=== PATIENT | female | born 1985 ===

== ENCOUNTER → 2020-10-15 13:10 | Outpatient (BNVA) | payer MEDICAID, SELFPAY | PROVIDERS: PCP Internal Medicine; Visit Provider Obstetrics & Gynecology | DX: Z30.09 Encounter for other general counseling and advice on contraception (principal) | CPT/HCPCS: 99212 ==

== ENCOUNTER 2022-06-02 10:39 | Emergency (ER) | payer MEDICAID, SELFPAY ==
--- NOTE | 2022-06-02 | ECG_ITS ---
Test Reason : CHEST PAIN Blood Pressure : / mmHG Vent. Rate : 084 BPM Atrial Rate : 084 BPM P-R Int : 134 ms QRS Dur : 076 ms QT Int : 366 ms P-R-T Axes : 048 028 025 degrees QTc Int : 432 ms Normal sinus rhythm Normal ECG When compared with ECG of 19-FEB-2015 18:25, No significant change was found Referred By: Generic ED Physician Electronically Signed By:GABY VILLAFANA MD
--- NOTE | ~2022-06-02 | XR_ITS ---
EXAMINATION: XR CHEST CLINICAL INFORMATION: Chest pain. COMPARISON: 05/23/2016 chest radiographs. TECHNIQUE: 2 views of the chest were obtained. FINDINGS: No significant abnormality is noted involving the heart, lungs, mediastinum, bony thorax or soft tissues. XR/XR chest 2V IMPRESSION: No acute cardiopulmonary process.
[2022-06-02 10:42] VITALS: BP 133/74; PULSE 83; O2SAT 99
[2022-06-02 11:20] VITALS: BP 149/89; PULSE 82; RESP 20; TEMP 36.3; O2SAT 99; BMI 38.0
[2022-06-02] MEDS: Ondansetron ODT 4 MG TAB.RAPDIS TRANSLINGU (11:26)
[2022-06-02 17:35] LABS: MANUAL DIFF FLAG NO
[2022-06-02 17:37] LABS: Basophils Percent Auto 0.5 % (0-2); Eosinophils Percent Auto 0.2 % (0-4); Hematocrit 37.2 % (37.0-47.0); Hemoglobin 12.4 g/dl (12.0-16.0); Imm Gran Abs Auto 0.01 X10*3/uL (0.00-0.03); Imm Gran Pct Auto 0.2 % (0.0-0.4); Lymphocytes Absolute Auto 1.5 X10*3/uL (1.2-4.9); Lymphocytes Percent Auto 35.6 % (20-40); Mean Corpuscular HGB Conc 33.3 g/dl (31.0-35.0); Mean Corpuscular Hemoglobin 29.2 pg (27.0-33.0); Mean Corpuscular Volume 87.5 fL (80.0-98.0); Mean Platelet Volume 9.9 fL (9.4-12.3); Monocytes Absolute Auto 0.4 X10*3/uL (0.1-1.2); Neutrophils Absolute Auto 2.4 x10*3/uL (2.0-8.3); Neutrophils Percent Auto 54.5 % (45-73); Platelet Count 303 X10*3/uL (160-400); Red Blood Count 4.25 X10*6/uL (4.20-5.50); Red Cell Distribution Width 14.2 % (11.0-16.0); White Blood Count 4.3 X10*3/uL (4.8-10.8)
[2022-06-02 17:55] LABS: Anion Gap 16 (12-20); Blood Urea Nitrogen 7 mg/dL (9-16); Calcium 9.3 mg/dL (8.4-10.2); Carbon Dioxide 22 mmol/L (22-29); Chloride 107 mmol/L (96-108); Creatinine Clr Calc Pharmacy 104.8; Estimated Glomerular Filt Rate > 60; Glucose Random 83 mg/dL (60-115); Sodium 141 mmol/L (135-145)
[2022-06-02 18:02] LABS: Troponin-I High Sensitivity < 3.5 ng/L (<3.5-17.0)
== END 2022-06-02 22:45 | disposition left against medical advice (07) ==
PROVIDERS: Emergency Provider Emergency Medicine; PCP Internal Medicine
DX: R07.9 Chest pain, unspecified (principal); R11.10 Vomiting, unspecified; H53.8 Other visual disturbances; I10 Essential (primary) hypertension
CPT/HCPCS: 36415; 71046; 80048; 84484; 85025; 93005; 99281; 99283

== ENCOUNTER → 2022-07-08 09:39 | Outpatient (BNVA) | payer MEDICAID, SELFPAY | PROVIDERS: PCP Internal Medicine; Visit Provider Internal Medicine Cardiovascular Disease | DX: R07.9 Chest pain, unspecified (principal) | CPT/HCPCS: 99202 ==

== ENCOUNTER 2022-07-15 09:10 | Outpatient (REF) | payer MEDICAID, SELFPAY ==
[2022-07-15 09:59] LABS: Estimated Average Glucose 97 mg/dL; Hemoglobin A1C 112.8314 umol/L
[2022-07-15 10:25] LABS: Cholesterol 200 mg/dL; Glucose Fasting 121 mg/dL (60-99); HDL Cholesterol 62 mg/dL; LDL Cholesterol Calculated 114 mg/dl; Triglycerides 123 mg/dL
[2022-07-17 13:02] LABS: CRP High Sensitivity 4.7 mg/L
== END 2022-07-15 09:11 | disposition home or self-care (01) ==
LOC: HO.LAB 09:10
PROVIDERS: PCP Internal Medicine; Visit Provider Internal Medicine Cardiovascular Disease
DX: E78.5 Hyperlipidemia, unspecified (principal); I25.10 Atherosclerotic heart disease of native coronary artery without angina pectoris; I10 Essential (primary) hypertension
CPT/HCPCS: 36415; 80061; 82947; 83036; 86141

== ENCOUNTER → 2022-07-31 09:25 | Outpatient (REF) | payer MEDICAID, SELFPAY ==
--- NOTE | 2022-07-31 09:28 | CA_ITS ---
Acquisition Time: 2022-07-31 10:51:48 Total Exercise Time: 00:07:32 Test Indications: CP Medications: LISINOPRIL Protocol: MARQUISE Max HR: 160 BPM 86% of Pred: 185 BPM Max BP: 144/084 mmHG Max Work Load: 9.3 METS Exercise stress test with exrercise 7 min 32 sec of Marquise protocol, achieving 86% MPHR, 9.3 METS, with fatigue and request to stop, without anginal symptoms, without arrythmia, with normotensive response to exercise, without EKG changes meeting criteria for ischemia. Test reviewed with Dr Ruiz Referred By: Cain Bundy Overread By: GRACE MCLAIN
--- NOTE | 2022-07-31 09:28 | CA_ITS ---
Transthoracic Echocardiogram Patient (Last, First, Middle): Rena Marsh, Gender: Female Date of : 1985 Age: 36 Procedure Date: 07/31/2022 Procedure Type: Transthoracic Echocardiogram Location: OP Height: 149.86 cm Weight: 86.18 kg BSA: 1.80 m2 Heart Rate: bpm BP: 130 / 70 mmHg Reed Worker: TO Referring MD: Cain Bundy MD Symptoms: R07.9 - Chest pain, unspecified Study Quality: Fair/Contrast ECG Rhythm: Sinus Conclusions: - The left ventricular systolic function is normal. The calculated ejection fraction is 61% by biplane method. - No obvious valvular pathology seen on this study. Findings Procedure Information Contrast agent, definity, is being given per protocol without apparent complications. Left Ventricle Normal left ventricular cavity size. There is normal left ventricular wall thickness. The left ventricular systolic function is normal. The calculated ejection fraction is 61% by biplane method. There is no evidence of regional wall motion abnormalities. Diastolic function is normal for age. Right Ventricle Normal right ventricular cavity size and systolic function. Atria Both atria are normal in size. Aortic Valve There is a normal trileaflet aortic valve. There is no aortic valve stenosis. There is no aortic valve regurgitation. Mitral Valve The mitral valve appears normal. There is trace mitral valve regurgitation. There is no mitral valve stenosis. Pulmonic Valve The pulmonic valve is likely normal. Tricuspid Valve Normal tricuspid valve structure. There is trace tricuspid valve regurgitation. There is no evidence of pulmonary hypertension. Great Vessels The asc aorta is normal in size. Venous The inferior vena cava is normal in size and collapses greater than 50% with inspiration. Pericardium/Pleural There is a trivial pericardial effusion. Prior Study Comparison No prior study available for comparison. Recommendations, Care & Conclusions No obvious valvular pathology seen on this study. Measurements 2D Linear Measurements IVSd: 0.98 0.6-0.9/0.6-1.0 cm LVIDd: 4.42 3.9-5.3/4.2-5.9 cm LVIDd Index: 2.46 2.4-3.2/2.2-3.1 cm/m2 LVIDs: 2.89 2.0-3.6 cm LVPWd: 0.83 0.7-1.1 cm LA Diam: 3.40 2.7-3.8/3.0-4.0 cm LAIDs Index: 1.89 1.5-2.3 cm/m2 LV Mass: 160.95 67-162/88-224 g LV Mass Index: 89.41 43-95/49-115 g/m2 LVOT Diam: 2.00 3.0+(-)1.3 cm 2D Systolic Function EF 4C: 62.80 >55% EF 2C: 59.70 >55% EF BiP: 60.70 >55% Mitral Valve MV Pk E: 0.76 MV PK A: 0.52 MV Decel Time: 201.00 E/A: 1.50 E'Lateral: 11.40 E'Medial: 7.62 E/E' Med: 10.00 E/E' Lat: 6.70 PHT: 59.00 MVA PHT: 3.73 Decel Tarrant: 3.79 Aortic Valve AoV Pk Zack: 1.21 AoV Mn Zack: 0.86 AoV VTI: 0.27 AoV Pk Grad: 6.00 Aov Mn Grad: 3.00 LUIGI Cont.VTI: 2.43 LVOT LVOT Pk Zack: 1.06 LVOT Mn Zack: 0.69 LVOT VTI: 0.21 LVOT Pk Grad: 4.00 LVOT Mn Grad: 2.00 LVOT Diam: 2.00 LVOT Area: 3.14 Diastolic Function MV Pk E: 0.76 MV Pk A: 0.52 E/A: 1.50 E'Medial: 7.62 E/E' Med: 10.00 E' Laterial: 11.40 E/E' Lat: 6.70 Right Ventricle TAPSE (mm): 19.20 TVS' Zack: 11.70 Tricuspid Valve TR Pk Zack: 1.79 TR Pk Grad: 13.00 RA Press: 3.00 RVSP: 16.00 Great Vessels Aorta Sinus of Valsalva: 2.70 2.0-3.5 cm Ao Asc: 2.40 2.1-3.4 cm Updated in Other Vendor System with Status of Final Sharad Ruiz MD electronically signed on 08/01/2022 3:27:04 PM with status of Final
== END ==
LOC: HO.CARD 09:25
PROVIDERS: PCP Internal Medicine; Visit Provider Internal Medicine Cardiovascular Disease
DX: R07.9 Chest pain, unspecified (principal)
CPT/HCPCS: 93017; 93306; Q9957

== ENCOUNTER → 2022-08-19 10:11 | Outpatient (BNVA) | payer MEDICAID, SELFPAY | PROVIDERS: PCP Internal Medicine; Referring Provider Internal Medicine; Visit Provider Internal Medicine Cardiovascular Disease | DX: I10 Essential (primary) hypertension (principal) | CPT/HCPCS: 99212 ==

== ENCOUNTER → 2023-02-22 11:27 | Outpatient (BNVA) | payer MEDICAID, SELFPAY | PROVIDERS: PCP Internal Medicine; Visit Provider Physician Assistant ==

== ENCOUNTER 2023-03-19 08:02 | Outpatient (AMB) | payer MEDICAID, SELFPAY ==
--- NOTE | 2023-03-19 10:08 | MHC.OFFVISWM ---
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 Allergies amoxicillin [AMOXICILLIN] Allergy (Unknown, Verified 03/19/23 10:09) UNKNOWN, hives aspirin [ASPIRIN] Allergy (Unknown, Verified 03/19/23 10:09) HIVES, rash ibuprofen [Motrin] Allergy (Unknown, Verified 03/19/23 10:09) unk lisinopril Adverse Reaction (Mild, Verified 03/19/23 10:09) Cough Medication List - Last Reconciled 03/19/23 by Barney Campbell MD [id number] 50-325-40 mg 1 - 2 tabs PO Q4H PRN ergocalciferol (vitamin D2) 1,250 mcg PO QWEEK valsartan 320 mg PO DAILY 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 HPI Details Start time: 10.00am, End time: 10.38am ?I spent 33 minutes speaking with the patient on the phone plus an additional 5 minutes reviewing and updating records for a total of 38 minutes HPI Comments History of Present Illness Details Previous weight loss efforts: self diet and exercise Wakes up: 7am, sleeps: 9pm Breakfast: skips Lunch: 12-1pm (rice, beans, chicken) Dinner: sometimes skips 7.30pm (same as lunch) Snacks: 4pm (brownie), or a protein bar Exercise: walking, has a home treadmill Fluids: coffee: 1 cup/day (creamer), tea: none, soda: none, juice: cranberry/apple juice, ETOH: none PFSH Medical History (Updated 03/19/23 @ 10:12 by Barney Campbell MD) Back pain Hx LEEP (loop electrosurgical excision procedure), cervix, Hypertension Migraines Morbid obesity Surgical History H/O abdominoplasty Hx of breast reduction, elective Family History Mother Hypertension Diabetes Maternal Grandmother No problems noted. Social History Alcohol intake: current Alcohol intake frequency: a few times a week Alcohol type: beer Female Reproductive History Menstrual Age of Menarche: 10 Assessment & Plan Assessment & Plan (1) Morbid obesity: Code(s): E66.01 - Morbid (severe) obesity due to excess calories Plan: 1.? Plan for lap sleeve gastrectomy. If diaphragmatic or ventral hernias are present at time of surgery, these will be repaired laparoscopically as well. Risks and complications were discussed in detail including possible conversion to an open procedure, anastomotic leak, bleeding requiring transfusion, small bowel obstruction, , DVT and pulmonary embolism, cardiac, or pulmonary complications, as senior care complications such as anastomotic ulcer, insufficient weight loss and vitamin deficiencies. I emphasized the importance of close follow-up, adherence to instructions and good communication. 2. Nutritional counseling. Start with ONE plant-based organic Orgain protein (buy at [employer], [employer], [employer], [employer]) shakes (HALF scoop in 8oz low fat unsweetened almond milk each) at 8am-10am, another Orgain protein shake (ONE scoop in 8oz almond milk) at 11am-1pm, 1 protein bar (Zone Perfect protein bars, buy at [employer], ?[employer], [employer], or [employer]) at 2pm-4pm, dinner at 5pm (8 forks of protein and 8 forks of salad/vegetables) and one more protein bar after dinner at 7pm-9pm. Meal to include lean meat (beef, fish, pork, turkey, chicken), or polish yogurt, or egg whites, or beans with a salad with olive oil and fruits (berries, pears, apples, kiwi). Avoid salt, breads, potatoes, rice, pasta, desserts. 3. Each shake would be drunk slowly, like coffee in a period of 2 hours. May add your coffee into the shakes if flavors match. 4. Cut each bar in 4 pieces and eat each piece in 30min ?to make each bar last 2 hours. 5. I emphasized the importance of measuring accurately the food portion and measure it when serving the food in plate 6. The meal portions include 8 full-size forks of meat and 8 full-size forks of salad. You always eat the meat portion but you can replace up to 4 forks for salad/vegetables with rice, potatoes or pasta, or a fruit ?if you like. The less you do it the better weight loss will be. 7. One full-size fork is what it can be scooped on the fork without falling aside and not what can be bit with the fork. Use regular forks like those you find in a typical restaurant. 8.? Please send me weight measurements as soon as possible and then once a week. Always include your diet and exercise plan. 9. Start treadmill with an incline of 2.0 and speed of 3.0. Increase incline by 1 every 3 min to a max incline of 8.0, stay 3min at 8.0 and then return to 2.0 and repeat same steps until calorie goal is met. Goal is to burn 2000 calories per week on exercise, which means either 300 calories daily, or 400 calories 5 days per week, or 500 calories 4 days per week, or 650 calories 3 days per week. 10.?It is important of avoiding and for at least 18 months postoperatively and has been discussed at the infosession. 11. Goal is to lose at least 1.5-2lbs per week 12. Goal to lose 10% of your weight before surgery, which is about 20lbs. Ultimate weight goal: 186lbs before surgery 13. Please follow the diet plan exactly without any change. If you don't like something about the plan or you feel hungry you need to communicate with me so I can help you revise the plan. You should not change the plan yourself. (2) Hypertension: Code(s): I10 - Essential (primary) hypertension Orders: Orders Vitamin B12 and Folate Today E66.01 - Morbid (severe) obesity due to excess calories, I10 - Essential (primary) hypertension Comprehensive Met. Panel Today E66.01 - Morbid (severe) obesity due to excess calories, I10 - Essential (primary) hypertension C Reactive Protein Today E66.01 - Morbid (severe) obesity due to excess calories, I10 - Essential (primary) hypertension Ferritin Today E66.01 - Morbid (severe) obesity due to excess calories, I10 - Essential (primary) hypertension Hemoglobin A1c Today E66.01 - Morbid (severe) obesity due to excess calories, I10 - Essential (primary) hypertension Insulin Today E66.01 - Morbid (severe) obesity due to excess calories, I10 - Essential (primary) hypertension IRON PROFILE Today E66.01 - Morbid (severe) obesity due to excess calories, I10 - Essential (primary) hypertension Lipid Panel Today E66.01 - Morbid (severe) obesity due to excess calories, I10 - Essential (primary) hypertension PTHI Today E66.01 - Morbid (severe) obesity due to excess calories, I10 - Essential (primary) hypertension TSH reflex Free T4 Today E66.01 - Morbid (severe) obesity due to excess calories, I10 - Essential (primary) hypertension Vitamin A Today E66.01 - Morbid (severe) obesity due to excess calories, I10 - Essential (primary) hypertension Vitamin B1 Today E66.01 - Morbid (severe) obesity due to excess calories, I10 - Essential (primary) hypertension Vitamin D 25-OH Total Today E66.01 - Morbid (severe) obesity due to excess calories, I10 - Essential (primary) hypertension Zinc Today E66.01 - Morbid (severe) obesity due to excess calories, I10 - Essential (primary) hypertension ECG 12 lead EKG Today E66.01 - Morbid (severe) obesity due to excess calories, I10 - Essential (primary) hypertension FL upper GI w air Today E66.01 - Morbid (severe) obesity due to excess calories, I10 - Essential (primary) hypertension Complete Blood Count Auto Diff Today E66.01 - Morbid (severe) obesity due to excess calories, I10 - Essential (primary) hypertension H Pylori Breath Test Today E66.01 - Morbid (severe) obesity due to excess calories, I10 - Essential (primary) hypertension US abdomen comp w elastography Today E66.01 - Morbid (severe) obesity due to excess calories, I10 - Essential (primary) hypertension XR chest 2V Today E66.01 - Morbid (severe) obesity due to excess calories, I10 - Essential (primary) hypertension Referrals Behavioral Health Referral E66.01 - Morbid (severe) obesity due to excess calories, I10 - Essential (primary) hypertension Nutrition/Dietitian Referral E66.01 - Morbid (severe) obesity due to excess calories, I10 - Essential (primary) hypertension Telehealth Telehealth Location of provider rendering services: practice address Location of patient: address on file Patient Identification confirmed using: Name, : Yes Telehealth method: voice only Patient verbally consented to treatment: Yes Patient verbally consented to billing insurance company: Yes Patient informed of any privacy concerns related to visit: Yes Minutes spent on Phone/Video with Pt.: 38 Coding Level of Care Code Tele New Pt Level 3 (22997) Diagnoses Morbid obesity E66.01 Hypertension I10 Time Spent (min) 38
[2023-03-19 10:16] VITALS: BMI 41.6
== END 2023-03-19 10:39 | disposition home or self-care (01) ==
PROVIDERS: PCP Internal Medicine; Visit Provider Surgery
DX: E66.01 Morbid (severe) obesity due to excess calories (principal); Z68.41 Body mass index [BMI] 40.0-44.9, adult
CPT/HCPCS: 99204

== ENCOUNTER → 2023-03-19 08:02 | Outpatient (BNVA) | payer MEDICAID, SELFPAY | PROVIDERS: PCP Internal Medicine; Visit Provider Surgery ==

== ENCOUNTER 2023-06-14 18:34 | Emergency (ER) | payer MEDICAID, SELFPAY ==
--- NOTE | ~2023-06-14 | XR_ITS ---
EXAMINATION: XR CHEST 2 VIEW CLINICAL INFORMATION: Cough COMPARISON: 06/02/2022 TECHNIQUE: PA and lateral views of the chest obtained. FINDINGS: The lungs are clear. There are no pleural effusions. The cardiomediastinal silhouette is normal. XR/XR chest 2V IMPRESSION: No acute cardiopulmonary disease.
--- NOTE | 2023-06-14 18:36 | ECG_ITS ---
Test Reason : CHEST PAIN Blood Pressure : / mmHG Vent. Rate : 084 BPM Atrial Rate : 084 BPM P-R Int : 146 ms QRS Dur : 076 ms QT Int : 356 ms P-R-T Axes : 037 012 009 degrees QTc Int : 420 ms Normal sinus rhythm Normal ECG When compared with ECG of 02-JUN-2022 11:23, No significant change was found Referred By: Generic ED Physician Electronically Signed By:GABY VILLAFANA MD
[2023-06-14 18:37] VITALS: BP 144/82; PULSE 95; RESP 16; TEMP 36; O2SAT 98; BMI 41.8
--- NOTE | 2023-06-14 18:37 | ED_ITS ---
HPI - General Adult General Chief complaint: Chest Pain Stated complaint: chest pain Time Seen by Provider: 06/14/23 19:55 Source: patient Mode of arrival: ambulatory Limitations: no limitations History of Present Illness HPI narrative: Patient is a 37 year old assigned female at with a history of HTN presenting to the emergency department today with persistent cough. Patient states that over the last 2 weeks she has had a persistent cough and pain in her chest after coughing. Patient denies any dizziness, lightheadedness, abdominal pain, nausea, vomiting, fever, chills, blurry vision, double vision, loss of vision, difficulty breathing, shortness of breath, back pain, night sweats, pain with urination, increased urinary frequency, increased urinary urgency, blood in her urine or stool, syncope or a near syncopal episode, recent trauma or falls, bowel incontinence, bladder incontinence, bowel retention, bladder retention, or any other complaints at this time. Onset (ago): week(s) (2) Severity: mild Severity scale (1-10): 3 Relieving factors: none Exacerbating factors: none Associated symptoms: cough Treatments prior to arrival: none Related Data Home Medications Medication Instructions Recorded Confirmed ergocalciferol (vitamin D2) 1,250 1,250 mcg PO QWEEK 10/15/20 03/19/23 mcg (50,000 unit) capsule sozdlcmyqi-dfrojrmaffbby-cbxhqjgj 1 - 2 tab PO Q4H PRN 08/19/22 03/19/23 50 mg-325 mg-40 mg tablet Previous Rx's Medication Instructions Recorded valsartan 320 mg tablet 320 mg PO DAILY #30 tabs 08/19/22 albuterol sulfate 90 mcg/actuation 1 inh inhalation QID PRN 06/14/23 aerosol inhaler bronchospasm #8.5 grams benzonatate 100 mg capsule 100 mg PO BID PRN cough 7 days #14 06/14/23 caps doxycycline hyclate 100 mg tablet 100 mg PO BID 7 days #14 tabs 06/14/23 prednisone 20 mg tablet 20 mg PO DAILY 7 days #7 tabs 06/14/23 Allergies Allergy/AdvReac Type Severity Reaction Status Date / Time amoxicillin [AMOXICILLIN] Allergy Unknown UNKNOWN, Verified 03/19/23 10:09 hives aspirin [ASPIRIN] Allergy Unknown HIVES, rash Verified 03/19/23 10:09 ibuprofen [Motrin] Allergy Unknown unk Verified 03/19/23 10:09 lisinopril AdvReac Mild Cough Verified 03/19/23 10:09 Review of Systems Constitutional: Constitutional: Reports no additional constitutional complaints, Denies chills, Denies fever(s) and Denies night sweats Eyes: Eyes: Reports no additional eye complaints, Denies blurry vision, Denies change in vision, Denies diplopia, Denies eye discharge, Denies loss of vision and Denies eye pain ENT: Denies dizziness Cardiovascular: Cardiovascular: Reports no additional cardiovascular complaints, Reports chest pain (after coughing), Denies lightheadedness, Denies Loss of Consciousness and Denies dyspnea Respiratory: Respiratory: Reports no additional respiratory complaints, Reports cough and Denies dyspnea Gastrointestinal: Gastrointestinal: Reports no additional gastrointestinal complaints, Denies abdominal pain, Denies melena, Denies hematochezia, Denies change in bowel habits and Denies change in stool character Genitourinary: Genitourinary: Denies hematuria, Denies urinary frequency, Denies dysuria, Denies urinary incontinence, Denies urinary hesitancy and Denies urinary urgency Musculoskeletal: Musculoskeletal: Reports no additional musculoskeletal complaints, Denies numbness and Denies tingling Neurologic: Denies dizziness, Denies loss of vision, Denies numbness and Denies tingling Psychiatric: Psychiatric: Reports no additional psychiatric complaints Endocrine: Endocrine: Reports no additional endocrine complaints Hematologic/Lymphatic: Hematologic/Lymphatic: Reports no additional hematologic/lymphatic complaints Allergic/Immunologic: Allergic/Immunologic: Reports no additional allergic/immunologic complaints [facility] Past Medical History Attestation statement: The following information was validated with the patient. Source: old records reviewed and nursing notes reviewed Medical History Chest pain Family planning Back pain Migraines Morbid obesity Hx LEEP (loop electrosurgical excision procedure), cervix, Hypertension Surgical History Hx of breast reduction, elective H/O abdominoplasty Family History Family History Mother Hypertension Diabetes Maternal Grandmother No problems noted. Social History Social History Alcohol intake: current Alcohol intake frequency: a few times a week Alcohol type: beer Advance Directives: No Advance Directives Information Provided: No Physical Exam ED Vital Signs: Vital Signs - 24 hr 06/14/23 18:37 06/14/23 19:56 Temperature 96.8 F 97.6 F Pulse Rate 95 74 Respiratory Rate 16 14 Blood Pressure 144/82 H 146/84 H Pulse Oximetry 98 100 Oxygen Delivery Method Room Air Room Air BMI result Body Mass Index 41.8 Const General: cooperative, no acute distress, alert and awake Nutritional Appearance: well nourished Orientation/consciousness: patient oriented x3 Limitations: no limitations HENMT Head: Yes normal to inspection and Yes atraumatic Ears: hearing grossly normal bilaterally and external ears normal General nose exam: Normal external nose present, no nasal discharge noted and no epistaxis Face and sinus: Yes normal facial exam, No abrasion and No laceration Mouth: Normal oral and palatal mucosa present, no drooling and no muffled voice Eyes General: appearance normal, both eyes and all related structures Periorbital: periorbital findings normal Eyelids: Yes eyelids normal Conjunctivae: conjunctivae normal Pupils: Equal, round and reactive pupils present EOM: EOMs intact bilaterally Neck Neck: Yes normal visual inspection, Yes full ROM and Yes no lymphadenopathy Chest Chest palpation & inspection: normal inspection of the chest Resp Effort & Inspection: normal respiratory effort and able to speak in complete sentences Auscultation: clear to auscultation bilaterally Cardio Rate: regular rate Rhythm: regular rhythm GI Inspection: Yes normal to inspection Neuro General: patient oriented x3 and moves all extremities Cranial nerves: Yes Equal, round and reactive pupils present Cognition (Neuro): normal cognition Motor exam (neuro): 5/5 motor strength present throughout Sensory Exam: Normal double simultaneous stimulation for sensation Coordination: zipihr-pe-kvrp test normal Extrem General: Yes normal to inspection, Yes full ROM and Yes capillary refill normal Psych Appearance: grossly normal Mental Status: mental status grossly normal Affect: normal affect Attitude: cooperative Thought process: Normal thought process present Thought content: Normal thought content present Insight: Good insight present (Psych) Course Course Course Narrative: RME performed by Keeley Torres PA-C. Patient is a 37 year old assigned female at presenting to the emergency department with a cough and chest pain after coughing. Imaging and swabs ordered. Patient placed back in the waiting room pending room availability and results. Medical Decision Making Medical Decision Making [facility] Narrative: Patient is a 37 year old assigned female at with a history of HTN presenting to the emergency department today with a cough and chest pain after coughing. Patient's physical exam was unremarkable. Patient's chest x-ray showed no acute process. Patient's EKG was unremarkable. Patient's COVID/RSV/Influenza swabs were negative. I explained my physical exam findings as well as all test results to the patient. I answered all questions asked by the patient. I stressed the importance of the patient taking her medication as prescribed. I stressed the importance of the patient following up with her primary care provider. I stressed the importance of the patient returning to the emergency department immediately if her symptoms were to worsen or if she were to develop any dizziness, shortness of breath, difficulty breathing, chest pain, blurry vision, loss of vision, nausea, vomiting, abdominal pain, fever, chills, back pain, or any other complaints. Patient verbalized agreement and understanding with this treatment plan and discharge. Differential Diagnosis Differential Diagnoses: The differential diagnosis associated with the presentation includes COVID-19 Influenza Bronchitis PNA Lab Data [facility] Lab Attestation statement: I reviewed the patient's lab results. My interpretation of these studies and their corresponding values is that they are grossly normal. Labs: Lab Results 06/14/23 Range/Units 18:59 Influenza Type A (PCR) NEGATIVE (Negative) Influenza Type B (PCR) NEGATIVE (Negative) RSV RNA Qual (PCR) NEGATIVE (Negative) SARS-CoV-2 RNA (RT-PCR) NEGATIVE (Negative) Independent Interpretation I performed an independent interpretation of an: EKG and Plain X-Ray Interpretation: My interpretation is in agreement with the radiologist's impression of this imaging study. --------- EXAMINATION: XR CHEST 2 VIEW CLINICAL INFORMATION: Cough COMPARISON: 06/02/2022 TECHNIQUE: PA and lateral views of the chest obtained. FINDINGS: The lungs are clear. There are no pleural effusions. The cardiomediastinal silhouette is normal. XR/XR chest 2V IMPRESSION: No acute cardiopulmonary disease. Dictated By: Juan Diego Grier MD Signed By: Electronically signed by Juan Diego Grier MD 06/14/23 193 --- Vent. Rate: 084 BPM Atrial Rate: 084 BPM P-R Int: 146 ms QRS Dur: 076 ms QT Int: 356 ms P-R-T Axes: 037 012 009 degrees QTc Int: 420 ms Normal sinus rhythm Normal ECG When compared with ECG of 02-JUN-2022 11:23, No significant change was found DD/ [id number] Radiology Impression Discussion of test interpretation with radiology: I have reviewed the radio logist's reading. Radiologist Impression: My interpretation is in agreement with the radiologist's impression of this imaging study. EXAMINATION: XR CHEST 2 VIEW CLINICAL INFORMATION: Cough COMPARISON: 06/02/2022 TECHNIQUE: PA and lateral views of the chest obtained. FINDINGS: The lungs are clear. There are no pleural effusions. The cardiomediastinal silhouette is normal. XR/XR chest 2V IMPRESSION: No acute cardiopulmonary disease. Dictated By: Juan Diego Grier MD Signed By: Electronically signed by Juan Diego Grier MD 06/14/23 193 Prescription Management I considered prescription management with: Antibiotic (patient prescribed an antibiotic for bronchitis) Chronic Conditions Patient?s care impacted by: Hypertension Discharge Plan Discharge Clinical Impression: Bronchitis Patient Disposition: Home, Self-Care Instructions: Acute Bronchitis (ED) Additional Instructions: Follow up with your primary care provider. Return to the emergency department immediately if your symptoms worsen or if you develop any dizziness, shortness of breath, difficulty breathing, chest pain, blurry vision, loss of vision, nausea, vomiting, abdominal pain, fever, chills, back pain, or any other complaints. Prescriptions: New doxycycline hyclate 100 mg tablet 100 mg PO BID 7 Days Qty: 14 0RF prednisone 20 mg tablet 20 mg PO DAILY 7 Days Qty: 7 0RF benzonatate 100 mg capsule 100 mg PO BID PRN (Reason: cough) 7 Days Qty: 14 0RF albuterol sulfate 90 mcg/actuation HFA aerosol inhaler 1 inh inhalation QID PRN (Reason: bronchospasm) Qty: 8.5 0RF No Action ergocalciferol (vitamin D2) 1,250 mcg (50,000 unit) capsule 1,250 mcg PO QWEEK ucpmmioovu-aweedodswgqow-atxz 50-325-40 mg tablet 1 - 2 tab PO Q4H PRN valsartan 320 mg tablet 320 mg PO DAILY Qty: 30 2RF Referrals: Maryan Abernathy MD [Primary Care Provider] - Discharge Date/Time: 06/14/23 20:03 Print Language: Swazi
[2023-06-14 19:42] LABS: Influenza A PCR NEGATIVE (Negative); Influenza B PCR NEGATIVE (Negative); Resp Syncy Virus RNA Qual PCR NEGATIVE (Negative); SARS COV2 PCR INHOUSE NEGATIVE (Negative)
[2023-06-14 19:56] VITALS: BP 146/84; PULSE 74; RESP 14; TEMP 36.4; O2SAT 100
== END 2023-06-14 20:03 | disposition home or self-care (01) ==
LOC: HO.ED 20:02
PROVIDERS: Physician Assistant Medical; Emergency Provider Student in an Organized Health Care Education/Training Program; PCP Internal Medicine
DX: J40 Bronchitis, not specified as acute or chronic (principal); R05.3 Chronic cough; R07.9 Chest pain, unspecified; I10 Essential (primary) hypertension; Z79.899 Other long term (current) drug therapy; Z20.822 Contact with and (suspected) exposure to COVID-19; Z20.828 Contact with and (suspected) exposure to other viral communicable diseases
CPT/HCPCS: 0241U; 71046; 93005; 99283

== ENCOUNTER 2024-02-29 09:59 | Outpatient (AMB) | payer MEDICAID, SELFPAY ==
[2024-02-29 10:06] VITALS: BP 120/82; BMI 37.4
--- NOTE | 2024-02-29 10:06 | MHC.OFFVIS ---
Vital Signs 02/29/24 10:06 Height 4 ft 11 in Weight 185 lb BMI 37.4 BP 120/82 Intake Visit Reasons: 3 month/EMB/blood pressure check Single Corner Cutter Required: No Information Interpreted: non-clinical & clinical Civil Litigation Attorney: Civil Litigation Attorney Present (Denisse LEBLANC) Accompanied by: Self / Same As Patient Allergies amoxicillin [AMOXICILLIN] Allergy (Unknown, Verified 02/29/24 10:21) UNKNOWN, hives aspirin [ASPIRIN] Allergy (Unknown, Verified 02/29/24 10:21) HIVES, rash ibuprofen [Motrin] Allergy (Unknown, Verified 02/29/24 10:21) unk lisinopril Adverse Reaction (Mild, Verified 02/29/24 10:21) Cough HPI Comments Details: Presenting complaining of irregular heavy menstrual cycles associated with the passage of blood clots and pelvic cramping. Last co testing was many years ago [facility] Medical History Chest pain Family planning Back pain Migraines Morbid obesity Hx LEEP (loop electrosurgical excision procedure), cervix, Hypertension Surgical History Hx of breast reduction, elective H/O abdominoplasty Family History Mother Hypertension Diabetes Maternal Grandmother No problems noted. Social History Alcohol intake: current Alcohol intake frequency: a few times a week Alcohol type: beer Female Reproductive History Menstrual Age of Menarche: 10 Review of Systems Const All systems reviewed & are unremarkable except as noted in HPI and below Card Reports as per HPI Resp Reports as per HPI GI Reports as per HPI and Reports no additional complaints Reports as per HPI Physical Exam Vital Signs: Last Vital Signs BP 120/82 02/29/24 10:06 BMI result Body Mass Index 37.4 Const General: cooperative, healthy appearing and comfortable Chest Chest palpation & inspection: normal inspection of the chest and normal palpation of entire chest wall Breast/axilla inspection: normal inspection of the breasts and normal inspection of the axillae Breast/axilla palpation: normal palpation of the breasts, normal palpation of the axillae and no axillary lymphadenopathy Resp Effort & Inspection: normal respiratory effort Auscultation: clear to auscultation bilaterally Percussion: percussion normal Cardio Palpation: normal PMI Rate: regular rate Rhythm: regular rhythm Heart sounds: no murmurs and no rubs Peripheral pulses: Peripheral pulses 2+ throughout GI Inspection: Yes normal to inspection Palpation (GI): Soft to palpation, nontender, no guarding, not rigid and No hepatosplenomegaly present Percussion: Yes normal to percussion Auscultation: normal bowel sounds Rectal Exam - Female: deferred General: Yes bladder normal to palpation External Female Exam: No lesion Speculum Exam - Vagina: normal appearance of the vagina, normal palpation, normal vaginal discharge and not erythematous Speculum Exam - Cervix: normal appearance of the cervix and normal palpation Bimanual exam- vagina & uterus: normal bimanual exam, normal palpation, uterine size normal, bladder normal to palpation, consistency normal and normal palpation Bimanual Exam- Adnexa, other: normal adnexae, no masses and no tenderness Results AMB Test Urine AMB Test Urine Negative Last Edit by Denisse Booker CMA on 02/29/24 10:21 Assessment & Plan Assessment & Plan (1) Abnormal uterine bleeding (AUB): Code(s): N93.9 - Abnormal uterine and vaginal bleeding, unspecified Category: Medical Plan: Co testing done, GC and chlamydia taken CBC, TSH, prolactin, HCG, and pelvic ultrasound ordered. Discussed with the patient the different causes of abnormal bleeding including thyroid disorders, uterine and ovarian pathology, endometrial hyperplasia, carcinoma and other potential causes. Discussed with the patient the work up including CBC (to r/o anemia), TSH, prolactin, pelvic Ultrasound, endometrial biopsy to r/o endometrial pathology. All questions answered and the patient verbalized understanding. Instructed the patient to schedule an appointment for an endometrial biopsy in 2 weeks. Orders: Orders US pelvic and transvaginal Today N93.9 - Abnormal uterine and vaginal bleeding, unspecified AMB HCG Urine Test Today Z32.02 - Encounter for test, result negative TSH reflex Free T4 Today N93.9 - Abnormal uterine and vaginal bleeding, unspecified Prolactin Today N93.9 - Abnormal uterine and vaginal bleeding, unspecified HCG Quantitative Today N93.9 - Abnormal uterine and vaginal bleeding, unspecified Complete Blood Count no Diff Today N93.9 - Abnormal uterine and vaginal bleeding, unspecified Coding Level of Care Code Est Pt Level 3 (01311) Diagnoses Abnormal uterine bleeding (AUB) N93.9
== END 2024-02-29 10:45 | disposition home or self-care (01) ==
PROVIDERS: PCP Internal Medicine; Visit Provider Obstetrics & Gynecology
DX: Z32.02 Encounter for pregnancy test, result negative (principal); N93.9 Abnormal uterine and vaginal bleeding, unspecified
CPT/HCPCS: 99213

== ENCOUNTER 2024-02-29 09:59 | Outpatient (REF) | payer MEDICAID, SELFPAY ==
[2024-02-29 10:55] LABS: Hematocrit 36.6 % (37.0-47.0); Hemoglobin 12.8 g/dl (12.0-16.0); Mean Corpuscular Hemoglobin 30.8 pg (27.0-33.0); Mean Corpuscular Volume 88.2 fL (80.0-98.0); Mean Platelet Volume 9.9 fL (9.4-12.3); Platelet Count 252 X10*3/uL (160-400); Red Blood Count 4.15 X10*6/uL (4.20-5.50); Red Cell Distribution Width 13.3 % (11.0-16.0); White Blood Count 3.9 X10*3/uL (4.8-10.8)
[2024-02-29 12:02] LABS: HCG Quantitative < 2 mIU/mL; TSH reflex Free T4 1.15 uIU/mL (0.32-4.0)
[2024-03-01 08:14] LABS: Prolactin 9.3 ng/mL
== END 2024-02-29 10:00 | disposition home or self-care (01) ==
LOC: HO.LAB 09:59
PROVIDERS: Absent Provider Internal Medicine; PCP Internal Medicine; Visit Provider Obstetrics & Gynecology
DX: N93.9 Abnormal uterine and vaginal bleeding, unspecified (principal)
CPT/HCPCS: 36415; 81025; 84146; 84443; 84702; 85027; 99212

== ENCOUNTER 2024-02-29 10:55 | Outpatient (REF) | payer MEDICAID, SELFPAY ==
[2024-02-29 18:02] LABS: CT PCR NOT DETECTED (Not Detect.); NG PCR NOT DETECTED (Not Detect.)
[2024-03-02 14:53] LABS: HPV mRNA E6/E7 Not Detected (Not Detected)
== END 2024-02-29 10:56 | disposition home or self-care (01) ==
LOC: HO.LNP 10:55
PROVIDERS: Visit Provider Obstetrics & Gynecology
DX: N93.9 Abnormal uterine and vaginal bleeding, unspecified (principal)
CPT/HCPCS: 36415; 81025; 84146; 84443; 84702; 85027; 87491; 87591; 87624; 88175; 99212

== ENCOUNTER 2024-03-03 13:19 | Outpatient (REF) | payer MEDICAID, SELFPAY ==
--- NOTE | ~2024-03-03 | US_ITS ---
EXAM: Pelvic Ultrasound CLINICAL INDICATION: Abnormal bleeding COMPARISON: Pelvic ultrasound November 29, 2018 TECHNIQUE: The pelvis was evaluated using transabdominal and transvaginal imaging. FINDINGS: The uterus measures 9.5 x 5.1 x 5.8 cm in longitudinal by AP by transverse dimension. The endometrial stripe is not thickened and measures 0.6 cm. 2 small fibroids are noted, largest measuring approximately 1.4 cm. Nabothian cysts are noted within the cervix. The left ovary measures approximately 2.7 x 2.0 x 1.9 cm and is normal. The right ovary measures approximately 3.3 x 1.7 x 2.1 cm and is also normal. Spectral analysis reveals normal arterial and venous waveforms in the bilateral ovaries. There is a small amount of free fluid in the pelvis. US/US pelvic and transvaginal IMPRESSION: 1. Normal thickness endometrial stripe. 2. Two small uterine fibroids are noted. 3. Nabothian cysts of the cervix. 4. Small amount of free pelvic fluid, nonspecific but often physiologic in a patient of this age. Electronically signed by: Eren Jennings MD 03/23/2024 07:21 AM EDT
== END 2024-03-03 13:20 | disposition home or self-care (01) ==
LOC: HO.US 13:19
PROVIDERS: PCP Internal Medicine; Visit Provider Obstetrics & Gynecology
DX: N93.9 Abnormal uterine and vaginal bleeding, unspecified (principal)
CPT/HCPCS: 76830; 76856

== ENCOUNTER 2024-03-23 12:26 | Outpatient (AMB) | payer MEDICAID, SELFPAY ==
--- NOTE | 2024-03-23 12:41 | A.OFFVIS_ITS ---
Intake Visit Reasons: EMB Allergies amoxicillin [AMOXICILLIN] Allergy (Unknown, Verified 02/29/24 10:21) UNKNOWN, hives aspirin [ASPIRIN] Allergy (Unknown, Verified 02/29/24 10:21) HIVES, rash ibuprofen [Motrin] Allergy (Unknown, Verified 02/29/24 10:21) unk lisinopril Adverse Reaction (Mild, Verified 02/29/24 10:21) Cough HPI Comments Details: Presenting for EMB [facility] Medical History Chest pain Family planning Back pain Migraines Morbid obesity Hx LEEP (loop electrosurgical excision procedure), cervix, Hypertension Surgical History Hx of breast reduction, elective H/O abdominoplasty Family History Mother Hypertension Diabetes Maternal Grandmother No problems noted. Social History Alcohol intake: current Alcohol intake frequency: a few times a week Alcohol type: beer Female Reproductive History Menstrual Age of Menarche: 10 Office Procedures Endometrial Biopsy Details: The patient was counseled regarding the indication and benefits of endometrial sampling to rule out endometrial pathology including not limited to endometrial hyperplasia or endometrial cancer and others; The alternatives (Either do nothing vs. hysteroscopy D&C) & the risks were discussed with the patient including but not limited: pain, uterine perforation, bleeding, infection, possible injury to bladder, bowel, ureter, possible need for blood transfusion with all its possible risks. The patient verbalized understanding all questions answered and signed consent. Urine test done in the office was negative The patient was placed into the dorsal lithotomy position; a speculum was inserted in the vagina. Using aseptic technique for the procedure, the cervix was cleansed with Betadine. The anterior lip of the cervix was grasped with a single tooth tenaculum. The uterus was sounded to 7 cm with a 4 mm Pipelle was used. Tissues samples were obtained and placed in formalin, in a patient labeled container and sent to the pathology department. At the end of the procedure, there was minimal bleeding noted The patient tolerated the procedure well and was discharged in good condition with the following instructions: Nothing in the vagina until the bleeding stops. No sex until the bleeding stops, to call if any of the following occurs: fever (>100.4), flu-like symptoms, abdominal pain, heavy bleeding, four smelling vaginal discharge. The patient was instructed to schedule a Follow up appointment in 2 weeks to discuss pathology results of the biopsy and treatment options. This note was generated with a voice recognition program. Some errors may have been overlooked during the review of this note. Sometimes these errors may affect the content or meaning of a given sentence. [id number] Biopsy Assessment & Plan Assessment & Plan (1) Abnormal uterine bleeding (AUB): Code(s): N93.9 - Abnormal uterine and vaginal bleeding, unspecified Category: Medical Plan: EMB done, see procedure note Orders: Orders AMB Endometrial Biopsy Today N93.9 - Abnormal uterine and vaginal bleeding, unspecified Coding Level of Care Code Procedure Only Diagnoses Abnormal uterine bleeding (AUB) N93.9 CPT Codes Endometrial Biopsy - CPT: 80074-[id number] Biopsy ([id number])
== END 2024-03-23 12:52 | disposition home or self-care (01) ==
LOC: HO.HWS 12:26
PROVIDERS: PCP Internal Medicine; Visit Provider Obstetrics & Gynecology
DX: N93.9 Abnormal uterine and vaginal bleeding, unspecified (principal); Z32.02 Encounter for pregnancy test, result negative
CPT/HCPCS: 58100

== ENCOUNTER 2024-03-23 12:26 | Outpatient (REF) | payer MEDICAID, SELFPAY | END 2024-03-23 12:27 | disposition home or self-care (01) | LOC: HO.LAB 12:26 | PROVIDERS: PCP Internal Medicine; Visit Provider Obstetrics & Gynecology | DX: N93.9 Abnormal uterine and vaginal bleeding, unspecified (principal) | CPT/HCPCS: 58100; 81025; 88305 ==

== ENCOUNTER 2024-06-06 11:06 | Outpatient (AMB) | payer MEDICAID, SELFPAY ==
--- NOTE | 2024-06-06 11:06 | A.OFFVIS_ITS ---
Intake Visit Reasons: EMB results /u/s follow up Allergies amoxicillin [AMOXICILLIN] Allergy (Unknown, Verified 02/29/24 10:21) UNKNOWN, hives aspirin [ASPIRIN] Allergy (Unknown, Verified 02/29/24 10:21) HIVES, rash ibuprofen [Motrin] Allergy (Unknown, Verified 02/29/24 10:21) unk lisinopril Adverse Reaction (Mild, Verified 02/29/24 10:21) Cough HPI Comments Details: The patient scheduled a telehealth visit for follow-up to discuss the results of her abnormal uterine bleeding workup and options of treatment. The following workup was done.: H&H= 12.8/36.6 TSH, prolactin, hCG, GC and chlamydia were negative. Endometrial biopsy pathology showed the following: Secretory endometrium; no atypia or hyperplasia identified Co testing was done was negative. Pelvic ultrasound showed the following: The uterus measures 9.5 x 5.1 x 5.8 cm in longitudinal by AP by transverse dimension. The endometrial stripe is not thickened and measures 0.6 cm. 2 small fibroids are noted, largest measuring approximately 1.4 cm. Nabothian cysts are noted within the cervix. The left ovary measures approximately 2.7 x 2.0 x 1.9 cm and is normal. The right ovary measures approximately 3.3 x 1.7 x 2.1 cm and is also normal. Spectral analysis reveals normal arterial and venous waveforms in the bilateral ovaries. There is a small amount of free fluid in the pelvis. [facility] Medical History Chest pain Family planning Back pain Migraines Morbid obesity Hx LEEP (loop electrosurgical excision procedure), cervix, Hypertension Surgical History Hx of breast reduction, elective H/O abdominoplasty Family History Mother Hypertension Diabetes Maternal Grandmother No problems noted. Social History Alcohol intake: current Alcohol intake frequency: a few times a week Alcohol type: beer Female Reproductive History Menstrual Age of Menarche: 10 Review of Systems Const All systems reviewed & are unremarkable except as noted in HPI and below Reports as per HPI and Reports no additional complaints GI Reports no additional complaints Reports no additional complaints Telehealth Telehealth Telehealth Platform: Telephone Location of provider rendering services: practice address Location of patient: address on file Patient Identification confirmed using: Name, : Yes Telehealth method: video Patient verbally consented to treatment: Yes Patient verbally consented to billing insurance company: Yes Patient informed of any privacy concerns related to visit: Yes Assessment & Plan Assessment & Plan (1) Abnormal uterine bleeding (AUB): Code(s): N93.9 - Abnormal uterine and vaginal bleeding, unspecified Category: Medical Plan: Discussed with the patient the results of the work up done and options of t reatment including Lysteda, control pills, Mirena IUD, endometrial ablation and hysterectomy. All pros, cons, risks and benefits if each option was discussed with the patient and the patient decided to go ahead with Mirena IUD so a more detailed discussion about it was conducted including mechanism of action, risks (uterine perforation, infection, injury to bladder, bowel, displacement, and others) benefits (hypo menorrhea, amenorrhea, ...). GC/CT were taken and the patient was instructed to schedule Mirena IUD insertion on day 1- 5 of next cycle . All questions answered, the patient verbalized understanding I spent a total of 20 minutes reviewing the chart, talking to the patient via video and documenting in the medical record. Coding Level of Care Code Tele Est Pt Level 3 (92189) Diagnoses Abnormal uterine bleeding (AUB) N93.9
== END 2024-06-06 11:52 | disposition home or self-care (01) ==
LOC: HO.HWS 11:06
PROVIDERS: PCP Internal Medicine; Visit Provider Obstetrics & Gynecology
DX: N93.9 Abnormal uterine and vaginal bleeding, unspecified (principal)
CPT/HCPCS: 99213

== ENCOUNTER 2024-06-20 09:08 | Outpatient (REF) | payer MEDICAID, SELFPAY ==
--- NOTE | ~2024-06-20 | XR_ITS ---
EXAMINATION: XR CERVICAL SPINE XR THORACIC SPINE CLINICAL INDICATION: Chronic cervical and thoracic pain, no trauma. TECHNIQUE: 3 views of the cervical spine, 2 views of the thoracic spine. COMPARISON: None available. FINDINGS: CERVICAL SPINE: Cervical alignment and disc space heights are preserved. Mild spondylosis lower cervical spine and small calcification anterior to the C5-C6 disc space. THORACIC SPINE: Partially imaged cardiac silhouette difficult to evaluate but appears enlarged, but this may be due to extremely low lung volumes. Dedicated views of the chest recommended for further evaluation. Mild loss of height of adjacent mid to lower thoracic vertebral bodies with associated moderate degenerative changes. XR/XR thoracic spine 2V IMPRESSION: 1. Mild spondylosis lower cervical spine. 2. Mild loss of height of adjacent mid to lower thoracic vertebral bodies with associated moderate degenerative changes. 3. Partially imaged cardiac silhouette difficult to evaluate but appears enlarged, but this may be due to extremely low lung volumes. Dedicated views of the chest recommended for further evaluation. This study was presented today June 20, 2024 for interpretation. Stat results provided at this time as requested by referring provider. Electronically signed by: Radha Paulson MD 06/20/2024 01:30 PM [facility] [place]
--- NOTE | ~2024-06-20 | XR_ITS ---
EXAMINATION: XR CERVICAL SPINE XR THORACIC SPINE CLINICAL INDICATION: Chronic cervical and thoracic pain, no trauma. TECHNIQUE: 3 views of the cervical spine, 2 views of the thoracic spine. COMPARISON: None available. FINDINGS: CERVICAL SPINE: Cervical alignment and disc space heights are preserved. Mild spondylosis lower cervical spine and small calcification anterior to the C5-C6 disc space. THORACIC SPINE: Partially imaged cardiac silhouette difficult to evaluate but appears enlarged, but this may be due to extremely low lung volumes. Dedicated views of the chest recommended for further evaluation. Mild loss of height of adjacent mid to lower thoracic vertebral bodies with associated moderate degenerative changes. XR/XR cervical spine 3V IMPRESSION: 1. Mild spondylosis lower cervical spine. 2. Mild loss of height of adjacent mid to lower thoracic vertebral bodies with associated moderate degenerative changes. 3. Partially imaged cardiac silhouette difficult to evaluate but appears enlarged, but this may be due to extremely low lung volumes. Dedicated views of the chest recommended for further evaluation. This study was presented today June 20, 2024 for interpretation. Stat results provided at this time as requested by referring provider. Electronically signed by: Radha Paulson MD 06/20/2024 01:30 PM [facility] [place]
[2024-06-20 11:56] LABS: MANUAL DIFF FLAG NO
[2024-06-20 12:05] LABS: Basophils Percent Auto 0.6 % (0-2); Eosinophils Percent Auto 0.6 % (0-4); Hemoglobin 11.3 g/dl (12.0-16.0); Imm Gran Abs Auto 0.01 X10*3/uL (0.00-0.03); Imm Gran Pct Auto 0.3 % (0.0-0.4); Lymphocytes Absolute Auto 1.5 X10*3/uL (1.2-4.9); Lymphocytes Percent Auto 43.8 % (20-40); Mean Corpuscular HGB Conc 33.2 g/dl (31.0-35.0); Mean Corpuscular Hemoglobin 29.2 pg (27.0-33.0); Mean Corpuscular Volume 87.9 fL (80.0-98.0); Mean Platelet Volume 10.3 fL (9.4-12.3); Monocytes Absolute Auto 0.4 X10*3/uL (0.1-1.2); Monocytes Percent Auto 10.2 % (2-11); Neutrophils Absolute Auto 1.6 x10*3/uL (2.0-8.3); Neutrophils Percent Auto 44.5 % (45-73); Platelet Count 264 X10*3/uL (160-400); Red Blood Count 3.87 X10*6/uL (4.20-5.50); White Blood Count 3.5 X10*3/uL (4.8-10.8)
[2024-06-20 12:24] LABS: Alanine Aminotransferase 16 U/L (0-31); Alkaline Phosphatase 78 U/L (39-117); Anion Gap 11 (12-20); Aspartate Amino Transferase 21 U/L (5-31); Bilirubin Direct 0.1 mg/dL (0.0-0.5); Bilirubin Total 0.3 mg/dL (0.0-1.0); Blood Urea Nitrogen 8 mg/dL (9-16); Calcium 8.8 mg/dL (8.4-10.2); Carbon Dioxide 24 mmol/L (22-29); Chloride 107 mmol/L (96-108); Cholesterol 175 mg/dL (<200); Estimated Glomerular Filt Rate > 60; Glucose Random 91 mg/dL (60-115); HDL Cholesterol 55 mg/dL (>40); LDL Cholesterol Calculated 94 mg/dL (<100); Sodium 138 mmol/L (135-145); Total Protein 7.4 g/dL (6.5-8.0); Triglycerides 133 mg/dL (<150)
[2024-06-20 12:33] LABS: Estimated Average Glucose 108 mg/dL; Hemoglobin A1C 100.8394 umol/L; Hemoglobin A1c % 5.4 % (<6.0); Total Hemoglobin (HGBA1C) 2864.5827 umol/L
[2024-06-20 12:37] LABS: HIV AB/AG Nonreactive (Nonreactive); HIV Num 1 0.05 S/CO (0.00-0.99); ~HepC Num1 0.32 S/CO (0.00-0.79); ~Hepatitis C Antibody Nonreactive (Nonreactive)
[2024-06-20 12:41] LABS: TSH reflex Free T4 1.94 uIU/mL (0.32-4.0); Vitamin D 25-OH Total 16.7 ng/mL (>30)
== END 2024-06-20 09:09 | disposition home or self-care (01) ==
LOC: HO.HHCX 09:08
PROVIDERS: Internal Medicine; Visit Provider Nurse Practitioner Family
DX: R10.12 Left upper quadrant pain (principal); M54.2 Cervicalgia; M54.6 Pain in thoracic spine; Z00.00 Encounter for general adult medical examination without abnormal findings; Z11.4 Encounter for screening for human immunodeficiency virus [HIV]
CPT/HCPCS: 36415; 72040; 72070; 80053; 80061; 80076; 82248; 82306; 83036; 84443; 85025; 86803; 87389

== ENCOUNTER 2024-06-20 09:39 | Outpatient (REF) | payer MEDICAID, SELFPAY | END 2024-06-20 09:40 | disposition home or self-care (01) | LOC: HO.HHCL 09:39 | PROVIDERS: Visit Provider Nurse Practitioner Family | DX: Z13.89 Encounter for screening for other disorder (principal) ==

== ENCOUNTER 2024-07-09 21:10 | Emergency (ER) | payer MEDICAID, SELFPAY ==
--- NOTE | 2024-07-09 | ECG_ITS ---
Test Reason : CHEST PAIN Blood Pressure : / mmHG Vent. Rate : 084 BPM Atrial Rate : 084 BPM P-R Int : 152 ms QRS Dur : 076 ms QT Int : 356 ms P-R-T Axes : 037 017 019 degrees QTc Int : 420 ms Normal sinus rhythm Normal ECG No significant changes when compared with the previous EKG of 14 jun 2023 Referred By: Generic ED Physician Electronically Signed By:PRINCESS GOLD
--- NOTE | ~2024-07-09 | XR_ITS ---
EXAMINATION: XR CHEST CLINICAL INFORMATION: Chest pain. COMPARISON: Chest radiograph dated 06/14/2023. TECHNIQUE: Frontal view of the chest was obtained. FINDINGS: The lungs are clear. The cardiomediastinal silhouette is normal in size. There is no pleural effusion or pneumothorax. No acute osseous abnormality. XR/XR chest 1V IMPRESSION: No acute cardiopulmonary findings. Electronically signed by: Jesus Kay MD 07/09/2024 10:13 PM [facility]
[2024-07-09 21:24] VITALS: BP 108/50; PULSE 88; RESP 16; TEMP 37.1; O2SAT 98; BMI 38.4
[2024-07-09 21:24] LABS: MANUAL DIFF FLAG NO
[2024-07-09 21:25] LABS: Basophils Percent Auto 0.5 % (0-2); Eosinophils Absolute Auto 0.1 X10*3/uL (0.0-0.4); Eosinophils Percent Auto 0.9 % (0-4); Hematocrit 32.3 % (37.0-47.0); Hemoglobin 10.7 g/dl (12.0-16.0); Imm Gran Abs Auto 0.01 X10*3/uL (0.00-0.03); Imm Gran Pct Auto 0.2 % (0.0-0.4); Lymphocytes Absolute Auto 2.2 X10*3/uL (1.2-4.9); Lymphocytes Percent Auto 39.9 % (20-40); Mean Corpuscular HGB Conc 33.1 g/dl (31.0-35.0); Mean Corpuscular Hemoglobin 28.9 pg (27.0-33.0); Mean Corpuscular Volume 87.3 fL (80.0-98.0); Monocytes Absolute Auto 0.5 X10*3/uL (0.1-1.2); Monocytes Percent Auto 9.2 % (2-11); Neutrophils Absolute Auto 2.7 x10*3/uL (2.0-8.3); Neutrophils Percent Auto 49.3 % (45-73); Platelet Count 259 X10*3/uL (160-400); Red Cell Distribution Width 13.9 % (11.0-16.0); White Blood Count 5.5 X10*3/uL (4.8-10.8)
[2024-07-09 21:46] LABS: Alanine Aminotransferase 16 U/L (0-31); Alkaline Phosphatase 79 U/L (39-117); Anion Gap 11 (12-20); Aspartate Amino Transferase 20 U/L (5-31); Bilirubin Total 0.2 mg/dL (0.0-1.0); Blood Urea Nitrogen 13 mg/dL (9-16); Calcium 8.6 mg/dL (8.4-10.2); Carbon Dioxide 26 mmol/L (22-29); Chloride 106 mmol/L (96-108); Creatinine Clr Calc Pharmacy 94.1; Estimated Glomerular Filt Rate > 60; Glucose Random 89 mg/dL (60-115); HCG Quantitative < 2 mIU/mL; Sodium 139 mmol/L (135-145); Total Protein 7.6 g/dL (6.5-8.0); Troponin-I High Sensitivity < 2.7 ng/L (<3.5-17.0)
--- NOTE | 2024-07-09 22:30 | ED_ITS ---
HPI - Chest Pain General Chief Complaint: Chest Pain Stated Complaint: chest pain Time Seen by Provider: 07/09/24 22:29 Source: patient Mode of arrival: ambulatory Limitations: no limitations History of Present Illness ED Provider: HPI narrative: Patient no significant past medical history does have acid reflux for several months noticed pain in the mid sternum especially when she lays down which is going on for several months comes here as tonight while she lying down she has a pain again took Tylenol without much relief no nausea no vomiting no shortness a breath no diaphoresis no left-sided chest pain Related Data Home Medications ?Medication ?Instructions ?Recorded ?Confirmed ergocalciferol (vitamin D2) 1,250 1,250 mcg PO QWEEK 10/15/20 03/19/23 mcg (50,000 unit) capsule jhqufuawue-xbvgbfkjxrjys-sjdjboam 1 - 2 tab PO Q4H PRN 08/19/22 03/19/23 50 mg-325 mg-40 mg tablet Previous Rx's ?Medication ?Instructions ?Recorded valsartan 320 mg tablet 320 mg PO DAILY #30 tabs 08/19/22 albuterol sulfate 90 mcg/actuation 1 inh inhalation QID PRN 06/14/23 aerosol inhaler bronchospasm #8.5 grams benzonatate 100 mg capsule 100 mg PO BID PRN cough 7 days #14 06/14/23 caps doxycycline hyclate 100 mg tablet 100 mg PO BID 7 days #14 tabs 06/14/23 prednisone 20 mg tablet 20 mg PO DAILY 7 days #7 tabs 06/14/23 omeprazole 40 mg capsule,delayed 40 mg PO DAILY #30 caps 07/09/24 release sucralfate 1 gram tablet 1 g PO TID #90 tabs 07/09/24 Allergies Allergy/AdvReac Type Severity Reaction Status Date / Time amoxicillin [AMOXICILLIN] Allergy Unknown UNKNOWN, Verified 07/09/24 21:26 hives aspirin [ASPIRIN] Allergy Unknown HIVES, rash Verified 07/09/24 21:26 ibuprofen [Motrin] Allergy Unknown Hives Verified 07/09/24 21:26 lisinopril AdvReac Mild Cough Verified 07/09/24 21:26 Review of Systems 2 Review of Systems: Yes all other systems are reviewed and are negative PMFSH Past Medical History Medical History Chest pain Family planning Back pain Migraines Morbid obesity Hx LEEP (loop electrosurgical excision procedure), cervix, Hypertension Surgical History Hx of breast reduction, elective H/O abdominoplasty Family History Family History Mother Hypertension Diabetes Maternal Grandmother No problems noted. Social History Social History Alcohol intake: current Alcohol intake frequency: a few times a week Alcohol type: beer Advance Directives: No Advance Directives Information Provided: No Physical Exam 2 Vital Signs: Vital Signs: Last Vital Signs Temp 98.6 F 07/09/24 22:50 Pulse 81 07/09/24 22:50 Resp 16 07/09/24 22:50 BP 138/88 07/09/24 22:50 Pulse Ox 98 07/09/24 22:50 O2 Del Method Room Air 07/09/24 22:50 BMI result Body Mass Index 38.4 Appearance: Alert. Oriented X3. No acute distress. Eyes: No pallor or icterus ENT: Pharynx normal. Oral Mucosa moist Neck: Normal inspection. Neck supple. CVS: Normal heart rate and rhythm. Pulses normal. Respiratory: No respiratory distress. Equal air entry bilateral, no wheezing/rales/rhonchi Abdomen: Soft and mild epigastric tenderness Bowel sounds are present, no mass palpable, no CVA tenderness Skin: Skin warm and dry. Normal skin color. Normal skin turgor. Extremities: No lower extremity edema. No calf tenderness Neuro: Oriented X 3. No motor deficit. Medications Administered Discontinued Medications Generic Name Dose Route Start Last Admin Trade Name Freq PRN Reason Stop Dose Admin Omeprazole 40 mg 07/09/24 22:35 07/09/24 22:43 Omeprazole 40 Mg Capsule. PO 07/09/24 22:36 40 mg ONCE ONE Administration Medical Decision Making Medical Decision Making MDM Narrative: Patient with heart score of 0 with gastritis with pain in the epigastric area and mid sternum cardiac enzymes negative EKG without ischemic changes will discharge patient home advised to take Prilosec and sucralfate Differential Diagnosis Differential Diagnoses: The differential diagnosis associated with the presentation includes Lab Data MDM Lab Attestation statement: I reviewed the patient's lab results. 07/09/24 21:21 07/09/24 21:21 Labs: Lab Results 07/09/24 Range/Units 21:21 WBC 5.5 (4.8-10.8) X10*3/uL RBC 3.70 L (4.20-5.50) X10*6/uL Hgb 10.7 L (12.0-16.0) g/dl Hct 32.3 L (37.0-47.0) % MCV 87.3 (80.0-98.0) fL MCH 28.9 (27.0-33.0) pg MCHC 33.1 (31.0-35.0) g/dl RDW 13.9 (11.0-16.0) % Plt Count 259 (160-400) X10*3/uL MPV 9.0 L (9.4-12.3) fL Immature Gran % (Auto) 0.2 (0.0-0.4) % Neut % (Auto) 49.3 (45-73) % Lymph % (Auto) 39.9 (20-40) % [place] % (Auto) 9.2 (2-11) % Eos % (Auto) 0.9 (0-4) % Baso % (Auto) 0.5 (0-2) % Lymph # (Auto) 2.2 (1.2-4.9) X10*3/uL [place] # (Auto) 0.5 (0.1-1.2) X10*3/uL Eos # (Auto) 0.1 (0.0-0.4) X10*3/uL Baso # (Auto) 0.0 (0.0-0.2) X10*3/uL Abs Immat Gran (auto) 0.01 (0.00-0.03) X10*3/uL Absolute Neuts (auto) 2.7 (2.0-8.3) x10*3/uL Absolute Nucleated RBC 0.000 (0.0-0.012) X10*3/uL Nucleated RBC % (auto) 0.0 (0.0-0.2) /100WBC Sodium 139 (135-145) mmol/L Potassium 4.0 (3.3-5.1) mmol/L Chloride 106 (96-108) mmol/L Carbon Dioxide 26 (22-29) mmol/L Anion Gap 11 L (12-20) BUN 13 (9-16) mg/dL Creatinine 0.78 (0.5-1.4) mg/dL Estim Creat Clear Calc 94.1 Estimated GFR > 60 Random Glucose 89 (60-115) mg/dL Calcium 8.6 (8.4-10.2) mg/dL Total Bilirubin 0.2 (0.0-1.0) mg/dL AST 20 (5-31) U/L ALT 16 (0-31) U/L Alkaline Phosphatase 79 (39-117) U/L Troponin I High Sens < 2.7 (<3.5-17.0) ng/L Total Protein 7.6 (6.5-8.0) g/dL Albumin 4.0 (3.5-5.0) g/dL Beta HCG, Quant < 2 mIU/mL Independent Interpretation I performed an independent interpretation of an: EKG Interpretation: Normal sinus rhythm heart rate 84 beats per minute normal intervals normal axis no acute STT wave changes no acute ischemia Discharge Plan Discharge Clinical Impression: Chest pain due to gastrointestinal reflux disease Patient Disposition: Home, Self-Care Instructions: Gastroesophageal Reflux Disease (ED) Additional Instructions: Avoid fried and spicy food Take medication as prescribed Follow with your PCP Prescriptions: New sucralfate 1 gram tablet 1 g PO TID Qty: 90 0RF omeprazole 40 mg capsule,delayed release(DR/EC) 40 mg PO DAILY Qty: 30 0RF No Action doxycycline hyclate 100 mg tablet 100 mg PO BID 7 Days Qty: 14 0RF prednisone 20 mg tablet 20 mg PO DAILY 7 Days Qty: 7 0RF benzonatate 100 mg capsule 100 mg PO BID PRN (Reason: cough) 7 Days Qty: 14 0RF albuterol sulfate 90 mcg/actuation HFA aerosol inhaler 1 inh inhalation QID PRN (Reason: bronchospasm) Qty: 8.5 0RF ergocalciferol (vitamin D2) 1,250 mcg (50,000 unit) capsule 1,250 mcg PO QWEEK hqeocjplek-grgovmtacmbeg-rszl 50-325-40 mg tablet 1 - 2 tab PO Q4H PRN valsartan 320 mg tablet 320 mg PO DAILY Qty: 30 2RF Interventions: ED Discharge Assessment Last Done: 07/09/24 22:50 Discharge Date/Time: 07/09/24 22:51 Print Language: [place]
[2024-07-09] MEDS: Omeprazole 40 MG CAPSULE.DR PO (22:43)
[2024-07-09 22:50] VITALS: BP 138/88; PULSE 81; RESP 16; TEMP 37; O2SAT 98
== END 2024-07-09 22:51 | disposition home or self-care (01) ==
PROVIDERS: Emergency Provider Internal Medicine; PCP Internal Medicine
DX: R07.89 Other chest pain (principal); K21.9 Gastro-esophageal reflux disease without esophagitis; Z79.899 Other long term (current) drug therapy
CPT/HCPCS: 36415; 71045; 80053; 84484; 84702; 85025; 93005; 99283

== ENCOUNTER → 2024-07-09 21:17 | Outpatient (BNV) | payer MEDICAID, SELFPAY | PROVIDERS: Emergency Provider Internal Medicine; PCP Internal Medicine; Visit Provider Internal Medicine | DX: R07.9 Chest pain, unspecified (principal) | CPT/HCPCS: 93010 ==

== ENCOUNTER 2024-08-02 14:00 | Outpatient (REF) | payer MEDICAID, SELFPAY ==
--- NOTE | ~2024-08-02 | US_ITS ---
EXAMINATION: US THYROID CLINICAL INFORMATION: 5.5 cm firm mass, left occipital region.. COMPARISON: None available. TECHNIQUE: Linear transducer munguia-scale and color Doppler examination with attention to the occipital region. FINDINGS: Submitted for interpretation on August 07, 2024. No gross solid or cystic lesion. Small less than 6 mm lymph nodes in the left suboccipital region. US/US soft tiss head and/or neck IMPRESSION: No gross masses. Negative exam.. Electronically signed by: Jose Alfredo Khan MD 08/07/2024 10:04 AM [facility]
== END 2024-08-02 14:01 | disposition home or self-care (01) ==
LOC: HO.US 14:00
PROVIDERS: PCP Internal Medicine; Visit Provider Nurse Practitioner
DX: R22.0 Localized swelling, mass and lump, head (principal)
CPT/HCPCS: 76536

== ENCOUNTER → 2024-08-02 14:04 | Outpatient (BNV) | payer MEDICAID, SELFPAY | PROVIDERS: PCP Internal Medicine; Visit Provider Radiology Diagnostic Radiology | DX: R22.0 Localized swelling, mass and lump, head (principal) | CPT/HCPCS: 76536 ==

== ENCOUNTER → 2024-08-08 18:45 | Outpatient (BNV) | payer MEDICAID, SELFPAY | PROVIDERS: PCP Internal Medicine; Visit Provider Radiology Diagnostic Radiology | DX: M54.2 Cervicalgia (principal) | CPT/HCPCS: 72141 ==

== ENCOUNTER 2024-08-08 18:47 | Outpatient (REF) | payer MEDICAID, SELFPAY ==
--- NOTE | ~2024-08-08 | MR_ITS ---
CLINICAL HISTORY: persistent shooting pain MR cervical spine without intravenous contrast Comparison: CR/SR - XR CERVICAL SPINE 3V - 06/20/24 09:39 EST Bony alignment of the cervical vertebral bodies is anatomic. Bone marrow signal intensity is within normal limits. No fracture or bony contusion. Craniocervical junction is within normal limits. No cord signal abnormality. Area of fluid signal intensity seen in the expected location of the sella turcica. Disc height and hydration status is appropriate all levels. Central canal and neural foramina are widely patent throughout. Fluid arising from the left C5-6 facet joints posteriorly measuring 4 x 2 mm in size. There is a perineural cyst within the left C5-6 neural foramen. IMPRESSION: No acute findings. 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 Area of fluid signal intensity in the expected location of the pituitary gland. This is not adequately evaluated on this study. Dedicated MRI of the brain is suggested for further evaluation. This document has been electronically signed by: Davon Farmer MD on 08/09/2024 20:16:06
== END 2024-08-08 18:48 | disposition home or self-care (01) ==
LOC: HO.MRI 18:47
PROVIDERS: PCP Internal Medicine; Visit Provider Internal Medicine
DX: M54.2 Cervicalgia (principal)
CPT/HCPCS: 72141

== ENCOUNTER 2024-08-10 14:02 | Outpatient (AMB) | payer MEDICAID, SELFPAY ==
--- NOTE | 2024-08-10 14:31 | A.OFFVIS_ITS ---
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 Denies inciting injury, fall, trauma. 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 Reports the pain is never in the same place sometimes it will be in her neck sometimes in her shoulder sometimes in her mid to lower back Consistently she has had pain across her lower back near her ?waist ? Recent CT scan of her neck was reviewed, results as per below. Denies recent imaging of her lower back Denies radiation of the pain down either upper or lower extremity. She does endorse some fatigue for upper extremities with extensive use such as folding sheets or blankets. Her primary care ordered physical therapy should this has yet to be initiated. She has tried nonsteroidal anti-inflammatory medications, nkfn-dyh-apdkdmx medications, muscle relaxers, gabapentin all without improvement of her symptoms Denies red flag symptoms including new loss of bowel, bladder or saddle anesthesia Pain today is rated as an 8/10, varying at which time a day the pain is the most or least severe In terms of muscle damage condition is described as burning, aching, throbbing, sharp, tiring, exhausting Pain is negatively impacting patient's enjoyed life, general activity, sleep, ability to care for self, ability to function normally, recreational activities Denies current use of anticoagulants Denies implantable devices, pacemaker or defibrillator Denies current use of nicotine, tobacco, alcohol or illicit substances [facility] Medical History Chest pain Family planning Back pain Migraines Morbid obesity Hx LEEP (loop electrosurgical excision procedure), cervix, Hypertension Surgical History Hx of breast reduction, elective H/O abdominoplasty Family History Mother Hypertension Diabetes Maternal Grandmother No problems noted. Social History Alcohol intake: current Alcohol intake frequency: a few times a week Alcohol type: beer Female Reproductive History Menstrual Age of Menarche: 10 Review of Systems Const All systems reviewed & are unremarkable except as noted in HPI and below Physical Exam Vital Signs: Last Vital Signs Pulse 85 08/10/24 14:41 BP 133/68 08/10/24 14:41 Pulse Ox 97 08/10/24 14:41 Oxygen Delivery Method Room Air 08/10/24 14:41 BMI result Body Mass Index 40.2 General: awake, alert, oriented. Answers questions appropriately. Fully engaged in examination. Skin: warm, dry, intact HEENT: Normocephalic. Hearing intact. Cardiac: External chest normal in appearance. Respiratory: No cough, audible wheezing or stridor. Abdomen: without gross distension. MS: No obvious swelling or deformities. Able to stand on bilateral tiptoes and bilateral heels.? Able to transition from sit to stand unassisted. Ambulates with bilaterally normal heel strike and toe off Tender to palpation upper middle trapezius, left greater than right Tender to palpation midline lumbar vertebrae and lumbar paraspinal muscles Tender to palpation across the lumbar musculature Decreased lumbar range of motion SLR negative bilaterally Nontender over bilateral PSIS Neurological: Oriented to person, place, time and situation. Thought process intact. No gait abnormalities appreciated. Psychiatric: Appropriate mood and affect. Good judgment and insight. Results Reviewed Results Reviewed: XR CERVICAL SPINE 3V - 06/20/24 Bony alignment of the cervical vertebral bodies is anatomic. Bone marrow signal intensity is within normal limits. No fracture or bony contusion. Craniocervical junction is within normal limits. No cord signal abnormality. Area of fluid signal intensity seen in the expected location of the sella turcica. Disc height and hydration status is appropriate all levels. Central canal and neural foramina are widely patent throughout. Fluid arising from the left C5-6 facet joints posteriorly measuring 4 x 2 mm in size. There is a perineural cyst within the left C5-6 neural foramen. IMPRESSION: No acute findings. 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 Area of fluid signal intensity in the expected location of the pituitary gland. This is not adequately evaluated on this study. Dedicated MRI of the brain is suggested for further evaluation. Assessment & Plan Assessment & Plan (1) Myofascial muscle pain: Code(s): M79.18 - Myalgia, other site Category: Medical (2) Chronic back pain: Code(s): M54.9 - Dorsalgia, unspecified; G89.29 - Other chronic pain Category: Medical (3) Cervical spondylosis: Code(s): M47.812 - Spondylosis without myelopathy or radiculopathy, cervical region Category: Medical (4) Lumbar spondylosis: Code(s): M47.816 - Spondylosis without myelopathy or radiculopathy, lumbar region Category: Medical Plan X-ray lumbar spine cervical spine ordered for evaluation TENS unit ordered for home use. Given pamphlet and contact info for [facility] New prescription for tizanidine 2 mg p.o. 3 times daily as needed. Patient advised on cautions for use. May cause drowsiness. Discontinue methocarbamol prior to starting this medication. Continue with plan for physical therapy as ordered by primary care doctor. All questions and concerns were answered, patient agrees with the plan. Follow up after PT, sooner if needed Orders: Orders XR lumbar spine 4V min Today M54.9 - Dorsalgia, unspecified XR cervical spine w flex/ext Today M54.2 - Cervicalgia Medications: New tizanidine May cause drowsiness. Discontinue methocarbamol prior to starting this medication. 2 mg PO TID PRN 90 tabs 3RF muscle spasticity Coding Level of Care Code New Pt Level 4 (79314) Complex EM visit Add On G2211 Diagnoses Myofascial muscle pain M79.18 Chronic back pain M54.9; G89.29 Cervical spondylosis M47.812 Lumbar spondylosis M47.816
[2024-08-10 14:41] VITALS: BP 133/68; PULSE 85; O2SAT 97; BMI 40.2
== END 2024-08-10 15:09 | disposition home or self-care (01) ==
PROVIDERS: PCP Internal Medicine; Referring Provider Internal Medicine; Visit Provider Registered Nurse Emergency
DX: M79.18 Myalgia, other site (principal); M54.9 Dorsalgia, unspecified; G89.29 Other chronic pain; M47.812 Spondylosis without myelopathy or radiculopathy, cervical region; M47.816 Spondylosis without myelopathy or radiculopathy, lumbar region
CPT/HCPCS: 99204

== ENCOUNTER → 2024-08-10 14:02 | Outpatient (BNVA) | payer MEDICAID, SELFPAY | PROVIDERS: PCP Internal Medicine; Referring Provider Internal Medicine; Visit Provider Registered Nurse Emergency | DX: M79.18 Myalgia, other site (principal); G89.29 Other chronic pain; M47.812 Spondylosis without myelopathy or radiculopathy, cervical region; M47.816 Spondylosis without myelopathy or radiculopathy, lumbar region | CPT/HCPCS: 99212 ==

== ENCOUNTER 2024-08-15 14:08 | Outpatient (REF) | payer MEDICAID, SELFPAY ==
--- NOTE | ~2024-08-15 | XR_ITS ---
CLINICAL HISTORY: M54.2 - Cervicalgia 7 views cervical spine Comparison: CR/SR - XR CERVICAL SPINE 3V - 06/20/24 09:39 EST Findings: Mild marginal osteophyte formation is seen at C5 and C6. There is mild loss of anterior vertebral body height at C5, similar to prior exam. Alignment is within normal limits with no evidence of listhesis on flexion and extension. Prevertebral soft tissues within normal limits. IMPRESSION: Mild degenerative changes at C5 and C6. This document has been electronically signed by: Denise Esquivel on 08/16/2024 09:50:42
--- NOTE | ~2024-08-15 | XR_ITS ---
CLINICAL HISTORY: M54.9 - Dorsalgia, unspecified Exam: AP, lateral, spot lateral, and bilateral oblique views of the lumbar spine. Comparison: None. Findings: Minimal convex right mid lumbar curvature. Alignment is anatomic on the lateral view. No fracture. Disc space heights are well preserved. Facet joints are unremarkable. Incidental note is made of a presumed umbilical piercing. Impression: Minimal convex right mid lumbar curvature. Otherwise, negative lumbar spine radiographs. This document has been electronically signed by: Davon Farmer MD on 08/16/2024 05:21:34
== END 2024-08-15 14:09 | disposition home or self-care (01) ==
LOC: HO.XRAY 14:08
PROVIDERS: PCP Internal Medicine; Visit Provider Registered Nurse Emergency
DX: M54.9 Dorsalgia, unspecified (principal); M54.2 Cervicalgia
CPT/HCPCS: 72052; 72110

== ENCOUNTER → 2024-08-15 14:14 | Outpatient (BNV) | payer MEDICAID, SELFPAY | PROVIDERS: PCP Internal Medicine; Visit Provider Radiology Diagnostic Radiology | DX: M50.322 Other cervical disc degeneration at C5-C6 level (principal); M54.9 Dorsalgia, unspecified | CPT/HCPCS: 72052; 72110 ==

== ENCOUNTER 2024-08-24 09:53 | Outpatient (AMB) | payer MEDICAID, SELFPAY ==
--- NOTE | 2024-08-24 09:56 | A.OFFVIS_ITS ---
Vital Signs 08/24/24 09:56 Weight 200 lb Intake Visit Reasons: Xray results Allergies amoxicillin [AMOXICILLIN] Allergy (Unknown, Verified 08/24/24 09:57) UNKNOWN, hives aspirin [ASPIRIN] Allergy (Unknown, Verified 08/24/24 09:57) HIVES, rash ibuprofen [Motrin] Allergy (Unknown, Verified 08/24/24 09:57) Hives lisinopril Adverse Reaction (Mild, Verified 08/24/24 09:57) Cough Medication List - Last Reconciled 08/24/24 by Rebecca Reina LPN acetaminophen ER 650 mg PO Q8H PRN gabapentin 100 mg PO TID naproxen 500 mg PO BID omeprazole 40 mg PO DAILY semaglutide (weight loss) (Wegovy) mg subcut QWEEK sucralfate 1 g PO TID tizanidine 2 mg PO TID PRN valsartan 320 mg PO DAILY HPI Comments Details: Patient presents back to the office today for follow-up, review of recent x-rays X-rays reviewed, results as per below No improvement with tizanidine, reports it makes her feel like her joints are stiff Short-term relief with the TENS unit Still awaiting physical therapy, states they have not called to schedule Prior: Rena is a very pleasant 38-year-old female who presents to the office today for evaluation management of her chronic upper and lower back pain She has been suffering with this pain for many years. Denies inciting injury, fall, trauma. 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 Reports the pain is never in the same place sometimes it will be in her neck sometimes in her shoulder sometimes in her mid to lower back Consistently she has had pain across her lower back near her ?waist ? Recent CT scan of her neck was reviewed, results as per below. Denies recent imaging of her lower back Denies radiation of the pain down either upper or lower extremity. She does endorse some fatigue for upper extremities with extensive use such as folding sheets or blankets. Her primary care ordered physical therapy should this has yet to be initiated. She has tried nonsteroidal anti-inflammatory medications, larx-jyo-muebxlp medications, muscle relaxers, gabapentin all without improvement of her symptoms Denies red flag symptoms including new loss of bowel, bladder or saddle anesthesia Pain today is rated as an 8/10, varying at which time a day the pain is the most or least severe In terms of muscle damage condition is described as burning, aching, throbbing, sharp, tiring, exhausting Pain is negatively impacting patient's enjoyed life, general activity, sleep, ability to care for self, ability to function normally, recreational activities Denies current use of anticoagulants Denies implantable devices, pacemaker or defibrillator Denies current use of nicotine, tobacco, alcohol or illicit substances PFSH Medical History Chest pain Family planning Back pain Migraines Morbid obesity Hx LEEP (loop electrosurgical excision procedure), cervix, Hypertension Surgical History Hx of breast reduction, elective H/O abdominoplasty Family History Mother Hypertension Diabetes Maternal Grandmother No problems noted. Social History Alcohol intake: current Alcohol intake frequency: a few times a week Alcohol type: beer Female Reproductive History Menstrual Age of Menarche: 10 Review of Systems Const All systems reviewed & are unremarkable except as noted in HPI and below Physical Exam General: awake, alert, oriented. Answers questions appropriately. Fully engaged in examination. Skin: warm, dry, intact HEENT: Normocephalic. Hearing intact. Cardiac: External chest normal in appearance. Respiratory: No cough, audible wheezing or stridor. Abdomen: without gross distension. MS: No obvious swelling or deformities. Neurological: Oriented to person, place, time and situation. Thought process intact. No gait abnormalities appreciated. Psychiatric: Appropriate mood and affect. Good judgment and insight. Results Reviewed Results Reviewed: 08/16/24 XR Lumbar Spine Minimal convex right mid lumbar curvature. Alignment is anatomic on the lateral view. No fracture. Disc space heights are well preserved. Facet joints are unremarkable. Incidental note is made of a presumed umbilical piercing. Impression: Minimal convex right mid lumbar curvature. Otherwise, negative lumbar spine radiographs. 08/16/24 XR CERVICAL SPINE Findings: Mild marginal osteophyte formation is seen at C5 and C6. There is mild loss of anterior vertebral body height at C5, similar to prior exam. Alignment is within normal limits with no evidence of listhesis on flexion and extension. Prevertebral soft tissues within normal limits. IMPRESSION: Mild degenerative changes at C5 and C6. XR CERVICAL SPINE 3V - 06/20/24 Bony alignment of the cervical vertebral bodies is anatomic. Bone marrow signal intensity is within normal limits. No fracture or bony contusion. Craniocervical junction is within normal limits. No cord signal abnormality. Area of fluid signal intensity seen in the expected location of the sella turcica. Disc height and hydration status is appropriate all levels. Central canal and neural foramina are widely patent throughout. Fluid arising from the left C5-6 facet joints posteriorly measuring 4 x 2 mm in size. There is a perineural cyst within the left C5-6 neural foramen. IMPRESSION: No acute findings. 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 Area of fluid signal intensity in the expected location of the pituitary gland. This is not adequately evaluated on this study. Dedicated MRI of the brain is suggested for further evaluation. Assessment & Plan Assessment & Plan (1) Myofascial neck pain: Code(s): M54.2 - Cervicalgia Category: Medical (2) Myofascial muscle pain: Code(s): M79.18 - Myalgia, other site Category: Medical (3) Chronic back pain: Code(s): M54.9 - Dorsalgia, unspecified; G89.29 - Other chronic pain Category: Medical (4) Cervical spondylosis: Code(s): M47.812 - Spondylosis without myelopathy or radiculopathy, cervical region Category: Medical (5) Lumbar spondylosis: Code(s): M47.816 - Spondylosis without myelopathy or radiculopathy, lumbar region Category: Medical Plan X-rays reviewed, results as per above Order placed for PT eval and treat D/C tizanidine, new prescription for Baclofen 5mg po TID PRN C/W TENS unit as needed All questions and concerns were answered, patient agrees with the plan. Follow up after PT, sooner if needed Orders: Orders PT Evaluation and Treatment Today G89.29 - Other chronic pain, M47.812 - Spondylosis without myelopathy or radiculopathy, cervical region, M47.816 - Spondylosis without myelopathy or radiculopathy, lumbar region, M54.2 - Cervicalgia, M54.9 - Dorsalgia, unspecified, M79.18 - Myalgia, other site Medications: New baclofen Discontinue Tizanidine prior to starting this medication. My cause drowsiness. 5 mg PO TID 90 tabs 3RF Discontinued tizanidine May cause drowsiness. Discontinue methocarbamol prior to starting this medication. Discontinued Reason: Patient no longer taking 2 mg PO TID PRN 90 tabs 3RF muscle spasticity Coding Level of Care Code Est Pt Level 3 (07407) Complex EM visit Add On G2211 Diagnoses Myofascial neck pain M54.2 Myofascial muscle pain M79.18 Chronic back pain M54.9; G89.29 Cervical spondylosis M47.812 Lumbar spondylosis M47.816
--- OUTSIDE RECORDS SUMMARY | 2024-08-24 12:57 | XMS_ITS | Encounter Summary ---
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 Lily Chauhan MD [address] [place] [phone] Phone: tel: fax: Ignacio Noguera [address] [place] [address] [address] [place] [phone] Phone: tel: fax: Referral ID Status Reason Start Date Expiration Date Visits Requested Visits Authorized [id number] Authorized Specialty Services Required 08/21/2024 08/21/2025 1 1 Encounter Details Date Type Department Care Team (Late st Contact Info) Description 08/18/2024 Orders Only [facility] [address] [place] [phone] Lily Chauhan MD [address] [place] [address] [phone] Pituitary abnormality (CMS/HCC) (Primary Dx); Cyst of cervical facet joint Social History Tobacco Use Types Packs/Day Years Used Date Smoking Tobacco: Never Passive Smoke Exposure: Never Smokeless Tobacco: Never Alcohol Use Standard Drinks/Week Comments Never 0 (1 standard drink = 0.6 oz pur e alcohol) Depression Answer Date Recorded Patient Health Questionnaire-9 Score 3 05/22/2024 Patient Health Questionnaire-9 Score 3 05/22/2024 Last PHQ-9: Questionnaire Data Not on file 1 Housing Stability Answer Date Recorded What is your housing situation today? I have wilton schneider 11/03/[address] you li ve. Do you have problems with any of the following? None of the above 11/03/2023 Food Insecurity Answer Date Recorded Within the past 12 months, y ou worried that your food would run out before you got money to buy more: Never True 11/03/2023 Within the past 12 months,th e food you bought just didn't last and you didn't have enough money to get more: Never True 04/2024 Transportation Answer Date Recorded In the past 12 months, has l ack of transportation kept you from medical appts, meetings, work or from getting things needed for daily living? No 11/03/2023 Utilities Answer Date Recorded In the past 12 months, has t he electric, gas, oil or water company threatened to shut off services in your home? No 11/03/2023 Depression Answer Date Recorded Patient Health Questionnaire-2 Score 1 05/22/2024 Comments Unknown Sex and Gender Information Value Date Recorded Sex Assigned at Female 05/25/2022 10:17 AM EDT Legal Sex Female 10:17 AM EDT Gender Identity Female 05/25/2022 10:17 AM EDT Sexual Orientation Choose not to disclose 2021 10:17 AM EDT documented as of this encounter Plan of Treatment Upcoming Encounters Date Type Department Care Team (Late st Contact Info) Description 09/26/2024 11:30 AM EST Telemedicine [facility] [address] [place] [address] Lily Chauhan MD [address] [place] [address] Scheduled Referrals Name Type Priority Associated Diagnoses Orde r Schedule Referral to Neurosurgery Outpatient Referral Routine Pituitary abnormality (CMS/HCC) Cyst of cervical facet joint Expected: 08/18/2024 (Approximate), Expires: 08/18/2025 documented as of this encounter Visit Diagnoses Diagnosis Pituitary abnormality (CMS/HCC)- Primary Cyst of cervical facet joint documented in this encounter Additional Health Concerns Assessment Noted Time PHQ-9 Depression Total Score: 3 05/22/20 24 1:05 PM EDT documented as of this encounter Care Teams Marketing Analytics Manager Relationship Specialty Start Date End Date Lily Chauhan MD [address] [place] [id number] PCP - General Family Medicine 04/06/18 Neida Riojas Farm RancherDirector Content Marketing 12/21/23 documented as of this encounter
--- OUTSIDE RECORDS SUMMARY | 2024-08-24 12:57 | XMS_ITS | Encounter Summary ---
Author Organization [employer] Address [address] [place] [address] 7 [place] [address] Care Team Providers Care Cloud Operations Engineer Name Role Phone Lily Chauhan MD Primary Care Provide r Reason for Visit * Reason Onset Date Comments Prior Authorization 08/22/2024 Encounter Details Date Type Department Care Team ([facility] Contact Info) Description 08/22/2024 Telephone [facility] [address] [place] [address] Lily Chauhan MD [address] [place] [address] Prior Authorization Social History Tobacco Use Types Packs/Day Years [...] AM EDT documented as of this encounter Miscellaneous Notes * Telephone Encounter - Erica Vernon - 08/22/2024 9:11 AM EST Tc from pt stating script for Tirzepatide-Weight Management (Zepbound) 2.5 MG/0.5ML solution auto-injector requires a prior authorization documented in this encounter Plan of Treatment Upcoming Encounters Date Type Department Care Team (Late st Contact Info) Description 09/26/2024 11:30 AM EST Telemedicine [facility] [address] [place] [phone] Lily Chauhan MD [address] [place] [address] documented as of this encounter Visit Diagnoses Not on filedocumented in this encounter Additional Health Concerns Assessment Noted Time PHQ-9 Depression Total Score: 3 05/22/20 24 1:05 PM EDT documented as of this encounter Care Teams Cloud Operations Engineer Relationship Specialty Start Date End Date Lily Chauhan MD [address] [place] [address] [phone] PCP - General Family Medicine 04/06/18 Neida Riojas Flaking Roll OperatorLacer And Tier 12/21/23 documented as of this encounter
--- OUTSIDE RECORDS SUMMARY | 2024-08-24 12:57 | XMS_ITS | Encounter Summary ---
Author Organization [employer] Address [address] [place] [address] [address] [place] [address] Care Team Providers Care Back Strip Machine Operator Name Role Phone Lily Chauhan MD Primary Care Provide r Reason for Visit * Reason Comments Med Refill Encounter Details Date Type Department Care Team ([facility] st Contact Info) Description 05/15/2024 Refill [facility] [address] [place] [address] Lily Chauhan MD [address] [place] [address] Essential hypertension Social History Tobacco Use Types Packs/Day Years Used Date Smoking Tobacco: Never Passive Smoke Exposure: Never Smokeless Tobacco: Never Alcohol Use Standard Drinks/Week Comments Never 0 (1 standard drink = 0.6 oz pur e alcohol) Depression Answer Date Recorded Patient Health Questionnaire-9 Score 0 11/15/2023 Patient Health Questionnaire-9 Score 0 11/15/2023 Last PHQ-9: Questionnaire Data Not on file 0 11/15/2023 Housing Stability Answer Date Recorded What is your housing situation today? I have wiltonjessica schneider 11/03/[address] you [...] Answer Date Recorded Patient Health Questionnaire-2 Score 0 11/15/2023 Comments Unknown Sex and Gender Information Value [...] Info) Description 09/26/2024 11:30 AM EST Telemedicine [facility] [address] [place] [address] Lily Chauhan MD [address] [place] [address] documented as of this encounter Visit Diagnoses Diagnosis Essential hypertension Unspecified essential hypertension documented in this encounter Additional Health Concerns Assessment Noted Time PHQ-9 Depression Total Score: 0 11/15/19 24 10:46 AM EDT documented as of this encounter Care Teams Back Strip Machine Operator Relationship Specialty Start Date End Date Lily Chauhan MD [address] [place] [address] PCP - General Family Medicine 04/06/18 Neida Riojas Scientific WriterLip Cutter And Scorer 12/21/23 documented as of this encounter
--- OUTSIDE RECORDS SUMMARY | 2024-08-24 12:57 | XMS_ITS | Encounter Summary ---
Author Organization [employer] Address [address] [place] [address] [address] [place] [address] Care Team Providers Care Belt Back Operator Name Role Phone Lily Chuahan MD Primary Care Provide r Reason for Visit * Reason Onset Date Comments Results 08/18/2024 Encounter Details Date Type Department Care Team ([facility] st Contact Info) Description 08/18/2024 Telephone [facility] [address] [place] [address] Cee Oakes RN [address] [place] [address] Results Social History Tobacco Use Types Packs/Day Years [...] encounter Miscellaneous Notes * Telephone Encounter - Cee Oakes RN - 08/18/2024 3:44 PM EST Incoming call from patient. Patient informed of below results. Patient did not have any further questions/concerns. Patient is aware she will receive a letter in the mail regarding the referral or a call from the office. Patient to f/u PRN. ----- Message from Lily Burnette MD sent at 08/18/2024 2:41 PM EST ----- Please let patient know I reviewed her MR of her neck she has a cyst outside her cervical spine also turns some abnormality in the pituitary area possibly fluid I decided to refer her to neurosurgerylet patient know I am not concerned of any life-threatening condition thank you * Telephone Encounter - Cee Oakes RN - 08/18/2024 2:59 PM EST TC placed to patient [phone] in regards to below message. Patient did not answer, RN left requesting CB to red team nurses. RN will re-attempt Wednesday AM. ----- Message from Lily Burnette MD sent at 08/18/2024 2:41 PM EST ----- Please let patient know I reviewed her MR of her neck she has a cyst outside her cervical spine also turns some abnormality in the pituitary area possibly fluid I decided to refer her to neurosurgerylet patient know I am not concerned of any life-threatening condition thank you documented in this encounter Plan of Treatment Upcoming Encounters Date Type Department Care Team (Late st Contact Info) Description 09/26/2024 11:30 AM EST Telemedicine [facility] [address] [place] [address] Lily Chauhan MD [address] [place] [address] documented as of this encounter Visit Diagnoses Not on filedocumented in this encounter Additional Health Concerns Assessment Noted Time PHQ-9 Depression Total Score: 3 05/22/20 24 1:05 PM EDT documented as of this encounter Care Teams Belt Back Operator Relationship Specialty Start Date End Date Lily Chauhan MD [address] [place] [address] PCP - General Family Medicine 04/06/18 Neida Riojas Secondary TeacherPeoplesoft Crm Developer 12/21/23 documented as of this encounter
--- OUTSIDE RECORDS SUMMARY | 2024-08-24 12:57 | XMS_ITS | Encounter Summary ---
Author Organization [employer] Address [address] [place] [address] 7 [place] [address] Care Team Providers Care Lpn Rn Name Role Phone Lily Chauhan MD Primary Care Provide r Reason for Referral * Consultation (Routine) - Authorized Specialty Diagnoses / Procedures Referred By Contac t Referred To Contact Pain Medicine Diagnoses Neck pain Chronic midline low back pain without sciatica Lily Chauhan MD [address] [place] [address] Phone: tel: fax: [facility], [address] [place], [place] Phone: tel: fax: Referral ID Status Reason Start Date Expiration Date Visits Requested Visits Authorized [id number] Authorized Specialty Services Required 08/09/2024 08/09/2025 6 6 * Neurology (Routine) - Authorized Specialty Diagnoses / Procedures Referred By Contac t Referred To Contact Diagnoses Neck pain Bilateral arm pain Procedures Nerve conduction test Lily Chauhan MD [address] [place] [address] Phone: tel: fax: [facility] [address] [place] [address] Phone: tel: fax: Referral ID Status Reason Start Date Expiration Date V isits Requested Visits Authorized [id number] Authorized 08/07/2024 08/07/2025 1 1 * Imaging (Routine) - Closed Specialty Diagnoses / Procedures Referred By Contac t Referred To Contact Radiology Diagnoses Neck pain Procedures MR Cervical Spine w/o Contrast Lily Chauhan MD [address] [place] [address] Phone: tel: fax: [address] Phone: tel: fax: Referral ID Status Reason Start Date Expiration Date Visits Re quested Visits Authorized [id number] Closed 08/07/2024 08/07/2025 1 1 Reason for Visit * Reason Comments Neck Pain Encounter Details Date Type Department Care Team (Late st Contact Info) Description 08/07/2024 11:00 AM EST Office Visit [facility] [address] [place] [address] Lily Chauhan MD [address] [place] [address] Essential hypertension (Primary Dx); Neck pain; Bilateral arm pain; Chronic midline low back pain without sciatica; Neck pain Social History Tobacco Use Types Packs/Day Years [...] is your housing situation today? I have wilotn schneider 11/03/[address] you [...] AM EDT documented as of this encounter Last Filed Vital Signs Vital Sign Reading Time Taken Comments Blood Pressure 104/70 08/07/2024 11:15 AM EST Pulse 88 08/07/2024 11:15 AM EST Temperature 36.4 ??C (97.5 ??F) 08/07/2024 11:[address] Respiratory Rate 16 08/07/2024 11:15 AM EST Oxygen Saturation - - Inhaled Oxygen Concentration - - Weight 91.6 kg (202 lb) 08/07/2024 11:15 AM EST Height 149.9 cm (4' 11 ) 08/07/2024 11:15 AM EST Body Mass Index 40.8 08/07/2024 11:15 AM EST documented in this encounter Progress Notes * Lily Burnette MD - 08/07/2024 11:00 AM EST SUBJECTIVE: Rena aMrsh is a 38 y.o. year old female who presents for Follow up . Acute Concerns: Patient reports persistent neck pain that radiates sometimes to one of her arms or sometimes both of her arms, also reports can travel down her spine to her lower back, describes pain as burning and shooting sometimes and states it interferes with her regular activities, patient tearful today because she feels frustrated about this, US of neck reviewed, XRAYs reviewed Social History Social History Narrative Not on file Patient Active Problem List Diagnosis Blood in urine Chronic midline low back pain without sciatica Chronic thoracic back pain Essential hypertension Migraine with aura BMI 38.0-38.9,adult Exercise counseling Dietary counseling Sleep disturbance Neck pain Tubal ligation evaluation Blurry vision, bilateral Encounter for preventative adult health care examination Anxiety Seasonal allergies Abdominal pain, LUQ Atypical chest pain Bilateral arm pain Family History Problem Relation Name Age of Onset Diabetes Mother Asthma Mother Mental illness Father Hypertension Father Review of Systems Constitutional: Negative. HENT: Negative. Respiratory: Negative. Cardiovascular: Negative. Musculoskeletal: Positive for arthralgias, myalgias and neck pain. OBJECTIVE: Vitals: 08/07/24 1115 BP: 104/70 BP Location: Left arm Patient Position: Sitting BP Cuff Size: Large adult Pulse: 88 Resp: 16 Temp: 97.5 ??F (36.4 ??C) TempSrc: Oral Weight: 202 lb (91.6 kg) Height: 4' 11 (1.499 m) Physical Exam Constitutional: Appearance: Normal appearance. Cardiovascular: Rate and Rhythm: Normal rate and regular rhythm. Pulmonary: Effort: Pulmonary effort is normal. Breath sounds: Normal breath sounds. Abdominal: General: Abdomen is flat. Palpations: Abdomen is soft. Musculoskeletal: Cervical back: Spasms and tenderness present. Thoracic back: Spasms and tenderness present. Lumbar back: Spasms and tenderness present. Right lower leg: No edema. Left lower leg: No edema. Neurological: Mental Status: She is alert. Follow Up: Follow up for 4-6 weeks televisit neck piain (started gabapentin) . Current Outpatient Medications on File Prior to Visit Medication Sig Dispense Refill Blood Pressure kit Take blood pressure daily methocarbamol (Robaxin) 500 MG tablet Take 1.5 tablets (750 mg) by mouth 3 times daily for 14 days.63 tablet 0 Semaglutide-Weight Management (Wegovy) 0.25 MG/0.5ML solution auto-injector Inject 0.25 mg under the skin 1 (one) time per week. 2 mL 3 valsartan (Diovan) 160 MG tablet Take 2 tablets (320 mg) by mouth Once per day. 180 tablet 3 Ventolin HFA 108 (90 Base) MCG/ACT inhaler INHALE 1 PUFF 4 TIMES A DAY NEEDED FOR BRONCHOSPASM [DISCONTINUED] Acetaminophen Extra Strength 500 MG tablet TAKE 1 TABLET BY MOUTH EVERY 4 TO 6 HOURSAS NEEDED. DO NOT EXCEED 8 TABLETS / 24 HOURS 120 tablet 3 [DISCONTINUED] diclofenac (Voltaren) 50 MG EC tablet Take 1 tablet (50 mg) by mouth 2 times daily. Do not crush, chew, or split. 60 tablet 0 No current facility-administered medications on file prior to visit. Problem List Items Addressed This Visit Essential hypertension - Primary I advised: - Aerobic exercise to reduce BP. Initial goal of 30 min walk 3-5x/week. Increase as tolerated. - low-sodium diet (goal: <2g/day) and heart healthy diet such as DASH to reduce BP and prevent ASCVD. - Home BP monitoring 1-2 x day with goal of <140/90. - Seek immediate medical attention for chest pain, palpitations, SOB, syncope, or sudden changes inmental status. - Do not change or discontinue current prescriptions without first consulting health care provider Neck pain Patient will be contacted with results I will start patient on gabapentin 100mg Q 8hrs C/w acetaminophen and diclofenac PRN Relevant Medications gabapentin (Neurontin) 100 MG capsule diclofenac (Voltaren) 50 MG EC tablet Acetaminophen Extra Strength 500 MG tablet Other Relevant Orders MR Cervical Spine w/o Contrast Nerve conduction test Referral to Pain Medicine Bilateral arm pain Relevant Orders Nerve conduction test Chronic midline low back pain without sciatica Relevant Orders Referral to Pain Medicine documented in this encounter Miscellaneous Notes * Assessment & Plan Note - Lily Burnette MD - 08/07/2024 2:39 PM EST Associated Problem(s): Essential hypertension I advised: - Aerobic exercise to reduce BP. Initial goal of 30 min walk 3-5x/week. Increase as tolerated. - low-sodium diet (goal: <2g/day) and heart healthy diet such as DASH to reduce BP and prevent ASCVD. - Home BP monitoring 1-2 x day with goal of <140/90. - Seek immediate medical attention for chest pain, palpitations, SOB, syncope, or sudden changes inmental status. - Do not change or discontinue current prescriptions without first consulting health care provider * Assessment & Plan Note - Lily Burnette MD - 08/07/2024 2:39 PM EST Associated Problem(s): Neck pain Patient will be contacted with results I will start patient on gabapentin 100mg Q 8hrs C/w acetaminophen and diclofenac PRN documented in this encounter Plan of Treatment Upcoming Encounters Date Type Department Care Team (Late st Contact Info) Description 09/26/2024 11:30 AM EST Telemedicine [facility] [address] [place], [place] [phone] Lily Chauhan MD [address] [place] [address] Scheduled Orders Name Type Priority Associated Diagnoses Orde r Schedule Nerve conduction test Neurology Routine Neck pain Bilateral arm pain Expected: 08/07/2024 (Approximate), Expires: 08/07/2025 Scheduled Referrals Name Type Priority Associated Diagnoses Orde r Schedule Referral to Pain Medicine Outpatient Referral Routine Neck pain Chronic midline low back pain without sciatica Expected: 08/07/2024 (Approximate), Expires: 08/07/2025 documented as of this encounter Procedures Procedure Name Priority Date/Time Associated Diagnosis Comments MR CERVICAL SPINE WO CONTRAST Routine 08/09/2024 8:16 PM EST Neck pain documented in this encounter Results * MR Cervical Spine w/o Contrast (08/09/2024 8:16 PM EST) Anatomical Region Laterality Modality Spine, C-spine Magnetic Resonan ce 08/09/2024 8:16 PM EST Narrative 08/09/2024 8:18 PM EST ? [facility] ?[address] ?[place] [address] ? Magnetic Resonance Report ? Signed with Addenda ? Patient: Marsh,Rena ?MR#: [id number] ? : 1985 ?Acct:[id number] ? Age/Sex: 38 / F ?ADM Date: 08/08/24 ? Loc: HO.MRI ? Attending Dr: Lily Burnette MD ? Ordering Physician: Lily Chauhan MD ?? Date of Service: 08/08/24 ?? Procedure(s): MR cervical spine wo con ?? Accession Number(s): [id number] ? cc: Lily Chauhan MD ?ADDENDUM ?? This document has been electronically signed by: Davon Farmer MD on ?? 08/09/2024 20:16:06 ? ADDENDUM: ?? Receipt of this report by the clinical staff was confirmed with Samantha ?? PARISA Yousif Tech on Aug 09, 2024 21:31:00 EST. ? This document has been electronically signed by: Nancy Castano on ?? 08/09/2024 21:31:52 ? Addendum Dictated By: ?Davon Farmer MD ? Addendum Signed By: ? <Electronically signed by Davon Farmer MD in OV> ? 08/09/242132 ?? Addendum Cosigned By: ? DD/ ? TD/TT: 08/09/24 ? CLINICAL HISTORY: persistent shooting pain ? MR cervical spine without intravenous contrast ? Comparison: CR/SR - XR CERVICAL SPINE 3 - 06/20/24 09:39 EST ? Bony alignment of the cervical vertebral bodies is anatomic. ?? Bone marrow signal intensity is within normal limits. ?? No fracture or bony contusion. ?? Craniocervical junction is within normal limits. ?? No cord signal abnormality. ?? Area of fluid signal intensity seen in the expected location of the sella ?? turcica. ?? Disc height and hydration status is appropriate all levels. ?? Central canal and neural foramina are widely patent throughout. ?? Fluid arising from the left C5-6 facet joints posteriorly measuring 4 x 2 ?? mm in size. ?? There is a perineural cyst within the left C5-6 neural foramen. ? IMPRESSION: ?? No acute findings. ? 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 joint. ?? Area of fluid signal intensity in the expected location of the pituitary ?? gland. This is not adequately evaluated on this study. Dedicated MRI of ?? the brain is suggested for further evaluation. ? This document has been electronically signed by: Davon Farmer MD on ?? 08/09/2024 20:16:06 ? Dictated By: ?Davon Farmer MD ? Signed By: ?<Electronically signed by Davon Farmer MD in OV> ? 08/09/24 2017 ? DD/ 15 ? TD/TT: 01/15/25 2016 ? It Desktop Support Technician: ? Procedure Note Donotmaoter, Image - 08/09/2024 [place] [address] Magnetic Resonance Report Signed with Addenda Patient: Carola Marsh#: [id number] : 1985Acct:[id number] Age/Sex: 38 / FADM Date: 08/08/24 Loc: HO.MRI Attending Dr: Lily Burnette MD Ordering Physician: Lily Chauhan MD Date of Service: 08/08/24 Procedure(s): MR cervical spine wo con Accession Number(s): [id number] cc: Lily Chauhan MD ADDENDUM This document has been electronically signed by: Davon Farmer MD on 08/09/2024 20:16:06 ADDENDUM: Receipt of this report by the clinical staff was confirmed with Samantha Yousif screwhead stoner and polisher on Aug 09, 2024 21:31:00 EST. This document has been electronically signed by: Nancy Castano on 08/09/2024 21:31:52 Addendum Dictated By: Davon Farmer MD Addendum Signed By: <Electronically signed by MD Kandi in OV> 08/09/242132 Addendum Cosigned By: DD/ TD/TT: 08/09/24 CLINICAL HISTORY: persistent shooting pain MR cervical spine without intravenous contrast Comparison: CR/SR - XR CERVICAL SPINE 3V - 06/20/24 09:39 EST Bony alignment of the cervical vertebral bodies is anatomic. Bone marrow signal intensity is within normal limits. No fracture or bony contusion. Craniocervical junction is within normal limits. No cord signal abnormality. Area of fluid signal intensity seen in the expected location of the sella turcica. Disc height and hydration status is appropriate all levels. Central canal and neural foramina are widely patent throughout. Fluid arising from the left C5-6 facet joints posteriorly measuring 4 x 2 mm in size. There is a perineural cyst within the left C5-6 neural foramen. IMPRESSION: No acute findings. 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 Area of fluid signal intensity in the expected location of the pituitary gland. This is not adequately evaluated on this study. Dedicated MRI of the brain is suggested for further evaluation. This document has been electronically signed by: Davon Farmer MD on 08/09/2024 20:16:06 Dictated By: Davon Farmer MD Signed By: <Electronically signed by Davon Farmer MD in OV> 08/09/242016 DD/ 15 TD/TT: 08/09/242015 It Desktop Support Technician: Lily Burnette MD IMG MRI PROCEDURES Ed ited Result - Final documented in this encounter Visit Diagnoses Diagnosis Essential hypertension- Primary Unspecified essential hypertension Neck pain Cervicalgia Bilateral arm pain Chronic midline low back pain without sciatica documented in this encounter Additional Health Concerns Assessment Noted Time PHQ-9 Depression Total Score: 3 05/22/20 24 1:05 PM EDT documented as of this encounter Care Teams Lpn Rn Relationship Specialty Start Date End Date Lily Chauhan MD [address] [place] [phone] PCP - General Family Medicine 04/06/18 Neida Riojas Assistant Food Service ManagerRelations Director 12/21/23 documented as of this encounter
--- OUTSIDE RECORDS SUMMARY | 2024-08-24 12:57 | XMS_ITS | Encounter Summary ---
Author Organization [employer] Address [address] [facility] 7t [place] [address] Care Team Providers Care Dope Mixer Name Role Phone Lily Chauhan MD Primary Care Provide r Encounter Details Date Type Department Care Team ([facility] st Contact Info) Description 04/28/2024 Telephone [facility] [address] [place], [place] [phone] Julianne Soto RN [address] [place] [address] Social History Tobacco Use Types Packs/Day Years [...] Info) Description 09/26/2024 11:30 AM EST Telemedicine [facility] [address] [place] [address] Lily Chauhan MD [address] [place] [address] documented as of this encounter Visit Diagnoses Not on filedocumented in this encounter Additional Health Concerns Assessment Noted Time PHQ-9 Depression Total Score: 0 11/15/19 24 10:46 AM EDT documented as of this encounter Care Teams Dope Mixer Relationship Specialty Start Date End Date Lily Chauhan MD [address] [place] [phone] PCP - General Family Medicine 04/06/18 Neida Riojas Political Science Research AssistantCardroom Manager 12/21/23 documented as of this encounter
--- OUTSIDE RECORDS SUMMARY | 2024-08-24 12:57 | XMS_ITS | Encounter Summary ---
Author Organization [employer] Address [address] [facility] [address] 7[address] [place] [address] Care Team Providers Care Rag Boiler Name Role Phone Lily Chauhan MD Primary Care Provide r Encounter Details Date Type Department Care Team ([facility] st Contact Info) Description 05/11/2024 Orders Only [facility] [address] [place], [place] [phone] Provider, MD Gloria Social History Tobacco Use Types Packs/Day Years [...] Info) Description 09/26/2024 11:30 AM EST Telemedicine [facility] [address] [place] [address] [phone] Lily Chauhan MD [address] [place] [phone] documented as of this encounter Procedures Procedure Name Priority Date/Time Associated Diagnosis Comments HM PAP/HPV Routine 06/02/2019 2:16 PM EST documented in this encounter Results * HM PAP/HPV (06/02/2019 2:16 PM EST) us Historical Provider HEALTH MAINTENANCE Final Result documented in this encounter Visit Diagnoses Not on filedocumented in this encounter Additional Health Concerns Assessment Noted Time PHQ-9 Depression Total Score: 0 11/15/19 24 10:46 AM EDT documented as of this encounter Care Teams Rag Boiler Relationship Specialty Start Date End Date Lily Chauhan MD [address] [place] [phone] PCP - General Family Medicine 04/06/18 Neida Riojas Medical Physics TeacherPromotions Assistant Sales Marketing 12/21/23 documented as of this encounter
--- OUTSIDE RECORDS SUMMARY | 2024-08-24 12:57 | XMS_ITS | Encounter Summary ---
Author Organization [employer] Address [address] [facility] [address] [place] [address] Care Team Providers Care Oncology Coordinator Name Role Phone Lily Chauhan MD Primary Care Provide r Encounter Details Date Type Department Care Team (Latest Contact Info) Description 08/07/2024 Travel Social History Tobacco Use Types Packs/Day Years [...] Info) Description 09/26/2024 11:30 AM EST Telemedicine [facility] [address] [place] [address] Lily Chauhan MD [address] [place] [address] documented as of this encounter Visit Diagnoses Not on filedocumented in this encounter Additional Health Concerns Assessment Noted Time PHQ-9 Depression Total Score: 3 05/22/20 24 1:05 PM EDT documented as of this encounter Care Teams Oncology Coordinator Relationship Specialty Start Date End Date Lily Chauhan MD [address] [place] [address] [phone] PCP - General Family Medicine 04/06/18 Neida Riojas Shell Maker LockstitchFilter Press Operator 12/21/23 documented as of this encounter
--- OUTSIDE RECORDS SUMMARY | 2024-08-24 12:57 | XMS_ITS | Encounter Summary ---
Author Organization [employer] Address [address] [facility] 7t [place] [address] Care Team Providers Care Utilities Manager Name Role Phone Lily Chauhan MD Primary Care Provide r Reason for Visit * Reason Comments Med Refill Encounter Details Date Type Department Care Team ([facility] st Contact Info) Description 02/25/2024 Refill [facility] [address] [place] [phone] Dayday Pearce MD [address] [place] [address] Social History Tobacco Use Types Packs/Day Years [...] 11:30 AM EST Telemedicine [facility] [address] [place] [phone] Lily Chauhan MD [address] [place] [address] documented as of this encounter Visit Diagnoses Not on filedocumented in this encounter Additional Health Concerns Assessment Noted Time PHQ-9 Depression Total Score: 0 11/15/19 24 10:46 AM EDT documented as of this encounter Care Teams Utilities Manager Relationship Specialty Start Date End Date Lily Chauhan MD [address] [place] [address] PCP - General Family Medicine 04/06/18 Neida Riojas Inspector Paper ProductsTeam Assembly Line Machine Operator 12/21/23 documented as of this encounter
--- OUTSIDE RECORDS SUMMARY | 2024-08-24 12:58 | XMS_ITS | Clinical Summary ---
Author Organization [email or web address] Address [address] [facility] [address] [place] [address] Care Team Providers Care Blood Bank Technologist Name Role Phone Lily Chauhan MD Primary Care Provide r Allergies Active Allergy Reactions Criticality Noted Date Comments Ovidio Inhibitors Cough 09/16/2022 Amoxicillin High 12/09/2018 Other reaction(s): Hives / Skin Rash Aspirin 03/18/2015 Other reaction(s): stomach upset Medications * This document contains information received from the source organization and may not represent a complete record from that organization. Blood Pressure kit Take blood pressure daily Active Ventolin HFA 108 (90 Base) MCG/ACT inhaler INHALE 1 PUFF 4 TIMES A DAY NEEDED FOR BRONCHOSPASM 06/14/20 23 Active valsartan (Diovan) 160 MG tablet Take 2 tablets (320 mg) by mouth Once per day. 180 tablet 3 03/20/20 24 2024 Active methocarbamol (Robaxin) 500 MG tabletIndicati ons:Neck pain Take 1.5 tablets (750 mg) by mouth 3 times daily for 14 days. 63 tablet 07/21/20 24 Active gabapentin (Neurontin) 100 MG capsuleIndicat ions:Neck pain Take 3 capsules (300 mg) by mouth every 8 (eight) hours. 90 capsule 1 08/07/19 25 2025 Active diclofenac (Voltaren) 50 MG EC tabletIndicati ons:Neck pain Take 1 tablet (50 mg) by mouth 2 times daily. Do not crush, chew, or split. 60 tablet 08/07/19 25 2024 Active Acetaminophen Extra Strength 500 MG tabletIndicati ons:Neck pain Take 2 tablets (1,000 mg) by mouth every 8 (eight) hours if needed (for severe pain). TAKE 1 TABLET BY MOUTH EVERY 4 TO 6 HOURS NEEDED. DO NOT EXCEED 8 TABLETS / 24 HOURS 40 tablet 1 08/07/19 25 Active Tirzepatide-We ight Management (Zepbound) 2.5 MG/0.5ML solution auto-injectorI ndications:BMI 38.0-38.9,adul t Inject 0.5 mL (2.5 mg) under the skin 1 (one) time per week. 2 mL 08/11/19 25 Active Semaglutide-We ight Management (Wegovy) 0.25 MG/0.5ML solution auto-injector Inject 0.25 mg under the skin 1 (one) time per week. 2 mL 3 03/20/20 24 2024 Discontinued diclofenac (Voltaren) 50 MG EC tabletIndicati ons:Neck pain Take 1 tablet (50 mg) by mouth 2 times daily. Do not crush, chew, or split. 60 tablet 07/21/20 24 2024 Discontinued(R eorder (will not trigger notification to Pharmacy)) Acetaminophen Extra Strength 500 MG tabletIndicati ons:Migraine with aura and without status migrainosus, not intractable TAKE 1 TABLET BY MOUTH EVERY 4 TO 6 HOURS NEEDED. 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 Patient advised to take naproxen and Tylenol together to have a better effect at pain relief. Abdominal pain, LUQ 06/19/2024 Assessment & Plan (07/02/2024 3:42 PM EST): Educate patient on strengthening core and working on posture. Patient advised to take naproxen and Tylenol together to have a better effect at pain relief. Anxiety 11/15/2023 Assessment & Plan (11/16/2023 3:55 PM EDT): Take one tablet 1-2 hours before dental appointment Seasonal allergies 11/15/2023 Neck pain 11/06/2022 Assessment & Plan (08/07/2024 2:41 PM EST): Patient will be contacted with results I will start patient on gabapentin 100mg Q 8hrs C/w acetaminophen and diclofenac PRN Assessment & Plan (11/06/2022 11:00 AM EDT): Possible muscle spasm I will order XRAY tfor further investigation Cyclobenzaprine 5mg at bed time Alternate acetaminophen and ibuprofen PRN Apply heat on affected area Tubal ligation evaluation 11/06/2022 Blurry vision, bilateral 11/06/2022 Encounter for preventative adult health care exa mination 11/06/2022 Assessment & Plan (11/16/2023 3:55 PM EDT): See HPI Assessment & Plan (11/06/2022 11:03 AM EDT): Please refer to HPI next appointment will be for PAP smear Exercise counseling 09/16/2022 Dietary counseling 09/16/2022 Sleep disturbance 09/16/2022 Assessment & Plan (09/16/2022 12:46 PM EST): Sleep study pending. FU after sleep study. Chronic thoracic back pain 07/06/2022 Essential hypertension 07/06/2022 Assessment & Plan (08/07/2024 2:39 PM EST): I advised: - Aerobic exercise to reduce BP. Initial goal of 30 min walk 3-5x/week. Increase as tolerated. - low-sodium diet (goal: <2g/day) and heart healthy diet such as DASH to reduce BP and prevent ASCVD. - Home BP monitoring 1-2 x day with goal of <140/90. - Seek immediate medical attention for chest pain, palpitations, SOB, syncope, or sudden changes in mental status. - Do not change or discontinue current prescriptions without first consulting health care provider Assessment & Plan (11/16/2023 3:53 PM EDT): -I advise to take her blood pressure medication every day ill see her again on next upcoming appointment - Aerobic exercise to reduce BP. Initial goal of 30 min walk 3-5x/week. Increase as tolerated. - low-sodium diet (goal: <2g/day) and heart healthy diet such as DASH to reduce BP and prevent ASCVD. - Home BP monitoring 1-2 x day with goal of <140/90. - Seek immediate medical attention for chest pain, palpitations, SOB, syncope, or sudden changes in mental status. - Do not change or discontinue current prescriptions without first consulting health care provider Assessment & Plan (11/06/2022 11:00 AM EDT): - Aerobic exercise to reduce BP. Initial goal of 30 min walk 3-5x/week. Increase as tolerated. - low-sodium diet (goal: <2g/day) and heart healthy diet such as DASH to reduce BP and prevent ASCVD. - Home BP monitoring 1-2 x day with goal of <140/90. - Seek immediate medical attention for chest pain, palpitations, SOB, syncope, or sudden changes in mental status. - Do not change or discontinue current prescriptions without first consulting health care provider Assessment & Plan (09/16/2022 12:44 PM EST): BP is at goal. Pt did not tolerate ovidio-inhibitor due to cough. Continue valsartan 120mg Counseled re low salt diet/increase moderate physical activity. Check home BP BIW and prn CP/PENG/LICEA Non smoking patient. Assessment & Plan (08/05/2022 9:18 PM EST): Controlled, No change in meds Order sleep study to ro secondary HTN/sxs Of tiredness Migraine with aura 07/06/2022 Assessment & Plan (09/16/2022 12:44 PM EST): Uncontrolled. Increase amitriptylene to 25mg qhs. Counseled to take Tylenol early during aura symptoms and take Imitrex only for more severe pain. BMI 38.0-38.9,adult 07/06/2022 Assessment & Plan (09/16/2022 12:45 PM EST): I gave her information for weight reduction program at [facility]. Discussed re weight reduction options including exercise, life style modifications, diet, referral to clinical specialist. Discussed re lower calorie intake, increase dietary fiber Assessment & Plan (08/05/2022 9:19 PM EST): Counseled re Weight reduction, increase exercise to 20min/d Lower calorie intake Order labs Blood in urine 05/03/2018 Chronic midline low back pain without sciatica 1 Assessment & Plan (11/06/2022 11:01 AM EDT): XRAY ordered Medications as above Resolved Problems Problem Noted Date Diagnosed Date Resolved Date Class 3 severe obesity due t o excess calories with body mass index (BMI) of 40.0 to 44.9 in adult 11/15/2023 03/20/2024 Assessment & Plan (11/16/2023 3:54 PM EDT): I explained to patient ozempic will not be cover by insurance for weight loss, patient insisted and wants to try to pay out of pocket Today extensive discussion was done about life style modifications I advise healthy diet (low calorie) and cardiovascular exercise Body mass index (BMI) 40.0-44.9, adult 07/06/2022 03/20/2024 Encounters * This document contains information received from the source organization and may not represent a complete record from that organization. Date Type Department Care Team Description 08/22/2024 Telephone [facility] [address] [place] [id number] Lily hCauhan MD Prior Authorization 08/18/2024 Telephone [facility] [address] [place] [address] Cee Oakes RN Results 08/18/2024 Orders Only [facility] [address] [place] [phone] Lily Chauhan MD Pituitary abnormality (CMS/HCC) (Primary Dx); Cyst of cervical facet joint 08/11/2024 Orders Only [facility] [address] [place] [address] Lily Chauhan MD BMI 38.0-38.9,adult (Primary Dx) 08/11/2024 Refill [facility] [address] [place] [address] Samantha Mason, 08/07/2024 11:00 AM EST Office Visit [address] [address] Lily Chauhan MD Essential hypertension (Primary Dx); Neck pain; Bilateral arm pain; Chronic midline low back pain without sciatica; Neck pain 08/07/2024 Travel 07/23/2024 Refill [facility] [address] [place] [phone] Lily Chauhan MD Migraine with aura and without status migrainosus, not intractable 07/21/2024 9:00 AM EST Office Visit [address] [address] Maryellen Chin NP Neck pain (Primary Dx); Elevated blood pressure reading in office with diagnosis of hypertension; Mass of occipital region 07/21/2024 Travel 07/20/[address] [address] Lily Chauhan MD Appointment Request 07/18/[address] [phone] Diamond Mustafa ANP No Show 07/18/[address] [address] Lily Chauhan MD Nurse Triage 07/17/[address] [phone] Verito Carlson MA Provider Out 07/09/2024 Orders Only GENERIC EXTERNAL DATA DEPARTMENT Provider, Generic External Data 07/06/2024 Patient Outreach [address] [address] Lily Chauhan MD Pre-visit Planning ([facility] screening completed on 11/03/2023) 06/26/[address] [address] Lily Chauhan MD Nurse Triage 06/20/[address] [address] Lily Chauhan MD Results 06/19/2024 1:15 PM EST Office Visit [address] [address] Juanita Carl NP Abdominal pain, LUQ (Primary Dx); Atypical chest pain 06/19/[address] [address] Lily Chauhan MD Nurse Triage from Last 3 Months Immunizations Name Administration Dates Next Due HPV, Quadrivalent 07/07/2007 Hep A, Adult 11/16/2017,07/07/2007 Hep B, adult 11/16/2017,07/07/2007 MMR 11/16/2017,03/29/2008 Moderna Covid-19 Vaccine 12+ 10/04/2020,09/04/19 21 Pfizer Covid-19 Vaccine 12+ mayela-sucrose (Mejía Cap) 10/21/2021 TD (adult), 2 Lf tetanus tox oid, preservative free, adsorbed 07/01/2007 Tdap 12/20/2019,01/17/2014,10/29/2010 Family History Medical History Relation Name Comments Hypertension Father Mental illness Father Asthma Mother Diabetes Mother Relation Name Status Comments Father Mother Social History Tobacco Use Types Packs/Day Years Used Date Smoking Tobacco: Never Passive Smoke Exposure: Never Smokeless Tobacco: Never Tobacco Cessation:Counseling Given: Not Answered Alcohol Use Standard Drinks/Week Comments Never 0 [...] not to disclose 2021 10:17 AM EDT Last Filed Vital Signs Vital Sign Reading Time Taken Comments Blood Pressure 104/70 08/07/2024 11:15 AM EST Pulse 88 08/07/2024 11:15 AM EST Temperature 36.4 ??C (97.5 ??F) 08/07/2024 11:[address] Respiratory Rate 16 08/07/2024 11:15 AM EST Oxygen Saturation 98% 07/21/2024 9:15 AM EST Inhaled Oxygen Concentration - - Weight 91.6 kg (202 lb) 08/07/2024 11:15 AM EST Height 149.9 cm (4' 11 ) 08/07/2024 11:15 AM EST Body Mass Index 40.8 08/07/2024 11:15 AM EST Plan of Treatment Upcoming Encounters Date Type Department Care Team (Late st Contact Info) Description 09/26/2024 11:30 AM EST Telemedicine [facility] [address], [place] [phone] Lily Chauhan MD [address] [place] [address] Health Maintenance Due Date Last Done Comments Family Planning (PISQ) 2001 HPV Vaccines (2 - 3-dose series) 08/04/2007 07/07/2007 HPV/Cotest 2016 Hepatitis B Vaccines (3 of 3 - 19+ 3-dose series) 01/11/2018 11/16/2017, 07/07/2007 Cervical Cancer Screening 06/02/2022 Pap Smear 06/02/2022 06/02/2019 COVID-19 Vaccine ( season) 2024 10/21/2021, 10/04/2020, 09/04/2020 Influenza Vaccine (#1) 2024 SDOH Screening 11/02/2024 11/03/2023 Depression Screening 05/22/2025 05/22/2024, 05/22/20 24 Alcohol/Substance Use Screening 06/19/2025 06/19/2024 Tobacco Screening 06/19/2025 06/19/2024 Lipid Panel 06/20/2029 06/20/2024, 06/26, 09/24/2020 DTaP/Tdap/Td Vaccines (4 - Td or Tdap) 12/19/2029 12/20/2019, 01/17/2014, 10/29/2010, Additional history exists Zoster Vaccines (1 of 2) 2036 RSV Patients and Patients Aged 60 years or older (1 - 1-dose 75+ series) 2061 Hepatitis A Vaccines Aged Out 11/16/2017, 07/07/20 07 No longer eligible based on patient's age to complete this topic HIV Screening Completed 06/20/2024, 07/06/2019 Hepatitis C Screening Completed 06/20/2024, 023 HIB Vaccines Aged Out No longer eligi ble based on patient's age to complete this topic IPV Vaccines Aged Out No longer eligi ble based on patient's age to complete this topic Meningococcal Vaccine Aged Out No adele arina eligible based on patient's age to complete this topic Pneumococcal Vaccine: Pediatrics (0 to 5 Years) and At-Risk Patients (6 to 49) Years) Aged Out No longer eligible based on patient's age to complete this topic RSV under 20 months Aged Out No longe r eligible based on patient's age to complete this topic Rotavirus Vaccines Aged Out No longer eligible based on patient's age to complete this topic Procedures Procedure Name Priority Date/Time Associated Diagnosis Comments XR SPINE CERVICAL W/FLEXT AND/OR EXT Routine 08/16/2024 9:50 AM EST XR LUMBAR SPINE COMPLETE 4+ VIEWS Routine 08/16/2024 5:21 AM EST MR CERVICAL SPINE WO CONTRAST Routine 08/09/2024 8:16 PM EST Neck pain US HEAD NECK SOFT TISSUE Routine 08/02/2024 2:16 PM EST Mass of occipital region XR CHEST 1 VIEW Routine 07/09/2024 9:30 PM EST HIGH SENSITIVITY TROPONIN I Routine 07/09/2024 9:21 PM EST HCG, TOTAL, QN Routine 07/09/2024 9:21 PM EST COMPREHENSIVE METABOLIC PANEL Routine 07/09/2024 9:21 PM EST CBC WITH AUTO DIFFERENTIAL Routine 07/09/2024 9:21 PM EST COMPREHENSIVE METABOLIC PANEL Routine 06/20/2024 9:49 AM EST Abdominal pain, LUQ VITAMIN D,25-OH,TOTAL,IA Routine 06/20/2024 9:49 AM EST Encounter for preventative adult health care examination TSH W/REFLEX TO FT4 Routine 06/20/2024 9 :49 AM EST Encounter for preventative adult health care examination HEPATIC FUNCTION PANEL Routine 06/20/2024 9:49 AM EST Encounter for preventative adult health care examination LIPID PANEL, STANDARD Routine 06/20/2024 9:49 AM EST Encounter for preventative adult health care examination HEPATITIS C AB W/REFL TO HCV RNA, QN, PCR Routine 06/20/2024 9:49 AM EST Encounter for preventative adult health care examination HIV 1/2 ANTIGEN/ANTIBODY, FOURTH GENERATION W/RFL Routine 06/20/2024 9:49 AM EST Encounter for preventative adult health care examination HEMOGLOBIN A1C Routine 06/20/2024 9:49 AM EST Encounter for preventative adult health care examination CBC WITH AUTO DIFFERENTIAL Routine 06/20/2024 9:49 AM EST Encounter for preventative adult health care examination XR CERVICAL SPINE 3V Routine 06/20/2024 9:10 AM EST Abdominal pain, LUQ XR THORACIC SPINE 2 VIEWS Routine 06/20/2024 9:10 AM EST Abdominal pain, LUQ HM PAP/HPV Routine 06/02/2019 2:16 PM EST from Last 3 Months or Most Recently Relevant to Health Maintenance Results * XR Spine Cervical w/ Flext and/ Or Ext (08/16/2024 9:50 AM EST) Anatomical Region Laterality Modality Radiographic Amee ging 08/16/2024 9:50 AM EST Narrative 08/16/2024 9:51 AM EST ? [facility] ?[address] ?[place] [address] ?XRay Report ? Signed ? Patient: Marsh,Rena ?MR#: [id number] ?? [id number] ? : 1985 ?Acct:[id number] ? Age/Sex: 38 / F ?ADM Date: 01/21/25 ? Loc: HO.XRAY ? Attending Dr: Eden Andrade APRN, CNP ? Ordering Physician: Eden Andrade APRN, CNP ?? Date of Service: 08/15/24 ?? Procedure(s): XR cervical spine w flex/ext ?? Accession Number(s): [id number] ? cc: Lily Chauhan MD; Eden Andrade APRN, CNP ? CLINICAL HISTORY: M54.2 - Cervicalgia ? 7 views cervical spine ? Comparison: CR/SR - XR CERVICAL SPINE 3V - 06/20/24 09:39 EST ? Findings: ?? Mild marginal osteophyte formation is seen at C5 and C6. There is mild ?? loss of anterior vertebral body height at C5, similar to prior exam. ?? Alignment is within normal limits with no evidence of listhesis on flexion ?? and extension. ?? Prevertebral soft tissues within normal limits. ? IMPRESSION: ?? Mild degenerative changes at C5 and C6. ? This document has been electronically signed by: Denise Esquivel on ?? 08/16/2024 09:50:42 ? Dictated By: ?Denise Esquivel MD ? Signed By: ?<Electronically signed by Denise Esquivel MD in OV> ? 08/16/24 0951 ? DD/ 0950 ? TD/TT: 08/16/24 0950 ? Crop Nutrition Scientist: ? Procedure Note Dustin, Image - 08/16/[address] [address] XRay Report Signed Patient: Rena MarshMR#: [id number] : 1985Acct:[id number] Age/Sex: 38 / FADM Date: 08/15/24 Loc: [facility] Attending Dr: Eden Andrade APRN, CNP Ordering Physician: Eden Andrade APRN, CNP Date of Service: 08/15/24 Procedure(s): XR cervical spine w flex/ext Accession Number(s): [id number] cc: Lily Chauhan MD; Eden Andrade APRN, FACILITIES LOCATOR CLINICAL HISTORY: M54.2 - Cervicalgia 7 views cervical spine Comparison: CR/SR - XR CERVICAL SPINE 3V - 06/20/24 09:39 EST Findings: Mild marginal osteophyte formation is seen at C5 and C6. There is mild loss of anterior vertebral body height at C5, similar to prior exam. Alignment is within normal limits with no evidence of listhesis on flexion and extension. Prevertebral soft tissues within normal limits. IMPRESSION: Mild degenerative changes at C5 and C6. This document has been electronically signed by: Denise Esquivel on 08/16/2024 09:50:42 Dictated By: Denise Esquivel MD Signed By: <Electronically signed by Denise Esquivel MD in OV> 08/16/24 0951 DD/ TD/TT: 08/16/2450 Crop Nutrition Scientist: [facility] External Provider IMG XR PROCEDURES Final Result * XR Lumbar Spine Complete 4+ Views (08/16/2024 5:21 AM EST) Anatomical Region Laterality Modality Spine, L-spine Radiographic Amee ging 08/16/2024 5:21 AM EST Narrative 08/16/2024 5:23 AM EST ? [facility] ?[address] ?[place] [address] ?XRay Report ? Signed ? Patient: Marsh,Rena ?MR#: [id number] ?? [id number] ? : 1985 ?Acct:[id number] ? Age/Sex: 38 / F ?ADM Date: 08/15/24 ? Loc: HO.XRAY ? Attending Dr: Eden Andrade APRN, CNP ? Ordering Physician: Eden Andrade APRN, CNP ?? Date of Service: 08/15/24 ?? Procedure(s): XR lumbar spine 4V min ?? Accession Number(s): [id number] ? cc: Lily Chauhan MD; Eden Andrade APRN, CNP ? CLINICAL HISTORY: M54.9 - Dorsalgia, unspecified ? Exam: AP, lateral, spot lateral, and bilateral oblique views of the lumbar ?? spine. ? Comparison: None. ? Findings: ? Minimal convex right mid lumbar curvature. ?? Alignment is anatomic on the lateral view. ?? No fracture. ?? Disc space heights are well preserved. ?? Facet joints are unremarkable. ?? Incidental note is made of a presumed umbilical piercing. ? Impression: ? Minimal convex right mid lumbar curvature. Otherwise, negative lumbar ?? spine radiographs. ? This document has been electronically signed by: Davon Farmer MD on ?? 08/16/2024 05:21:34 ? Dictated By: ?Davon Farmer MD ? Signed By: ?<Electronically signed by Davon Farmer MD in OV> ? 08/16/24 05 ? DD/ 05 ? TD/TT: 08/16/24520 ? Crop Nutrition Scientist: ? Procedure Note Donotuseinterpreter, Image - 08/16/2024 [place] [address] XRay Report Signed Patient: Rena MarshMR#: [id number] : 1985Acct:[id number] Age/Sex: 38 / FADM Date: 08/15/24 Loc: HO.XRAY Attending Dr: Eden Andrade APRN, CNP Ordering Physician: Eden Andrade APRN, CNP Date of Service: 08/15/24 Procedure(s): XR lumbar spine 4V min Accession Number(s): [id number] cc: Lily Chauhan MD; Eden Andrade APRN, CNP CLINICAL HISTORY: M54.9 - Dorsalgia, unspecified Exam: AP, lateral, spot lateral, and bilateral oblique views of the lumbar spine. Comparison: None. Findings: Minimal convex right mid lumbar curvature. Alignment is anatomic on the lateral view. No fracture. Disc space heights are well preserved. Facet joints are unremarkable. Incidental note is made of a presumed umbilical piercing. Impression: Minimal convex right mid lumbar curvature. Otherwise, negative lumbar spine radiographs. This document has been electronically signed by: Davon Farmer MD on 08/16/2024 05:21:34 Dictated By: Davon Farmer MD Signed By: <Electronically signed by Davon Farmer MD in OV> 08/16/24521 DD/ 0 TD/TT: 08/16/24520 Crop Nutrition Scientist: [facility] External Provider IMG XR PROCEDURES Final Result * MR Cervical Spine w/o Contrast (08/09/2024 8:16 PM EST) Anatomical Region Laterality Modality Spine, C-spine Magnetic Resonan ce 08/09/2024 8:16 PM EST Narrative 08/09/2024 8:18 PM EST ? [facility] ?[address] ?[place] [address] ? Magnetic Resonance Report ? Signed with Addenda ? Patient: Marsh,Rena ?MR#: [id number] ?? [id number] ? : 1985 ?Acct:[id number] ? Age/Sex: 38 / F ?ADM Date: 08/08/24 ? Loc: HO.MRI ? Attending Dr: Lily Burnette MD ? Ordering Physician: Lily Chauhan MD ?? Date of Service: 08/08/24 ?? Procedure(s): MR cervical spine wo con ?? Accession Number(s): [id number] ? cc: Lily Chauhan MD ?ADDENDUM ?? This document has been electronically signed by: Davon Farmer MD on ?? 08/09/2024 20:16:06 ? ADDENDUM: ?? Receipt of this report by the clinical staff was confirmed with Samantha ?? [employer] service employee on Aug 09, 2024 21:31:00 EST. ? [...] ? Comparison: CR/SR - XR CERVICAL SPINE 3V - 06/20/24 09:39 EST ? Bony alignment [...] by Davon Farmer MD in OV> ? 08/09/242016 ? DD/ 15 ? TD/TT: 08/09/242015 ? Crop Nutrition Scientist: ? Procedure Note Donotjose einterpreter, Image - 08/09/[address] [address] Magnetic Resonance Report Signed with Addenda Patient: Carola Marsh#: [id number] : 1985Acct:[id number] Age/Sex: 38 / FADM Date: 08/08/24 Loc: HO.MRI Attending Dr: Lily Burnette MD Ordering Physician: Lily Chauhan MD Date of Service: 08/08/24 Procedure(s): MR cervical spine wo con Accession Number(s): [id number] cc: Lily Chauhan MD ADDENDUM This document has been electronically signed by: Davon Farmer MD on 08/09/2024 20:16:06 ADDENDUM: Receipt of this report by the clinical staff was confirmed with Samantha Yousif service employee on Aug 09, 2024 21:31:00 EST. This [...] in OV> 08/09/242016 DD/ 15 TD/TT: 08/09/242015 Crop Nutrition Scientist: us Lily Burnette MD IMG MRI PROCEDURES Ed ited Result - Final * US Head Neck Soft Tissue (08/02/2024 2:16 PM EST) Anatomical Region Laterality Modality Head, Neck Ultrasound 08/02/2024 2:16 PM EST Narrative 08/07/2024 10:07 AM EST ? [facility] ?[address] ?[place] [address] ? Ultrasound Report ? Signed ? Patient: Marsh,Rena ?MR#: [id number] ?? [id number] ? : 1985 ?Acct:[id number] ? Age/Sex: 38 / F ?ADM Date: 08/02/24 ? Loc: HO.US ? Attending Dr: Maryellen Chin ? Ordering Physician: Maryellen Chin ?? Date of Service: 08/02/24 ?? Procedure(s): US soft tiss head and/or neck ?? Accession Number(s): [id number] ? cc: Maryellen Chin; Lily Chauhan MD ? EXAMINATION: ?? US THYROID ? CLINICAL INFORMATION: ?? 5.5 cm firm mass, left occipital region.. ? COMPARISON: ?? None available. ? TECHNIQUE: ?? Linear transducer mejía-scale and color Doppler examination with ?? attention to the occipital region. ? FINDINGS: ? Submitted for interpretation on August 07, 2024. ? No gross solid or cystic lesion. ?? Small less than 6 mm lymph nodes in the left suboccipital region. ? US/US soft tiss head and/or neck ?? IMPRESSION: ?? No gross masses. Negative exam.. ? Electronically signed by: ??Jose Alfredo Khan MD ??08/07/2024 10:04 AM ?? EST RP ? Dictated By: ?Jose Alfredo Haddad MD ? Signed By: ?<Electronically signed by Jose Alfredo George MD in OV> ? 08/07/24 1004 ? DD/ 1416 ? TD/TT: 08/02/24 1418 ? Crop Nutrition Scientist: ? Procedure Note Dustin, Image - 08/07/2024 [place] [address] Ultrasound Report Signed Patient: Rena MarhsMR#: [id number] 7527 : 1985Acct:[id number] Age/Sex: 38 / FADM Date: 08/02/24 Loc: HO.US Attending Dr: Maryellen Chin Ordering Physician: Maryellen Chin Date of Service: 08/02/24 Procedure(s): US soft tiss head and/or neck Accession Number(s): [id number] cc: Maryellen Chin; Lily Chauhan MD EXAMINATION: US THYROID CLINICAL INFORMATION: 5.5 cm firm mass, left occipital region.. COMPARISON: None available. TECHNIQUE: Linear transducer mejía-scale and color Doppler examination with attention to the occipital region. FINDINGS: Submitted for interpretation on August 07, 2024. No gross solid or cystic lesion. Small less than 6 mm lymph nodes in the left suboccipital region. US/US soft tiss head and/or neck IMPRESSION: No gross masses. Negative exam.. Electronically signed by: Jose Alfredo Khan MD 08/07/2024 10:04 AM EST Dictated By: Jose Alfredo Haddad MD Signed By: <Electronically signed by Fariha Pinto OV> 08/07/24 1004 DD/ 1416 TD/TT: 08/02/24 1418 Crop Nutrition Scientist: us Maryellen Epsteinkael PERSONAL LINES AGENT IMG US PROCEDURES Edited Result - Final * XR Chest 1 View (07/09/2024 9:30 PM EST) Anatomical Region Laterality Modality Chest Radiographic Amee ging 07/09/2024 9:30 PM EST Narrative 07/09/2024 10:15 PM EST ? [facility] ?[address] ?[place] [address] ?XRay Report ? Signed ? Patient: Marsh,Rena ?MR#: [id number] ?? 7527 ? : 1985 ?Acct:[id number] ? Age/Sex: 38 / F ?ADM Date: 07/09/24 ? Loc: HO.ED ? Attending Dr: ? Ordering Physician: Generic ED Physician ?? Date of Service: 07/09/24 ?? Procedure(s): XR chest 1V ?? Accession Number(s): [id number] ? cc: Lily Chauhan MD; Generic ED Physician ? EXAMINATION: ?? XR CHEST ? CLINICAL INFORMATION: ?? Chest pain. ? COMPARISON: ?? Chest radiograph dated 06/14/2023. ? TECHNIQUE: ?? Frontal view of the chest was obtained. ? FINDINGS: ?? The lungs are clear. The cardiomediastinal silhouette is normal in ?? size. There is no pleural effusion or pneumothorax. No acute osseous ?? abnormality. ? XR/XR chest 1V ?? IMPRESSION: ?? No acute cardiopulmonary findings. ? Electronically signed by: ??Jesus Kay MD ??07/09/2024 10:13 PM EST ?? RP ? Dictated By: ?Jesus Kay MD ? Signed By: ?<Electronically signed by Jesus Kay MD in OV> ?07/09/243 ? DD/ 29 ? TD/TT: 07/09/242134 ? Crop Nutrition Scientist: SR ? Procedure Note Dustin, Image - 07/09/[address] [address] XRay Report Signed Patient: Rena MarshMR#: [id number] : 1985Acct:[id number] Age/Sex: 38 / FADM Date: 07/09/24 Loc: .ED Attending Dr: Ordering Physician: Generic ED Physician Date of Service: 07/09/24 Procedure(s): XR chest 1V Accession Number(s): [id number] cc: Lily Chauhan MD; Generic ED Physician EXAMINATION: XR CHEST CLINICAL INFORMATION: Chest pain. COMPARISON: Chest radiograph dated 06/14/2023. TECHNIQUE: Frontal view of the chest was obtained. FINDINGS: The lungs are clear. The cardiomediastinal silhouette is normal in size. There is no pleural effusion or pneumothorax. No acute osseous abnormality. XR/XR chest 1V IMPRESSION: No acute cardiopulmonary findings. Electronically signed by: Jesus Kay MD 07/09/2024 10:13 PM EST Dictated By: Jesus Kay MD Signed By: <Electronically signed by Jesus Kay MD in OV> 07/09/242212 DD/ 29 TD/TT: 07/09/242134 Crop Nutrition Scientist: [facility] External Provider IMG XR PROCEDURES Edited Result - Final * High Sensitivity Troponin I (07/09/2024 9:21 PM EST) TROPONIN I HIGH SENSITIVITY <2.7 <3.5 - 17.0 ng/L [facility] Comment:The Masterson high sens itivity Troponin-I results should beused in conjunction with other diagnostic information suchas ECG, clinical observations and information, and patientsymptoms to aid in the diagnosis of [place]. 07/09/2024 9:21 PM EST 07/09/2024 9:23 PM EST Generic External Data Provider LAB BLOOD ORDERAB LES Final Result [facility] [address] [place] [phone] [phone] * (ABNORMAL) CBC auto differential (07/09/2024 9:21 PM EST) Only the most recent of2 resultswithin the time period is included. White Blood Count 5.5 4.8 - 10.8 X10*3/uL [facility] Red Blood Count 3.70(L) 4.20 - 5.50 X10*6/uL [facility] Hemoglobin 10.7(L) 12.0 - 16.0 g/dl [facility] Hematocrit 32.3(L) 37.0 - 47.0 % [facility] Mean Corpuscular Volume 87.3 80.0 - 98.0 fL [facility] Mean Corpuscular Hemoglobin 28.9 27.0 - 33.0 pg [facility] Mean Corpuscular HGB Conc 33.1 31.0 - 35.0 g/dl [facility] Red Cell Distribution Width 13.9 11.0 - 16.0 % [facility] Platelet Count 259 160 - 400 X10*3/uL [facility] Mean Platelet Volume 9.0(L) 9.4 - 12.3 fL [facility] Neutrophils Percent Auto 49.3 45 - 73 % [facility] Imm Gran Pct Auto 0.2 0.0 - 0.4 % [facility] Lymphocytes Percent Auto 39.9 20 - 40 % [facility] Monocytes Percent Auto 9.2 2 - 11 % [facility] Eosinophils Percent Auto 0.9 0 - 4 % [facility] Basophils Percent Auto 0.5 0 - 2 % [facility] NRBC Pct Auto 0.0 0.0 - 0.2 /100WBC [facility] Neutrophils Absolute Auto 2.7 2.0 - 8.3 x10*3/uL [facility] Imm Gran Abs Auto 0.01 0.00 - 0.03 X10*3/uL [facility] Lymphocytes Absolute Auto 2.2 1.2 - 4.9 X10*3/uL [facility] Monocytes Absolute Auto 0.5 0.1 - 1.2 X10*3/uL [facility] Eosinophils Absolute Auto 0.1 0.0 - 0.4 X10*3/uL [facility] Basophils Absolute Auto 0.0 0.0 - 0.2 X10*3/uL [facility] NRBC Abs Auto 0.000 0.0 - 0.012 X10*3/uL [facility] 07/09/2024 9:21 PM EST 07/09/2024 9:23 PM EST us Generic External Data Provider LAB BLOOD ORDERAB LES Final Result Performing Organization Address [facility] Co de Phone Number [facility] [address] [place] [phone] * hCG, Total, Quantitative (07/09/2024 9:21 PM EST) HCG Quantitative <2 mIU/mL [facility] Comment:Weeks post LMP Appro ximate hCG(Last Menstrual Period) Range (mIU/ml)3 - 4 weeks 9 - 1304 - 5 weeks 75 - 2,6005 - 6 weeks 850 - 20,8006 - 7 weeks 4000 - 100,2007 - 12 weeks 11,500 - 289,88571 - 16 weeks 18,300 - 137,12882 - 29 weeks (2nd trimester) 1,400 - 53,24511 - 41 weeks (3rd trimester) 940 - 60,000The Masterson B- hCG assay is used for the early detection ofpregnancy; it cannot be used to diagnose any conditionunrelated to . If a B-hCG level is not supportedby the clinical evidence, results should be confirmed by analternative method (qualitative urine hCG, for example). 07/09/2024 9:21 PM EST 07/09/2024 9:23 PM EST us Generic External Data Provider LAB BLOOD ORDERAB LES Final Result Performing Organization Address [facility] Co de Phone Number [facility] [address] [place] [phone] * (ABNORMAL) Comprehensive Metabolic Panel (07/09/2024 9:21 PM EST) Only the most recent of2 resultswithin the time period is included. Sodium 139 135 - 145 mmol/L [facility] Potassium 4.0 3.3 - 5.1 mmol/L [facility] Chloride 106 96 - 108 mmol/L [facility] Carbon Dioxide 26 22 - 29 mmol/L [facility] Anion Gap 11(L) 12 - 20 [facility] Urea Nitrogen (BUN) 13 9 - 16 mg/dL [facility] Creatinine, Serum 0.78 0.5 - 1.4 mg/dL [facility] Creatinine Clr Calc Pharmacy 94.1 [facility] Comment:Provided height and weight: 149.86 cm,86.183 kg.eGFR (calculated from the MDRD study equation) and eCrCl(calculated from the Cockcroft-Gault equation) are based ondifferent parameters and may not yield comparable results.If eCrCl result is absurd, please check patient'sheight/weight. Estimated Glomerular Filt Rate >60 [facility] Comment:Chronic Kidney Disea se: Estimated GFR < 60 mL/min/1.61k9Wlmeyd Kidney Disease: Estimated GFR < 15 mL/min/1.73m2 Glucose 89 60 - 115 mg/dL [facility] Calcium 8.6 8.4 - 10.2 mg/dL [facility] Bilirubin, Total 0.2 0.0 - 1.0 mg/dL [facility] Aspartate Amino Transferase 20 5 - 31 U/L [facility] Alanine Aminotransferase 16 0 - 31 U/L [facility] Total Protein 7.6 6.5 - 8.0 g/dL [facility] Albumin Level 4.0 3.5 - 5.0 g/dL [facility] Alkaline Phosphatase 79 39 - 117 U/L [facility] 07/09/2024 9:21 PM EST 07/09/2024 9:23 PM EST us Generic External Data Provider LAB BLOOD ORDERAB LES Final Result Performing Organization Address [facility]/ZIP Co de Phone Number [facility] [address] [place] [phone] * (ABNORMAL) Vitamin D, 25-Hydroxy, Total, Immunoassay (06/20/2024 9:49 AM EST) Vitamin D 25-OH Total 16.7(L) >30 ng/mL [facility] Comment:Health Based Referen ce Values*< 20 ng/mL Ixvlzxbwz86-34 ng/mL Insufficient> 30 ng/mL Sufficient*Manolo HERRON. N Engl J Med. 2007;357:266-280Care must be taken in interpreting Vitamin D results fromdifferent laboratories and methodologies. Published datademonstrated that results from patients undergoinghemodialysis may show a negative bias when tested withvarious automated 25-OH vitamin D assays when compared toLC-MS/MS.When testing samples from patients whose predominant form ofVitamin D is Vitamin D2, such as patients receiving VitaminD2 supplementation, results that are subtherapeutic shouldbe confirmed with another method such as LC-MS/MS. Blood 06/20/2024 9:49 AM EST 06/20/2024 11:47 AM EST us Lily Burnette MD LAB BLOOD ORDERABLES Final Result Performing Organization Address [facility]/ZIP Co de Phone Number [facility] [address] [place] [phone] * TSH with Reflex to Free T4 (06/20/2024 9:49 AM EST) TSH reflex Free T4 1.94 0.32 - 4.0 uIU/mL [facility] Blood 06/20/2024 9:49 AM EST 06/20/2024 11:47 AM EST us Lily Burnette MD LAB BLOOD ORDERABLES Final Result [facility] [address] [place] [phone] * Hepatitis C Antibody with Reflex to HCV, RNA, Quantitative, Real-Time PCR (06/20/2024 9:49 AM EST) Hepatitis C Antibody Nonreactive Nonreactive [facility] Comment:Antibodies to HCV no t detected; does not exclude early acuteHCV infection. Blood Venous blood specimen / Unknown 06/20/2024 9:49 AM EST 06/20/2024 11:47 AM EST us Lily Burnette MD LAB BLOOD ORDERABLES Final Result Performing Organization Address [facility] Co de Phone Number [facility] [address] [place] [phone] * HIV-1/2 Antigen and Antibodies, Fourth Generation, with Reflexes (06/20/2024 9:49 AM EST) Pathologist [facility] HIV AB/AG Nonreactive Nonreactive [facility] Comment:HIV-1 p24 Ag and/or HIV-1/HIV-2 Ab not detected.A test result that is nonreactive does not exclude thepossibility of exposure to or infection with HIV-1 and/orHIV-2. Nonreactive results in this assay for individualswith prior exposure to HIV-1 and/or HIV-2 may be due toantigen and antibody levels that are below the limit ofdetection of this assay.The Karma Snapnity HIV Ag/Ab Combo assay result andsupplemental assay results should be interpreted inconjunction with the patient's clinical presentation,history and other laboratory results. If the results areinconsistent with clinical evidence, additional testing issuggested to confirm the result. Blood Venous blood specimen / Unknown 06/20/2024 9:49 AM EST 06/20/2024 11:47 AM EST us Lily Burnette MD LAB BLOOD ORDERABLES Final Result Performing Organization Address [facility]/ZIP Co de Phone Number [facility] [address] [place] [phone] * Hemoglobin A1c (06/20/2024 9:49 AM EST) Hemoglobin A1c 5.4 <6.0 % [facility] Comment:Hemoglobin A1C Refer ence Range Adults: 4.8 - 6.0 % Non diabetic: < 6.0 % Goal: < 7.0 %Additional Action Suggested: > 8.0 %Note: Hemoglobin A1c results are invalid for patients with abnormal amounts of HbF. Blood transfusions may impact the HbA1c concentration in the patient sample. Estimated Average Glucose 108 mg/dL [facility] Comment:eAG = Estimated ave rage glucose which is %A1C expressed asaverage glucose, using the formula of the F1A-BfrzfdvGgvrnij Glucose study (ADAG), Diabetes Care, Vol.31,#8,2007 Blood Venous blood specimen / Unknown 06/20/2024 9:49 AM EST 06/20/2024 11:47 AM EST us Lily Burnette MD LAB BLOOD ORDERABLES Final Result Performing Organization Address [facility] Co de Phone Number [facility] [address] [place] [phone] * Hepatic Function Panel (06/20/2024 9:49 AM EST) Bilirubin, Direct 0.1 0.0 - 0.5 mg/dL [facility] Blood Venous blood specimen / Unknown 06/20/2024 9:49 AM EST 06/20/2024 11:47 AM EST us Lily Burnette MD LAB BLOOD ORDERABLES Final Result Performing Organization Address [facility] Co de Phone Number [facility] [address] [place] [phone] * Lipid Panel, Standard (06/20/2024 9:49 AM EST) Triglycerides 133 <150 mg/dL [facility] Comment:Desirable Triglyceri de: less than 150 mg/dLBorderline High Triglyceride 150-199 mg/dLHigh Triglyceride: 200-499 mg/dLVery High Triglyceride: greater than or equal to 5OO mg/dL Cholesterol 175 <200 mg/dL [facility] Comment:Desirable Cholestero l: less than 200 mg/dLBorderline High Cholesterol: 200-239 mg/dLHigh Cholesterol: greater than 239 mg/dL LDL Cholesterol Calculated 94 <100 mg/dL [facility] Comment:Desirable LDL: less than 100 mg/dLNear Optimal/Above Optimal LDL: 110- 129 mg/dLBorderline High LDL: 130-159 mg/dLHigh LDL: 160-189 mg/dLVery High LDL: greater than or equal to 190 mg/dL HDL Cholesterol 55 >40 mg/dL [facility] Comment:Desirable HDL: great er than 40 mg/dL Note: This HDL assay may give artificially low results in patients with liver disease. Blood Venous blood specimen / Unknown 06/20/2024 9:49 AM EST 06/20/2024 11:47 AM EST us Lily Burnette MD LAB BLOOD ORDERABLES Final Result [facility] [address] [place] [phone] * XR CERVICAL SPINE 3V (06/20/2024 9:10 AM EST) Anatomical Region Laterality Modality Abdomen Radiographic Amee ging 06/20/2024 9:10 AM EST Narrative 06/20/2024 1:33 PM EST ?[facility] ?[address] ?[place] [address] ?XRay Report ? Signed ? Patient: Marsh,Rena ?MR#: [id number] ?? [id number] ? : 1985 ?Acct:[id number] ? Age/Sex: 38 / F ?ADM Date: 11/26/24 ? Loc: HO.HHCX ? Attending Dr: Juanita Carl PERSONAL LINES AGENT ? Ordering Physician: Juanita Carl NP ?? Date of Service: 06/20/24 ?? Procedure(s): XR cervical spine 3V ?? Accession Number(s): [id number] ? cc: Juanita Carl PERSONAL LINES AGENT ? EXAMINATION: ?? XR CERVICAL SPINE ?? XR THORACIC SPINE ? CLINICAL INDICATION: ?? Chronic cervical and thoracic pain, no trauma. ? TECHNIQUE: ?? 3 views of the cervical spine, 2 views of the thoracic spine. ? COMPARISON: ?? None available. ? FINDINGS: ? CERVICAL SPINE: Cervical alignment and disc space heights are ?? preserved. Mild spondylosis lower cervical spine and small ?? calcification anterior to the C5-C6 disc space. ? THORACIC SPINE: Partially imaged cardiac silhouette difficult to ?? evaluate but appears enlarged, but this may be due to extremely low ?? lung volumes. Dedicated views of the chest recommended for further ?? evaluation. ? Mild loss of height of adjacent mid to lower thoracic vertebral bodies ?? with associated moderate degenerative changes. ? XR/XR cervical spine 3V ?? IMPRESSION: ?? 1. Mild spondylosis lower cervical spine. ? 2. Mild loss of height of adjacent mid to lower thoracic vertebral ?? bodies with associated moderate degenerative changes. ? 3. Partially imaged cardiac silhouette difficult to evaluate but ?? appears enlarged, but this may be due to extremely low lung volumes. ?? Dedicated views of the chest recommended for further evaluation. ? This study was presented today June 20, 2024 for interpretation. ?? Stat results provided at this time as requested by referring provider. ? Electronically signed by: ??Radha Paulson MD ??06/20/2024 01:30 PM EST ? Dictated By: ?Radha Paulson MD ? Signed By: ?<Electronically signed by Radha Paulson MD in OV> ? 06/20/24 1330 ? DD/ 0910 ? TD/TT: 06/20/24 0920 ? Crop Nutrition Scientist: ? Procedure Note Ni Chan - 06/20/2024 [facility] [address] [place] [address] XRay Report Signed Patient: Leonor Marshrukhsana#: [id number] : 1985Acct:[id number] Age/Sex: 38 / FADM Date: 06/20/24 Loc: HO.HHCX Attending Dr: Juanita Carl PERSONAL LINES AGENT Ordering Physician: Juanita Carl NP Date of Service: 06/20/24 Procedure(s): XR cervical spine 3V Accession Number(s): [id number] cc: Juanita Carl PERSONAL LINES AGENT EXAMINATION: XR CERVICAL SPINE XR THORACIC SPINE CLINICAL INDICATION: Chronic cervical and thoracic pain, no trauma. TECHNIQUE: 3 views of the cervical spine, 2 views of the thoracic spine. COMPARISON: None available. FINDINGS: CERVICAL SPINE: Cervical alignment and disc space heights are preserved. Mild spondylosis lower cervical spine and small calcification anterior to the C5-C6 disc space. THORACIC SPINE: Partially imaged cardiac silhouette difficult to evaluate but appears enlarged, but this may be due to extremely low lung volumes. Dedicated views of the chest recommended for further evaluation. Mild loss of height of adjacent mid to lower thoracic vertebral bodies with associated moderate degenerative changes. XR/XR cervical spine 3V IMPRESSION: 1. Mild spondylosis lower cervical spine. 2. Mild loss of height of adjacent mid to lower thoracic vertebral bodies with associated moderate degenerative changes. 3. Partially imaged cardiac silhouette difficult to evaluate but appears enlarged, but this may be due to extremely low lung volumes. Dedicated views of the chest recommended for further evaluation. This study was presented today June 20, 2024 for interpretation. Stat results provided at this time as requested by referring provider. Electronically signed by: Radha Paulson MD 06/20/2024 01:30 PM EST Dictated By: Radha Paulson MD Signed By: <Electronically signed by Radha Paulson MD in OV> 06/20/24 1330 DD/ 0910 TD/TT: 06/20/24 0920 Crop Nutrition Scientist: us Juanita Carl PERSONAL LINES AGENT IMG XR PROCEDURES Final Result * XR Thoracic Spine 2 Views (06/20/2024 9:10 AM EST) Anatomical Region Laterality Modality Spine, T-spine Radiographic Amee ging 06/20/2024 9:10 AM EST Narrative 06/20/2024 1:33 PM EST ?[facility] ?[address] ?[place] [address] ?XRay Report ? Signed ? Patient: Marsh,Rena ?MR#: [id number] ?? [id number] ? : 1985 ?Acct:[id number] ? Age/Sex: 38 / F ?ADM Date: 06/20/24 ? Loc: HO.HHCX ? Attending Dr: Juanita Carl PERSONAL LINES AGENT ? Ordering Physician: Juanita Carl NP ?? Date of Service: 06/20/24 ?? Procedure(s): XR thoracic spine 2V ?? Accession Number(s): [id number] ? cc: Juanita Carl PERSONAL LINES AGENT ? EXAMINATION: ?? XR CERVICAL SPINE ?? XR THORACIC SPINE ? CLINICAL INDICATION: ?? Chronic cervical and thoracic pain, no trauma. ? TECHNIQUE: ?? 3 views of the cervical spine, 2 views of the thoracic spine. ? COMPARISON: ?? None available. ? FINDINGS: ? CERVICAL SPINE: Cervical alignment and disc space heights are ?? preserved. Mild spondylosis lower cervical spine and small ?? calcification anterior to the C5-C6 disc space. ? THORACIC SPINE: Partially imaged cardiac silhouette difficult to ?? evaluate but appears enlarged, but this may be due to extremely low ?? lung volumes. Dedicated views of the chest recommended for further ?? evaluation. ? Mild loss of height of adjacent mid to lower thoracic vertebral bodies ?? with associated moderate degenerative changes. ? XR/XR thoracic spine 2V ?? IMPRESSION: ?? 1. Mild spondylosis lower cervical spine. ? 2. Mild loss of height of adjacent mid to lower thoracic vertebral ?? bodies with associated moderate degenerative changes. ? 3. Partially imaged cardiac silhouette difficult to evaluate but ?? appears enlarged, but this may be due to extremely low lung volumes. ?? Dedicated views of the chest recommended for further evaluation. ? This study was presented today June 20, 2024 for interpretation. ?? Stat results provided at this time as requested by referring provider. ? Electronically signed by: ??Radha Paulson MD ??06/20/2024 01:30 PM EST ? Dictated By: ?Radha Paulson MD ? Signed By: ?<Electronically signed by Radha Paulson MD in OV> ? 06/20/24 1330 ? DD/ 0910 ? TD/TT: 06/20/24 0920 ? Crop Nutrition Scientist: ? Procedure Note Donfreddieter, Image - 06/20/[address] [address] XRay Report Signed Patient: Rena MarshMR#: [id number] : 1985Acct:[id number] Age/Sex: 38 / FADM Date: 06/20/24 Loc: HO.HHCX Attending Dr: Juanita Carl PERSONAL LINES AGENT Ordering Physician: Juanita Carl NP Date of Service: 06/20/24 Procedure(s): XR thoracic spine 2V Accession Number(s): [id number] cc: Juanita Carl PERSONAL LINES AGENT EXAMINATION: XR CERVICAL SPINE XR THORACIC SPINE CLINICAL INDICATION: Chronic cervical and thoracic pain, no trauma. TECHNIQUE: 3 views of the cervical spine, 2 views of the thoracic spine. COMPARISON: None available. FINDINGS: CERVICAL SPINE: Cervical alignment and disc space heights are preserved. Mild spondylosis lower cervical spine and small calcification anterior to the C5-C6 disc space. THORACIC SPINE: Partially imaged cardiac silhouette difficult to evaluate but appears enlarged, but this may be due to extremely low lung volumes. Dedicated views of the chest recommended for further evaluation. Mild loss of height of adjacent mid to lower thoracic vertebral bodies with associated moderate degenerative changes. XR/XR thoracic spine 2V IMPRESSION: 1. Mild spondylosis lower cervical spine. 2. Mild loss of height of adjacent mid to lower thoracic vertebral bodies with associated moderate degenerative changes. 3. Partially imaged cardiac silhouette difficult to evaluate but appears enlarged, but this may be due to extremely low lung volumes. Dedicated views of the chest recommended for further evaluation. This study was presented today June 20, 2024 for interpretation. Stat results provided at this time as requested by referring provider. Electronically signed by: Radha Paulson MD 06/20/2024 01:30 PM [facility] Dictated By: Radha Paulson MD Signed By: <Electronically signed by Radha Paulson MD in OV> 06/20/24 1330 DD/ 0910 TD/TT: 06/20/24 0920 Crop Nutrition Scientist: us Juanita Carl PERSONAL LINES AGENT IMG XR PROCEDURES Final Result * HM PAP/HPV (06/02/2019 2:16 PM EST) us Historical Provider HEALTH MAINTENANCE Final Result from Last 3 Months or Most Recently Relevant to Health Maintenance Insurance [employer] Care Teams Blood Bank Technologist Relationship Specialty Start Date End Date Lily Chauhan MD [address] [place] [phone] PCP - General Family Medicine 04/06/18 Neida Riojas [employer] 12/21/23
--- OUTSIDE RECORDS SUMMARY | 2024-08-24 12:58 | XMS_ITS | Encounter Summary ---
Author Organization [employer] Address [address] [place] [address] 7 [place] [address] Care Team Providers Care Graduate Nurse Name Role Phone Lily Chauhan MD Primary Care Provide r Reason for Visit * Reason Onset Date Comments Nurse Triage 06/26/2024 Encounter Details Date Type Department Care Team ([facility] st Contact Info) Description 06/26/2024 Telephone [facility] [address] [place] [address] Lily Chauhan MD [address] [place] [address] Nurse Triage Social History Tobacco Use Types Packs/Day Years [...] encounter Miscellaneous Notes * Telephone Encounter - Cadence Nelson RN - 06/26/2024 11:04 AM EST Triage call Pt reports left sided, under breast, pain which comes and goes and has been happening for quite some time. Pt has been seen in OV 06/19/24 with neg cardiac work up. Pt reports increased pressure in chest and when pain occurs Pt becomes, sweaty and dizzy . Pt denies pain to left arm/jaw. Neg for difficulty breathing, though when pain comes Pt holds breath because of fear. No hx of bloo d clots or cocaine use. Pt is requesting to see PCP. ASK apt with PCP 06/30/24 @ 1045am Pt is aware of tele visit scheduled for 10am. Pt agrees with this disposition . Insurance is verified as active prior to booking. Protocol Used: Chest Pain (Adult) Protocol-Based Disposition: See in Office or Video Visit Today Override (Final) Disposition: See in Office or Video Visit within 3 Days Override Reason: Other Video visit not offered Positive Triage Question: * All other patients with chest pain (Exception: Fleeting chest pain lasting a few seconds.) * All higher-acuity triage questions were negative Care Advice Discussed: * Reassurance and Education - Fleeting Chest Pains * Humidifier * Reasons To Call Back - Chest pain increases in frequency, duration or severity - Chest pain lasts over 5 minutes - Chest pains persist over 3 days - Difficulty breathing or unusual sweating occurs - Fever over 100.4 F (38.0 C) - You become worse * Telephone Encounter - Gudelia Walters - 06/26/2024 10:44 AM EST Symptom: Chest Pain - Adult Outcome: Talk to a nurse or provider within 15 minutes Reason: Getting worse The caller accepted this outcome. documented in this encounter Plan of Treatment Upcoming Encounters Date Type Department Care Team (Late st Contact Info) Description 09/26/2024 11:30 AM EST Telemedicine [facility] [address] [place] [address] Lily Chauhan MD [address] [place] [address] documented as of this encounter Visit Diagnoses Not on filedocumented in this encounter Additional Health Concerns Assessment Noted Time PHQ-9 Depression Total Score: 3 05/22/20 24 1:05 PM EDT documented as of this encounter Care Teams Graduate Nurse Relationship Specialty Start Date End Date Lily Chauhan MD [address] [place] [address] PCP - General Family Medicine 04/06/18 Neida Riojas Medical Device Sales ConsultantCylinder Die Machine Helper 12/21/23 documented as of this encounter
--- OUTSIDE RECORDS SUMMARY | 2024-08-24 12:58 | XMS_ITS | Encounter Summary ---
Author Organization [employer] Address [address] [facility] 7t [place] [address] Care Team Providers Care Linen Folder Name Role Phone Lily Chauhan MD Primary Care Provide r Encounter Details Date Type Department Care Team ([facility] st Contact Info) Description 08/11/2024 Orders Only [facility] [address] [place] [address] Lily Chauhan MD [address] [place] [address] BMI 38.0-38.9,adult (Primary Dx) Social History Tobacco Use Types Packs/Day Years [...] Info) Description 09/26/2024 11:30 AM EST Telemedicine [facility] [address] [place] [address] Lily Chauhan MD [address] [place] [address] documented as of this encounter Procedures Procedure Name Priority Date/Time Associated Diagnosis Comments XR SPINE CERVICAL W/FLEXT AND/OR EXT Routine 08/16/2024 9:50 AM EST XR LUMBAR SPINE COMPLETE 4+ VIEWS Routine 08/16/2024 5:21 AM EST documented in this encounter Results * XR Spine Cervical w/ Flext and/ Or Ext (08/16/2024 9:50 AM EST) Anatomical Region Laterality Modality Radiographic Amee ging 08/16/2024 9:50 AM EST Narrative 08/16/2024 9:51 AM EST ? [facility] ?[address] ?[place] [address] ?XRay Report ? Signed ? Patient: Marsh,Rena ?MR#: [id number] ?? [id number] ? : 1985 ?Acct:[id number] ? Age/Sex: 38 / F ?ADM Date: 01/21/25 ? Loc: HO.XRAY ? Attending Dr: Eden Andrade APRN, CNP ? Ordering Physician: Eden Andrade APRN, CNP ?? Date of Service: 08/15/24 ?? Procedure(s): XR cervical spine w flex/ext ?? Accession Number(s): [id number] ? cc: Lily Chauhan MD; Eden Andrade [...] 08/16/24 0951 ? DD/ 0950 ? TD/TT: 08/16/2450 ? Manager Interventional: ? Procedure Note Dustin, Ni - 08/16/2024 [place] [id number] XRay Report Signed Patient: Rena Marsh#: [id number] : 1985Acct:[id number] Age/Sex: 38 / FADM Date: 08/15/24 Loc: HO.JYOTIAY Attending Dr: Eden Andrade APRN, CNP Ordering Physician: Eden Andrade APRN, CNP Date of Service: 08/15/24 Procedure(s): XR cervical spine w flex/ext Accession Number(s): [id number] cc: Lily Chauhan MD; Eden Andrade APRN, MARSHALL CLINICAL HISTORY: M54.2 - Cervicalgia 7 views cervical spine Comparison: CR/SR - XR CERVICAL SPINE 3V - 11/26/24 09:39 EST Findings: Mild marginal osteophyte formation [...] in OV> 08/16/24 0951 DD/ TD/TT: 08/16/2450 Manager Interventional: [facility] External Provider IMG XR PROCEDURES Final Result * XR Lumbar Spine Complete 4+ Views (08/16/2024 5:21 AM EST) Anatomical Region Laterality Modality Spine, L-spine Radiographic Amee ging 08/16/2024 5:21 AM EST Narrative 08/16/2024 5:23 AM EST ? [facility] ?[address] ?[place] [address] ?XRay Report ? Signed ? Patient: Rena Marsh ?MR#: [id number] ?? [id number] ? : 1985 ?Acct:[id number] ? Age/Sex: 38 / F ?ADM Date: 08/15/24 ? Loc: HO.XRAY ? Attending Dr: Eden Andrade APRN MICA PATCHER ? Ordering Physician: Eden Andrade APRN MICA PATCHER ?? Date of Service: 08/15/24 ?? Procedure(s): XR lumbar spine 4V min ?? Accession Number(s): [id number] ? cc: Lily Chauhan MD; Eden Andrade AUTO BODY CUSTOMIZER, MICA PATCHER ? CLINICAL HISTORY: M54.9 - Dorsalgia, unspecified [...] Davon Farmer MD in OV> ? 08/16/24 0522 ? DD/ 0 ? TD/TT: 08/16/24520 ? Manager Interventional: ? Procedure Note Donotuseinterpreter, Image - 08/16/2024 [place] [id number] XRay Report Signed Patient: Carola Marsh#: [id number] : 1985Acct:[id number] Age/Sex: 38 / FADM Date: 08/15/24 Loc: [facility] Attending Dr: Eden Andrade APRN, CNP Ordering Physician: Eden Andrade APRN, CNP Date of Service: 08/15/24 Procedure(s): XR lumbar spine 4V min Accession Number(s): [id number] cc: Lily Chauhan MD; Eden Andrade APRN, MARSHALL CLINICAL HISTORY: M54.9 - Dorsalgia, unspecified Exam: [...] in OV> 08/16/24521 DD/ 0 TD/TT: 08/16/24520 Manager Interventional: [facility] External Provider IMG XR PROCEDURES Final Result documented in this encounter Visit Diagnoses Diagnosis BMI 38.0-38.9,adult- Primary documented in this encounter Additional Health Concerns Assessment Noted Time PHQ-9 Depression Total Score: 3 05/22/20 24 1:05 PM EDT documented as of this encounter Care Teams Linen Folder Relationship Specialty Start Date End Date Lily Chauhan MD [address] [place] [address] PCP - General Family Medicine 04/06/18 Neida Riojas Typewriter AssemblerRip Machine Operator 12/21/23 documented as of this encounter
--- OUTSIDE RECORDS SUMMARY | 2024-08-24 12:58 | XMS_ITS | Encounter Summary ---
Author Organization [employer] Address [address] [place] [address] 7t [place] [address] Care Team Providers Care Sys Dir Name Role Phone Lily Chauhan MD Primary Care Provide r Encounter Details Date Type Department Care Team ([facility] Contact Info) Description 08/17/2022 Orders Only [facility] [address] [place] [address] Maryan Abernathy MD [address] [place] [address] Vitamin D deficiency (Primary Dx) Social History Tobacco Use Types Packs/Day Years Used Date Smoking Tobacco: Never Smokeless Tobacco: Never Alcohol Use Standard Drinks/Week Comments Never 0 (1 standard drink = 0.6 oz pur e alcohol) Comments Unknown Sex and Gender Information Value Date Recorded Sex Assigned at Female 05/25/2022 10:17 AM EDT Legal Sex Female 10:17 AM EDT Gender Identity Female 05/25/2022 10:17 AM EDT Sexual Orientation Choose not to disclose 2021 10:17 AM EDT COVID-19 Exposure Response Date Recorded In the last 10 days, have yo u been in contact with someone who was confirmed or suspected to have Coronavirus/COVID-19? No / Unsure 08/05/2022 10:57 AM EST documented as of this encounter Plan of Treatment Upcoming Encounters Date Type Department Care Team ([facility] Contact Info) Description 09/26/2024 11:30 AM EST Telemedicine [facility] [address] [place] [address] Lily Chauhan MD [address] [place] [address] documented as of this encounter Visit Diagnoses Diagnosis Vitamin D deficiency- Primary documented in this encounter Care Teams Sys Dir Relationship Specialty Start Date End Date Lily Chauhan MD [address] [place], [place] [phone] PCP - General Family Medicine 04/06/18 Neida Riojas Meat SpecialistStock Preparation Supervisor 12/21/23 documented as of this encounter
--- OUTSIDE RECORDS SUMMARY | 2024-08-24 12:58 | XMS_ITS | Encounter Summary ---
Author Organization [employer] Address [address] [facility] 7t [place] [address] Care Team Providers Care Brake Operator Sheet Metal Name Role Phone Lily Chauhan MD Primary Care Provide r Reason for Visit * Reason Comments Med Refill Encounter Details Date Type Department Care Team ([facility] st Contact Info) Description 08/11/2024 Refill [facility] [address] [place] [address] Samantha Mason, DO [address] [place] [address] Social History Tobacco Use Types Packs/Day Years [...] Info) Description 09/26/2024 11:30 AM EST Telemedicine [facility] [address] [place] [address] Lily Chauhan MD [address] [place] [address] documented as of this encounter Visit Diagnoses Not on filedocumented in this encounter Additional Health Concerns Assessment Noted Time PHQ-9 Depression Total Score: 3 05/22/20 24 1:05 PM EDT documented as of this encounter Care Teams Brake Operator Sheet Metal Relationship Specialty Start Date End Date Lily Chauhan MD [address] [place] [address] PCP - General Family Medicine 04/06/18 Neida Riojas Lay Out And Detail DrafterGallery Manager 12/21/23 documented as of this encounter
== END 2024-08-24 10:07 | disposition home or self-care (01) ==
PROVIDERS: PCP Internal Medicine; Visit Provider Registered Nurse Emergency
DX: M54.2 Cervicalgia (principal); M79.18 Myalgia, other site; M54.9 Dorsalgia, unspecified; G89.29 Other chronic pain; M47.812 Spondylosis without myelopathy or radiculopathy, cervical region; M47.816 Spondylosis without myelopathy or radiculopathy, lumbar region
CPT/HCPCS: 99213

== ENCOUNTER → 2024-08-24 09:53 | Outpatient (BNVA) | payer MEDICAID, SELFPAY | PROVIDERS: PCP Internal Medicine; Visit Provider Registered Nurse Emergency | DX: M47.812 Spondylosis without myelopathy or radiculopathy, cervical region (principal); M47.816 Spondylosis without myelopathy or radiculopathy, lumbar region; M79.18 Myalgia, other site; G89.29 Other chronic pain | CPT/HCPCS: 99212 ==

== ENCOUNTER 2024-08-31 11:13 | Outpatient (REF) | payer MEDICAID, SELFPAY ==
--- NOTE | ~2024-08-31 | XR_ITS ---
EXAMINATION: XR CERVICAL SPINE CLINICAL INFORMATION: M54.2 - Cervicalgia COMPARISON: None available. TECHNIQUE: 4 views of the cervical spine, inclusive of flexion and extension views, were obtained. FINDINGS: There is maintained cervical lordosis. The vertebral heights, alignment and disc heights are normal. No acute fracture or dislocation seen. On flexion-extension views there is no subluxation seen at any of the disc levels. The C1-C2 alignment and craniovertebral junction appears normal. The prevertebral and paravertebral soft tissues are normal. XR/XR cervical spine 4V IMPRESSION: Unremarkable cervical spine examination.. Electronically signed by: Joseluis Plascencia MD 08/31/2024 12:05 PM STEFAN
--- OUTSIDE RECORDS SUMMARY | 2024-08-31 11:17 | XMS_ITS | Encounter Summary ---
Author Organization [employer] Address [address] [facility] [address] 7t [place] [address] Care Team Providers Care Curator Medical Museum Name Role Phone Lily Chauhan MD Primary [...] Description 09/26/2024 11:30 AM EST Telemedicine [facility] [address] [place] [address] Lily Chauhan MD [address] [place] [address] documented as of this encounter Visit Diagnoses Not on filedocumented in this encounter Additional Health Concerns Assessment Noted Time PHQ-9 Depression Total Score: 3 05/22/20 24 1:05 PM EDT documented as of this encounter Care Teams Curator Medical Museum Relationship Specialty Start Date End Date Lily Chauhan MD [address] [place] [phone] PCP - General Family Medicine 04/06/18 Neida Riojas Welfare Service AideVendor Analyst 12/21/23 documented as of this encounter
--- OUTSIDE RECORDS SUMMARY | 2024-08-31 11:17 | XMS_ITS | Encounter Summary ---
Author Organization [facility] [employer] Address [address] [place] [address] 7 [place] [address] Care Team Providers Care Vice President Of Software Development Name Role Phone Lily Chauhan MD Primary Care Provide r Reason for Referral * Consultation (Routine) - Authorized Specialty Diagnoses / Procedures Referred By Contac t Referred To Contact Pain Medicine Diagnoses Neck pain Chronic midline low back pain without sciatica Lily Chauhan MD [address] [place] [address] Phone: tel: fax: [facility], [address] [place], [place] Phone: tel: fax: Referral ID Status Reason Start Date Expiration Date Visits Requested Visits Authorized [id number] Authorized Specialty Services Required 08/09/2024 08/09/2025 6 6 * Neurology (Routine) - Authorized Specialty Diagnoses / Procedures Referred By Contac t Referred To Contact Diagnoses Neck pain Bilateral arm pain Procedures Nerve conduction test Lily Chauhan MD [address] [place] [address] Phone: tel: fax: [facility] [address] [place] [address] Phone: tel: fax: Referral ID Status Reason Start Date Expiration Date V isits Requested Visits Authorized [id number] Authorized 08/07/2024 08/07/2025 1 1 * Imaging (Routine) - Closed Specialty Diagnoses / Procedures Referred By Contac t Referred To Contact Radiology Diagnoses Neck pain Procedures MR Cervical Spine w/o Contrast Lily Chauhan MD [address] [place] [address] Phone: tel: fax: [address] Phone: tel: fax: Referral ID Status Reason Start Date Expiration Date Visits Re quested Visits Authorized [id number] Closed 08/07/2024 08/07/2025 1 1 Reason for Visit * Reason Comments Neck Pain Encounter Details Date Type Department Care Team (Late st Contact Info) Description 08/07/2024 11:00 AM EST Office Visit [facility] [address] [place] [address] iLly Chauhan MD [address] [place] [address] Essential hypertension (Primary Dx); Neck pain; Bilateral [...] - 08/07/2024 11:00 AM EST SUBJECTIVE: Rena Marsh is a 38 y.o. year old female [...] Info) Description 09/26/2024 11:30 AM EST Telemedicine [facility] [address] [place], [place] [phone] Lily Chauhan MD [address] [place] [address] Scheduled Orders Name Type Priority Associated Diagnoses Orde r Schedule Nerve conduction test Neurology Routine Neck pain Bilateral arm pain Expected: 08/07/2024 (Approximate), Expires: 08/07/2025 documented as of this encounter Procedures Procedure Name Priority Date/Time Associated Diagnosis Comments AMB REFERRAL TO PAIN MEDICINE Routine 08/28/2024 Neck pain Chronic midline low back pain without sciatica MR CERVICAL SPINE WO CONTRAST Routine 08/09/2024 8:16 PM EST Neck pain documented in this encounter Results * Referral to Pain Medicine (08/28/2024) us Lily Burnette MD OUTPATIENT REFERRAL O RDERABLES Final Result * MR Cervical Spine w/o Contrast (08/09/2024 8:16 PM EST) Anatomical Region Laterality Modality Spine, C-spine Magnetic Resonan ce 08/09/2024 8:16 PM EST Narrative 08/09/2024 8:18 PM EST ? [facility] ?[address] ?[place] [address] ? Magnetic Resonance Report ? Signed with Addenda ? Patient: Marsh,Rena ?MR#: [id number] ?? [id number] ? : 1985 ?Acct:[id number] ? Age/Sex: 38 / F ?ADM Date: 08/08/24 ? Loc: HO.MRI ? Attending Dr: Lily Burnette MD ? Ordering Physician: Lily Chauhan MD ?? Date of Service: 08/08/24 ?? Procedure(s): MR cervical spine wo con ?? Accession Number(s): [id number] ? cc: Lily Chauhan MD ?ADDENDUM ?? This document has been electronically signed by: Davon Farmer MD on ?? 08/09/2024 20:16:06 ? ADDENDUM: ?? Receipt of this report by the clinical staff was confirmed with Samantha ?? Benja career services coordinator on Aug 09, 2024 21:31:00 EST. ? [...] ? DD/ 15 ? TD/TT: 08/09/242015 ? Cuffer: ? Procedure Note Donotuseinterpreter, Image - 08/09/[address] [address] Magnetic Resonance Report Signed with Addenda Patient: Rena Marsh#: [id number] : 1985Acct:[id number] Age/Sex: 38 / FADM Date: 08/08/24 Loc: HO.MRI Attending Dr: Lily Burnette MD Ordering Physician: Lily Chauhan MD Date of Service: 08/08/24 Procedure(s): MR cervical spine wo con Accession Number(s): [id number] cc: Lily Chauhan MD ADDENDUM This document has been electronically signed by: Davon Farmer MD on 08/09/2024 20:16:06 ADDENDUM: Receipt of this report by the clinical staff was confirmed with Samantha Yousif career services coordinator on Aug 09, 2024 21:31:00 EST. This [...] in OV> 08/09/242016 DD/ 15 TD/TT: 08/09/242015 Cuffer: Lily Burnette MD IMG MRI PROCEDURES Ed [...] documented as of this encounter Care Teams Vice President Of Software Development Relationship Specialty Start Date End Date Lily Chauhan MD [address] [place] [address] PCP - General Family Medicine 04/06/18 Neida Riojas Service ClerkCargo Operations Agent 12/21/23 documented as of this encounter
--- OUTSIDE RECORDS SUMMARY | 2024-08-31 11:17 | XMS_ITS | Encounter Summary ---
Author Organization [employer] Address [address] [place] [address] 7t [place] [address] Care Team Providers Care Technical Service Rep Name Role Phone Lily Chauhan MD Primary Care Provide r Reason for Visit * Reason Comments Med Refill Encounter Details Date Type Department Care Team ([facility] st Contact Info) Description 05/15/2024 Refill [facility] [address] [place] [address] Lily Chauhan MD [address] [place] [address] Essential hypertension Social History Tobacco Use Types [...] AM EST Telemedicine [facility] [address] [place] [address] Lily Chauhan MD [address] [place] [address] documented as of this encounter Visit Diagnoses Diagnosis Essential hypertension Unspecified essential hypertension documented in this encounter Additional Health Concerns Assessment Noted Time PHQ-9 Depression Total Score: 0 11/15/19 24 10:46 AM EDT documented as of this encounter Care Teams Technical Service Rep Relationship Specialty Start Date End Date Lily Chauhan MD [address] [place] [address] PCP - General Family Medicine 04/06/18 Neida Riojas Paint Striping Machine OperatorAerial Crop Duster 12/21/23 documented as of this encounter
--- OUTSIDE RECORDS SUMMARY | 2024-08-31 11:17 | XMS_ITS | Encounter Summary ---
Author Organization [employer] Address [address] [facility] 7t [place] [address] Care Team Providers Care Char Filter Operator Helper Name Role Phone Lily Chauhan MD Primary Care Provide r Encounter Details Date Type Department Care Team ([facility] st Contact Info) Description 04/28/[address] [facility] MED[facility]INE [address] [place], [place] [phone] Julianne Soto RN [address] [place] [address] Social History Tobacco Use Types Packs/Day Years [...] Info) Description 09/26/2024 11:30 AM EST Telemedicine [facility] [address] [place] [address] Lily Chauhan MD [address] [place] [address] documented as of this encounter Visit Diagnoses Not on filedocumented in this encounter Additional Health Concerns Assessment Noted Time PHQ-9 Depression Total Score: 0 11/15/19 24 10:46 AM EDT documented as of this encounter Care Teams Char Filter Operator Helper Relationship Specialty Start Date End Date Lily Chauhan MD [address] [place] [address] PCP - General Family Medicine 04/06/18 Neida Riojas Energy AuditorDowel Pin Worker 12/21/23 documented as of this encounter
--- OUTSIDE RECORDS SUMMARY | 2024-08-31 11:17 | XMS_ITS | Encounter Summary ---
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 Lily Chauhan MD [address] [place] [address] Phone: tel: fax: Ignacio Noguera [address] [place] [address] [address] [place] [address] Phone: tel: fax: Referral ID Status Reason Start Date Expiration Date Visits Requested Visits Authorized [id number] Authorized Specialty Services Required 08/21/2024 08/21/2025 1 1 Encounter Details Date Type Department Care Team (Late st Contact Info) Description 08/18/2024 Orders Only [facility] [address] [place] [address] Lily Chauhan MD [address] [place] [phone] Pituitary abnormality (CMS/HCC) (Primary Dx); Cyst of [...] Info) Description 09/26/2024 11:30 AM EST Telemedicine [facility] [address] [place] [address] Lily Chauhan MD [address] [place] [address] Scheduled Referrals Name Type Priority Associated Diagnoses [...] documented as of this encounter Care Teams Beer Merchant Relationship Specialty Start Date End Date Lily Chauhan MD [address] [place] [address] PCP - General Family Medicine 04/06/18 Neida Riojas TranscripterApplication Analyst 12/21/23 documented as of this encounter
--- OUTSIDE RECORDS SUMMARY | 2024-08-31 11:17 | XMS_ITS | Encounter Summary ---
Author Organization [employer] Address [address] [facility] 7t [place] [address] Care Team Providers Care Parts Delivery Driver Name Role Phone Lily Chauhan MD Primary Care Provide r Reason for Visit * Reason Comments Med Refill Encounter Details Date Type Department Care Team ([facility] st Contact Info) Description 02/25/2024 Refill [facility] [address] [place] [address] Dayday Pearce MD [address] [place] [address] Social History Tobacco Use Types Packs/Day Years [...] 09/26/2024 11:30 AM EST Telemedicine [facility] [address] [place] [address] Lily Chauhan MD [address] [place] [address] documented as of this encounter Visit Diagnoses Not on filedocumented in this encounter Additional Health Concerns Assessment Noted Time PHQ-9 Depression Total Score: 0 11/15/19 24 10:46 AM EDT documented as of this encounter Care Teams Parts Delivery Driver Relationship Specialty Start Date End Date Lily Chauhan MD [address] [place] [address] PCP - General Family Medicine 04/06/18 Neida Riojas Patient Case CoordinatorUnderground Repairer 12/21/23 documented as of this encounter
--- OUTSIDE RECORDS SUMMARY | 2024-08-31 11:17 | XMS_ITS | Encounter Summary ---
Author Organization [employer] Address [address] [place] [address] 7 [place] [address] Care Team Providers Care Aerodynamics Engineer Name Role Phone Lily Chauhan MD Primary Care Provide r Reason for Visit * Reason Onset Date Comments Prior Authorization 08/22/2024 Encounter Details Date Type Department Care Team ([facility] Contact Info) Description 08/22/2024 Telephone [facility] 230 [place] [address] Lily Chauhan MD [address] [place] [address] Prior Authorization Social History Tobacco Use Types [...] Info) Description 09/26/2024 11:30 AM EST Telemedicine [facility] [address] [place] [address] Lily Chauhan MD [address] [place] [address] documented as of this encounter Visit Diagnoses Not on filedocumented in this encounter Additional Health Concerns Assessment Noted Time PHQ-9 Depression Total Score: 3 05/22/20 24 1:05 PM EDT documented as of this encounter Care Teams Aerodynamics Engineer Relationship Specialty Start Date End Date Lily Chauhan MD [address] [place] [phone] PCP - General Family Medicine 04/06/18 Neida Riojas Plug MakerHead Sampler 12/21/23 documented as of this encounter
--- OUTSIDE RECORDS SUMMARY | 2024-08-31 11:17 | XMS_ITS | Encounter Summary ---
Author Organization [employer] Address [address] [place] [address] [address] [place] [address] Care Team Providers Care Business Resiliency Manager Name Role Phone Lily Chauhan MD Primary Care Provide r Reason for Visit * Reason Onset Date Comments Results 08/18/2024 Encounter Details Date Type Department Care Team ([facility] st Contact Info) Description 08/18/2024 Telephone [facility] [address] [place] [address] Cee Oakes RN [address] [place] [address] Results Social History Tobacco Use Types Packs/Day [...] 2:59 PM EST TC placed to patient [phone] in regards to below message. Patient did [...] Info) Description 09/26/2024 11:30 AM EST Telemedicine [facility] [address] [place] [address] Lily Chauhan MD [address] [place] [address] documented as of this encounter Visit Diagnoses Not on filedocumented in this encounter Additional Health Concerns Assessment Noted Time PHQ-9 Depression Total Score: 3 05/22/20 24 1:05 PM EDT documented as of this encounter Care Teams Business Resiliency Manager Relationship Specialty Start Date End Date Lily Chauhan MD [address] [place] [address] PCP - General Family Medicine 04/06/18 Neida Riojas Welder Fitter GasConsumer Loan Specialist 12/21/23 documented as of this encounter
--- OUTSIDE RECORDS SUMMARY | 2024-08-31 11:18 | XMS_ITS | Encounter Summary ---
Author Organization [employer] Address [address] [facility] [address] [place] [address] Care Team Providers Care Production Estimator Name Role Phone Lily Chauhan MD Primary Care Provide r Reason for Visit * Reason Comments Med Refill Encounter Details Date Type Department Care Team ([facility] st Contact Info) Description 08/11/2024 Refill [facility] [address] [place] [address] Samantha Mason, DO [address] [place] [address] Social History Tobacco Use Types Packs/Day Years [...] Info) Description 09/26/2024 11:30 AM EST Telemedicine [facility] [address] [place] [id number] Lily Chauhan MD [address] [place] [address] documented as of this encounter Visit Diagnoses Not on filedocumented in this encounter Additional Health Concerns Assessment Noted Time PHQ-9 Depression Total Score: 3 05/22/20 24 1:05 PM EDT documented as of this encounter Care Teams Production Estimator Relationship Specialty Start Date End Date Lily Chauhan MD [address] [place] [address] PCP - General Family Medicine 04/06/18 Neida Riojas Vocational TeacherCook [employer] 12/21/23 documented as of this encounter
--- OUTSIDE RECORDS SUMMARY | 2024-08-31 11:18 | XMS_ITS | Clinical Summary ---
Author Organization [employer] Address [address] [facility] [address] [place] [address] Care Team Providers Care Vice President Research Name Role Phone Lily Chauhan MD Primary [...] 14 days. 63 tablet 07/21/20 24 Active diclofenac (Voltaren) 50 MG EC tabletIndicati [...] per week. 2 mL 08/11/19 25 Active gabapentin (Neurontin) 100 MG capsuleIndicat ions:Neck pain TAKE 3 CAPSULES BY MOUTH EVERY 8 HOURS 270 capsule 08/25/19 25 Active Semaglutide-We ight Management (Wegovy) 0.25 [...] 120 tablet 3 07/24/20 24 2024 Discontinued gabapentin (Neurontin) 100 MG capsuleIndicat ions:Neck pain Take 3 capsules (300 mg) by mouth every 8 (eight) hours. 90 capsule 1 08/07/19 25 2024 Discontinued Active Problems Problem Noted Date [...] her [place] [facility] [place] Discussed re weight reduction options including exercise, life style modifications, diet, referral to commercial collections specialist. Discussed re lower calorie intake, increase [...] organization. Date Type Department Care Team Description 08/25/2024 Refill [facility] [address] [place] [address] Lily Chauhan MD Neck pain 08/22/2024 Telephone [facility] [address] [place] [address] Lily Chauhan MD Prior Authorization 08/18/[address] [address] Cee Oakes, RN Results 08/18/2024 Orders Only [facility] [address] [place] [phone] Lily Chauhan MD Pituitary abnormality (CMS/HCC) (Primary Dx); Cyst of cervical facet joint 08/11/2024 Orders Only [facility] [address] [place] [phone] Lily Chauhan MD BMI 38.0-38.9,adult (Primary Dx) 08/11/[address] [address] Samantha Mason DO 08/07/2024 11:00 AM EST Office Visit [address] [address] Lily Chauhan MD Essential hypertension (Primary Dx); Neck pain; Bilateral arm pain; Chronic midline low back pain without sciatica; Neck pain 08/07/2024 Travel 07/23/2024 Refill [facility] [address] [place] [phone] Lily Chauhan MD Migraine with aura and without status migrainosus, not intractable 07/21/2024 9:00 AM EST Office Visit [address] [address] Maryellen Chin NP Neck pain (Primary Dx); Elevated blood pressure reading in office with diagnosis of hypertension; Mass of occipital region 07/21/2024 Travel 07/20/[address] [phone] Lily Chauhan MD Appointment Request 07/18/[address] [phone] Diamond Mustafa, ANP No Show 07/18/[address] [phone] Lily Chauhan MD Nurse Triage 07/17/[address] [address] Verito Carlson MA Provider Out 07/09/2024 Orders Only GENERIC EXTERNAL DATA DEPARTMENT Provider, Generic External Data 07/06/2024 Patient Outreach [address] [address] Lily Chauhan MD Pre-visit Planning (SDOH screening completed on 11/03/2023) 06/26/[address] [address] Lily Chauhan MD Nurse Triage 06/20/[address] [address] Lily Chauhan MD Results 06/19/2024 1:15 PM EST Office Visit [address] [address] Juanita Carl NP Abdominal pain, LUQ (Primary Dx); Atypical chest pain 06/19/[address] [address] Lily Chauhan MD Nurse Triage from Last [...] 09/26/2024 11:30 AM EST Telemedicine [facility] [address] [place] [address] Lily Chauhan MD [address] [place] [address] Health Maintenance Due Date Last Done Comments [...] Chronic midline low back pain without sciatica XR SPINE CERVICAL W/FLEXT AND/OR EXT Routine [...] Recently Relevant to Health Maintenance Results * Referral to Pain Medicine (08/28/2024) us Lily Burnette MD OUTPATIENT REFERRAL O AKANKSHA Final Result * XR Spine Cervical w/ Flext and/ Or Ext (08/16/2024 9:50 AM EST) Anatomical Region Laterality Modality Radiographic Amee ging 08/16/2024 9:50 AM EST Narrative 08/16/2024 9:51 AM EST ? [facility] ?[address] ?[place] [address] ?XRay Report ? Signed ? Patient: Marsh,Rena ?MR#: [id number] ?? 7527 ? : 1985 ?Acct:[id number] ? Age/Sex: 38 / F ?ADM Date: 08/15/24 ? Loc: HO.XRAY ? Attending Dr: Eden Andrade APRN, CNP ? Ordering Physician: Eden Andrade APRN, CNP ?? Date of Service: 08/15/24 ?? Procedure(s): XR cervical spine w flex/ext ?? Accession Number(s): [id number] ? cc: Lily Chauhan MD; Eden Andrade [...] DD/ 0950 ? TD/TT: 08/16/24 0950 ? Cloth Hauler: ? Procedure Note Dustin, Image - 08/16/[address] [address] XRay Report Signed Patient: Carola Marsh#: [id number] : 1985Acct:[id number] Age/Sex: 38 / FADM Date: 08/15/24 Loc: DU[facility] Attending Dr: Eden Andrade APRN, CORNER CUTTER Ordering Physician: Eden Andrade APRN, MARSHALL Date of Service: 08/15/24 Procedure(s): XR cervical spine w flex/ext Accession Number(s): [id number] cc: Lily Chauhan MD; Eden Andrade APRN, CORNER CUTTER CLINICAL HISTORY: M54.2 - Cervicalgia 7 views [...] in OV> 08/16/24 0951 DD/ TD/TT: 08/16/2450 Cloth Hauler: [facility] External Provider IMG XR PROCEDURES Final Result * XR Lumbar Spine Complete 4+ Views (08/16/2024 5:21 AM EST) Anatomical Region Laterality Modality Spine, L-spine Radiographic Amee ging 08/16/2024 5:21 AM EST Narrative 08/16/2024 5:23 AM EST ? [facility] ?[address] ?[place] [address] ?XRay Report ? Signed ? Patient: Marsh,Rena ?MR#: [id number] ?? 7527 ? : 1985 ?Acct:[id number] ? Age/Sex: 38 / F ?ADM Date: 01/21/25 ? Loc: HO.XRAY ? Attending Dr: Eden Andrade APRN, CORNER CUTTER ? Ordering Physician: Eden Andrade APRN, CORNER CUTTER ?? Date of Service: 08/15/24 ?? Procedure(s): XR lumbar spine 4V min ?? Accession Number(s): [id number] ? cc: Lily Chauhan MD; Eden Andrade APRN, CORNER CUTTER ? CLINICAL HISTORY: M54.9 - Dorsalgia, unspecified [...] ? DD/ 0 ? TD/TT: 08/16/24520 ? Cloth Hauler: ? Procedure Note Donaudrajose ejoselo, Image - 08/16/2024 [place] [address] XRay Report Signed Patient: Carola Marsh#: [id number] : 1985Acct:[id number] Age/Sex: 38 / FADM Date: 08/15/24 Loc: [facility] Attending Dr: Eden Andrade APRN, CNP Ordering Physician: Eden Andrade APRN, CNP Date of Service: 08/15/24 Procedure(s): XR lumbar spine 4V min Accession Number(s): [id number] cc: Lily Chauhan MD; Eden Andrade APRN, [...] in OV> 08/16/24521 DD/ 0 TD/TT: 08/16/24520 Cloth Hauler: [facility] External Provider IMG XR PROCEDURES Final Result * MR Cervical Spine w/o Contrast (08/09/2024 8:16 PM EST) Anatomical Region Laterality Modality Spine, C-spine Magnetic Resonan ce 08/09/2024 8:16 PM EST Narrative 08/09/2024 8:18 PM EST ? [facility] ?[address] ?[place] [address] ? Magnetic Resonance Report ? Signed with Addenda ? Patient: Marsh,Rena ?MR#: [id number] ?? 7527 ? : 1985 ?Acct:[id number] ? Age/Sex: 38 / F ?ADM Date: 08/08/24 ? Loc: HO.MRI ? Attending Dr: Lily Burnette MD ? Ordering Physician: Lily Chauhan MD ?? Date of Service: 08/08/24 ?? Procedure(s): MR cervical spine wo con ?? Accession Number(s): [id number] ? cc: Lily Chauhan MD ?ADDENDUM ?? This document has been electronically signed by: Davon Farmer MD on ?? 08/09/2024 20:16:06 ? ADDENDUM: ?? Receipt of this report by the clinical staff was confirmed with Samantha ?? [place], pneumatic riveter on Aug 09, 2024 21:31:00 EST. ? [...] MD in OV> ? 08/09/242016 ? DD/ 2016 ? TD/TT: 08/09/24 2016 ? Cloth Hauler: ? Procedure Note Donthalia, Image - 08/09/2024 [place] [address] Magnetic Resonance Report Signed with Ivanna Patient: Rena MarshMR#: [id number] : 1985Acct:[id number] Age/Sex: 38 / FADM Date: 08/08/24 Loc: HO.MRI Attending Dr: Lily Burnette MD Ordering Physician: Lily Chauhan MD Date of Service: 08/08/24 Procedure(s): MR cervical spine wo con Accession Number(s): [id number] cc: Lily Chauhan MD ADDENDUM This document has been electronically signed by: Davon Farmer MD on 08/09/2024 20:16:06 ADDENDUM: Receipt of this report by the clinical staff was confirmed with PARISA Gutierrez Tech on Aug 09, 2024 21:31:00 EST. This [...] in OV> 08/09/242016 DD/ 15 TD/TT: 08/09/242015 Cloth Hauler: us Lily Burnette MD IMG MRI PROCEDURES Ed ited Result - Final * US Head Neck Soft Tissue (08/02/2024 2:16 PM EST) Anatomical Region Laterality Modality Head, Neck Ultrasound 08/02/2024 2:16 PM EST Narrative 08/07/2024 10:07 AM EST ? [facility] ?[address] ?[place] [address] ? Ultrasound Report ? Signed ? Patient: Marsh,Rena ?MR#: [id number] ?? 7527 ? : 1985 ?Acct:[id number] ? Age/Sex: 38 / F ?ADM Date: 01/08/25 ? Loc: HO.US ? Attending Dr: Maryellen Chin ? Ordering Physician: Maryellen Chin ?? Date of Service: 08/02/24 ?? Procedure(s): US soft tiss head and/or neck ?? Accession Number(s): [id number] ? cc: Maryellen Chin; Lily Chauhan MD [...] DD/ 1416 ? TD/TT: 08/02/24 1418 ? Cloth Hauler: ? Procedure Note Dustin, Image - 08/07/2024 [place] [address] Ultrasound Report Signed Patient: Carola Marsh#: [id number] : 1985Acct:[id number] Age/Sex: 38 / FADM Date: 08/02/24 Loc: HO.US Attending Dr: Maryellen Chin Ordering Physician: Maryellen Chin Date of Service: 08/02/24 Procedure(s): US soft tiss head and/or neck Accession Number(s): [id number] cc: Maryellen Chin; Lily Chauhan MD EXAMINATION: [...] Alfredo Khan MD 08/07/2024 10:04 AM EST RP Dictated By: Jose Alfredo Haddad MD Signed By: <Electronically signed by Jose Alfredo George MDin OV> 08/07/24 1004 DD/ 1416 TD/TT: 08/02/24 1418 Cloth Hauler: us Maryellen Appram STAFFING ACCOUNT MANAGER IMG US PROCEDURES Edited Result - Final * XR Chest 1 View (07/09/2024 9:30 PM EST) Anatomical Region Laterality Modality Chest Radiographic Amee ging 07/09/2024 9:30 PM EST Narrative 07/09/2024 10:15 PM EST ? [facility] ?[address] ?[place] [address] ?XRay Report ? Signed ? Patient: Marsh,Rena ?MR#: [id number] ?? 7527 ? : 1985 ?Acct:[id number] ? Age/Sex: 38 / F ?ADM Date: 07/09/24 ? Loc: HO.ED ? Attending Dr: ? Ordering Physician: Generic ED Physician ?? Date of Service: 07/09/24 ?? Procedure(s): XR chest 1V ?? Accession Number(s): [id number] ? cc: Lily Chauhan MD; Generic ED [...] ??Jesus Kay MD ??07/09/2024 10:13 PM EST ? Dictated By: ?Jesus Kay MD ? Signed By: ?<Electronically signed by Jesus Kay MD in OV> ?07/09/24 2213 ? DD/ 2130 ? TD/TT: 07/09/242134 ? Cloth Hauler: ? Procedure Note Donotjose einterpreter, Image - 07/09/[address] [address] XRay Report Signed Patient: Carola Marsh#: [id number] : 1985Acct:[id number] Age/Sex: 38 / FADM Date: 07/09/24 Loc: .ED Attending Dr: Ordering Physician: Generic ED Physician Date of Service: 07/09/24 Procedure(s): XR chest 1V Accession Number(s): [id number] cc: Lily Chauhan MD; Generic ED Physician [...] in OV> 07/09/242212 DD/ 29 TD/TT: 07/09/242134 Cloth Hauler: [facility] External Provider IMG XR PROCEDURES Edited Result - Final * High Sensitivity Troponin I (07/09/2024 9:21 PM EST) [facility] TROPONIN I HIGH SENSITIVITY <2.7 <3.5 - 17.0 ng/L [facility] Comment:The [place] high sens itivity Troponin-I results should beused in conjunction with other diagnostic information suchas ECG, clinical observations and information, and patientsymptoms to aid in the diagnosis of NV. 07/09/2024 9:21 PM EST 07/09/2024 9:23 PM EST us Generic External Data Provider LAB BLOOD ORDERAB LES Final Result [facility] [address] [place] [phone] * (ABNORMAL) CBC auto differential (07/09/2024 9:21 PM EST) Only the most recent of2 resultswithin the time period is included. [facility] White Blood Count 5.5 4.8 - 10.8 X10*3/uL [facility] Red Blood Count 3.70(L) 4.20 - 5.50 X10*6/uL [facility] Hemoglobin 10.7(L) 12.0 - 16.0 g/dl [facility] Hematocrit 32.3(L) 37.0 - 47.0 % [facility] Mean Corpuscular Volume 87.3 80.0 - 98.0 fL [facility] Mean Corpuscular Hemoglobin 28.9 27.0 - 33.0 pg [facility] Mean Corpuscular HGB Conc 33.1 31.0 - 35.0 g/dl [facility] Red Cell Distribution Width 13.9 11.0 - 16.0 % [facility] Platelet Count 259 160 - 400 X10*3/uL [facility] Mean Platelet Volume 9.0(L) 9.4 - 12.3 fL [facility] Neutrophils Percent Auto 49.3 45 - 73 % [facility] Imm Gran Pct Auto 0.2 0.0 - 0.4 % [facility] Lymphocytes Percent Auto 39.9 20 - 40 % [facility] Monocytes Percent Auto 9.2 2 - 11 % [facility] Eosinophils Percent Auto 0.9 0 - 4 % [facility] Basophils Percent Auto 0.5 0 - 2 % [facility] NRBC Pct Auto 0.0 0.0 - 0.2 /100WBC [facility] Neutrophils Absolute Auto 2.7 2.0 - 8.3 x10*3/uL [facility] Imm Gran Abs Auto 0.01 0.00 - 0.03 X10*3/uL [facility] Lymphocytes Absolute Auto 2.2 1.2 - 4.9 X10*3/uL [facility] Monocytes Absolute Auto 0.5 0.1 - 1.2 X10*3/uL [facility] Eosinophils Absolute Auto 0.1 0.0 - 0.4 X10*3/uL [facility] Basophils Absolute Auto 0.0 0.0 - 0.2 X10*3/uL [facility] NRBC Abs Auto 0.000 0.0 - 0.012 X10*3/uL [facility] 07/09/2024 9:21 PM EST 07/09/2024 9:23 PM EST us Generic External Data Provider LAB BLOOD ORDERAB LES Final Result [facility] [address] [place] [phone] * hCG, Total, Quantitative (07/09/2024 9:21 PM EST) HCG Quantitative <2 mIU/mL [facility] Comment:Weeks post LMP Appro ximate hCG(Last Menstrual Period) Range (mIU/ml)3 - 4 weeks 9 - 1304 - 5 weeks 75 - 2,6005 - 6 weeks 850 - 20,8006 - 7 weeks 4000 - 100,2007 - 12 weeks 11,500 - 289,63446 - 16 weeks 18,300 - 137,47776 - 29 weeks (2nd trimester) 1,400 - 53,20414 - 41 weeks (3rd trimester) 940 - [...] Provider LAB BLOOD ORDERAB LES Final Result [facility] [address] [place] [address] [phone] * (ABNORMAL) Comprehensive Metabolic Panel (07/09/2024 9:21 PM EST) Only the most recent of2 resultswithin the time period is included. Sodium 139 135 - 145 mmol/L [facility] Potassium 4.0 3.3 - 5.1 mmol/L [facility] Chloride 106 96 - 108 mmol/L [facility] Carbon Dioxide 26 22 - 29 mmol/L [facility] Anion Gap 11(L) 12 - 20 [facility] Urea Nitrogen (BUN) 13 9 - 16 mg/dL [facility] Creatinine, Serum 0.78 0.5 - 1.4 mg/dL [facility] Creatinine Clr Calc Pharmacy 94.1 [facility] Comment:Provided height and weight: 149.86 cm,86.183 kg.eGFR (calculated from the MDRD study equation) and eCrCl(calculated from the Cockcroft-Gault equation) are based ondifferent parameters and may not yield comparable results.If eCrCl result is absurd, please check patient'sheight/weight. Estimated Glomerular Filt Rate >60 [facility] Comment:Chronic Kidney Disea se: Estimated GFR < 60 mL/min/1.31u1Umcxhs Kidney Disease: Estimated GFR < 15 mL/min/1.73m2 Glucose 89 60 - 115 mg/dL [facility] Calcium 8.6 8.4 - 10.2 mg/dL [facility] Bilirubin, Total 0.2 0.0 - 1.0 mg/dL [facility] Aspartate Amino Transferase 20 5 - 31 U/L [facility] Alanine Aminotransferase 16 0 - 31 U/L [facility] Total Protein 7.6 6.5 - 8.0 g/dL [facility] Albumin Level 4.0 3.5 - 5.0 g/dL [facility] Alkaline Phosphatase 79 39 - 117 U/L [facility] 07/09/2024 9:21 PM EST 07/09/2024 9:23 PM EST us Generic External Data Provider LAB BLOOD ORDERAB LES Final Result Performing Organization Address [facility] Co de Phone Number [facility] [address] [place] [phone] * (ABNORMAL) Vitamin D, 25-Hydroxy, Total, Immunoassay (06/20/2024 9:49 AM EST) Vitamin D 25-OH Total 16.7(L) >30 ng/mL [facility] Comment:Health Based Referen ce Values*< 20 ng/mL Xvrdddujb37-55 ng/mL Insufficient> 30 ng/mL Sufficient*Manolo HERRON. N [...] BLOOD ORDERABLES Final Result Performing Organization Address [facility]/ZIP Co de Phone Number [facility] [address] [place] [phone] * TSH with Reflex to Free T4 (06/20/2024 9:49 AM EST) Pathologist [facility] TSH reflex Free T4 1.94 0.32 - 4.0 uIU/mL [facility] Blood 06/20/2024 9:49 AM EST 06/20/2024 11:47 AM EST Lily Burnette MD LAB BLOOD ORDERABLES Final Result Performing Organization Address [facility]/ZIP Co de Phone Number [facility] [address] [place] [phone] * Hepatitis C Antibody with Reflex to HCV, RNA, Quantitative, Real-Time PCR (06/20/2024 9:49 AM EST) Pathologist [facility] Hepatitis C Antibody Nonreactive Nonreactive [facility] Comment:Antibodies to HCV no t detected; does not exclude early acuteHCV infection. Blood Venous blood specimen / Unknown 06/20/2024 9:49 AM EST 06/20/2024 11:47 AM EST us Lily Burnette MD LAB BLOOD ORDERABLES Final Result Performing Organization Address City/[facility] Co de Phone Number [facility] [address] [place] [phone] * HIV-1/2 Antigen and Antibodies, Fourth Generation, with Reflexes (06/20/2024 9:49 AM EST) Pathologist [facility] HIV AB/AG Nonreactive Nonreactive [facility] Comment:HIV-1 p24 Ag and/or HIV-1/HIV-2 Ab not detected.A test result that is nonreactive does not exclude thepossibility of exposure to or infection with HIV-1 and/orHIV-2. Nonreactive results in this assay for individualswith prior exposure to HIV-1 and/or HIV-2 may be due toantigen and antibody levels that are below the limit ofdetection of this assay.The Digerati HIV Ag/Ab Combo assay result andsupplemental assay results should be interpreted inconjunction with the patient's clinical presentation,history and other laboratory results. If the results areinconsistent with clinical evidence, additional testing issuggested to confirm the result. Blood Venous blood specimen / Unknown 06/20/2024 9:49 AM EST 06/20/2024 11:47 AM EST Lily Burnette MD LAB BLOOD ORDERABLES Final Result Performing Organization Address [facility] Co de Phone Number [facility] [address] [place] [phone] * Hemoglobin A1c (06/20/2024 9:49 AM EST) Hemoglobin A1c 5.4 <6.0 % [facility] Comment:Hemoglobin A1C Refer ence Range Adults: 4.8 - 6.0 % Non diabetic: < 6.0 % Goal: < 7.0 %Additional Action Suggested: > 8.0 %Note: Hemoglobin A1c results are invalid for patients with abnormal amounts of HbF. Blood transfusions may impact the HbA1c concentration in the patient sample. Estimated Average Glucose 108 mg/dL [facility] Comment:eAG = Estimated ave rage glucose which is %A1C expressed asaverage glucose, using the formula of the Y9W-TrbuzkcIeoobpa Glucose study (ADAG), Diabetes Care, Vol.31,#8,Feb. 2007 Blood Venous blood specimen / Unknown 06/20/2024 9:49 AM EST 06/20/2024 11:47 AM EST us Lily Burnette MD LAB BLOOD ORDERABLES Final Result Performing Organization Address [facility] Co de Phone Number [facility] [address] [place] [address] [phone] * Hepatic Function Panel (06/20/2024 9:49 AM EST) Bilirubin, Direct 0.1 0.0 - 0.5 mg/dL [facility] Blood Venous blood specimen / Unknown 06/20/2024 9:49 AM EST 06/20/2024 11:47 AM EST us Lily Burnette MD LAB BLOOD ORDERABLES Final Result Performing Organization Address City/[facility]/ZIP Co de Phone Number [facility] [address] [place] [phone] * Lipid Panel, Standard (06/20/2024 9:49 AM EST) Triglycerides 133 <150 mg/dL [facility] Comment:Desirable Triglyceri de: less than 150 mg/dLBorderline High Triglyceride 150-199 mg/dLHigh Triglyceride: 200-499 mg/dLVery High Triglyceride: greater than or equal to 5OO mg/dL Cholesterol 175 <200 mg/dL [facility] Comment:Desirable Cholestero l: less than 200 mg/dLBorderline High Cholesterol: 200-239 mg/dLHigh Cholesterol: greater than 239 mg/dL LDL Cholesterol Calculated 94 <100 mg/dL [facility] Comment:Desirable LDL: less than 100 mg/dLNear Optimal/Above Optimal LDL: 110- 129 mg/dLBorderline High LDL: 130-159 mg/dLHigh LDL: 160-189 mg/dLVery High LDL: greater than or equal to 190 mg/dL HDL Cholesterol 55 >40 mg/dL [facility] Comment:Desirable HDL: great er than 40 mg/dL Note: This HDL assay may give artificially low results in patients with liver disease. Blood Venous blood specimen / Unknown 06/20/2024 9:49 AM EST 06/20/2024 11:47 AM EST us Lily Burnette MD LAB BLOOD ORDERABLES Final Result Performing Organization Address City/[facility]/ZIP Co de Phone Number [facility] [address] [place] [phone] * XR CERVICAL SPINE 3V (06/20/2024 9:10 AM EST) Anatomical Region Laterality Modality Abdomen Radiographic Amee ging 06/20/2024 9:10 AM EST Narrative 06/20/2024 1:33 PM EST ?[facility] ?[address] ?[place] [address] ?XRay Report ? Signed ? Patient: Marsh,Rena ?MR#: [id number] ?? [id number] ? : 1985 ?Acct:[id number] ? Age/Sex: 38 / F ?ADM Date: 06/20/24 ? Loc: HO.HHCX ? Attending Dr: Juanita Carl STAFFING ACCOUNT MANAGER ? Ordering Physician: Juanita Carl STAFFING ACCOUNT MANAGER ?? Date of Service: 06/20/24 ?? Procedure(s): XR cervical spine 3V ?? Accession Number(s): [id number] ? cc: Juanita Carl STAFFING ACCOUNT MANAGER ? EXAMINATION: ?? XR CERVICAL SPINE ?? [...] ??Radha Paulson MD ??06/20/2024 01:30 PM EST ?? RP ? Dictated By: ?Radha Paulson MD ? Signed By: ?<Electronically signed by Radha Paulson MD in OV> ? 06/20/24 1330 ? DD/ 0910 ? TD/TT: 06/20/24 0920 ? Cloth Hauler: ? Procedure Note Donotuseinterpreter, Image - 06/20/[address] [address] XRay Report Signed Patient: Rena MarshMR#: [id number] : 1985Acct:[id number] Age/Sex: 38 / FADM Date: 06/20/24 Loc: HO.HHCX Attending Dr: Juanita Carl STAFFING ACCOUNT MANAGER Ordering Physician: Juanita Carl NP Date of Service: 06/20/24 Procedure(s): XR cervical spine 3V Accession Number(s): [id number] cc: Juanita Carl STAFFING ACCOUNT MANAGER EXAMINATION: XR CERVICAL SPINE XR THORACIC SPINE [...] Radha Paulson MD 06/20/2024 01:30 PM EST RP Dictated By: Radha Paulson MD Signed By: <Electronically signed by Radha Paulson MD in OV> 06/20/24 1330 DD/ 9 TD/TT: 06/20/24919 Cloth Hauler: us Juanita Carl STAFFING ACCOUNT MANAGER IMG XR PROCEDURES Final Result * XR Thoracic Spine 2 Views (06/20/2024 9:10 AM EST) Anatomical Region Laterality Modality Spine, T-spine Radiographic Amee ging 06/20/2024 9:10 AM EST Narrative 06/20/2024 1:33 PM EST ?[facility] ?[address] ?[place] [address] ?XRay Report ? Signed ? Patient: Marsh,Rena ?MR#: [id number] ?? 7527 ? : 1985 ?Acct:[id number] ? Age/Sex: 38 / F ?ADM Date: 06/20/24 ? Loc: HO.HHCX ? Attending Dr: Juanita Carl STAFFING ACCOUNT MANAGER ? Ordering Physician: Juanita Carl NP ?? Date of Service: 06/20/24 ?? Procedure(s): XR thoracic spine 2V ?? Accession Number(s): [id number] ? cc: Juanita Carl STAFFING ACCOUNT MANAGER ? EXAMINATION: ?? XR CERVICAL SPINE ?? [...] DD/ 0910 ? TD/TT: 06/20/24 0920 ? Cloth Hauler: ? Procedure Note Donotjose einterpreter, Image - 06/20/2024 [place] [address] XRay Report Signed Patient: Rena MarshMR#: [id number] : 1985Acct:[id number] Age/Sex: 38 / FADM Date: 06/20/24 Loc: .HHCX Attending Dr: Juanita Carl STAFFING ACCOUNT MANAGER Ordering Physician: Juanita Carl NP Date of Service: 06/20/24 Procedure(s): XR thoracic spine 2V Accession Number(s): [id number] cc: Juanita Carl STAFFING ACCOUNT MANAGER EXAMINATION: XR CERVICAL SPINE XR THORACIC SPINE [...] Radha Paulson MD 06/20/2024 01:30 PM EST RP Dictated By: Radha Paulson MD Signed By: <Electronically signed by Radha Paulson MD in OV> 06/20/24 1330 DD/ 0910 TD/TT: 06/20/24 09 Cloth Hauler: Juanita Carl NP IMG XR PROCEDURES Final Result * HM PAP/HPV (06/02/2019 2:16 PM EST) us Historical Provider HEALTH MAINTENANCE Final Result from Last 3 Months or Most Recently Relevant to Health Maintenance Insurance [facility] C3 Care Teams Vice President Research Relationship Specialty Start Date End Date Lily Chauhan MD [address] [place] [address] PCP - General Family Medicine 04/06/18 Neida Riojas Anesthesiology TechCvicu Nurse 12/21/23
--- OUTSIDE RECORDS SUMMARY | 2024-08-31 11:18 | XMS_ITS | Encounter Summary ---
Author Organization [employer] Address [address] [place] [address] 7 [place] [address] Care Team Providers Care Android Architect Name Role Phone Lily Chauhan MD Primary Care Provide r Reason for Visit * Reason Onset Date Comments Nurse Triage 06/26/2024 Encounter Details Date Type Department Care Team ([facility] st Contact Info) Description 06/26/2024 Telephone [facility] MEDICINE [address] [place] [address] Lily Chauhan MD [address] [place] [address] Nurse Triage Social History Tobacco Use Types [...] your housing situation today? I have wilton schnieder 11/03/[address] you li [...] EST Telemedicine [facility] MEDICINE [address] [place] [address] Lily Chauhan MD [address] [place] [address] documented as of this encounter Visit Diagnoses Not on filedocumented in this encounter Additional Health Concerns Assessment Noted Time PHQ-9 Depression Total Score: 3 05/22/20 24 1:05 PM EDT documented as of this encounter Care Teams Android Architect Relationship Specialty Start Date End Date Lily Chauhan MD [address] [place] [address] PCP - General Family Medicine 04/06/18 Neida Riojas Chain HookerMotor Adjuster 12/21/23 documented as of this encounter
--- OUTSIDE RECORDS SUMMARY | 2024-08-31 11:18 | XMS_ITS | Encounter Summary ---
Author Organization [employer] Address [address] [place] [address] 7t [place] [address] Care Team Providers Care Deportation Officer Name Role Phone Lily Chauhan MD Primary Care Provide r Reason for Visit * Reason Comments Med Refill Encounter Details Date Type Department Care Team ([facility] st Contact Info) Description 08/25/2024 Refill [facility] MEDICINE [address] [place] [address] Lily Chauhan MD [address] [place] [address] Neck pain Social History Tobacco Use Types [...] your housing situation today? I have wilton sing 11/03/[address] you li [...] Info) Description 09/26/2024 11:30 AM EST Telemedicine [facility] MEDICINE [address] [place] [address] Lily Chauhan MD [address] [place] [address] documented as of this encounter Visit Diagnoses Diagnosis Neck pain Cervicalgia documented in this encounter Additional Health Concerns Assessment Noted Time PHQ-9 Depression Total Score: 3 05/22/20 24 1:05 PM EDT documented as of this encounter Care Teams Deportation Officer Relationship Specialty Start Date End Date Lily Chauhan MD [address] [place] [address] PCP - General Family Medicine 04/06/18 Neida Riojas Pediatric NurseYard Manager 12/21/23 documented as of this encounter
--- OUTSIDE RECORDS SUMMARY | 2024-08-31 11:18 | XMS_ITS | Encounter Summary ---
Author Organization [employer] Address [address] [facility] 7t [place] [address] Care Team Providers Care Relay Record Clerk Name Role Phone Lily Chauhan MD Primary Care Provide r Encounter Details Date Type Department Care Team ([facility] st Contact Info) Description 08/11/2024 Orders Only [facility] MEDICINE [address] [place] [address] Lily Chauhan MD [address] [place] [address] BMI 38.0-38.9,adult (Primary Dx) Social History Tobacco [...] Info) Description 09/26/2024 11:30 AM EST Telemedicine [facility] MEDICINE [address] [place] [address] Lily Chauhan MD [address] [place] [address] documented as of this encounter Procedures Procedure [...] EST Narrative 08/16/2024 9:51 AM EST ? [facility] ?[address] ?[place] [address] ?XRay Report ? Signed ? Patient: Marsh,Rena ?MR#: [id number] ?? [id number] ? : 1985 ?Acct:[id number] ? Age/Sex: 38 / F ?ADM Date: 01/21/25 ? Loc: HO.XRAY ? Attending Dr: Eden Andrade APRN, CNP ? Ordering Physician: Eden Andrade APRN, CNP ?? Date of Service: 08/15/24 ?? Procedure(s): XR cervical spine w flex/ext ?? Accession Number(s): [id number] ? cc: Lily Chauhan MD; Eden Andrade [...] ? DD/ 0950 ? TD/TT: 08/16/2450 ? Terminal Make Up Operator: ? Procedure Note Dustin, Ni - 08/16/2024 [place] [address] XRay Report Signed Patient: Rena Marsh#: [id number] : 1985Acct:[id number] Age/Sex: 38 / FADM Date: 08/15/24 Loc: HO.JYOTIAY Attending Dr: Eden Andrade APRN, CNP Ordering Physician: Eden Andrade APRN, CNP Date of Service: 08/15/24 Procedure(s): XR cervical spine w flex/ext Accession Number(s): [id number] cc: Lily Chauhan MD; Eden Andrade APRN, [...] in OV> 08/16/24 0951 DD/ TD/TT: 08/16/2450 Terminal Make Up Operator: [facility] External Provider IMG XR PROCEDURES Final Result * XR Lumbar Spine Complete 4+ Views (08/16/2024 5:21 AM EST) Anatomical Region Laterality Modality Spine, L-spine Radiographic Amee ging 08/16/2024 5:21 AM EST Narrative 08/16/2024 5:23 AM EST ? [facility] ?[address] ?[place] [address] ?XRay Report ? Signed ? Patient: Rena Marsh ?MR#: [id number] ?? [id number] ? : 1985 ?Acct:[id number] ? Age/Sex: 38 / F ?ADM Date: 08/15/24 ? Loc: HO.XRAY ? Attending Dr: Eden Andrade APRN DORMITORY COUNSELOR ? Ordering Physician: Eden Andrade APRN DORMITORY COUNSELOR ?? Date of Service: 08/15/24 ?? Procedure(s): XR lumbar spine 4V min ?? Accession Number(s): [id number] ? cc: Lily Chauhan MD; Eden Andrade TRANSIT CLERK, DORMITORY COUNSELOR ? CLINICAL HISTORY: M54.9 - Dorsalgia, unspecified [...] ? DD/ 0 ? TD/TT: 08/16/24520 ? Terminal Make Up Operator: ? Procedure Note Donotuseinterpreter, Image - 08/16/2024 [place] [address] XRay Report Signed Patient: Carola Marsh#: [id number] : 1985Acct:[id number] Age/Sex: 38 / FADM Date: 08/15/24 Loc: [facility] Attending Dr: Eden Andrade APRN, CNP Ordering Physician: Eden Andrade APRN, CNP Date of Service: 08/15/24 Procedure(s): XR lumbar spine 4V min Accession Number(s): [id number] cc: Lily Chauhan MD; Eden Andrade APRN, [...] in OV> 08/16/24521 DD/ 0 TD/TT: 08/16/24520 Terminal Make Up Operator: [facility] External Provider IMG XR PROCEDURES Final Result documented in this encounter Visit Diagnoses Diagnosis BMI 38.0-38.9,adult- Primary documented in this encounter Additional Health Concerns Assessment Noted Time PHQ-9 Depression Total Score: 3 05/22/20 24 1:05 PM EDT documented as of this encounter Care Teams Relay Record Clerk Relationship Specialty Start Date End Date Lily Chauhan MD [address] [place] [address] PCP - General Family Medicine 04/06/18 Neida Riojas Food SamplerTime Buyer 12/21/23 documented as of this encounter
--- OUTSIDE RECORDS SUMMARY | 2024-08-31 11:18 | XMS_ITS | Encounter Summary ---
Author Organization [employer] Address [address] [place] [address] 7t [place] [address] Care Team Providers Care Supervisor Research Kennel Name Role Phone Lily Chauhan MD Primary Care Provide r Encounter Details Date Type Department Care Team ([facility] Contact Info) Description 08/17/2022 Orders Only [facility] MEDICINE [address] [place] [address] Maryan Abernathy MD [address] [place] [address] Vitamin D deficiency (Primary Dx) Social History [...] Upcoming Encounters Date Type Department Care Team ([facility] Contact Info) Description 09/26/2024 11:30 AM EST Telemedicine [facility] MEDICINE [address] [place] [phone] Lily Chauhan MD [address] [place] [address] documented as of this encounter Visit Diagnoses Diagnosis Vitamin D deficiency- Primary documented in this encounter Care Teams Supervisor Research Kennel Relationship Specialty Start Date End Date Lily Chauhan MD [address] [place], [place] [phone] PCP - General Family Medicine 04/06/18 Neida Riojas Risk Compliance ManagerBacon De Rinder 12/21/23 documented as of this encounter
== END 2024-08-31 11:14 | disposition home or self-care (01) ==
LOC: HO.HOSX 11:13
PROVIDERS: Visit Provider Physician Assistant
DX: M54.2 Cervicalgia (principal)
CPT/HCPCS: 72050

== ENCOUNTER → 2024-08-31 11:18 | Outpatient (BNV) | payer MEDICAID, SELFPAY | PROVIDERS: Visit Provider Radiology Diagnostic Radiology | DX: M54.2 Cervicalgia (principal) | CPT/HCPCS: 72050 ==

== ENCOUNTER → 2024-08-31 12:46 | Outpatient (REF) | payer MEDICAID, SELFPAY ==
--- OUTSIDE RECORDS SUMMARY | 2024-08-31 12:48 | XMS_ITS | Encounter Summary ---
Author Organization [employer] Address [address] [facility] 7t [place] [address] Care Team Providers Care Hourly Associate Name Role Phone Lily Chauhan MD Primary Care Provide r Reason for Visit * Reason Comments Med Refill Encounter Details Date Type Department Care Team ([facility] st Contact Info) Description 02/25/2024 Refill [facility] [address] [place] [address] Dayday Pearce MD [address] [place] [address] Social History Tobacco Use Types Packs/Day Years [...] 09/26/2024 11:30 AM EST Telemedicine [facility] MEDICINE [address] [place] [address] Lily Chauhan MD [address] [place] [address] documented as of this encounter Visit Diagnoses Not on filedocumented in this encounter Additional Health Concerns Assessment Noted Time PHQ-9 Depression Total Score: 0 11/15/19 24 10:46 AM EDT documented as of this encounter Care Teams Hourly Associate Relationship Specialty Start Date End Date Lily Chauhan MD [address] [place] [address] PCP - General Family Medicine 04/06/18 Neida Riojas Education CounselorHeat Reader 12/21/23 documented as of this encounter
--- OUTSIDE RECORDS SUMMARY | 2024-08-31 12:48 | XMS_ITS | Encounter Summary ---
Author Organization [employer] Address [address] [place] [address] 7 [place] [address] Care Team Providers Care Occupational Therapy Specialist Name Role Phone Lily Chauhan MD Primary Care Provide r Reason for Visit * Reason Onset Date Comments Prior Authorization 08/22/2024 Encounter Details Date Type Department Care Team ([facility] Contact Info) Description 08/22/2024 Telephone [facility]ICINE [address] [place] [address] Lily Chauhan MD [address] [place] [address] Prior Authorization Social History Tobacco Use Types [...] 11:30 AM EST Telemedicine [facility] [address] [place] [address] Lily Chauhan MD [address] [place] [address] documented as of this encounter Visit Diagnoses Not on filedocumented in this encounter Additional Health Concerns Assessment Noted Time PHQ-9 Depression Total Score: 3 05/22/20 24 1:05 PM EDT documented as of this encounter Care Teams Occupational Therapy Specialist Relationship Specialty Start Date End Date Lily Chauhan MD [address] [place] [phone] PCP - General Family Medicine 04/06/18 Neida iRojas Multimedia Instructional DesignerSweat Band Separator 12/21/23 documented as of this encounter
--- OUTSIDE RECORDS SUMMARY | 2024-08-31 12:48 | XMS_ITS | Encounter Summary ---
Author Organization [employer] Address [address] [place] [address] 7t [place] [address] Care Team Providers Care Furnace Builder Name Role Phone Lily Chauhan MD Primary Care Provide r Reason for Visit * Reason Onset Date Comments Results 08/18/2024 Encounter Details Date Type Department Care Team ([facility] st Contact Info) Description 08/18/2024 Telephone [facility] MEDICINE [address] [place] [address] Cee Oakes RN [address] [place] [address] Results Social History Tobacco Use Types Packs/Day [...] 2:59 PM EST TC placed to patient [phone] in regards to below message. Patient did [...] Description 09/26/2024 11:30 AM EST Telemedicine [facility] MEDICINE [address] [place] [address] Lily Chauhan MD [address] [place] [address] documented as of this encounter Visit Diagnoses Not on filedocumented in this encounter Additional Health Concerns Assessment Noted Time PHQ-9 Depression Total Score: 3 05/22/20 24 1:05 PM EDT documented as of this encounter Care Teams Furnace Builder Relationship Specialty Start Date End Date Lily Chauhan MD [address] [place] [address] PCP - General Family Medicine 04/06/18 Neida Riojas Manager PathologyRoofer Helper 12/21/23 documented as of this encounter
--- OUTSIDE RECORDS SUMMARY | 2024-08-31 12:48 | XMS_ITS | Encounter Summary ---
Author Organization [employer] Address [address] [place] [address] 7t [place] [address] Care Team Providers Care Machinist First Class Name Role Phone Lily Chauhan MD Primary Care Provide r Reason for Visit * Reason Comments Med Refill Encounter Details Date Type Department Care Team ([facility] st Contact Info) Description 05/15/2024 Refill [facility] MEDICINE [address] [place] [address] Lily Chauhan MD [address] [place] [address] Essential hypertension Social History Tobacco Use Types [...] Info) Description 09/26/2024 11:30 AM EST Telemedicine [facility] MEDICINE [address] [place] [address] Lily Chauhan MD [address] [place] [address] documented as of this encounter Visit Diagnoses Diagnosis Essential hypertension Unspecified essential hypertension documented in this encounter Additional Health Concerns Assessment Noted Time PHQ-9 Depression Total Score: 0 11/15/19 24 10:46 AM EDT documented as of this encounter Care Teams Machinist First Class Relationship Specialty Start Date End Date Lily Chauhan MD [address] [place] [address] PCP - General Family Medicine 04/06/18 Neida Riojas Regional Telecommunications SpecialistCover Operator 12/21/23 documented as of this encounter
--- OUTSIDE RECORDS SUMMARY | 2024-08-31 12:48 | XMS_ITS | Encounter Summary ---
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 Lily Chauhan MD [address] [place] [address] Phone: tel: fax: Ignacio Noguera [address] [place] [address] [address] [place] [address] Phone: tel: fax: Referral ID Status Reason Start Date Expiration Date Visits Requested Visits Authorized [id number] Authorized Specialty Services Required 08/21/2024 08/21/2025 1 1 Encounter Details Date Type Department Care Team (Late st Contact Info) Description 08/18/2024 Orders Only [facility] MEDICINE [address] [place] [address] Lily Chauhan MD [address] [place] [phone] Pituitary abnormality (CMS/HCC) (Primary Dx); Cyst of [...] Info) Description 09/26/2024 11:30 AM EST Telemedicine [facility] MEDICINE [address] [place] [address] Lily Chauhan MD [address] [place] [address] Scheduled Referrals Name Type Priority Associated Diagnoses [...] documented as of this encounter Care Teams Parachute Harness Rigger Relationship Specialty Start Date End Date Lily Chauhan MD [address] [place] [address] PCP - General Family Medicine 04/06/18 Neida Riojas Produce AssistantHouse Painter Helper 12/21/23 documented as of this encounter
--- OUTSIDE RECORDS SUMMARY | 2024-08-31 12:48 | XMS_ITS | Encounter Summary ---
Author Organization [employer] Address [address] [facility] [address] 7t [place] [address] Care Team Providers Care Hourly Team Members Name Role Phone Lily Chauhan MD Primary [...] 09/26/2024 11:30 AM EST Telemedicine [facility] MEDICINE [address] [place] [address] Lily Chauhan MD [address] [place] [address] documented as of this encounter Visit Diagnoses Not on filedocumented in this encounter Additional Health Concerns Assessment Noted Time PHQ-9 Depression Total Score: 3 05/22/20 24 1:05 PM EDT documented as of this encounter Care Teams Hourly Team Members Relationship Specialty Start Date End Date Lily Chauhan MD [address] [place] [phone] PCP - General Family Medicine 04/06/18 Neida Riojas Senior Systems ArchitectDigital Art Director 12/21/23 documented as of this encounter
--- OUTSIDE RECORDS SUMMARY | 2024-08-31 12:48 | XMS_ITS | Encounter Summary ---
Author Organization [employer] Address [address] [facility] 7t [place] [address] Care Team Providers Care Agency Director Name Role Phone Lily Chauhan MD Primary Care Provide r Encounter Details Date Type Department Care Team ([facility] st Contact Info) Description 04/28/2024 Telephone [facility] MEDICINE [address] [place], [place] [phone] Julianne Soto RN [address] [place] [address] Social History Tobacco Use Types Packs/Day Years [...] Description 09/26/2024 11:30 AM EST Telemedicine [facility] MEDICINE [address] [place] [address] Lily Chauhan MD [address] [place] [address] documented as of this encounter Visit Diagnoses Not on filedocumented in this encounter Additional Health Concerns Assessment Noted Time PHQ-9 Depression Total Score: 0 11/15/19 24 10:46 AM EDT documented as of this encounter Care Teams Agency Director Relationship Specialty Start Date End Date Lily Chauhan MD [address] [place] [address] PCP - General Family Medicine 04/06/18 Neida Riojas Cutter Grinder OperatorRecord Keeper 12/21/23 documented as of this encounter
--- OUTSIDE RECORDS SUMMARY | 2024-08-31 12:49 | XMS_ITS | Clinical Summary ---
Author Organization [employer] Address [address] [facility] 7[address] [place] [address] Care Team Providers Care Vegetable Farmworker Name Role Phone Lily Chauhan MD Primary [...] her information for weight reduction program at [facility]. Discussed re weight reduction options including exercise, life style modifications, diet, referral to environmental protection specialist. Discussed re lower calorie intake, increase [...] Type Department Care Team Description 08/25/2024 Refill [facility] [address] [place] [address] Lily Chauhan MD Neck pain 08/22/2024 Telephone [facility] [address] [place] [address] Lily Chauhan MD Prior Authorization 08/18/[address] [address] Cee Oakes, RN Results 08/18/2024 Orders Only [facility] [address] [place] [phone] Lily Chauhan MD Pituitary abnormality (CMS/HCC) (Primary Dx); Cyst of cervical facet joint 08/11/2024 Orders Only [facility] [address] [place] [phone] Lily Chauhan MD BMI 38.0-38.9,adult (Primary Dx) 08/11/[address] [address] Samantha Mason DO 08/07/2024 11:00 AM EST Office Visit [address] [address] Lily Chauhan MD Essential hypertension (Primary Dx); Neck pain; Bilateral arm pain; Chronic midline low back pain without sciatica; Neck pain 08/07/2024 Travel 07/23/2024 Refill [facility] [address] [place] [phone] Lily Chauhan MD Migraine with aura and without status migrainosus, not intractable 07/21/2024 9:00 AM EST Office Visit [address] [address] Maryellen Chin NP Neck pain (Primary Dx); Elevated blood pressure reading in office with diagnosis of hypertension; Mass of occipital region 07/21/2024 Travel 07/20/[address] [phone] Lily Chauhan MD Appointment Request 07/18/[address] [phone] Diamond Mustafa, ANP No Show 07/18/[address] [phone] Lily Chauhan MD Nurse Triage 07/17/[address] [address] Verito Carlson MA Provider Out 07/09/2024 Orders Only GENERIC EXTERNAL DATA DEPARTMENT Provider, Generic External Data 07/06/2024 Patient Outreach [address] [address] Lily Chauhan MD Pre-visit Planning (SDOH screening completed on 11/03/2023) 06/26/[address] [address] Lily Chauhan MD Nurse Triage 06/20/[address] [address] Lily Chauhan MD Results 06/19/2024 1:15 PM EST Office Visit [address] [address] Juanita Carl NP Abdominal pain, LUQ (Primary Dx); Atypical chest pain 06/19/[address] [address] Lily Chauhan MD Nurse Triage from Last [...] Info) Description 09/26/2024 11:30 AM EST Telemedicine [facility] [address] [place] [address] Lily Chauhan MD [address] [place] [address] Health Maintenance Due Date Last Done Comments [...] EST Narrative 08/16/2024 9:51 AM EST ? [facility] ?[address] ?[place] [address] ?XRay Report ? Signed ? Patient: Marsh,Rena ?MR#: [id number] ?? 7527 ? : 1985 ?Acct:[id number] ? Age/Sex: 38 / F ?ADM Date: 08/15/24 ? Loc: HO.XRAY ? Attending Dr: Eden Andrade APRN, CNP ? Ordering Physician: Eden Andrade APRN, CNP ?? Date of Service: 08/15/24 ?? Procedure(s): XR cervical spine w flex/ext ?? Accession Number(s): [id number] ? cc: Lily Chauhan MD; Eden Andrade [...] DD/ 0950 ? TD/TT: 08/16/24 0950 ? Grease Machine Worker: ? Procedure Note Dustin, Image - 08/16/[address] [address] XRay Report Signed Patient: Carola Marsh#: [id number] 7527 : 1985Acct:[id number] Age/Sex: 38 / FADM Date: 08/15/24 Loc: [facility] Attending Dr: Eden Andrade APRN, CABLE SPLICING TECHNICIAN Ordering Physician: Eden Andrade APRN, MARSHALL Date of Service: 08/15/24 Procedure(s): XR cervical spine w flex/ext Accession Number(s): [id number] cc: Lily Chauhan MD; Eden Andrade APRN, CABLE SPLICING TECHNICIAN CLINICAL HISTORY: M54.2 - Cervicalgia 7 views [...] in OV> 08/16/24 0951 DD/ TD/TT: 08/16/2450 Grease Machine Worker: [facility] External Provider IMG XR PROCEDURES Final Result * XR Lumbar Spine Complete 4+ Views (08/16/2024 5:21 AM EST) Anatomical Region Laterality Modality Spine, L-spine Radiographic Amee ging 08/16/2024 5:21 AM EST Narrative 08/16/2024 5:23 AM EST ? [facility] ?[address] ?[place] [address] ?XRay Report ? Signed ? Patient: Marsh,Rena ?MR#: [id number] ?? 7527 ? : 1985 ?Acct:[id number] ? Age/Sex: 38 / F ?ADM Date: 01/21/25 ? Loc: HO.XRAY ? Attending Dr: Eden Andrade APRN, CABLE SPLICING TECHNICIAN ? Ordering Physician: Eden Andrade APRN, CABLE SPLICING TECHNICIAN ?? Date of Service: 08/15/24 ?? Procedure(s): XR lumbar spine 4V min ?? Accession Number(s): [id number] ? cc: Lily Chauhan MD; Eden Andrade APRN, CABLE SPLICING TECHNICIAN ? CLINICAL HISTORY: M54.9 - Dorsalgia, unspecified [...] ? DD/ 0 ? TD/TT: 08/16/24520 ? Grease Machine Worker: ? Procedure Note Donaudrajose ejoselo, Image - 08/16/2024 [place] [address] XRay Report Signed Patient: Carola Marsh#: [id number] 7527 : 1985Acct:[id number] Age/Sex: 38 / FADM Date: 08/15/24 Loc: [facility] Attending Dr: Eden Andrade APRN, CNP Ordering Physician: Eden Andrade APRN, CNP Date of Service: 08/15/24 Procedure(s): XR lumbar spine 4V min Accession Number(s): [id number] cc: Lily Chauhan MD; Eden Andrade APRN, [...] in OV> 08/16/24521 DD/ 0 TD/TT: 08/16/24520 Grease Machine Worker: [facility] External Provider IMG XR PROCEDURES Final Result * MR Cervical Spine w/o Contrast (08/09/2024 8:16 PM EST) Anatomical Region Laterality Modality Spine, C-spine Magnetic Resonan ce 08/09/2024 8:16 PM EST Narrative 08/09/2024 8:18 PM EST ? [facility] ?[address] ?[place] [address] ? Magnetic Resonance Report ? Signed with Addenda ? Patient: Marsh,Rena ?MR#: [id number] ?? 7527 ? : 1985 ?Acct:[id number] ? Age/Sex: 38 / F ?ADM Date: 08/08/24 ? Loc: HO.MRI ? Attending Dr: Lily Burnette MD ? Ordering Physician: Lily Chauhan MD ?? Date of Service: 08/08/24 ?? Procedure(s): MR cervical spine wo con ?? Accession Number(s): [id number] ? cc: Lily Chauhan MD ?ADDENDUM ?? This document has been electronically signed by: Davon Farmer MD on ?? 08/09/2024 20:16:06 ? ADDENDUM: ?? Receipt of this report by the clinical staff was confirmed with Samantha ?? [place], battery technician on Aug 09, 2024 21:31:00 EST. ? This document has been electronically signed by: Nancy Castano on ?? 08/09/2024 21:31:52 ? Addendum Dictated By: ?Davon Farmer MD ? Addendum Signed By: ? <Electronically signed by aDvon Farmer MD in OV> ? 08/09/242132 ?? [...] DD/ 2016 ? TD/TT: 08/09/24 2016 ? Grease Machine Worker: ? Procedure Note Donthalia, Image - 08/09/2024 [place] [address] Magnetic Resonance Report Signed with Ivanna Patient: Rena MarshMR#: [id number] : 1985Acct:[id number] Age/Sex: 38 / FADM Date: 08/08/24 Loc: HO.MRI Attending Dr: Lily Burnette MD Ordering Physician: Lily Chauhan MD Date of Service: 08/08/24 Procedure(s): MR cervical spine wo con Accession Number(s): [id number] cc: Lily Chauhan MD ADDENDUM This document [...] in OV> 08/09/242016 DD/ 15 TD/TT: 08/09/242015 Grease Machine Worker: us Lily Burnette MD IMG MRI PROCEDURES Ed ited Result - Final * US Head Neck Soft Tissue (08/02/2024 2:16 PM EST) Anatomical Region Laterality Modality Head, Neck Ultrasound 08/02/2024 2:16 PM EST Narrative 08/07/2024 10:07 AM EST ? [facility] ?[address] ?[place] [address] ? Ultrasound Report ? Signed ? Patient: Marsh,Rena ?MR#: [id number] ?? 7527 ? : 1985 ?Acct:[id number] ? Age/Sex: 38 / F ?ADM Date: 01/08/25 ? Loc: HO.US ? Attending Dr: Maryellen Chin ? Ordering Physician: Maryellen Chin ?? Date of Service: 08/02/24 ?? Procedure(s): US soft tiss head and/or neck ?? Accession Number(s): [id number] ? cc: Maryellen Chin; Lily Chauhan MD [...] DD/ 1416 ? TD/TT: 08/02/24 1418 ? Grease Machine Worker: ? Procedure Note Dustin, Image - 08/07/2024 [place] [address] Ultrasound Report Signed Patient: Carola Marsh#: [id number] 7527 : 1985Acct:[id number] Age/Sex: 38 / FADM Date: 08/02/24 Loc: HO.US Attending Dr: Maryellen Chin Ordering Physician: Maryellen Chin Date of Service: 08/02/24 Procedure(s): US soft tiss head and/or neck Accession Number(s): [id number] cc: Maryellen Chin; Lily Chauhan MD EXAMINATION: [...] 08/07/24 1004 DD/ 1416 TD/TT: 08/02/24 1418 Grease Machine Worker: us Maryellen Appram ACIDIZER HELPER IMG US PROCEDURES Edited Result - Final * XR Chest 1 View (07/09/2024 9:30 PM EST) Anatomical Region Laterality Modality Chest Radiographic Amee ging 07/09/2024 9:30 PM EST Narrative 07/09/2024 10:15 PM EST ? [facility] ?[address] ?[place] [address] ?XRay Report ? Signed ? Patient: Marsh,Rena ?MR#: [id number] ?? 7527 ? : 1985 ?Acct:[id number] ? Age/Sex: 38 / F ?ADM Date: 07/09/24 ? Loc: HO.ED ? Attending Dr: ? Ordering Physician: Generic ED Physician ?? Date of Service: 07/09/24 ?? Procedure(s): XR chest 1V ?? Accession Number(s): [id number] ? cc: Lily Chauhan MD; Generic ED [...] ? DD/ 2130 ? TD/TT: 07/09/242134 ? Grease Machine Worker: ? Procedure Note Donotjose einterpreter, Image - 07/09/[address] [address] XRay Report Signed Patient: Carola Marsh#: [id number] 7527 : 1985Acct:[id number] Age/Sex: 38 / FADM Date: 07/09/24 Loc: .ED Attending Dr: Ordering Physician: Generic ED Physician Date of Service: 07/09/24 Procedure(s): XR chest 1V Accession Number(s): [id number] cc: Lily Chauhan MD; Generic ED Physician [...] in OV> 07/09/242212 DD/ 29 TD/TT: 07/09/242134 Grease Machine Worker: [facility] External Provider IMG XR PROCEDURES Edited Result - Final * High Sensitivity Troponin I (07/09/2024 9:21 PM EST) [facility] TROPONIN I HIGH SENSITIVITY <2.7 <3.5 - 17.0 ng/L [facility] Comment:The [place] high sens itivity Troponin-I results should beused in conjunction with other diagnostic information suchas ECG, clinical observations and information, and patientsymptoms to aid in the diagnosis of IN. 07/09/2024 9:21 PM EST 07/09/2024 9:23 PM EST us Generic External Data Provider LAB BLOOD ORDERAB LES Final Result [facility] [address] [place] [phone] * (ABNORMAL) CBC auto differential (07/09/2024 9:21 PM EST) Only the most recent of2 resultswithin the time period is included. [facility] White Blood Count 5.5 4.8 - 10.8 X10*3/uL [facility] Red Blood Count 3.70(L) 4.20 - 5.50 X10*6/uL [facility] Hemoglobin 10.7(L) 12.0 - 16.0 g/dl [facility] Hematocrit 32.3(L) 37.0 - 47.0 % [facility] Mean Corpuscular Volume 87.3 80.0 - 98.0 fL [facility] Mean Corpuscular Hemoglobin 28.9 27.0 - 33.0 pg [facility] Mean Corpuscular HGB Conc 33.1 31.0 - 35.0 g/dl [facility] Red Cell Distribution Width 13.9 11.0 - 16.0 % [facility] Platelet Count 259 160 - 400 X10*3/uL [facility] Mean Platelet Volume 9.0(L) 9.4 - 12.3 fL [facility] Neutrophils Percent Auto 49.3 45 - 73 % [facility] Imm Gran Pct Auto 0.2 0.0 - 0.4 % [facility] Lymphocytes Percent Auto 39.9 20 - 40 % [facility] Monocytes Percent Auto 9.2 2 - 11 % [facility] Eosinophils Percent Auto 0.9 0 - 4 % [facility] Basophils Percent Auto 0.5 0 - 2 % [facility] NRBC Pct Auto 0.0 0.0 - 0.2 /100WBC [facility] Neutrophils Absolute Auto 2.7 2.0 - 8.3 x10*3/uL [facility] Imm Gran Abs Auto 0.01 0.00 - 0.03 X10*3/uL [facility] Lymphocytes Absolute Auto 2.2 1.2 - 4.9 X10*3/uL [facility] Monocytes Absolute Auto 0.5 0.1 - 1.2 X10*3/uL [facility] Eosinophils Absolute Auto 0.1 0.0 - 0.4 X10*3/uL [facility] Basophils Absolute Auto 0.0 0.0 - 0.2 X10*3/uL [facility] NRBC Abs Auto 0.000 0.0 - 0.012 X10*3/uL [facility] 07/09/2024 9:21 PM EST 07/09/2024 9:23 PM EST us Generic External Data Provider LAB BLOOD ORDERAB LES Final Result [facility] [address] [place] [address] [phone] * hCG, Total, Quantitative (07/09/2024 9:21 PM EST) HCG Quantitative <2 mIU/mL [facility] Comment:Weeks post LMP Appro ximate hCG(Last Menstrual Period) Range (mIU/ml)3 - 4 weeks 9 - 1304 - 5 weeks 75 - 2,6005 - 6 weeks 850 - 20,8006 - 7 weeks 4000 - 100,2007 - 12 weeks 11,500 - 289,77798 - 16 weeks 18,300 - 137,73024 - 29 weeks (2nd trimester) 1,400 - 53,72688 - 41 weeks (3rd trimester) 940 - [...] Provider LAB BLOOD ORDERAB LES Final Result [facility] [address] [place] [phone] * (ABNORMAL) Comprehensive Metabolic Panel (07/09/2024 9:21 PM EST) Only the most recent of2 resultswithin the time period is included. Sodium 139 135 - 145 mmol/L [facility] Potassium 4.0 3.3 - 5.1 mmol/L [facility] Chloride 106 96 - 108 mmol/L [facility] Carbon Dioxide 26 22 - 29 mmol/L [facility] Anion Gap 11(L) 12 - 20 [facility] Urea Nitrogen (BUN) 13 9 - 16 mg/dL [facility] Creatinine, Serum 0.78 0.5 - 1.4 mg/dL [facility] Creatinine Clr Calc Pharmacy 94.1 [facility] Comment:Provided height and weight: 149.86 cm,86.183 kg.eGFR (calculated from the MDRD study equation) and eCrCl(calculated from the Cockcroft-Gault equation) are based ondifferent parameters and may not yield comparable results.If eCrCl result is absurd, please check patient'sheight/weight. Estimated Glomerular Filt Rate >60 [facility] Comment:Chronic Kidney Disea se: Estimated GFR < 60 mL/min/1.03r5Yplzde Kidney Disease: Estimated GFR < 15 mL/min/1.73m2 Glucose 89 60 - 115 mg/dL [facility] Calcium 8.6 8.4 - 10.2 mg/dL [facility] Bilirubin, Total 0.2 0.0 - 1.0 mg/dL [facility] Aspartate Amino Transferase 20 5 - 31 U/L [facility] Alanine Aminotransferase 16 0 - 31 U/L [facility] Total Protein 7.6 6.5 - 8.0 g/dL [facility] Albumin Level 4.0 3.5 - 5.0 g/dL [facility] Alkaline Phosphatase 79 39 - 117 U/L [facility] 07/09/2024 9:21 PM EST 07/09/2024 9:23 PM EST us Generic External Data Provider LAB BLOOD ORDERAB LES Final Result Performing Organization Address [facility] Co de Phone Number [facility] [address] [place] [phone] * (ABNORMAL) Vitamin D, 25-Hydroxy, Total, Immunoassay (06/20/2024 9:49 AM EST) Vitamin D 25-OH Total 16.7(L) >30 ng/mL [facility] Comment:Health Based Referen ce Values*< 20 ng/mL Eljcpkbue47-70 ng/mL Insufficient> 30 ng/mL Sufficient*Manolo HERRON. N [...] BLOOD ORDERABLES Final Result Performing Organization Address [facility]/ZIP Co de Phone Number [facility] [address] [place] [phone] * TSH with Reflex to Free T4 (06/20/2024 9:49 AM EST) Pathologist [facility] TSH reflex Free T4 1.94 0.32 - 4.0 uIU/mL [facility] Blood 06/20/2024 9:49 AM EST 06/20/2024 11:47 AM EST Lily Burnette MD LAB BLOOD ORDERABLES Final Result Performing Organization Address [facility]/ZIP Co de Phone Number [facility] [address] [place] [phone] * Hepatitis C Antibody with Reflex to HCV, RNA, Quantitative, Real-Time PCR (06/20/2024 9:49 AM EST) Pathologist [facility] Hepatitis C Antibody Nonreactive Nonreactive [facility] Comment:Antibodies to HCV no t detected; does not exclude early acuteHCV infection. Blood Venous blood specimen / Unknown 06/20/2024 9:49 AM EST 06/20/2024 11:47 AM EST us Lily Burnette MD LAB BLOOD ORDERABLES Final Result Performing Organization Address City/[facility] Co de Phone Number [facility] [address] [place] [phone] * HIV-1/2 Antigen and Antibodies, Fourth Generation, with Reflexes (06/20/2024 9:49 AM EST) Pathologist [facility] HIV AB/AG Nonreactive Nonreactive [facility] Comment:HIV-1 p24 Ag and/or HIV-1/HIV-2 Ab not detected.A test result that is nonreactive does not exclude thepossibility of exposure to or infection with HIV-1 and/orHIV-2. Nonreactive results in this assay for individualswith prior exposure to HIV-1 and/or HIV-2 may be due toantigen and antibody levels that are below the limit ofdetection of this assay.[employer] HIV Ag/Ab Combo assay result andsupplemental assay results should be interpreted inconjunction with the patient's clinical presentation,history and other laboratory results. If the results areinconsistent with clinical evidence, additional testing issuggested to confirm the result. Blood Venous blood specimen / Unknown 06/20/2024 9:49 AM EST 06/20/2024 11:47 AM EST Lily Burnette MD LAB BLOOD ORDERABLES Final Result Performing Organization Address [facility] Co de Phone Number [facility] [address] [place] [phone] * Hemoglobin A1c (06/20/2024 9:49 AM EST) Hemoglobin A1c 5.4 <6.0 % [facility] Comment:Hemoglobin A1C Refer ence Range Adults: 4.8 - 6.0 % Non diabetic: < 6.0 % Goal: < 7.0 %Additional Action Suggested: > 8.0 %Note: Hemoglobin A1c results are invalid for patients with abnormal amounts of HbF. Blood transfusions may impact the HbA1c concentration in the patient sample. Estimated Average Glucose 108 mg/dL [facility] Comment:eAG = Estimated ave rage glucose which is %A1C expressed asaverage glucose, using the formula of the S5C-IkdycujYzmryra Glucose study (ADAG), Diabetes Care, Vol.31,#8,Feb. 2007 Blood Venous blood specimen / Unknown 06/20/2024 9:49 AM EST 06/20/2024 11:47 AM EST us Lily Burnette MD LAB BLOOD ORDERABLES Final Result Performing Organization Address [facility] Co de Phone Number [facility] [address] [place] [phone] * Hepatic Function Panel (06/20/2024 9:49 AM EST) Bilirubin, Direct 0.1 0.0 - 0.5 mg/dL [facility] Blood Venous blood specimen / Unknown 06/20/2024 9:49 AM EST 06/20/2024 11:47 AM EST us Lily Burnette MD LAB BLOOD ORDERABLES Final Result Performing Organization Address City/[facility]/ZIP Co de Phone Number [facility] [address] [place] [phone] * Lipid Panel, Standard (06/20/2024 9:49 AM EST) Triglycerides 133 <150 mg/dL [facility] Comment:Desirable Triglyceri de: less than 150 mg/dLBorderline High Triglyceride 150-199 mg/dLHigh Triglyceride: 200-499 mg/dLVery High Triglyceride: greater than or equal to 5OO mg/dL Cholesterol 175 <200 mg/dL [facility] Comment:Desirable Cholestero l: less than 200 mg/dLBorderline High Cholesterol: 200-239 mg/dLHigh Cholesterol: greater than 239 mg/dL LDL Cholesterol Calculated 94 <100 mg/dL [facility] Comment:Desirable LDL: less than 100 mg/dLNear Optimal/Above Optimal LDL: 110- 129 mg/dLBorderline High LDL: 130-159 mg/dLHigh LDL: 160-189 mg/dLVery High LDL: greater than or equal to 190 mg/dL HDL Cholesterol 55 >40 mg/dL [facility] Comment:Desirable HDL: great er than 40 mg/dL Note: This HDL assay may give artificially low results in patients with liver disease. Blood Venous blood specimen / Unknown 06/20/2024 9:49 AM EST 06/20/2024 11:47 AM EST us Lily Burnette MD LAB BLOOD ORDERABLES Final Result Performing Organization Address City/[facility]/ZIP Co de Phone Number [facility] [address] [place] [phone] * XR CERVICAL SPINE 3V (06/20/2024 9:10 AM EST) Anatomical Region Laterality Modality Abdomen Radiographic Amee ging 06/20/2024 9:10 AM EST Narrative 06/20/2024 1:33 PM EST ?[facility] ?[address] ?[place] [address] ?XRay Report ? Signed ? Patient: Marsh,Rena ?MR#: [id number] ?? 7527 ? : 1985 ?Acct:[id number] ? Age/Sex: 38 / F ?ADM Date: 06/20/24 ? Loc: HO.HHCX ? Attending Dr: Juanita Carl ACIDIZER HELPER ? Ordering Physician: Juanita Carl ACIDIZER HELPER ?? Date of Service: 06/20/24 ?? Procedure(s): XR cervical spine 3V ?? Accession Number(s): [id number] ? cc: Juanita Carl ACIDIZER HELPER ? EXAMINATION: ?? XR CERVICAL SPINE ?? [...] DD/ 0910 ? TD/TT: 06/20/24 0920 ? Grease Machine Worker: ? Procedure Note Donotuseinterpreter, Image - 06/20/[address] [address] XRay Report Signed Patient: Rena MarshMR#: [id number] : 1985Acct:[id number] Age/Sex: 38 / FADM Date: 06/20/24 Loc: HO.HHCX Attending Dr: Juanita Carl ACIDIZER HELPER Ordering Physician: Juanita Carl NP Date of Service: 06/20/24 Procedure(s): XR cervical spine 3V Accession Number(s): [id number] cc: Juanita Carl ACIDIZER HELPER EXAMINATION: XR CERVICAL SPINE XR THORACIC SPINE [...] OV> 06/20/24 1330 DD/ 9 TD/TT: 06/20/24919 Grease Machine Worker: us Juanita Carl ACIDIZER HELPER IMG XR PROCEDURES Final Result * XR Thoracic Spine 2 Views (06/20/2024 9:10 AM EST) Anatomical Region Laterality Modality Spine, T-spine Radiographic Amee ging 06/20/2024 9:10 AM EST Narrative 06/20/2024 1:33 PM EST ?[facility] ?[address] ?[place] [address] ?XRay Report ? Signed ? Patient: Marsh,Rena ?MR#: [id number] ?? 7527 ? : 1985 ?Acct:[id number] ? Age/Sex: 38 / F ?ADM Date: 06/20/24 ? Loc: HO.HHCX ? Attending Dr: Juanita Carl ACIDIZER HELPER ? Ordering Physician: Juanita Carl NP ?? Date of Service: 06/20/24 ?? Procedure(s): XR thoracic spine 2V ?? Accession Number(s): [id number] ? cc: Juanita Carl ACIDIZER HELPER ? EXAMINATION: ?? XR CERVICAL SPINE ?? [...] DD/ 0910 ? TD/TT: 06/20/24 0920 ? Grease Machine Worker: ? Procedure Note Donotjose einterpreter, Image - 06/20/2024 [place] [address] XRay Report Signed Patient: Rena MarshMR#: [id number] : 1985Acct:[id number] Age/Sex: 38 / FADM Date: 06/20/24 Loc: .HHCX Attending Dr: Juanita Carl ACIDIZER HELPER Ordering Physician: Juanita Carl NP Date of Service: 06/20/24 Procedure(s): XR thoracic spine 2V Accession Number(s): [id number] cc: Juanita Carl ACIDIZER HELPER EXAMINATION: XR CERVICAL SPINE XR THORACIC SPINE [...] 06/20/24 1330 DD/ 0910 TD/TT: 06/20/24 09 Grease Machine Worker: Juanita Carl NP IMG XR PROCEDURES Final Result * HM PAP/HPV (06/02/2019 2:16 PM EST) us Historical Provider HEALTH MAINTENANCE Final Result from Last 3 Months or Most Recently Relevant to Health Maintenance Insurance [facility] C3 Care Teams Vegetable Farmworker Relationship Specialty Start Date End Date Lily Chauhan MD [address] [place] [address] PCP - General Family Medicine 04/06/18 Neida Riojas Engine DispatcherCounty Nurse 12/21/23
--- OUTSIDE RECORDS SUMMARY | 2024-08-31 12:49 | XMS_ITS | Encounter Summary ---
Author Organization [employer] Address [address] [place] [address] 7t [place] [address] Care Team Providers Care Preschool Teacher'S Assistant Name Role Phone Lily Chauhan MD Primary Care Provide r Reason for Visit * Reason Comments Med Refill Encounter Details Date Type Department Care Team ([facility] st Contact Info) Description 08/25/2024 Refill [facility] [address] [place] [address] Lily Chauhan MD [address] [place] [address] Neck pain Social History Tobacco Use Types [...] EST Telemedicine [facility] [address] [place] [address] Lily Chauhan MD [address] [place] [address] documented as of this encounter Visit Diagnoses Diagnosis Neck pain Cervicalgia documented in this encounter Additional Health Concerns Assessment Noted Time PHQ-9 Depression Total Score: 3 05/22/20 24 1:05 PM EDT documented as of this encounter Care Teams Preschool Teacher'S Assistant Relationship Specialty Start Date End Date Lily Chauhan MD [address] [place] [address] PCP - General Family Medicine 04/06/18 Neida Riojas Lead CaregiverRetail Sales Merchandiser Development 12/21/23 documented as of this encounter
--- OUTSIDE RECORDS SUMMARY | 2024-08-31 12:49 | XMS_ITS | Encounter Summary ---
Author Organization [employer] Address [address] [place] [address] 7 [place] [address] Care Team Providers Care Nursing Unit Coordinator Name Role Phone iLly Chauhan MD Primary Care Provide r Reason for Referral * Consultation (Routine) - Authorized Specialty Diagnoses / Procedures Referred By Contac t Referred To Contact Pain Medicine Diagnoses Neck pain Chronic midline low back pain without sciatica Lily Chauhan MD [address] [place] [address] Phone: tel: fax: [facility], [address] [place], [place] Phone: tel: fax: Referral ID Status Reason Start Date Expiration Date Visits Requested Visits Authorized [id number] Authorized Specialty Services Required 08/09/2024 08/09/2025 6 6 * Neurology (Routine) - Authorized Specialty Diagnoses / Procedures Referred By Contac t Referred To Contact Diagnoses Neck pain Bilateral arm pain Procedures Nerve conduction test Lily Chauhan MD [address] [place] [address] Phone: tel: fax: [facility] [address] [place] [address] Phone: tel: fax: Referral ID Status Reason Start Date Expiration Date V isits Requested Visits Authorized [id number] Authorized 08/07/2024 08/07/2025 1 1 * Imaging (Routine) - Closed Specialty Diagnoses / Procedures Referred By Contac t Referred To Contact Radiology Diagnoses Neck pain Procedures MR Cervical Spine w/o Contrast Lily Chauhan MD [address] [place] [address] Phone: tel: fax: [address] Phone: tel: fax: Referral ID Status Reason Start Date Expiration Date Visits Re quested Visits Authorized [id number] Closed 08/07/2024 08/07/2025 1 1 Reason for Visit * Reason Comments Neck Pain Encounter Details Date Type Department Care Team (Late st Contact Info) Description 08/07/2024 11:00 AM EST Office Visit [facility] [address] [place] [address] Lily Chauhan MD [address] [place] [address] Essential hypertension (Primary Dx); Neck pain; Bilateral [...] * Assessment & Plan Note - Lily Brunette MD - 08/07/2024 2:39 PM EST Associated [...] Info) Description 09/26/2024 11:30 AM EST Telemedicine [facility] [address] [place], [place] [phone] Lily Chauhan MD [address] [place] [address] Scheduled Orders Name Type Priority Associated Diagnoses [...] EST Narrative 08/09/2024 8:18 PM EST ? [facility] ?[address] ?[place] [address] ? Magnetic Resonance Report ? Signed with Addenda ? Patient: Marsh,Rena ?MR#: [id number] ?? [id number] ? : 1985 ?Acct:[id number] ? Age/Sex: 38 / F ?ADM Date: 08/08/24 ? Loc: HO.MRI ? Attending Dr: Lily Burnette MD ? Ordering Physician: Lily Chauhan MD ?? Date of Service: 08/08/24 ?? Procedure(s): MR cervical spine wo con ?? Accession Number(s): [id number] ? cc: Lily Chauhan MD ?ADDENDUM ?? This document has been electronically signed by: Davon Farmer MD on ?? 08/09/2024 20:16:06 ? ADDENDUM: ?? Receipt of this report by the clinical staff was confirmed with Samantha ?? Benja health plan specialist on Aug 09, 2024 21:31:00 EST. ? [...] ? DD/ 15 ? TD/TT: 08/09/242015 ? Fell Cutter: ? Procedure Note Donotuseinterpreter, Image - 08/09/[address] [address] Magnetic Resonance Report Signed with Addenda Patient: Rena Marsh#: [id number] : 1985Acct:[id number] Age/Sex: 38 / FADM Date: 08/08/24 Loc: HO.MRI Attending Dr: Lily Burnette MD Ordering Physician: Lily Chauhan MD Date of Service: 08/08/24 Procedure(s): MR cervical spine wo con Accession Number(s): [id number] cc: Lily Chauhan MD ADDENDUM This document has been electronically signed by: Davon Farmer MD on 08/09/2024 20:16:06 ADDENDUM: Receipt of this report by the clinical staff was confirmed with Samantha Yousif health plan specialist on Aug 09, 2024 21:31:00 EST. This [...] in OV> 08/09/242016 DD/ 15 TD/TT: 08/09/242015 Fell Cutter: Lily Burnette MD IMG MRI PROCEDURES Ed [...] documented as of this encounter Care Teams Nursing Unit Coordinator Relationship Specialty Start Date End Date Lily Chauhan MD [address] [place] [address] PCP - General Family Medicine 04/06/18 Neida Riojas Residence CounselorProperty Master 12/21/23 documented as of this encounter
--- OUTSIDE RECORDS SUMMARY | 2024-08-31 12:49 | XMS_ITS | Encounter Summary ---
Author Organization [employer] Address [address] [place] [address] 7t [place] [address] Care Team Providers Care Batter Mixer Name Role Phone Lily Chauhan MD Primary Care Provide r Encounter Details Date Type Department Care Team ([facility] Contact Info) Description 08/17/2022 Orders Only [facility] [address] [place] [phone] Maryan Abernathy MD [address] [place] [phone] Vitamin D deficiency (Primary Dx) Social History [...] Upcoming Encounters Date Type Department Care Team ([facility] Contact Info) Description 09/26/2024 11:30 AM EST Telemedicine [facility] [address] [place] [phone] Lily Chauhan MD [address] [place] [address] documented as of this encounter Visit Diagnoses Diagnosis Vitamin D deficiency- Primary documented in this encounter Care Teams Batter Mixer Relationship Specialty Start Date End Date Lily Chauhan MD [address] [place], [place] [phone] PCP - General Family Medicine 04/06/18 Neida Riojas Real Estate AssociateWood Floor Refinisher 12/21/23 documented as of this encounter
--- OUTSIDE RECORDS SUMMARY | 2024-08-31 12:49 | XMS_ITS | Encounter Summary ---
Author Organization [employer] Address [address] [facility] 7t [place] [address] Care Team Providers Care Toeing Stockings Name Role Phone Lily Chauhan MD Primary Care Provide r Encounter Details Date Type Department Care Team ([facility] st Contact Info) Description 08/11/2024 Orders Only [facility] [address] [place] [address] Lily Chauhan MD [address] [place] [address] BMI 38.0-38.9,adult (Primary Dx) Social History Tobacco [...] Info) Description 09/26/2024 11:30 AM EST Telemedicine [facility] [address] [place] [address] iLly Chauhan MD [address] [place] [address] documented as of this encounter Procedures Procedure [...] EST Narrative 08/16/2024 9:51 AM EST ? [facility] ?[address] ?[place] [address] ?XRay Report ? Signed ? Patient: Marsh,Rena ?MR#: [id number] ?? [id number] ? : 1985 ?Acct:[id number] ? Age/Sex: 38 / F ?ADM Date: 01/21/25 ? Loc: HO.XRAY ? Attending Dr: Eden Andrade APRN, CNP ? Ordering Physician: Eden Andrade APRN, CNP ?? Date of Service: 08/15/24 ?? Procedure(s): XR cervical spine w flex/ext ?? Accession Number(s): [id number] ? cc: Lily Chauhan MD; Eden Andrade [...] ? DD/ 0950 ? TD/TT: 08/16/2450 ? Metal Baler: ? Procedure Note Dustin, Ni - 08/16/2024 [place] [address] XRay Report Signed Patient: Rena Marsh#: [id number] : 1985Acct:[id number] Age/Sex: 38 / FADM Date: 08/15/24 Loc: HO.JYOTIAY Attending Dr: Eden Andrade APRN, CNP Ordering Physician: Eden Andrade APRN, CNP Date of Service: 08/15/24 Procedure(s): XR cervical spine w flex/ext Accession Number(s): [id number] cc: Lily Chauhan MD; Eden Andrade APRN, [...] in OV> 08/16/24 0951 DD/ TD/TT: 08/16/2450 Metal Baler: [facility] External Provider IMG XR PROCEDURES Final Result * XR Lumbar Spine Complete 4+ Views (08/16/2024 5:21 AM EST) Anatomical Region Laterality Modality Spine, L-spine Radiographic Amee ging 08/16/2024 5:21 AM EST Narrative 08/16/2024 5:23 AM EST ? [facility] ?[address] ?[place] [address] ?XRay Report ? Signed ? Patient: Rena Marsh ?MR#: [id number] ?? 7527 ? : 1985 ?Acct:[id number] ? Age/Sex: 38 / F ?ADM Date: 08/15/24 ? Loc: HO.XRAY ? Attending Dr: Eden Andrade APRN INTERVENTIONAL RADIOLOGY TECH ? Ordering Physician: Eden Andrade APRN INTERVENTIONAL RADIOLOGY TECH ?? Date of Service: 08/15/24 ?? Procedure(s): XR lumbar spine 4V min ?? Accession Number(s): [id number] ? cc: Lily Chauhan MD; Eden Andrade SOAP SLABBER, INTERVENTIONAL RADIOLOGY TECH ? CLINICAL HISTORY: M54.9 - Dorsalgia, unspecified [...] ? DD/ 0 ? TD/TT: 08/16/24520 ? Metal Baler: ? Procedure Note Donotuseinterpreter, Image - 08/16/2024 [place] [address] XRay Report Signed Patient: Carola Marsh#: [id number] : 1985Acct:[id number] Age/Sex: 38 / FADM Date: 08/15/24 Loc: [facility] Attending Dr: Eden Andrade APRN, CNP Ordering Physician: Eden Andrade APRN, CNP Date of Service: 08/15/24 Procedure(s): XR lumbar spine 4V min Accession Number(s): [id number] cc: Lily Chauhan MD; Eden Andrade APRN, [...] in OV> 08/16/24521 DD/ 0 TD/TT: 08/16/24520 Metal Baler: [facility] External Provider IMG XR PROCEDURES Final Result documented in this encounter Visit Diagnoses Diagnosis BMI 38.0-38.9,adult- Primary documented in this encounter Additional Health Concerns Assessment Noted Time PHQ-9 Depression Total Score: 3 05/22/20 24 1:05 PM EDT documented as of this encounter Care Teams Toeing Stockings Relationship Specialty Start Date End Date Lily Chauhan MD [address] [place] [address] PCP - General Family Medicine 04/06/18 Neida Riojas Brick PointerForest Manager 12/21/23 documented as of this encounter
--- OUTSIDE RECORDS SUMMARY | 2024-08-31 12:49 | XMS_ITS | Encounter Summary ---
Author Organization [employer] Address [address] [facility] 7t [place] [address] Care Team Providers Care Pricing Specialist Name Role Phone Lily Chauhan MD Primary Care Provide r Reason for Visit * Reason Comments Med Refill Encounter Details Date Type Department Care Team ([facility] st Contact Info) Description 08/11/2024 Refill [facility] [address] [place] [address] Samantha Mason, DO [address] [place] [address] Social History Tobacco Use Types Packs/Day Years [...] Info) Description 09/26/2024 11:30 AM EST Telemedicine [facility] [address] [place] [address] Lily Chauhan MD [address] [place] [address] documented as of this encounter Visit Diagnoses Not on filedocumented in this encounter Additional Health Concerns Assessment Noted Time PHQ-9 Depression Total Score: 3 05/22/20 24 1:05 PM EDT documented as of this encounter Care Teams Pricing Specialist Relationship Specialty Start Date End Date Lily Chauhan MD [address] [place] [address] PCP - General Family Medicine 04/06/18 Neida Riojas Grade And Center MarkerDairy Store Manager 12/21/23 documented as of this encounter
--- OUTSIDE RECORDS SUMMARY | 2024-08-31 12:49 | XMS_ITS | Encounter Summary ---
Author Organization [employer] Address [address] [place] [address] 7 [place] [address] Care Team Providers Care Safety Equipment Testing Specialist Name Role Phone Lily Chauhan MD Primary Care Provide r Reason for Visit * Reason Onset Date Comments Nurse Triage 06/26/2024 Encounter Details Date Type Department Care Team ([facility] st Contact Info) Description 06/26/2024 Telephone [facility] [address] [place] [address] Lily Chauhan MD [address] [place] [address] Nurse Triage Social History Tobacco Use Types [facility] [address] [place] [address] Lily Chauhan MD [address] [place] [address] documented as of this encounter Visit Diagnoses Not on filedocumented in this encounter Additional Health Concerns Assessment Noted Time PHQ-9 Depression Total Score: 3 05/22/20 24 1:05 PM EDT documented as of this encounter Care Teams Safety Equipment Testing Specialist Relationship Specialty Start Date End Date Lily Chauhan MD [address] [place] [address] PCP - General Family Medicine 04/06/18 Neida Riojas [employer] EngineerFish Icer 12/21/23 documented as of this encounter
--- NOTE | 2024-08-31 12:51 | EMG_ITS ---
Chief complaint: 5-6 months of neck pain radiating to both arms with paresthesias Reason for referral: Evaluate for radiculopathy Referred by: Dr. Calvin Burnette Procedure done: Bilateral upper extremities NCS/EMG Precautions and/or limitations: None The limb temperature was monitored continuously and remained between 32-36 degrees C during the performance of the NCS. Nerve Conduction Studies Anti Sensory Summary Table ?Stim Site NR Onset (ms) Norm Onset (ms) Peak (ms) Norm Peak (ms) O-P Amp (?V) Norm O-P Amp Site1 Site2 Delta-0 (ms) Dist (cm) Zack (m/s) Norm Zack (m/s) Left Median Anti Sensory (2nd Digit) Wrist ? 1.9 2.8 <3.6 34.3 >10 Wrist 2nd Digit 1.9 14.0 74 Right Median Anti Sensory (2nd Digit) Wrist ? 2.2 2.8 <3.6 36.2 >10 Wrist 2nd Digit 2.2 14.0 64 Left Ulnar Anti Sensory (5th Digit) Wrist ? 2.0 2.8 <3.7 22.3 >15.0 Wrist 5th Digit 2.0 14.0 70 Right Ulnar Anti Sensory (5th Digit) Wrist ? 2.2 2.8 <3.7 16.4 >15.0 Wrist 5th Digit 2.2 14.0 64 Motor Summary Table ?Stim Site NR Onset (ms) Norm Onset (ms) O-P Amp (mV) Norm O-P Amp iAmp (mV) Amp (1st) (%) Site1 Site2 Delta-0 (ms) Dist (cm) Zack (m/s) Norm Zack (m/s) Left Median Motor (Abd Poll Brev) Wrist ? 2.8 <3.9 10.7 >4.5 11.9 100.0 Elbow Wrist 3.0 17.5 58 >45 Elbow ? 5.8 8.1 9.0 75.7 Right Median Motor (Abd Poll Brev) Wrist ? 2.7 <3.9 9.7 >4.5 11.1 100.0 Elbow Wrist 2.8 17.0 61 >45 Elbow ? 5.5 10.0 11.3 103.1 Left Ulnar Motor (Abd Dig Minimi) Wrist ? 2.3 <3.0 8.2 >5 10.2 100.0 B Elbow Wrist 2.2 14.0 64 >45 B Elbow ? 4.5 8.0 10.0 97.6 A Elbow B Elbow 1.1 10.0 91 >45 A Elbow ? 5.6 7.9 10.0 96.3 Right Ulnar Motor (Abd Dig Minimi) Wrist ? 2.3 <3.0 11.1 >5 15.1 100.0 B Elbow Wrist 2.5 16.0 64 >45 B Elbow ? 4.8 11.8 16.2 106.3 A Elbow B Elbow 1.1 10.0 91 >45 A Elbow ? 5.9 11.6 15.8 104.5 Comparison Summary Table ?Stim Site NR Peak (ms) Norm Peak (ms) P-T Amp (?V) Site1 Site2 Delta-P (ms) Norm Delta (ms) Right Median/Radial Dig I Comparison (Digit 1 - 10cm) Median ? 2.1 <2.9 84.1 Median Radial 0.1 Radial ? 2.2 <2.8 39.4 EMG ?Side Muscle Nerve Root Ins Act Fibs Psw Amp Dur Poly Recrt Int Pat Comment Right 1stDorInt Ulnar C8-T1 Nml Nml Nml Nml Nml 0 Nml Complete Right FlexCarRad Median C6-7 Nml Nml Nml Nml Nml 0 Nml Complete Right Biceps Musculocut C5-6 Nml Nml Nml Nml Nml 0 Nml Complete Right Triceps Radial C6-7-8 Nml Nml Nml Nml Nml 0 Nml Complete Right Deltoid Axillary C5-6 Nml Nml Nml Nml Nml 0 Nml Complete Left 1stDorInt Ulnar C8-T1 Nml Nml Nml Nml Nml 0 Nml Complete Left FlexCarRad Median C6-7 Nml Nml Nml Nml Nml 0 Nml Complete Left Biceps Musculocut C5-6 Nml Nml Nml Nml Nml 0 Nml Complete Left Triceps Radial C6-7-8 Nml Nml Nml Nml Nml 0 Nml Complete Left Deltoid Axillary C5-6 Nml Nml Nml Nml Nml 0 Nml Complete Paraspinal EMG ?Side Muscle Nerve Root Ins Act Fibs Psw Comment Right Cervical Upper Rami Nml Nml Nml Right Cervical Mid Rami Nml Nml Nml Right Cervical Lower Rami Nml Nml Nml Left Cervical Upper Rami Nml Nml Nml Left Cervical Mid Rami Nml Nml Nml Left Cervical Lower Rami Nml Nml Nml FINDINGS: All motor and sensory nerves tested showed normal latencies, amplitudes and conduction velocities. Concentric needle EMG was performed in selected muscles of the bilateral upper extremities and cervical paraspinals. Study did not reveal signs of electric abnormalities as shown in the table above. IMPRESSION: 1. This is a normal study. 2. There is no electrodiagnostic evidence for median neuropathy, ulnar neuropathy, brachial plexopathy, or cervical radiculopathy. Thank you for your kind referral. Gaby Lebron MD, DANIE Board Certified, [place] Board of Physical Medicine and Rehabilitation (ABPMR) Board Certified, [place] Board of Electrodiagnostic Medicine (ABEM) CODIN [phone] MTDD
== END | disposition home or self-care (01) ==
LOC: HO.NEURO 12:46
PROVIDERS: PCP Internal Medicine; Visit Provider Internal Medicine
DX: M54.2 Cervicalgia (principal); M79.601 Pain in right arm

== ENCOUNTER → 2024-08-31 12:51 | Outpatient (BNV) | payer MEDICAID, SELFPAY | PROVIDERS: PCP Internal Medicine; Visit Provider Physical Medicine & Rehabilitation | DX: M54.12 Radiculopathy, cervical region (principal) | CPT/HCPCS: 95886; 95911 ==

== ENCOUNTER 2024-09-09 01:25 | Emergency (ER) | payer MEDICAID, SELFPAY ==
--- NOTE | ~2024-09-09 | US_ITS ---
CLINICAL HISTORY: Right upper quadrant pain? Biliary colic US abdomen limited Comparison: None Findings: The visualized pancreas is normal. The aorta and inferior vena cava are normal caliber. The appearance of the liver suggests fatty infiltration without focal lesion. There is no intrahepatic bile duct dilatation. The common duct is 5.0 mm in diameter. There is agallstone. The gallbladder is otherwise normal. There is positive sonographic Starkey sign. There is no pericholecystic fluid collection. Correlate for cholecystitis. The main portal vein is antegrade. The right kidney is 11.2 cm in length. No ascites. IMPRESSION: 1. Hepatic steatosis. 2. Cholelithiasis with sonographic Starkey's sign, nonspecific. Correlate with clinical and laboratory findings for possible acute cholecystitis This document has been electronically signed by: Juan Diego Hughes MD on 09/09/2024 04:46:17
[2024-09-09 01:34] VITALS: BP 151/90; PULSE 97; RESP 20; TEMP 36.3; O2SAT 100; BMI 40.2
[2024-09-09 01:53] LABS: Basophils Percent Auto 0.5 % (0-2); Eosinophils Absolute Auto 0.1 X10*3/uL (0.0-0.4); Eosinophils Percent Auto 1.1 % (0-4); Imm Gran Abs Auto 0.01 X10*3/uL (0.00-0.03); Imm Gran Pct Auto 0.2 % (0.0-0.4); Lymphocytes Absolute Auto 2.6 X10*3/uL (1.2-4.9); Lymphocytes Percent Auto 46.1 % (20-40); MANUAL DIFF FLAG NO; Mean Corpuscular HGB Conc 33.3 g/dl (31.0-35.0); Mean Corpuscular Hemoglobin 28.9 pg (27.0-33.0); Mean Corpuscular Volume 86.8 fL (80.0-98.0); Mean Platelet Volume 9.6 fL (9.4-12.3); Monocytes Absolute Auto 0.6 X10*3/uL (0.1-1.2); Monocytes Percent Auto 10.6 % (2-11); Neutrophils Absolute Auto 2.3 x10*3/uL (2.0-8.3); Neutrophils Percent Auto 41.5 % (45-73); Platelet Count 268 X10*3/uL (160-400); Red Cell Distribution Width 14.6 % (11.0-16.0); White Blood Count 5.6 X10*3/uL (4.8-10.8)
[2024-09-09 02:16] LABS: Alanine Aminotransferase 17 U/L (0-31); Albumin Level 4.1 g/dL (3.5-5.0); Anion Gap 12 (12-20); Aspartate Amino Transferase 22 U/L (5-31); Bilirubin Total 0.2 mg/dL (0.0-1.0); Blood Urea Nitrogen 11 mg/dL (9-16); Calcium 9.2 mg/dL (8.4-10.2); Carbon Dioxide 24 mmol/L (22-29); Chloride 109 mmol/L (96-108); Creatinine Clr Calc Pharmacy 95.4; Estimated Glomerular Filt Rate > 60; Glucose Random 102 mg/dL (60-115); Lipase 26 U/L (8-78); Sodium 141 mmol/L (135-145); Total Protein 8.3 g/dL (6.5-8.0)
--- NOTE | 2024-09-09 03:24 | ED.ABDPAIN ---
HPI - Abdominal Pain General Chief Complaint: Abdominal Pain Stated Complaint: rt side abd pain Time Seen by Provider: 09/09/24 03:19 Source: patient Mode of arrival: ambulatory Limitations: no limitations History of Present Illness ED Provider: HPI narrative: Patient has been having epigastric and right upper abdominal pain for last 3 months with nausea today she woke up from sleep with increased pain nausea and vomiting no fever no chills no urinary symptoms no of kidney stone no gallstones Related Data Home Medications ?Medication ?Instructions ?Recorded ?Confirmed acetaminophen 650 mg 650 mg PO Q8H PRN mild pain 08/10/24 08/24/24 tablet,extended release naproxen 500 mg tablet 500 mg PO BID 08/10/24 08/24/24 semaglutide (weight loss) 0.25 mg subcut QWEEK 08/10/24 08/24/24 mg/0.5 mL subcutaneous pen injector (Wegovy) gabapentin 100 mg capsule 100 mg PO TID 08/24/24 08/24/24 Previous Rx's ?Medication ?Instructions ?Recorded valsartan 320 mg tablet 320 mg PO DAILY #30 tabs 08/19/22 omeprazole 40 mg capsule,delayed 40 mg PO DAILY #30 caps 07/09/24 release sucralfate 1 gram tablet 1 g PO TID #90 tabs 07/09/24 baclofen 5 mg tablet 5 mg PO TID #90 tabs 08/24/24 ondansetron 4 mg disintegrating 4 mg PO Q6-8H PRN nausea and 09/09/24 tablet vomiting #7 tabs oxycodone 5 mg tablet 5 mg PO Q6H PRN pain #20 tabs 09/09/24 Allergies Allergy/AdvReac Type Severity Reaction Status Date / Time amoxicillin [AMOXICILLIN] Allergy Unknown UNKNOWN, Verified 09/09/24 01:36 hives aspirin [ASPIRIN] Allergy Unknown HIVES, rash Verified 09/09/24 01:36 ibuprofen [Motrin] Allergy Unknown Hives Verified 09/09/24 01:36 lisinopril AdvReac Mild Cough Verified 09/09/24 01:36 Review of Systems Review of Systems Yes all other systems are reviewed and are negative PMFSH Past Medical History Medical History Chest pain Family planning Back pain Migraines Morbid obesity Hx LEEP (loop electrosurgical excision procedure), cervix, Hypertension Surgical History Hx of breast reduction, elective H/O abdominoplasty Family History Family History Mother Hypertension Diabetes Maternal Grandmother No problems noted. Social History Social History Alcohol intake: current Alcohol intake frequency: a few times a week Alcohol type: beer Advance Directives: No Advance Directives Information Provided: Yes Do you have a plan to hurt others: No Plan Physical Exam ED Vital Signs: Vital Signs - 24 hr 09/09/24 01:34 09/09/24 04:49 Temperature 97.4 F 98.4 F Pulse Rate 97 85 Respiratory Rate 20 20 Blood Pressure 151/90 H 124/71 Pulse Oximetry 100 100 Oxygen Delivery Method Room Air Room Air BMI result Body Mass Index 40.2 Appearance: Alert. Oriented X3. No acute distress. Eyes: PERRLA, No Nystagmus ENT: Pharynx normal. Oral Mucosa moist Neck: Normal inspection. Neck supple. CVS: Normal heart rate and rhythm. Pulses normal. Respiratory: No respiratory distress. Equal air entry bilateral, no wheezing/rales/rhonchi Abdomen: Soft and tenderness in right upper quadrant with guarding no rebound tenderness. Bowel sounds are present, no mass palpable, no CVA tenderness Skin: Skin warm and dry. Normal skin color. Normal skin turgor. Extremities: No lower extremity edema. No calf tenderness Neuro: Oriented X 3. No motor deficit. No sensory deficit.No cerebellar signs , cranial nerves II-XII intact Medical Decision Making Medical Decision Making MDM Narrative: Patient with biliary colic with no findings of acute cholecystitis normal CBC normal liver function tests patient is feeling much better during stay in the ER Differential Diagnosis Differential Diagnoses: The differential diagnosis associated with the presentation includes Cholecystitis/biliary colic/gastritis Admission/Observation Consideration of admission/observation: Escalation of care including admission/observation considered Lab Data MDM Lab Attestation statement: I reviewed the patient's lab results. 09/09/24 01:49 09/09/24 01:49 Labs: Lab Results 09/09/24 Range/Units 01:49 WBC 5.6 (4.8-10.8) X10*3/uL RBC 3.80 L (4.20-5.50) X10*6/uL Hgb 11.0 L (12.0-16.0) g/dl Hct 33.0 L (37.0-47.0) % MCV 86.8 (80.0-98.0) fL MCH 28.9 (27.0-33.0) pg MCHC 33.3 (31.0-35.0) g/dl RDW 14.6 (11.0-16.0) % Plt Count 268 (160-400) X10*3/uL MPV 9.6 (9.4-12.3) fL Immature Gran % (Auto) 0.2 (0.0-0.4) % Neut % (Auto) 41.5 L (45-73) % Lymph % (Auto) 46.1 H (20-40) % [place] % (Auto) 10.6 (2-11) % Eos % (Auto) 1.1 (0-4) % Baso % (Auto) 0.5 (0-2) % Lymph # (Auto) 2.6 (1.2-4.9) X10*3/uL [place] # (Auto) 0.6 (0.1-1.2) X10*3/uL Eos # (Auto) 0.1 (0.0-0.4) X10*3/uL Baso # (Auto) 0.0 (0.0-0.2) X10*3/uL Abs Immat Gran (auto) 0.01 (0.00-0.03) X10*3/uL Absolute Neuts (auto) 2.3 (2.0-8.3) x10*3/uL Absolute Nucleated RBC 0.000 (0.0-0.012) X10*3/uL Nucleated RBC % (auto) 0.0 (0.0-0.2) /100WBC Sodium 141 (135-145) mmol/L Potassium 4.0 (3.3-5.1) mmol/L Chloride 109 H (96-108) mmol/L Carbon Dioxide 24 (22-29) mmol/L Anion Gap 12 (12-20) BUN 11 (9-16) mg/dL Creatinine 0.79 (0.5-1.4) mg/dL Estim Creat Clear Calc 95.4 Estimated GFR > 60 Random Glucose 102 (60-115) mg/dL Calcium 9.2 D (8.4-10.2) mg/dL Total Bilirubin 0.2 (0.0-1.0) mg/dL AST 22 (5-31) U/L ALT 17 (0-31) U/L Alkaline Phosphatase 79 (39-117) U/L Total Protein 8.3 H (6.5-8.0) g/dL Albumin 4.1 (3.5-5.0) g/dL Lipase 26 (8-78) U/L Radiology Impression Discussion of test interpretation with radiology: I have reviewed the radiologist's reading. Radiologist Impression: [place] [id number] Ultrasound Report Signed Patient: Rena Marsh MR#: [id number] : 1985 Acct:[id number] Age/Sex: 38 / F ADM Date: 09/09/24 Loc: .ED Attending Dr: Ordering Physician: Carroll Cherry MD Date of Service: 09/09/24 Procedure(s): US abdomen limited Accession Number(s): [id number] cc: Lily Chauhan MD; Carroll Cherry MD~ CLINICAL HISTORY: Right upper quadrant pain? Biliary colic US abdomen limited Comparison: None Findings: The visualized pancreas is normal. The aorta and inferior vena cava are normal caliber. The appearance of the liver suggests fatty infiltration without focal lesion. There is no intrahepatic bile duct dilatation. The common duct is 5.0 mm in diameter. There is agallstone. The gallbladder is otherwise normal. There is positive sonographic Starkey sign. There is no pericholecystic fluid collection. Correlate for cholecystitis. The main portal vein is antegrade. The right kidney is 11.2 cm in length. No ascites. IMPRESSION: 1. Hepatic steatosis. 2. Cholelithiasis with sonographic Starkey's sign, nonspecific. Correlate with clinical and laboratory findings for possible acute cholecystitis This document has been electronically signed by: Juan Diego Hughes MD on 09/09/2024 04:46:17 Medications Administered Discontinued Medications Generic Name Dose Route Start Last Admin Trade Name Freq PRN Reason Stop Dose Admin Al Hydroxide/Mg Hydroxide 30 ml 09/09/24 03:32 09/09/24 03:51 Magnesium Hydrox/Alum Hydrox 30 Ml Oral.Susp PO 09/09/24 03:33 30 ml ONCE ONE Administration Sodium Chloride 1,000 mls @ 999 mls/hr 09/09/24 04:20 09/09/24 05:44 Ns IV 09/09/24 05:20 Infused .Q1H1M ONE Infusion Morphine Sulfate 4 mg 09/09/24 04:20 09/09/24 04:49 Morphine Sulfate 4 Mg/Ml Cartridge IVPUSH 09/09/24 04:21 4 mg ONCE ONE Administration Protocol Ondansetron HCl 4 mg 09/09/24 03:32 09/09/24 03:51 Ondansetron Odt 4 Mg Tab.Rapdis TRANSLINGU 09/09/24 03:33 4 mg ONCE ONE Administration Discharge Plan Discharge Clinical Impression: Gallstones Patient Disposition: Home, Self-Care Instructions: Gallstones (ED) Additional Instructions: Drink plenty of fluids Avoid fried foods Follow up with surgeon for further management report to the ER if worsening of the pain Prescriptions: New ondansetron 4 mg tablet,disintegrating 4 mg PO Q6-8H PRN (Reason: nausea and vomiting) Qty: 7 0RF oxycodone 5 mg tablet 5 mg PO Q6H PRN (Reason: pain) Qty: 20 0RF Rx Instructions: Partial Fill upon patient request. No Action sucralfate 1 gram tablet 1 g PO TID Qty: 90 0RF omeprazole 40 mg capsule,delayed release(DR/EC) 40 mg PO DAILY Qty: 30 0RF valsartan 320 mg tablet 320 mg PO DAILY Qty: 30 2RF Wegovy 0.25 mg/0.5 mL pen injector subcut QWEEK naproxen 500 mg tablet 500 mg PO BID acetaminophen 650 mg tablet extended release 650 mg PO Q8H PRN (Reason: mild pain) gabapentin 100 mg capsule 100 mg PO TID baclofen 5 mg tablet 5 mg PO TID Qty: 90 3RF Rx Instructions: Discontinue Tizanidine prior to starting this medication. My cause drowsiness. Referrals: Solitario Moreno MD [Physician] - 3 days Print Language: Lao
[2024-09-09 03:49] LABS: Alkaline Phosphatase 79 U/L (39-117)
[2024-09-09] MEDS: Ondansetron ODT 4 MG TAB.RAPDIS TRANSLINGU (03:51)
[2024-09-09] MEDS: Magnesium Hydrox/Alum Hydrox 30 ML ORAL.SUSP PO (03:51)
[2024-09-09] MEDS: 0.9 % Sodium Chloride 1,000 ML 999 ML IV (04:31)
[2024-09-09 04:49] VITALS: BP 124/71; PULSE 85; RESP 20; TEMP 36.9; O2SAT 100
[2024-09-09] MEDS: Morphine Sulfate 4 MG/ML CARTRIDGE IVPUSH (04:49)
[2024-09-09 05:59] VITALS: BP 113/56; PULSE 79; RESP 14; TEMP 36.9; O2SAT 96
[2024-09-09 06:09] VITALS: BP 113/56; PULSE 79; RESP 14; TEMP 36.9; O2SAT 96
== END 2024-09-09 06:10 | disposition home or self-care (01) ==
PROVIDERS: Emergency Provider Internal Medicine; PCP Internal Medicine
DX: K80.20 Calculus of gallbladder without cholecystitis without obstruction (principal); R10.11 Right upper quadrant pain; R11.2 Nausea with vomiting, unspecified; R10.13 Epigastric pain; Z79.899 Other long term (current) drug therapy
CPT/HCPCS: 36415; 76705; 80053; 83690; 85025; 96361; 96374; 99284; J2270

== ENCOUNTER → 2024-09-09 03:31 | Outpatient (BNV) | payer MEDICAID, SELFPAY | PROVIDERS: Emergency Provider Internal Medicine; PCP Internal Medicine; Visit Provider Specialist | DX: R10.11 Right upper quadrant pain (principal); K76.0 Fatty (change of) liver, not elsewhere classified; K80.20 Calculus of gallbladder without cholecystitis without obstruction | CPT/HCPCS: 76705 ==

== ENCOUNTER → 2024-09-10 17:39 | Outpatient (BNV) | payer MEDICAID, SELFPAY | PROVIDERS: PCP Internal Medicine; Visit Provider Student in an Organized Health Care Education/Training Program | DX: N64.3 Galactorrhea not associated with childbirth (principal) | CPT/HCPCS: 70553 ==

== ENCOUNTER 2024-09-10 17:40 | Outpatient (REF) | payer MEDICAID, SELFPAY ==
--- NOTE | ~2024-09-10 | MR_ITS ---
CLINICAL HISTORY: N64.3 - Galactorrhea not associated with childbirth Rathke's cleft cyst? MR Brain with and without gadolinium Comparison: None Findings: There is a 4 mm iso to hypoenhancing nodule within the right-sided pituitary gland (image 9 and series 14 and series 16 ). Mildly expansile sella with partial empty sella configuration. The infundibulum is in midline. No restricted diffusion. No intracranial mass or hemorrhage. No midline shift. No hydrocephalus. Vascular flow voids are intact. The orbits are normal. The sinuses and mastoid air cells are clear. No focal bone lesion. IMPRESSION: 1. 4 mm iso to hypo enhancing nodule within the right-sided pituitary gland. Given patient's symptoms, the lesion could represent a pituitary microadenoma /prolactinoma. 2. Mildly expansile sella with partial empty sella configuration. Correlate clinically for signs and symptoms of idiopathic intracranial hypertension. 3. No acute intracranial disease. This document has been electronically signed by: Dulce Naylor MD on 09/10/2024 19:40:48
--- OUTSIDE RECORDS SUMMARY | 2024-09-10 17:48 | XMS_ITS | Encounter Summary ---
Author Organization [employer] Address [address] [place] [address] Care Team Providers Care Cpa Tax Name Role Phone Lily Chauhan MD Primary Care Provide r Encounter Details Date Type Department Care Team (Latest Contact Info) Description 09/08/2024 Travel Social History Tobacco Use Types Packs/Day [...] 09/26/2024 11:30 AM EST Telemedicine [facility] [address] [place] [address] Lily Chauhan MD [address] [place] [address] 10/12/2024 3:30 PM EDT Office Visit [facility] [address] [place], [place] [phone] David, Swati, OD [address] [place] [address] documented as of this encounter Visit Diagnoses Not on filedocumented in this encounter Additional Health Concerns Assessment Noted Time PHQ-9 Depression Total Score: 3 05/22/20 24 1:05 PM EDT documented as of this encounter Care Teams Cpa Tax Relationship Specialty Start Date End Date Lily Chauhan MD [address] [place] [address] PCP - General Family Medicine 04/06/18 Neida Riojas Mandrel CleanerEmbosser Apprentice 12/21/23 documented as of this encounter
--- OUTSIDE RECORDS SUMMARY | 2024-09-10 17:48 | XMS_ITS | Encounter Summary ---
Author Organization [employer] Address [address] [place] [address] [address] [place] [address] Care Team Providers Care Database Admin Name Role Phone Lily Chauhan MD Primary Care Provide r Reason for Visit * Reason Onset Date Comments Prior Authorization 08/22/2024 Encounter Details Date Type Department Care Team ([facility] Contact Info) Description 08/22/2024 Telephone [facility] [address] [place] [address] Lily Chauhan MD [address] [place] [address] Prior Authorization Social History Tobacco Use Types [...] encounter Miscellaneous Notes * Telephone Encounter - Lorin Anderson - 09/04/2024 4:00 PM EST PA for Zepbound signed and faxed to [employer] . Confirmation received and sent to scan. If patient calls to check status on above, please advise them to contact [facility] at [phone]. * Telephone Encounter - Lorin Anderson - 09/01/2024 11:23 AM EST PA for Zepbound from [facility] placed on PCP desk for signature. * Telephone Encounter - Erica Vernon - 08/22/2024 9:11 AM EST Tc from pt stating script for Tirzepatide-Weight Management (Zepbound) 2.5 MG/0.5ML solution auto-injector requires a prior authorization documented in this encounter Plan of Treatment Upcoming Encounters Date Type Department Care Team (Late st Contact Info) Description 09/26/2024 11:30 AM EST Telemedicine [facility] [address] [place] [address] Lily Chauhan MD [address] [place], [place] [phone] 10/12/2024 3:30 PM EDT Office Visit [facility] [address] [place], [place] [phone] DavidRiteshn, OD [address] [place], [place] [phone] documented as of this encounter Visit Diagnoses Not on filedocumented in this encounter Additional Health Concerns Assessment Noted Time PHQ-9 Depression Total Score: 3 05/22/20 1:05 PM EDT documented as of this encounter Care Teams Database Admin Relationship Specialty Start Date End Date Lily Chauhan MD [address] [place], [place] [phone] PCP - General Family Medicine 04/06/[address] Operations ClerkEdge Bander Operator 12/21/23 documented as of this encounter
--- OUTSIDE RECORDS SUMMARY | 2024-09-10 17:48 | XMS_ITS | Encounter Summary ---
Author Organization [email or web address] Address [address] [place] [address] [address] [place] [address] Care Team Providers Care Yarn Rewinder Name Role Phone Lily Chauhan MD Primary Care Provide r Reason for Visit * Reason Onset Date Comments Results 08/18/2024 Encounter Details Date Type Department Care Team ([facility] st Contact Info) Description 08/18/2024 Telephone [facility] [address] [place] [address] Cee Oakes RN [address] [place] [address] Results Social History Tobacco Use Types Packs/Day [...] 2:59 PM EST TC placed to patient [phone] in regards to below message. Patient did [...] Info) Description 09/26/2024 11:30 AM EST Telemedicine [facility] [address] [place] [address] Lily Chauhan MD [address] [place] [address] 10/12/2024 3:30 PM EDT Office Visit [facility] [address] [place] [address] David, Swtai, OD [address] [place] [address] documented as of this encounter Visit Diagnoses Not on filedocumented in this encounter Additional Health Concerns Assessment Noted Time PHQ-9 Depression Total Score: 3 05/22/20 1:05 PM EDT documented as of this encounter Care Teams Yarn Rewinder Relationship Specialty Start Date End Date Lily Chauhan MD [address] [place], [place] [phone] PCP - General Family Medicine 04/06/18 Neida Riojas Health EvaluatorPlastics Engineering Teacher 12/21/23 documented as of this encounter
--- OUTSIDE RECORDS SUMMARY | 2024-09-10 17:48 | XMS_ITS | Encounter Summary ---
Author Organization [employer] Address [address] [facility] [address] [place] [address] Care Team Providers Care Senior Financial Analyst Name Role Phone Lily Chauhan MD Primary Care Provide r Encounter Details Date Type Department Care Team ([facility] st Contact Info) Description 04/28/2024 Telephone [facility] [address] [place], [place] [phone] Julianne Soto RN [address] [place] [address] Social History Tobacco Use Types Packs/Day Years [...] Info) Description 09/26/2024 11:30 AM EST Telemedicine [facility] [address] [place] [address] Lily Cahuhan MD [address] [place] [address] 10/12/2024 3:30 PM EDT Office Visit [facility] OPTOMET[facility] [address] [place] [address] David, Swati, OD [address] [place] [address] documented as of this encounter Visit Diagnoses Not on filedocumented in this encounter Additional Health Concerns Assessment Noted Time PHQ-9 Depression Total Score: 0 11/15/19 10:46 AM EDT documented as of this encounter Care Teams Senior Financial Analyst Relationship Specialty Start Date End Date Lily Chauhan MD [address] [place] [address] PCP - General Family Medicine 04/06/18 Neida Riojas Twisting Frame OperatorChip Silo Tender 12/21/23 documented as of this encounter
--- OUTSIDE RECORDS SUMMARY | 2024-09-10 17:48 | XMS_ITS | Encounter Summary ---
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 Lily Chauhan MD [address] [place] [phone] Phone: tel: fax: Ignacio Noguera [address] [place] [address] Drive [address] [place] [address] Phone: tel: fax: Referral ID Status Reason Start Date Expiration Date Visits Requested Visits Authorized [id number] Authorized Specialty Services Required 08/21/2024 08/21/2025 1 1 Encounter Details Date Type Department Care Team (Late st Contact Info) Description 08/18/2024 Orders Only [facility] [address] [place] [phone] Lily Chauhan MD [address] [place] [phone] Pituitary abnormality (CMS/HCC) (Primary Dx); Cyst of [...] Info) Description 09/26/2024 11:30 AM EST Telemedicine [facility] [address] [place], [place] [phone] Lily Chauhan MD [address] [place] [address] 10/12/2024 3:30 PM EDT Office Visit [facility] [address] [place], [place] [phone] Swati Hernandez OD [address] [place] [address] Scheduled Referrals Name Type Priority Associated Diagnoses [...] documented as of this encounter Care Teams Revenue Officer Relationship Specialty Start Date End Date Lily Chauhan MD [address] [place] [address] PCP - General Family Medicine 04/06/18 Neida Riojas Children'S AttendantBird Tender 12/21/23 documented as of this encounter
--- OUTSIDE RECORDS SUMMARY | 2024-09-10 17:48 | XMS_ITS | Encounter Summary ---
Demographics Address [address] [place] [address] Work Phone Home Phone Mobile Phone Email Address Preferred Language en Marital Status Single Shinto Affiliation Unknown Race Other Race Ethnic Group or Author Organization [employer] Address [address] [facility] 7[address] [place] [address] Care Team Providers Care Extender Name Role Phone Lily Chauhan MD Primary Care Provide r Encounter Details Date Type Department Care Team ([facility] st Contact Info) Description 09/09/2024 Orders Only GENERIC EXTERNAL DATA DEPARTMENT Provider, Generic External Data Social History Tobacco Use Types Packs/Day Years [...] 09/26/2024 11:30 AM EST Telemedicine [facility] MEDICINE [address] [place] [address] Lily Chauhan MD [address] [place] [address] 10/12/2024 3:30 PM EDT Office Visit [facility] OPTOMETRY [address] [place] [address] David, Swati, OD [address] [place] [address] documented as of this encounter Procedures Procedure Name Priority Date/Time Associated Diagnosis Comments US ABDOMEN LIMITED Routine 09/09/2024 4: 46 AM EST CBC WITH AUTO DIFFERENTIAL Routine 09/09/2024 1:49 AM EST LIPASE Routine 09/09/2024 1:49 AM EST COMPREHENSIVE METABOLIC PANEL Routine 09/09/2024 1:49 AM EST documented in this encounter Results * US Abdomen Limited (09/09/2024 4:46 AM EST) Anatomical Region Laterality Modality Abdomen Ultrasound 09/09/2024 4:46 AM EST Narrative 09/09/2024 4:47 AM EST ? [facility] ?[address] ?[place] [address] ? Ultrasound Report ? Signed ? Patient: Marsh,Rena ?MR#: [id number] ?? [id number] ? : 1985 ?Acct:[id number] ? Age/Sex: 38 / F ?ADM Date: 09/09/24 ? Loc: HO.ED ? Attending Dr: ? Ordering Physician: Carroll Cherry MD ?? Date of Service: 09/09/24 ?? Procedure(s): US abdomen limited ?? Accession Number(s): [id number] ? cc: Lily Chauhan MD; Carroll Cherry MD ? CLINICAL HISTORY: Right upper quadrant pain? ??Biliary colic ? US abdomen limited ? Comparison: None ? Findings: ?? The visualized pancreas is normal. ?? The aorta and inferior vena cava are normal caliber. ? The appearance of the liver suggests fatty infiltration without focal ?? lesion. ?? There is no intrahepatic bile duct dilatation. ?? The common duct is 5.0 mm in diameter. ?? There is agallstone. The gallbladder is otherwise normal. ?? There is positive sonographic Starkey sign. ?? There is no pericholecystic fluid collection. ?? Correlate for cholecystitis. ? The main portal vein is antegrade. ? The right kidney is 11.2 cm in length. ?? No ascites. ? IMPRESSION: ?? 1. Hepatic steatosis. ? 2. Cholelithiasis with sonographic Starkey's sign, nonspecific. Correlate ?? with clinical and laboratory findings for possible acute cholecystitis ? This document has been electronically signed by: Juan Diego Hughes MD on ?? 09/09/2024 04:46:17 ? Dictated By: ?Juan Diego Hughes MD ? Signed By: ?<Electronically signed by Juan Diego Hughes MD in OV> ?09/09/24 0447 ? DD/ 0446 ? TD/TT: 09/09/24 0446 ? Deputy [address] Court Services: ? Procedure Note Ni Chan - 09/09/[address] [address] Ultrasound Report Signed Patient: Carola Marsh#: [id number] : 1985Acct:[id number] Age/Sex: 38 / FADM Date: 09/09/24 Loc: HO.ED Attending Dr: Ordering Physician: Carroll Cherry MD Date of Service: 09/09/24 Procedure(s): US abdomen limited Accession Number(s): [id number] cc: Lily Chauhan MD; Carroll Cherry MD CLINICAL HISTORY: Right upper quadrant pain? Biliary colic US abdomen limited Comparison: None Findings: The visualized pancreas is normal. The aorta and inferior vena cava are normal caliber. The appearance of the liver suggests fatty infiltration without focal lesion. There is no intrahepatic bile duct dilatation. The common duct is 5.0 mm in diameter. There is agallstone. The gallbladder is otherwise normal. There is positive sonographic Starkey sign. There is no pericholecystic fluid collection. Correlate for cholecystitis. The main portal vein is antegrade. The right kidney is 11.2 cm in length. No ascites. IMPRESSION: 1. Hepatic steatosis. 2. Cholelithiasis with sonographic Starkey's sign, nonspecific. Correlate with clinical and laboratory findings for possible acute cholecystitis This document has been electronically signed by: Juan Diego Hughes MD on 09/09/2024 04:46:17 Dictated By: Juan Diego Hughes MD Signed By: <Electronically signed by Juan Diego Hughes MD in OV> 09/09/24446 DD/ 5 TD/TT: 09/09/[address] Services: [facility] External Provider IMG US PROCEDURES Edited Result - Final * Lipase (09/09/2024 1:49 AM EST) Lipase 26 8 - 78 U/L [facility] 09/09/2024 1:49 AM EST 09/09/2024 1:52 AM EST Generic External Data Provider LAB BLOOD ORDERAB LES Final Result [facility] [address] [place] [phone] * (ABNORMAL) Comprehensive Metabolic Panel (09/09/2024 1:49 AM EST) Pathologist [facility] Sodium 141 135 - 145 mmol/L [facility] Potassium 4.0 3.3 - 5.1 mmol/L [facility] Chloride 109(H) 96 - 108 mmol/L [facility] Carbon Dioxide 24 22 - 29 mmol/L [facility] Anion Gap 12 12 - 20 [facility] Urea Nitrogen (BUN) 11 9 - 16 mg/dL [facility] Creatinine, Serum 0.79 0.5 - 1.4 mg/dL [facility] Creatinine Clr Calc Pharmacy 95.4 [facility] Comment:Provided height and weight: 149.86 cm,90.2 kg.eGFR (calculated from the MDRD study equation) and eCrCl(calculated from the Cockcroft-Gault equation) are based ondifferent parameters and may not yield comparable results.If eCrCl result is absurd, please check patient'sheight/weight. Estimated Glomerular Filt Rate >60 [facility] Comment:Chronic Kidney Disea se: Estimated GFR < 60 mL/min/1.31h8Pgdbkl Kidney Disease: Estimated GFR < 15 mL/min/1.73m2 Glucose 102 60 - 115 mg/dL [facility] Calcium 9.2 8.4 - 10.2 mg/dL [facility] Bilirubin, Total 0.2 0.0 - 1.0 mg/dL [facility] Aspartate Amino Transferase 22 5 - 31 U/L [facility] Alanine Aminotransferase 17 0 - 31 U/L [facility] Total Protein 8.3(H) 6.5 - 8.0 g/dL [facility] Albumin Level 4.1 3.5 - 5.0 g/dL [facility] Alkaline Phosphatase 79 39 - 117 U/L [facility] 09/09/2024 1:49 AM EST 09/09/2024 1:52 AM EST us Generic External Data Provider LAB BLOOD ORDERAB LES Final Result [facility] [address] [place] [address] [phone] * (ABNORMAL) CBC auto differential (09/09/2024 1:49 AM EST) White Blood Count 5.6 4.8 - 10.8 X10*3/uL [facility] Red Blood Count 3.80(L) 4.20 - 5.50 X10*6/uL [facility] Hemoglobin 11.0(L) 12.0 - 16.0 g/dl [facility] Hematocrit 33.0(L) 37.0 - 47.0 % [facility] Mean Corpuscular Volume 86.8 80.0 - 98.0 fL [facility] Mean Corpuscular Hemoglobin 28.9 27.0 - 33.0 pg [facility] Mean Corpuscular HGB Conc 33.3 31.0 - 35.0 g/dl [facility] Red Cell Distribution Width 14.6 11.0 - 16.0 % [facility] Platelet Count 268 160 - 400 X10*3/uL [facility] Mean Platelet Volume 9.6 9.4 - 12.3 fL [facility] Neutrophils Percent Auto 41.5(L) 45 - 73 % [facility] Imm Gran Pct Auto 0.2 0.0 - 0.4 % [facility] Lymphocytes Percent Auto 46.1(H) 20 - 40 % [facility] Monocytes Percent Auto 10.6 2 - 11 % [facility] Eosinophils Percent Auto 1.1 0 - 4 % [facility] Basophils Percent Auto 0.5 0 - 2 % [facility] NRBC Pct Auto 0.0 0.0 - 0.2 /100WBC [facility] Neutrophils Absolute Auto 2.3 2.0 - 8.3 x10*3/uL [facility] Imm Gran Abs Auto 0.01 0.00 - 0.03 X10*3/uL [facility] Lymphocytes Absolute Auto 2.6 1.2 - 4.9 X10*3/uL [facility] Monocytes Absolute Auto 0.6 0.1 - 1.2 X10*3/uL [facility] Eosinophils Absolute Auto 0.1 0.0 - 0.4 X10*3/uL [facility] Basophils Absolute Auto 0.0 0.0 - 0.2 X10*3/uL [facility] NRBC Abs Auto 0.000 0.0 - 0.012 X10*3/uL [facility] 09/09/2024 1:49 AM EST 09/09/2024 1:52 AM EST us Generic External Data Provider LAB BLOOD ORDERAB LES Final Result [facility] [address] [place] [address] [phone] documented in this encounter Visit Diagnoses Not on filedocumented in this encounter Additional Health Concerns Assessment Noted Time PHQ-9 Depression Total Score: 3 05/22/20 24 1:05 PM EDT documented as of this encounter Care Teams Extender Relationship Specialty Start Date End Date Lily Chauhan MD [address] [place] [address] PCP - General Family Medicine 04/06/18 Neida Riojas Mounter ClarinetsParalegal Specialist 12/21/23 documented as of this encounter
--- OUTSIDE RECORDS SUMMARY | 2024-09-10 17:48 | XMS_ITS | Encounter Summary ---
Author Organization [employer] Address [address] [place] [address] [address]t [place] [address] Care Team Providers Care Strategic Planning Manager Name Role Phone Lily Chauhan MD Primary Care Provide r Reason for Visit * Reason Comments Med Refill Encounter Details Date Type Department Care Team ([facility] st Contact Info) Description 05/15/2024 Refill [facility] MEDICINE [address] [place] [address] Lily Chauhan MD [address] [place] [address] Essential hypertension Social History Tobacco Use Types [...] Telemedicine [facility] MEDICINE [address] [place] [address] Lily Chauhan MD [address] [place] [address] 10/12/2024 3:30 PM EDT Office Visit [facility] OPTOMETRY [address] [place] [address] David, Swati, OD [address] [place] [address] documented as of this encounter Visit Diagnoses Diagnosis Essential hypertension Unspecified essential hypertension documented in this encounter Additional Health Concerns Assessment Noted Time PHQ-9 Depression Total Score: 0 11/15/19 24 10:46 AM EDT documented as of this encounter Care Teams Strategic Planning Manager Relationship Specialty Start Date End Date Lily Chauhan MD [address] [place] [address] PCP - General Family Medicine 04/06/[address]ida [address]jas [address]ensing [address] Magistrate 12/21/23 documented as of this encounter
--- OUTSIDE RECORDS SUMMARY | 2024-09-10 17:48 | XMS_ITS | Encounter Summary ---
Author Organization [employer] Address [address] [place] [address] 7 [place] [address] Care Team Providers Care Computer Hardware Technician Name Role Phone Lily Chauhan MD Primary Care Provide r Reason for Visit * Reason Onset Date Comments Nurse Triage 06/26/2024 Encounter Details Date Type Department Care Team ([facility] st Contact Info) Description 06/26/2024 Telephone [facility] MEDICINE [address] [place] [address] Lily Chauhan MD [address] [place] [address] Nurse Triage Social History Tobacco Use Types [...] Info) Description 09/26/2024 11:30 AM EST Telemedicine [facility] MEDICINE [address] [place] [address] Lily Cahuhan MD [address] [place] [address] 10/12/2024 3:30 PM EDT Office Visit [facility] OPTOMETRY [address] [place] [address] David, Swati, OD [address] [place] [address] documented as of this encounter Visit Diagnoses Not on filedocumented in this encounter Additional Health Concerns Assessment Noted Time PHQ-9 Depression Total Score: 3 05/22/20 24 1:05 PM EDT documented as of this encounter Care Teams Computer Hardware Technician Relationship Specialty Start Date End Date Lily Chauhan MD [address] [place] [address] PCP - General Family Medicine 04/06/18 Neida Riojas Wood Strip Block Floor InstallerTraffic Maintenance Supervisor 12/21/23 documented as of this encounter
--- OUTSIDE RECORDS SUMMARY | 2024-09-10 17:48 | XMS_ITS | Encounter Summary ---
Author Organization [employer] Address [address] [facility] 7t [place] [address] Care Team Providers Care Claims Collector Name Role Phone Lily Chauhan MD Primary Care Provide r Encounter Details Date Type Department Care Team ([facility] st Contact Info) Description 08/11/2024 Orders Only [facility] MEDICINE [address] [place] [address] Lily Chauhan MD [address] [place] [address] BMI 38.0-38.9,adult (Primary Dx) Social History Tobacco [...] Info) Description 09/26/2024 11:30 AM EST Telemedicine [facility] MEDICINE [address] [place] [address] Lily Chauhan MD [address] [place] [address] 10/12/2024 3:30 PM EDT Office Visit [facility] OPTOMETRY [address] [place] [address] David, Swati, OD [address] [place] [address] documented as of this encounter Procedures Procedure [...] EST Narrative 08/16/2024 9:51 AM EST ? [facility] ?[address] ?[place] [address] ?XRay Report ? Signed ? Patient: Marsh,Rena ?MR#: [id number] ?? [id number] ? : 1985 ?Acct:[id number] ? Age/Sex: 38 / F ?ADM Date: 08/15/24 ? Loc: HO.XRAY ? Attending Dr: Eden Andrade APRN, CNP ? Ordering Physician: Eden Andrade APRN, CNP ?? Date of Service: 08/15/24 ?? Procedure(s): XR cervical spine w flex/ext ?? Accession Number(s): [id number] ? cc: Lily Chauhan MD; Eden Andrade APRN LEASING COORDINATOR ? CLINICAL HISTORY: M54.2 - Cervicalgia ? [...] DD/ 0950 ? TD/TT: 08/16/24 0950 ? Wire Rope Sales Representative: ? Procedure Note Warrenaudrajose econnieter, Image - 08/16/[address] [address] XRay Report Signed Patient: Carola Marsh#: [id number] : 1985Acct:[id number] Age/Sex: 38 / FADM Date: 08/15/24 Loc: [facility] Attending Dr: Eden Andrade APRN, MARSHALL Ordering Physician: Eden Andrade APRN, CNP Date of Service: 08/15/24 Procedure(s): XR cervical spine w flex/ext Accession Number(s): [id number] cc: Lily Chauhan MD; Eden Andrade APRN, LEASING COORDINATOR CLINICAL HISTORY: M54.2 - Cervicalgia 7 views [...] Esquivel MD in OV> 08/16/24 0951 DD/ 0950 TD/TT: 08/16/24 0950 Wire Rope Sales Representative: [facility] External Provider IMG XR PROCEDURES Final Result * XR Lumbar Spine Complete 4+ Views (08/16/2024 5:21 AM EST) Anatomical Region Laterality Modality Spine, L-spine Radiographic Amee ging 08/16/2024 5:21 AM EST Narrative 08/16/2024 5:23 AM EST ? [facility] ?[address] ?[place] [address] ?XRay Report ? Signed ? Patient: Marsh,Rena ?MR#: [id number] ?? [id number] ? : 1985 ?Acct:[id number] ? Age/Sex: 38 / F ?ADM Date: 01/21/25 ? Loc: HO.XRAY ? Attending Dr: Eden Andrade APRN LEASING COORDINATOR ? Ordering Physician: Eden Andrade APRN, CNP ?? Date of Service: 08/15/24 ?? Procedure(s): XR lumbar spine 4V min ?? Accession Number(s): [id number] ? cc: Lily Chauhan MD; Eden Andrade APRN, LEASING COORDINATOR ? CLINICAL HISTORY: M54.9 - Dorsalgia, unspecified [...] ? DD/ 0 ? TD/TT: 08/16/24520 ? Wire Rope Sales Representative: ? Procedure Note Donaudrajose ejoselo, Image - 08/16/2024 [place] [address] XRay Report Signed Patient: Carola Marsh#: [id number] : 1985Acct:[id number] Age/Sex: 38 / FADM Date: 08/15/24 Loc: [facility] Attending Dr: Eden Andrade APRN, CNP Ordering Physician: Eden Andrade APRN, CNP Date of Service: 08/15/24 Procedure(s): XR lumbar spine 4V min Accession Number(s): [id number] cc: Lily Chauhan MD; Eden Andrade APRN, [...] in OV> 08/16/24521 DD/ 0 TD/TT: 08/16/24520 Wire Rope Sales Representative: [facility] External Provider IMG XR PROCEDURES Final Result documented in this encounter Visit Diagnoses Diagnosis BMI 38.0-38.9,adult- Primary documented in this encounter Additional Health Concerns Assessment Noted Time PHQ-9 Depression Total Score: 3 05/22/20 24 1:05 PM EDT documented as of this encounter Care Teams Claims Collector Relationship Specialty Start Date End Date Lily Chauhan MD [address] [place] [address] PCP - General Family Medicine 04/06/18 Neida Riojas Mail OpenerSales Service Assistant 12/21/23 documented as of this encounter
--- OUTSIDE RECORDS SUMMARY | 2024-09-10 17:48 | XMS_ITS | Encounter Summary ---
Author Organization [employer] Address [address] [facility] [address]t [place] [address] Care Team Providers Care Program Trainer Name Role Phone Lily Chauhan MD Primary Care Provide r Reason for Visit * Reason Comments Med Refill Encounter Details Date Type Department Care Team ([facility] st Contact Info) Description 08/11/2024 Refill [facility] MEDICINE [address] [place] [address] Samantha Mason, DO [address] [place] [address] Social History Tobacco Use Types Packs/Day Years [...] Info) Description 09/26/2024 11:30 AM EST Telemedicine [facility] MEDICINE [address] [place] [address] Lily Chauhan MD [address] [place] [address] 10/12/2024 3:30 PM EDT Office Visit [facility] OPTOMETRY [address] [place] [address] David, Swati, OD [address] [place] [address] documented as of this encounter Visit Diagnoses Not on filedocumented in this encounter Additional Health Concerns Assessment Noted Time PHQ-9 Depression Total Score: 3 05/22/20 24 1:05 PM EDT documented as of this encounter Care Teams Program Trainer Relationship Specialty Start Date End Date Lily Chauhan MD [address] [place] [address] PCP - General Family Medicine 04/06/18 Neida Riojas Medical LeaderEnvironmental Sustainability Manager 12/21/23 documented as of this encounter
--- OUTSIDE RECORDS SUMMARY | 2024-09-10 17:48 | XMS_ITS | Clinical Summary ---
Author Organization [employer] Address [address] [facility] [address] [place] [address] Care Team Providers Care Plisse Machine Operator Name Role Phone Lily Chauhan [...] per day. 180 tablet 3 03/20/20 24 025 Active methocarbamol (Robaxin) 500 MG tabletIndicati ons:Neck pain Take 1.5 tablets (750 mg) by mouth 3 times daily for 14 days. 63 tablet 07/21/20 24 Active Acetaminophen Extra Strength 500 MG tabletIndicati [...] (one) time per week. 2 mL 08/11/19 Active gabapentin (Neurontin) 100 MG capsuleIndicat ions:Neck pain TAKE 3 CAPSULES BY MOUTH EVERY 8 HOURS 270 capsule 08/25/19 Active gabapentin (Neurontin) 100 MG capsuleIndicat ions:Neck pain Take 3 capsules (300 mg) by mouth every 8 (eight) hours. 90 capsule 1 08/07/19 25 025 Discontinued diclofenac (Voltaren) 50 MG EC tabletIndicati ons:Neck pain Take 1 tablet (50 mg) by mouth 2 times daily. Do not crush, chew, or split. 60 tablet 08/07/19 025 Active Problems Problem Noted Date Diagnosed Date [...] 11/06/2022 Encounter for preventative adult health care exsalena gonzalezation 11/06/2022 Assessment & Plan (11/16/2023 3:55 PM [...] her information for weight reduction program at [facility] [place]. Discussed re weight reduction options including exercise, life style modifications, diet, referral to reporting specialist. Discussed re lower calorie intake, increase [...] index (BMI) 40.0-44.9, adult 07/06/2022 03/20/2024 Encounters Date Type Department Care Team Description 09/09/2024 Orders Only GENERIC EXTERNAL DATA DEPARTMENT Provider, Generic External Data 09/08/2024 Travel 08/25/2024 Refill [facility] [address] [place] [address] Lily Chauhan MD Neck pain 08/22/2024 Telephone [facility] [address] [place] [address] Lily Chauhan MD Prior Authorization 08/18/2024 Telephone [facility] [address] [place] [address] Cee Oakes, RN Results 08/18/2024 Orders Only [facility] [address] [place] [address] Lily Chauhan MD Pituitary abnormality (CMS/HCC) (Primary Dx); Cyst of cervical facet joint 08/11/2024 Orders Only [facility] [address] [place] [address] Lily Chauhan MD BMI 38.0-38.9,adult (Primary Dx) 08/11/2024 Refill [facility] [address] [place] [address] MarlonSamanthaDO 08/07/2024 11:00 AM EST Office Visit [address] [address] Lily Chauhan MD Essential hypertension (Primary Dx); Neck pain; Bilateral arm pain; Chronic midline low back pain without sciatica; Neck pain 08/07/2024 Travel 07/23/[address] [address] Lily Chauhan MD Migraine with aura and without status migrainosus, not intractable 07/21/2024 9:00 AM EST Office Visit [address] [address] Maryellen Chin NP Neck pain (Primary Dx); Elevated blood pressure reading in office with diagnosis of hypertension; Mass of occipital region 07/21/2024 Travel 07/20/[address] [address] Lily Chauhan MD Appointment Request 07/18/[address] [address] Diamond Mustafa ANP No Show 07/18/[address] [address] Lily Chauhan MD Nurse Triage 07/17/[address] [address] Verito Carlson MA Provider Out 07/09/2024 Orders Only GENERIC EXTERNAL DATA DEPARTMENT Provider, Generic External Data 07/06/2024 Patient Outreach [address] [address] Lily Chauhan MD Pre-visit Planning (SDOH screening completed on 11/03/2023) 06/26/[address] [address] Lily Chauhan MD Nurse Triage 06/20/[address] [address] Lily Chauhan MD Results 06/19/2024 1:15 PM EST Office Visit [facility] [address] [place] [address] Juanita Carl NP Abdominal pain, LUQ (Primary Dx); Atypical chest pain 06/19/2024 Telephone [facility] [address] [place] [address] Lily Chauhan MD Nurse Triage from Last [...] 09/26/2024 11:30 AM EST Telemedicine [facility] [address] [place] [address] Lily Chauhan MD [address] [place] [address] 10/12/2024 3:30 PM EDT Office Visit [facility] [address] [place] [address] Swati Hernandez, OD [address] [place] [address] Health Maintenance Due Date Last Done Comments Family Planning (PISQ) 2001 HPV Vaccines (2 - 3-dose series) 08/04/2007 07/07/2007 HPV/Cotest 2016 Hepatitis B Vaccines (3 of 3 - 19+ 3-dose series) 01/11/2018 11/16/2017, 07/07/2007 Cervical Cancer Screening 06/02/2022 Pap Smear 06/02/2022 06/02/2019 COVID-19 Vaccine (4 - season) 2024 10/21/2021, 10/04/2020, 09/04/2020 Influenza Vaccine (#1) 2024 SDOH Screening 11/02/2024 11/03/2023 Depression Screening 05/22/2025 05/22/2024, 05/22/20 24 Alcohol/Substance Use Screening 06/19/2025 06/19/2024 Tobacco Screening 06/19/2025 06/19/2024 Lipid Panel 06/20/2029 06/20/2024, 1207/2021, 09/24/2020 DTaP/Tdap/Td Vaccines (4 - Td or [...] LIMITED Routine 09/09/2024 4: 46 AM EST LIPASE Routine 09/09/2024 1:49 AM EST COMPREHENSIVE METABOLIC PANEL Routine 09/09/2024 1:49 AM EST CBC WITH AUTO DIFFERENTIAL Routine 09/09/2024 1:49 AM EST AMB REFERRAL TO PAIN MEDICINE Routine 08/28/2024 [...] Recently Relevant to Health Maintenance Results * US Abdomen Limited (09/09/2024 4:46 AM EST) Anatomical Region Laterality Modality Abdomen Ultrasound 09/09/2024 4:46 AM EST Narrative 09/09/2024 4:47 AM EST ? [facility] ?[address] ?[place] [address] ? Ultrasound Report ? Signed ? Patient: Marsh,Rena ?MR#: [id number] ?? 7527 ? : 1985 ?Acct:[id number] ? Age/Sex: 38 / F ?ADM Date: 02/15/25 ? Loc: HO.ED ? Attending Dr: ? Ordering Physician: Carroll Cherry MD ?? Date of Service: 09/09/24 ?? Procedure(s): US abdomen limited ?? Accession Number(s): [id number] ? cc: Lily Chauhan MD; Carroll Cherry [...] DD/ 0446 ? TD/TT: 09/09/24 0446 ? Dry Food Products Mixer: ? Procedure Note Ni Chan - 09/09/[address] [address] Ultrasound Report Signed Patient: Carola Marsh#: [id number] : 1985Acct:[id number] Age/Sex: 38 / FADM Date: 09/09/24 Loc: HO.ED Attending Dr: Ordering Physician: Carroll Cherry MD Date of Service: 09/09/24 Procedure(s): US abdomen limited Accession Number(s): [id number] cc: Lily Chauhan MD; Carroll Cherry MD [...] in OV> 09/09/24446 DD/ 5 TD/TT: 09/09/244[address] Dry Food Products Mixer: us [facility] External Provider IMG US PROCEDURES Edited Result - Final * (ABNORMAL) CBC auto differential (09/09/2024 1:49 AM EST) Only the most recent of3 resultswithin the time period is included. White Blood Count 5.6 4.8 - 10.8 X10*3/uL [facility] Red Blood Count 3.80(L) 4.20 - 5.50 X10*6/uL [facility] Hemoglobin 11.0(L) 12.0 - 16.0 g/dl [facility] Hematocrit 33.0(L) 37.0 - 47.0 % [facility] Mean Corpuscular Volume 86.8 80.0 - 98.0 fL [facility] Mean Corpuscular Hemoglobin 28.9 27.0 - 33.0 pg [facility] Mean Corpuscular HGB Conc 33.3 31.0 - 35.0 g/dl [facility] Red Cell Distribution Width 14.6 11.0 - 16.0 % [facility] Platelet Count 268 160 - 400 X10*3/uL [facility] Mean Platelet Volume 9.6 9.4 - 12.3 fL [facility] Neutrophils Percent Auto 41.5(L) 45 - 73 % [facility] Imm Gran Pct Auto 0.2 0.0 - 0.4 % [facility] Lymphocytes Percent Auto 46.1(H) 20 - 40 % [facility] Monocytes Percent Auto 10.6 2 - 11 % [facility] Eosinophils Percent Auto 1.1 0 - 4 % [facility] Basophils Percent Auto 0.5 0 - 2 % [facility] NRBC Pct Auto 0.0 0.0 - 0.2 /100WBC [facility] Neutrophils Absolute Auto 2.3 2.0 - 8.3 x10*3/uL [facility] Imm Gran Abs Auto 0.01 0.00 - 0.03 X10*3/uL [facility] Lymphocytes Absolute Auto 2.6 1.2 - 4.9 X10*3/uL [facility] Monocytes Absolute Auto 0.6 0.1 - 1.2 X10*3/uL [facility] Eosinophils Absolute Auto 0.1 0.0 - 0.4 X10*3/uL [facility] Basophils Absolute Auto 0.0 0.0 - 0.2 X10*3/uL [facility] NRBC Abs Auto 0.000 0.0 - 0.012 X10*3/uL [facility] 09/09/2024 1:49 AM EST 09/09/2024 1:52 AM EST us Generic External Data Provider LAB BLOOD ORDERAB LES Final Result [facility] [address] [place] [address] [phone] * Lipase (09/09/2024 1:49 AM EST) Lipase 26 8 - 78 U/L [facility] 09/09/2024 1:49 AM EST 09/09/2024 1:52 AM EST us Generic External Data Provider LAB BLOOD ORDERAB LES Final Result [facility] [address] [place] [address] [phone] * (ABNORMAL) Comprehensive Metabolic Panel (09/09/2024 1:49 AM EST) Only the most recent of3 resultswithin the time period is included. Sodium 141 135 - 145 mmol/L [facility] Potassium 4.0 3.3 - 5.1 mmol/L [facility] Chloride 109(H) 96 - 108 mmol/L [facility] Carbon Dioxide 24 22 - 29 mmol/L [facility] Anion Gap 12 12 - 20 [facility] Urea Nitrogen (BUN) 11 9 - 16 mg/dL [facility] Creatinine, Serum 0.79 0.5 - 1.4 mg/dL [facility] Creatinine Clr Calc Pharmacy 95.4 [facility] Comment:Provided height and weight: 149.86 cm,90.2 kg.eGFR (calculated from the MDRD study equation) and eCrCl(calculated from the Cockcroft-Gault equation) are based ondifferent parameters and may not yield comparable results.If eCrCl result is absurd, please check patient'sheight/weight. Estimated Glomerular Filt Rate >60 [facility] Comment:Chronic Kidney Disea se: Estimated GFR < 60 mL/min/1.38h5Clgbrh Kidney Disease: Estimated GFR < 15 mL/min/1.73m2 Glucose 102 60 - 115 mg/dL [facility] Calcium 9.2 8.4 - 10.2 mg/dL [facility] Bilirubin, Total 0.2 0.0 - 1.0 mg/dL [facility] Aspartate Amino Transferase 22 5 - 31 U/L [facility] Alanine Aminotransferase 17 0 - 31 U/L [facility] Total Protein 8.3(H) 6.5 - 8.0 g/dL [facility] Albumin Level 4.1 3.5 - 5.0 g/dL [facility] Alkaline Phosphatase 79 39 - 117 U/L [facility] 09/09/2024 1:4 9 AM EST 09/09/2024 1:52 AM EST us Generic External Data Provider LAB BLOOD ORDERAB LES Final Result [facility] [address] [facility] [place] [address] [phone] * Referral to Pain Medicine (08/28/2024) us Lily Burnette MD OUTPATIENT REFERRAL O RDERABLES Final Result * XR Spine Cervical w/ Flext and/ Or Ext (08/16/2024 9:50 AM EST) Anatomical Region Laterality Modality Radiographic Amee ging 08/16/2024 9:50 AM EST Narrative 08/16/2024 9:51 AM EST ? [facility] ?[address] ?[place] [address] ?XRay Report ? Signed ? Patient: Marsh,Rena ?MR#: [id number] ?? 7527 ? : 1985 ?Acct:[id number] ? Age/Sex: 38 / F ?ADM Date: 08/15/24 ? Loc: HO.XRAY ? Attending Dr: Eden Andrade APRN, AUTO GLASS TECHNICIAN ? Ordering Physician: Eden Andrade APRN, AUTO GLASS TECHNICIAN ?? Date of Service: 08/15/24 ?? Procedure(s): XR cervical spine w flex/ext ?? Accession Number(s): [id number] ? cc: Lily Chauhan MD; Eden Andrade APRN, AUTO GLASS TECHNICIAN ? CLINICAL HISTORY: M54.2 - Cervicalgia ? [...] DD/ 0950 ? TD/TT: 08/16/24 0950 ? Dry Food Products Mixer: ? Procedure Note Donfreddieter, Image - 08/16/[address] [address] XRay Report Signed Patient: Carola Marsh#: [id number] : 1985Acct:[id number] Age/Sex: 38 / FADM Date: 08/15/24 Loc: HOGOPI Attending Dr: Eden Andrade APRN, CNP Ordering Physician: Eden Andrade APRN, CNP Date of Service: 08/15/24 Procedure(s): XR cervical spine w flex/ext Accession Number(s): [id number] cc: Lily Chauhan MD; Eden Andrade APRN, AUTO GLASS TECHNICIAN CLINICAL HISTORY: M54.2 - Cervicalgia 7 [...] signed by Denise Esquivel MD in OV> 08/16/24950 DD/ TD/TT: 08/16/24949 Dry Food Products Mixer: us [facility] External Provider IMG XR PROCEDURES Final Result * XR Lumbar Spine Complete 4+ Views (08/16/2024 5:21 AM EST) Anatomical Region Laterality Modality Spine, L-spine Radiographic Amee ging 08/16/2024 5:21 AM EST Narrative 08/16/2024 5:23 AM EST ? [facility] ?[address] ?[place], [place] [address] ?XRay Report ? Signed ? Patient: Marsh,Rena ?MR#: [id number] ?? 7527 ? : 1985 ?Acct:[id number] ? Age/Sex: 38 / F ?ADM Date: 08/15/24 ? Loc: HO.XRAY ? Attending Dr: Eden Andrade APRN, CNP ? Ordering Physician: Eden Andrade APRN, CNP ?? Date of Service: 08/15/24 ?? Procedure(s): XR lumbar spine 4V min ?? Accession Number(s): [id number] ? cc: Lily Chauhan MD; Eden Andrade [...] by Davon Farmer MD in OV> ? 08/16/24521 ? DD/ 0 ? TD/TT: 08/16/24520 ? Dry Food Products Mixer: ? Procedure Note Dustin, Image - 08/16/[address] [address] XRay Report Signed Patient: Rena Marsh#: [id number] [id number] : 1985Acct:[id number] Age/Sex: 38 / FADM Date: 08/15/24 Loc: HO.XRAY Attending Dr: Eden Andrade APRN, CNP Ordering Physician: Eden Andrade APRN, CNP Date of Service: 08/15/24 Procedure(s): XR lumbar spine 4V min Accession Number(s): [id number] cc: Lily Chauhan MD; Eden Andrade APRN, [...] signed by Davon Farmer MD in OV> 08/16/2422 DD/ 0 TD/TT: 08/16/24520 Dry Food Products Mixer: [facility] External Provider IMG XR PROCEDURES Final Result * MR Cervical Spine w/o Contrast (08/09/2024 8:16 PM EST) Anatomical Region Laterality Modality Spine, C-spine Magnetic Resonan ce 08/09/2024 8:16 PM EST Narrative 08/09/2024 8:18 PM EST ? [facility] ?[address] ?[place] [address] ? Magnetic Resonance Report ? Signed with Addenda ? Patient: Marsh,Rena ?MR#: [id number] ?? 7527 ? : 1985 ?Acct:[id number] ? Age/Sex: 38 / F ?ADM Date: /14/25 ? Loc: HO.MRI ? Attending Dr: Lily Burnette MD ? Ordering Physician: Lily Chauhan MD ?? Date of Service: 08/08/24 ?? Procedure(s): MR cervical spine wo con ?? Accession Number(s): [id number] ? cc: Lily Chauhan MD ?ADDENDUM ?? This document has been electronically signed by: Davon Farmer MD on ?? 08/09/2024 20:16:06 ? ADDENDUM: ?? Receipt of this report by the clinical staff was confirmed with Samantha ?? Benja salon leader on Aug 09, 2024 21:31:00 EST. ? [...] in OV> ? 08/09/24 2017 ? DD/ 2016 ? TD/TT: 08/09/242015 ? [employer] Food Products Mixer: ? Procedure Note Dustin, Image - 01/15/[address] [address] Magnetic Resonance Report Signed with Ivanna Patient: Rena MarshMR#: [id number] 7527 : 1985Acct:[id number] Age/Sex: 38 / FADM Date: 08/08/24 Loc: HO.MRI Attending Dr: Lily Burnette MD Ordering Physician: Lily Chauhan MD Date of Service: 08/08/24 Procedure(s): MR cervical spine wo con Accession Number(s): [id number] cc: Lily Chauhan MD ADDENDUM This document has been electronically signed by: Davon Farmer MD on 08/09/2024 20:16:06 ADDENDUM: Receipt of this report by the clinical staff was confirmed with Samantha Yousif salon leader on Aug 09, 2024 21:31:00 EST. This [...] in OV> 08/09/242016 DD/ 15 TD/TT: 08/09/242015 [employer] Mixer: us Lily Burnette MD IMG MRI PROCEDURES Ed ited Result - Final * US Head Neck Soft Tissue (08/02/2024 2:16 PM EST) Anatomical Region Laterality Modality Head, Neck Ultrasound 08/02/2024 2:16 PM EST Narrative 08/07/2024 10:07 AM EST ? [facility] ?[address] ?[place] [address] ? Ultrasound Report ? Signed ? Patient: Maximo,Rena ?MR#: [id number] ?? 7527 ? : 1985 ?Acct:[id number] ? Age/Sex: 38 / F ?ADM Date: 08/02/24 ? Loc: HO.US ? Attending Dr: Maryellen Chin ? Ordering Physician: Maryellen Chin ?? Date of Service: 08/02/24 ?? Procedure(s): US soft tiss head and/or neck ?? Accession Number(s): [id number] ? cc: Maryellen Chin; Lily Chauhan MD [...] DD/ 1416 ? TD/TT: 08/02/24 1418 ? Dry Food Products Mixer: ? Procedure Note Donotuseinterpreter, Image - 08/07/[address] [address] Ultrasound Report Signed Patient: Carola Marsh#: [id number] : 1985Acct:[id number] Age/Sex: 38 / FADM Date: 08/02/24 Loc: HO.US Attending Dr: Maryellen Chin Ordering Physician: Maryellen Chin Date of Service: 08/02/24 Procedure(s): US soft tiss head and/or neck Accession Number(s): [id number] cc: Maryellen Chin; Lily Chauhan MD EXAMINATION: [...] 08/07/24 1004 DD/ 1416 TD/TT: 08/02/24 1418 Dry Food Products Mixer: us Maryellen Chin FORENSIC EXAMINER IMG US PROCEDURES Edited Result - Final * XR Chest 1 View (07/09/2024 9:30 PM EST) Anatomical Region Laterality Modality Chest Radiographic Amee ging 07/09/2024 9:30 PM EST Narrative 07/09/2024 10:15 PM EST ? [facility] ?[address] ?[place] [address] ?XRay Report ? Signed ? Patient: Marsh,Rena ?MR#: [id number] ?? 7527 ? : 1985 ?Acct:[id number] ? Age/Sex: 38 / F ?ADM Date: 07/09/24 ? Loc: HO.ED ? Attending Dr: ? Ordering Physician: Generic ED Physician ?? Date of Service: 07/09/24 ?? Procedure(s): XR chest 1V ?? Accession Number(s): [id number] ? cc: Lily Chauhan MD; Generic ED [...] MD in OV> ?07/09/24 2213 ? DD/ 29 ? TD/TT: 07/09/242134 ? Dry Food Products Mixer: SR ? Procedure Note Ni Chan - 07/09/[address] [address] XRay Report Signed Patient: Rena MarshMR#: [id number] : 1985Acct:[id number] Age/Sex: 38 / FADM Date: 07/09/24 Loc: HO.ED Attending Dr: Ordering Physician: Generic ED Physician Date of Service: 07/09/24 Procedure(s): XR chest 1V Accession Number(s): [id number] cc: Lily Chauhan MD; Generic ED Physician [...] in OV> 07/09/242212 DD/ 29 TD/TT: 07/09/242134 Dry Food Products Mixer: SR [facility] External Provider IMG XR PROCEDURES Edited Result - Final * High Sensitivity Troponin I (07/09/2024 9:21 PM EST) [facility] TROPONIN I HIGH SENSITIVITY <2.7 <3.5 - 17.0 ng/L [facility] Comment:The [place] high sens itivity Troponin-I results should beused in conjunction with other diagnostic information suchas ECG, clinical observations and information, and patientsymptoms to aid in the diagnosis of CA. 07/09/2024 9:21 PM EST 07/09/2024 9:23 PM EST Generic External Data Provider LAB BLOOD ORDERAB LES Final Result [facility] [address] [place] [phone] * hCG, Total, Quantitative (07/09/2024 9:21 PM EST) Pathologist [facility] HCG Quantitative <2 mIU/mL [facility] Comment:Weeks post LMP Appro ximate hCG(Last Menstrual Period) Range (mIU/ml)3 - 4 weeks 9 - 1304 - 5 weeks 75 - 2,6005 - 6 weeks 850 - 20,8006 - 7 weeks 4000 - 100,2007 - 12 weeks 11,500 - 289,44386 - 16 weeks 18,300 - 137,60180 - 29 weeks (2nd trimester) 1,400 - 53,12907 - 41 weeks (3rd trimester) 940 - [...] Provider LAB BLOOD ORDERAB LES Final Result [facility] [address] [place] [phone] * (ABNORMAL) Vitamin D, 25-Hydroxy, Total, Immunoassay (06/20/2024 9:49 AM EST) Vitamin D 25-OH Total 16.7(L) >30 ng/mL [facility] Comment:Health Based Referen ce Values*< 20 ng/mL Tortflxuq24-06 ng/mL Insufficient> 30 ng/mL Sufficient*Manolo HERRON. N [...] BLOOD ORDERABLES Final Result Performing Organization Address [facility] Phone Number [facility] [address] [place] [phone] * TSH with Reflex to Free T4 (06/20/2024 9:49 AM EST) TSH reflex Free T4 1.94 0.32 - 4.0 uIU/mL [facility] Blood 06/20/2024 9:49 AM EST 06/20/2024 11:47 AM EST Lily Burnette MD LAB BLOOD ORDERABLES Final Result Performing Organization Address [facility] Number [facility] [address] [place] [phone] * Hepatitis C Antibody with Reflex to HCV, RNA, Quantitative, Real-Time PCR (06/20/2024 9:49 AM EST) Hepatitis C Antibody Nonreactive Nonreactive [facility] Comment:Antibodies to HCV no t detected; does not exclude early acuteHCV infection. Blood Venous blood specimen / Unknown 06/20/2024 9:49 AM EST 06/20/2024 11:47 AM EST Lily Burnette MD LAB BLOOD ORDERABLES Final Result Performing Organization Address [facility] de Phone Number [facility] [address] [place] [phone] * HIV-1/2 Antigen and Antibodies, Fourth Generation, with Reflexes (06/20/2024 9:49 AM EST) HIV AB/AG Nonreactive Nonreactive [facility] Comment:HIV-1 p24 Ag and/or HIV-1/HIV-2 Ab not detected.A test result that is nonreactive does not exclude thepossibility of exposure to or infection with HIV-1 and/orHIV-2. Nonreactive results in this assay for individualswith prior exposure to HIV-1 and/or HIV-2 may be due toantigen and antibody levels that are below the limit ofdetection of this assay.The [employer] HIV Ag/Ab Combo assay result andsupplemental assay results should be interpreted inconjunction with the patient's clinical presentation,history and other laboratory results. If the results areinconsistent with clinical evidence, additional testing issuggested to confirm the result. Blood Venous blood specimen / Unknown 06/20/2024 9:49 AM EST 06/20/2024 11:47 AM EST us Lily Burnette MD LAB BLOOD ORDERABLES Final Result Performing Organization Address [facility] Co de Phone Number [facility] [address] [place] [phone] * Hemoglobin A1c (06/20/2024 9:49 AM EST) Hemoglobin A1c 5.4 <6.0 % [facility] Comment:Hemoglobin A1C Refer ence Range Adults: 4.8 - 6.0 % Non diabetic: < 6.0 % Goal: < 7.0 %Additional Action Suggested: > 8.0 %Note: Hemoglobin A1c results are invalid for patients with abnormal amounts of HbF. Blood transfusions may impact the HbA1c concentration in the patient sample. Estimated Average Glucose 108 mg/dL [facility] Comment:eAG = Estimated ave rage glucose which is %A1C expressed asaverage glucose, using the formula of the [id number]-[id number] Glucose study (ADAG), Diabetes Care, Vol.31,#8,Feb. 2007 Blood Venous blood specimen / Unknown 06/20/2024 9:49 AM EST 06/20/2024 11:47 AM EST us Lily Burnette MD LAB BLOOD ORDERABLES Final Result Performing Organization Address [facility] Co de Phone Number [facility] [address] [place] [address] [place] [phone] * Hepatic Function Panel (06/20/2024 9:49 AM EST) Bilirubin, Direct 0.1 0.0 - 0.5 mg/dL [facility] Blood Venous blood specimen / Unknown 06/20/2024 9:49 AM EST 06/20/2024 11:47 AM EST us Lily Burnette MD LAB BLOOD ORDERABLES Final Result [facility] [address] [place] [phone] * Lipid Panel, Standard (06/20/2024 9:49 AM EST) Triglycerides 133 <150 mg/dL [facility] Comment:Desirable Triglyceri de: less than 150 mg/dLBorderline High Triglyceride 150-199 mg/dLHigh Triglyceride: 200-499 mg/dLVery High Triglyceride: greater than or equal to 5OO mg/dL Cholesterol 175 <200 mg/dL [facility] Comment:Desirable Cholestero l: less than 200 mg/dLBorderline High Cholesterol: 200-239 mg/dLHigh Cholesterol: greater than 239 mg/dL LDL Cholesterol Calculated 94 <100 mg/dL [facility] Comment:Desirable LDL: less than 100 mg/dLNear Optimal/Above Optimal LDL: 110- 129 mg/dLBorderline High LDL: 130-159 mg/dLHigh LDL: 160-189 mg/dLVery High LDL: greater than or equal to 190 mg/dL HDL Cholesterol 55 >40 mg/dL [facility] Comment:Desirable HDL: great er than 40 mg/dL Note: This HDL assay may give artificially low results in patients with liver disease. Blood Venous blood specimen / Unknown 06/20/2024 9:49 AM EST 06/20/2024 11:47 AM EST us Lily Burnette MD LAB BLOOD ORDERABLES Final Result [facility] [address] [place] [phone] * XR CERVICAL SPINE 3V (06/20/2024 9:10 AM EST) Anatomical Region Laterality Modality Abdomen Radiographic Amee ging 06/20/2024 9:10 AM EST Narrative 06/20/2024 1:33 PM EST ?[facility] ?[address] ?[place] [address] ?XRay Report ? Signed ? Patient: Marsh,Rena ?MR#: [id number] ?? [id number] ? : 1985 ?Acct:[id number] ? Age/Sex: 38 / F ?ADM Date: 06/20/24 ? Loc: HO.HHCX ? Attending Dr: Juanita Carl FORENSIC EXAMINER ? Ordering Physician: Juanita Carl NP ?? Date of Service: 06/20/24 ?? Procedure(s): XR cervical spine 3V ?? Accession Number(s): [id number] ? cc: Juanita Carl FORENSIC EXAMINER ? EXAMINATION: ?? XR CERVICAL SPINE ?? [...] DD/ 0910 ? TD/TT: 06/20/24 0920 ? Dry Food Products Mixer: ? Procedure Note Donfreddieter, Image - 06/20/[address] [address] XRay Report Signed Patient: Rena MarshMR#: [id number] : 1985Acct:[id number] Age/Sex: 38 / FADM Date: 06/20/24 Loc: .HHCX Attending Dr: Juanita Carl FORENSIC EXAMINER Ordering Physician: Juanita Carl FORENSIC EXAMINER Date of Service: 06/20/24 Procedure(s): XR cervical spine 3V Accession Number(s): [id number] cc: Juanita Carl FORENSIC EXAMINER EXAMINATION: XR CERVICAL SPINE XR THORACIC SPINE [...] 06/20/24 1330 DD/ 0910 TD/TT: 06/20/24 0920 Dry Food Products Mixer: us Juanita Carl FORENSIC EXAMINER IMG XR PROCEDURES Final Result * XR Thoracic Spine 2 Views (06/20/2024 9:10 AM EST) Anatomical Region Laterality Modality Spine, T-spine Radiographic Amee ging 06/20/2024 9:10 AM EST Narrative 06/20/2024 1:33 PM EST ?[facility] ?[address] ?[place] [address] ?XRay Report ? Signed ? Patient: Marsh,Rena ?MR#: [id number] ?? [id number] ? : 1985 ?Acct:[id number] ? Age/Sex: 38 / F ?ADM Date: 06/20/24 ? Loc: HO.HHCX ? Attending Dr: Juanita Carl FORENSIC EXAMINER ? Ordering Physician: Juanita Carl FORENSIC EXAMINER ?? Date of Service: 06/20/24 ?? Procedure(s): XR thoracic spine 2V ?? Accession Number(s): [id number] ? cc: Juanita Carl FORENSIC EXAMINER ? EXAMINATION: ?? XR CERVICAL SPINE ?? [...] DD/ 0910 ? TD/TT: 06/20/24 0920 ? Dry Food Products Mixer: ? Procedure Note Dustin, Image - 06/20/2024 [place] [address] XRay Report Signed Patient: Carola Marsh#: [id number] : 1985Acct:[id number] Age/Sex: 38 / FADM Date: 06/20/24 Loc: .HHCX Attending Dr: Juanita Carl FORENSIC EXAMINER Ordering Physician: Juanita Carl FORENSIC EXAMINER Date of Service: 06/20/24 Procedure(s): XR thoracic spine 2V Accession Number(s): [id number] cc: Juanita Carl FORENSIC EXAMINER EXAMINATION: XR CERVICAL SPINE XR THORACIC SPINE [...] 06/20/24 1330 DD/ 0910 TD/TT: 06/20/24 0920 Dry Food Products Mixer: Juanita Carl FORENSIC EXAMINER IMG XR PROCEDURES Final Result * HM PAP/HPV (06/02/2019 2:16 PM EST) Historical Provider HEALTH MAINTENANCE Final Result from Last 3 Months or Most Recently Relevant to Health Maintenance [facility] Care Teams Plisse Machine Operator Relationship Specialty Start Date End Date Lily Chauhan MD [address] [place] [phone] PCP - General Family Medicine 04/06/18 Neida Riojas Screen RollerWeft Straightener 12/21/23
--- OUTSIDE RECORDS SUMMARY | 2024-09-10 17:48 | XMS_ITS | Encounter Summary ---
Author Organization [employer] Address [address] [place] [address] 7t [place] [address] Care Team Providers Care Blood Bank Technologist Name Role Phone Lily Chauhan MD Primary Care Provide r Encounter Details Date Type Department Care Team ([facility] Contact Info) Description 08/17/2022 Orders Only [facility] [address] [place] [phone] Maryan Abernathy MD [address] [place] [phone] Vitamin D deficiency (Primary Dx) Social History [...] Upcoming Encounters Date Type Department Care Team ([facility] Contact Info) Description 09/26/2024 11:30 AM EST Telemedicine [facility] [address] [place] [address] Lily Chauhan MD [address] [place], [place] [phone] 10/12/2024 3:30 PM EDT Office Visit [facility] [address] [place], [place] [phone] David, Swati, OD 230 [place], [place] [phone] documented as of this encounter Visit Diagnoses Diagnosis Vitamin D deficiency- Primary documented in this encounter Care Teams Blood Bank Technologist Relationship Specialty Start Date End Date Lily Chauhan MD [address] [place], [place] [phone] PCP - General Family Medicine 04/06/18 Neida Riojas Segmental Paving SupervisorUrban And Regional Planner 12/21/23 documented as of this encounter
--- OUTSIDE RECORDS SUMMARY | 2024-09-10 17:48 | XMS_ITS | Encounter Summary ---
Author Organization [employer] Address [address] [facility] 7t [place] [address] Care Team Providers Care Commercial Property Manager Name Role Phone Lily Chauhan MD Primary Care Provide r Reason for Visit * Reason Comments Med Refill Encounter Details Date Type Department Care Team ([facility] st Contact Info) Description 02/25/2024 Refill [facility] [address] [place] [address] Dayday Pearce MD [address] [place] [address] Social History Tobacco Use Types Packs/Day Years [...] Info) Description 09/26/2024 11:30 AM EST Telemedicine [facility] 230 [place] [address] Lily Chauhan MD [address] [place] [address] 10/12/2024 3:30 PM EDT Office Visit [facility] [address] [place] [address] David, Swati, OD 230 [place] [address] documented as of this encounter Visit Diagnoses Not on filedocumented in this encounter Additional Health Concerns Assessment Noted Time PHQ-9 Depression Total Score: 0 11/15/19 24 10:46 AM EDT documented as of this encounter Care Teams Commercial Property Manager Relationship Specialty Start Date End Date Lily Chauhan MD [address] [place] [address] PCP - General Family Medicine 04/06/18 Neida Riojas Chief Controller TowerBusiness Improvement Manager 12/21/23 documented as of this encounter
--- OUTSIDE RECORDS SUMMARY | 2024-09-10 17:48 | XMS_ITS | Encounter Summary ---
Author Organization [employer] Address [address] [place] [address] 7t [place] [address] Care Team Providers Care Healthcare Financial Analyst Name Role Phone Lily Chauhan MD Primary Care Provide r Reason for Visit * Reason Comments Med Refill Encounter Details Date Type Department Care Team ([facility] st Contact Info) Description 08/25/2024 Refill [facility] [address] [place] [address] Lily Chauhan MD [address] [place] [address] Neck pain Social History Tobacco Use Types [...] Info) Description 09/26/2024 11:30 AM EST Telemedicine [facility] [address] [place] [address] Lily Chauhan MD [address] [place] [address] 10/12/2024 3:30 PM EDT Office Visit [facility] [address] [place] [address] David, Swati, OD [address] [place] [address] documented as of this encounter Visit Diagnoses Diagnosis Neck pain Cervicalgia documented in this encounter Additional Health Concerns Assessment Noted Time PHQ-9 Depression Total Score: 3 05/22/20 1:05 PM EDT documented as of this encounter Care Teams Healthcare Financial Analyst Relationship Specialty Start Date End Date Lily Chauhan MD [address] [place] [address] PCP - General Family Medicine 04/06/18 Neida Riojas Derrickman HelperLast Repairer 12/21/23 documented as of this encounter
--- OUTSIDE RECORDS SUMMARY | 2024-09-10 17:48 | XMS_ITS | Clinical Summary ---
Author Organization [address] [place] [address] Address [address] [place] [address] Phone Care Team Providers Care Cuff Folder Name Role Phone Maryan Abernathy MD Primary Care Provider Social History Tobacco Use Types Packs/Day Years Used Date Smoking Tobacco: Never Assessed Comments Unknown Sex and Gender Information Value Date Recorded Sex Assigned at Not on file Legal Sex Female 9:50 AM EST Gender Identity Not on file Sexual Orientation Not on file Plan of Treatment Upcoming Encounters Date Type Department Care Team ([facility] Contact Info) Description 05/22/2025 10:30 AM EDT Office Visit Bariatric Surgery [address] [phone] Glenda Marie MD [address] [place] [phone] Health Maintenance Due Date Last Done Comments DTaP,Tdap,and Td Vaccines (1 - Tdap) 2005 Hepatitis B Vaccines (1 of 3 - 19+ 3-dose series) 2005 Cervical Cancer Screening: P ap Smear 2007 COVID-19 Vaccine ( - 2023-2 5 season) 2024 Influenza Vaccine (#1) 2024 Depression Screening 09/07/2024 HIV Screening 09/07/2024 Hepatitis C Screening 09/07/2024 Social Influencers of Health Screening 09/07/2024 HIB Vaccines Aged Out No longer eligi ble based on patient's age to complete this topic HPV Vaccines Aged Out No longer eligi ble based on patient's age to complete this topic Hepatitis A Vaccines Aged Out No long er eligible based on patient's age to complete this topic IPV Vaccines Aged Out No longer eligi ble based on patient's age to complete this topic MMR Vaccines Aged Out No longer eligi ble based on patient's age to complete this topic Meningococcal ACWY Vaccine Aged Out N o longer eligible based on patient's age to complete this topic Meningococcal B Vacine Aged Out No lo nger eligible based on patient's age to complete this topic Pneumococcal Vaccine: Pediat rics (0 to 5 Years) and At-Risk Patients (6 to 64 Years) Aged Out No longer eligible b ased on patient's age to complete this topic RSV Immunization Patients Un ben 20 months Aged Out No longer eligible b ased on patient's age to complete this topic Varicella Vaccines Aged Out No longer eligible based on patient's age to complete this topic Insurance MEDICAID - [place] Care Teams Cuff Folder Relationship Specialty Start Date End Date Maryan Abernathy MD [address] [phone] PCP - General 08/25/07
[2024-09-10] MEDS: gadobutroL 10 ML VIAL IVPUSH (19:16)
== END 2024-09-10 17:41 | disposition home or self-care (01) ==
LOC: HO.MRI 17:40
PROVIDERS: PCP Internal Medicine; Visit Provider Physician Assistant
DX: N64.3 Galactorrhea not associated with childbirth (principal)
CPT/HCPCS: 70553; A9585

== ENCOUNTER 2024-09-21 13:31 | Outpatient (AMB) | payer MEDICAID, SELFPAY ==
--- NOTE | 2024-09-21 13:38 | MHC.OFFVIS ---
Vital Signs 09/21/24 13:45 Height 4 ft 11 in Weight 201 lb BMI 40.6 BP 146/72 H Blood Pressure Location Lt brachial Position Sitting Pulse 70 Intake Visit Reasons: gallbladder Intake Note: Patient is seen in office for ER follow up visit, following gallbladder. Pt c/o: onset 3 weeks, pain RUQ, cramps worse with food, had a recent episode yesterday, nausea, vomit, constipation, denies any other concerns Air Crew Officer Required: No Accompanied by: Spouse Allergies amoxicillin [AMOXICILLIN] Allergy (Unknown, Verified 09/21/24 13:43) UNKNOWN, hives aspirin [ASPIRIN] Allergy (Unknown, Verified 09/21/24 13:43) HIVES, rash ibuprofen [Motrin] Allergy (Unknown, Verified 09/21/24 13:43) Hives lisinopril Adverse Reaction (Mild, Verified 09/21/24 13:43) Cough Medication List - Last Reconciled 09/21/24 by Solitario Moreno MD acetaminophen ER 650 mg PO Q8H PRN baclofen 5 mg PO TID dicyclomine 10 mg PO Q8H PRN gabapentin 100 mg PO TID ondansetron 4 mg PO Q6-8H PRN semaglutide (weight loss) (Wegovy) mg subcut QWEEK valsartan 320 mg PO DAILY HPI Comments Details: 39-year-old female patient presenting with complaints of right upper quadrant and epigastric abdominal pain of 3 weeks' duration. The pain seems to come and go in his associated with fatty food intake. The pain is associated with nausea and vomiting without fever or chills. She denies diarrhea or constipation. The pain occasionally radiates into the back. She has been staying away from greasy foods however yesterday ate fried chicken and had severe pain which lasted for several hours but subsequently resolved. Patient previously underwent evaluation in the emergency department and was noted to be tender in the right upper quadrant. She underwent evaluation with ultrasound of the abdomen which confirmed cholelithiasis. She presents today to discuss possible cholecystectomy. [facility] Medical History Chest pain Family planning Back pain Migraines Morbid obesity Hx LEEP (loop electrosurgical excision procedure), cervix, Hypertension Surgical History Hx of breast reduction, elective H/O abdominoplasty Family History Mother Hypertension Diabetes Maternal Grandmother No problems noted. Social History Alcohol intake: current Alcohol intake frequency: a few times a week Alcohol type: beer Female Reproductive History Menstrual Age of Menarche: 10 Review of Systems Const All systems reviewed & are unremarkable except as noted in HPI and below Physical Exam Vital Signs: Last Vital Signs Pulse 70 09/21/24 13:45 BP 146/72 H 09/21/24 13:45 BMI result Body Mass Index 40.6 Const General: cooperative and no acute distress Nutritional Appearance: well nourished Orientation/consciousness: patient oriented x3 Limitations: no limitations HEENT Head: Yes normocephalic and Yes atraumatic Ears: hearing grossly normal bilaterally Eyes Sclerae: sclerae normal Resp Effort & Inspection: normal respiratory effort, no audible wheezes, no cough and no respiratory distress Cardio Jugular venous distension: no JVD GI Inspection: Yes normal to inspection Palpation (GI): Soft to palpation, Tenderness to palpation present (GI) in the RUQ; Starkey's sign negative, no guarding, not rigid and No hepatosplenomegaly present Skin Other: Warm, dry, no rash Neuro General: patient oriented x3 Extrem General: Yes no clubbing, cyanosis or edema Assessment & Plan Assessment & Plan (1) Acute cholecystitis: Code(s): K81.0 - Acute cholecystitis Category: Medical Plan 39-year-old female patient presenting with complaints of right upper quadrant abdominal pain found on ultrasound to have gallstones within the gallbladder. On examination the patient remains tender in the right upper quadrant with a negative Starkey sign. Findings are suggestive of acute cholecystitis due to cholelithiasis. We discussed laparoscopic or possible open cholecystectomy as a possible option. After review of the procedure, risks and alternatives, she consents to a laparoscopic or possible open cholecystectomy. Medications: New dicyclomine 10 mg PO Q8H PRN 30 caps 0RF abdominal pain K81.0 - Acute cholecystitis Coding Level of Care Code New Pt Level 4 (66616) Diagnoses Acute cholecystitis K81.0
[2024-09-21 13:45] VITALS: BP 146/72; PULSE 70; BMI 40.6
--- OUTSIDE RECORDS SUMMARY | 2024-09-21 16:13 | XMS_ITS | Encounter Summary ---
Author Organization [employer] Address [address] [place] [address] 7 [place] [address] Care Team Providers Care Receiving Lead Name Role Phone Lily Chauhan MD Primary Care Provide r Reason for Visit * Reason Onset Date Comments Prior Authorization 08/22/2024 Encounter Details Date Type Department Care Team ([facility] Contact Info) Description 08/22/2024 Telephone [facility] [address] [place] [address] Lily Chauhan MD [address] [place] [address] Prior Authorization Social History Tobacco Use Types [...] PA for Zepbound signed and faxed to [employer] . Confirmation received and sent to scan. If patient calls to check status on above, please advise them to contact [facility] at [phone]. * Telephone Encounter - Lorin Anderson - 09/01/2024 11:23 AM EST PA for Zepbound from [facility] placed on PCP desk for signature. * Telephone Encounter - Erica Vernon - 08/22/2024 9:11 AM EST Tc from pt stating script for Tirzepatide-Weight Management (Zepbound) 2.5 MG/0.5ML solution auto-injector requires a prior authorization documented in this encounter Plan of Treatment Upcoming Encounters Date Type Department Care Team (Late st Contact Info) Description 09/26/2024 11:30 AM EST Telemedicine [facility] [address] [place] [address] Lily Chauhan MD 230 [place] [address] 10/12/2024 3:30 PM EDT Office Visit [facility] [address] [place] [address] David, Swati, OD 230 [place] [address] 12/11/2024 10:15 AM EDT Office Visit [facility] [address] [place] [address] Lily Chauhan MD [address] [place] [address] documented as of this encounter Visit Diagnoses Not on filedocumented in this encounter Additional Health Concerns Assessment Noted Time PHQ-9 Depression Total Score: 3 05/22/20 24 1:05 PM EDT documented as of this encounter Care Teams Receiving Lead Relationship Specialty Start Date End Date Lily Chauhan MD [address] [place] [phone] PCP - General Family Medicine 04/06/18 Neida Riojas Thrill PerformerAir Hole Driller 12/21/23 documented as of this encounter
--- OUTSIDE RECORDS SUMMARY | 2024-09-21 16:13 | XMS_ITS | Encounter Summary ---
Author Organization [employer] Address [address] [facility] 7t [place] [address] Care Team Providers Care Electric Refrigerator Servicer Name Role Phone Lily Chauhan MD Primary Care Provide r Reason for Visit * Reason Comments Med Refill Encounter Details Date Type Department Care Team ([facility] st Contact Info) Description 02/25/2024 Refill [facility] [address] [place] [address] Dayday Pearce MD [address] [place] [address] Social History Tobacco Use Types Packs/Day Years [...] 09/26/2024 11:30 AM EST Telemedicine [facility] [address] [place] [address] Lily Chauhan MD [address] [place] [address] 10/12/2024 3:30 PM EDT Office Visit [facility] [address] [place] [address] David, Swati, OD [address] [place] [address] 12/11/2024 10:15 AM EDT Office Visit [facility] [address] [place] [address] Lily Chauhan MD [address] [place] [address] documented as of this encounter Visit Diagnoses Not on filedocumented in this encounter Additional Health Concerns Assessment Noted Time PHQ-9 Depression Total Score: 0 11/15/19 24 10:46 AM EDT documented as of this encounter Care Teams Electric Refrigerator Servicer Relationship Specialty Start Date End Date Lily Chauhan MD [address] [place] [address] PCP - General Family Medicine 04/06/18 Neida Riojas Block HandRoof Bolting Coal Miner 12/21/23 documented as of this encounter
--- OUTSIDE RECORDS SUMMARY | 2024-09-21 16:13 | XMS_ITS | Encounter Summary ---
Author Organization [employer] Address [address] [place] [address] 7 [place] [address] Care Team Providers Care Lamp Tester And Inspector Name Role Phone Lily Chauhan MD Primary Care Provide r Reason for Visit * Reason Onset Date Comments (May Recall 09/12/2024 Encounter Details Date Type Department Care Team ([facility] Contact Info) Description 09/12/2024 Telephone [facility] [address] [place] [address] Lily Chauhan MD [address] [place] [address] (May Recall Social History Tobacco Use Types Packs/Day Years [...] encounter Miscellaneous Notes * Telephone Encounter - Stacy Kong MA - 09/12/2024 3:42 PM EST TC- Patient to schedule an appt (November Recall) with DR.Barciona [facility] to call back to sche appt.Mailed recall letter. documented in this encounter Plan of Treatment Upcoming Encounters Date Type Department Care Team ([facility] st Contact Info) Description 09/26/2024 11:30 AM EST Telemedicine [facility] [address] [place] [address] Lily Chauhan MD [address] [place] [address] 10/12/2024 3:30 PM EDT Office Visit [facility] [address] [place] [address] Swati Hernandez, OD [address] [place] [address] 12/11/2024 10:15 AM EDT Office Visit [facility] [address] [place] [address] Lily Chauhan MD [address] [place] [address] documented as of this encounter Visit Diagnoses Not on filedocumented in this encounter Additional Health Concerns Assessment Noted Time PHQ-9 Depression Total Score: 3 05/22/20 24 1:05 PM EDT documented as of this encounter Care Teams Lamp Tester And Inspector Relationship Specialty Start Date End Date Lily Chauhan MD [address] [place] [address] PCP - General Family Medicine 04/06/18 Neida Riojas Outside UpholstererDirect Response Consultant 12/21/23 documented as of this encounter
--- OUTSIDE RECORDS SUMMARY | 2024-09-21 16:13 | XMS_ITS | Encounter Summary ---
Author Organization [employer] Address [address] [place] [address] 7t [place] [address] Care Team Providers Care Skeet Operator Name Role Phone Lily Chauhan MD Primary Care Provide r Reason for Visit * Reason Comments Med Refill Encounter Details Date Type Department Care Team ([facility] st Contact Info) Description 05/15/2024 Refill [facility] [address] [place] [address] Lily Chauhan MD [address] [place] [address] Essential hypertension Social History Tobacco Use Types [...] Description 09/26/2024 11:30 AM EST Telemedicine [facility] [address] [place] [phone] Lily Chauhan MD 230 [place] [address] 10/12/2024 3:30 PM EDT Office Visit [facility] OPT[facility]ET[facility] [address] [place] [address] Swati Hernandez, OD 230 [place] [address] 12/11/2024 10:15 AM EDT Office Visit [facility] [address] [place] [address] Lily Chauhan MD [address] [place] [address] documented as of this encounter Visit Diagnoses Diagnosis Essential hypertension Unspecified essential hypertension documented in this encounter Additional Health Concerns Assessment Noted Time PHQ-9 Depression Total Score: 0 11/15/19 24 10:46 AM EDT documented as of this encounter Care Teams Skeet Operator Relationship Specialty Start Date End Date Lily Chauhan MD [address] [place] [phone] PCP - General Family Medicine 04/06/18 Neida Riojas Human Service WorkerAcid Changer 12/21/23 documented as of this encounter
--- OUTSIDE RECORDS SUMMARY | 2024-09-21 16:13 | XMS_ITS | Encounter Summary ---
Demographics Address [address] [place] [address] Work Phone Home Phone Mobile Phone Email Address [employer] Preferred Language en Marital Status Single Holiness Affiliation Unknown Race Other Race Ethnic Group or Author Organization [employer] Address [address] [place] [address] Care Team Providers Care Courtesy Clerk Name Role Phone Lily Chauhan MD Primary Care Provide r Encounter Details Date Type Department Care Team ([facility] st Contact Info) Description 09/09/2024 Orders [...] Info) Description 09/26/2024 11:30 AM EST Telemedicine [facility] MEDICINE [address] [place] [address] Lily Chauhan MD [address] [place] [address] 10/12/2024 3:30 PM EDT Office Visit [facility] OPTOMETRY [address] [place] [address] David, Swati, OD [address] [place] [address] 12/11/2024 10:15 AM EDT Office Visit [facility] [address] [place] [address] Lily Chauhan MD [address] [place] [address] documented as of this encounter Procedures Procedure [...] EST Narrative 09/09/2024 4:47 AM EST ? [facility] ?[address] ?[place], [place] [address] ? Ultrasound Report ? Signed ? Patient: Marsh,Rena ?MR#: [id number] ?? [id number] ? : 1985 ?Acct:[id number] ? Age/Sex: 38 / F ?ADM Date: 09/09/24 ? Loc: HO.ED ? Attending Dr: ? Ordering Physician: Carroll Cherry MD ?? Date of Service: 09/09/24 ?? Procedure(s): US abdomen limited ?? Accession Number(s): [id number] ? cc: Lily Chauhan MD; Carroll Cherry [...] DD/ 0446 ? TD/TT: 09/09/24 0446 ? Celery Cutter: ? Procedure Note Dustin, Ni - 09/09/[address] [address] Ultrasound Report Signed Patient: Rena MarshMR#: [id number] : 1985Acct:[id number] Age/Sex: 38 / FADM Date: 09/09/24 Loc: .ED Attending Dr: Ordering Physician: Carroll Cherry MD Date of Service: 09/09/24 Procedure(s): US abdomen limited Accession Number(s): [id number] cc: Lily Chauhan MD; Carroll Cherry MD [...] in OV> 09/09/24446 DD/ 5 TD/TT: 09/09/24445 Celery Cutter: [facility] External Provider IMG US PROCEDURES Edited Result - Final * Lipase (09/09/2024 1:49 AM EST) Lipase 26 8 - 78 U/L [facility] 09/09/2024 1:49 AM EST 09/09/2024 1:52 AM EST Generic External Data Provider LAB BLOOD ORDERAB LES Final Result [facility] [address] [place] [address] [phone] * (ABNORMAL) Comprehensive Metabolic Panel (09/09/2024 1:49 AM EST) Sodium 141 135 - 145 mmol/L [facility] Potassium 4.0 3.3 - 5.1 mmol/L [facility] Chloride 109(H) 96 - 108 mmol/L [facility] Carbon Dioxide 24 22 - 29 mmol/L [facility] Anion Gap 12 12 - 20 [facility] Urea Nitrogen (BUN) 11 9 - 16 mg/dL [facility] Creatinine, Serum 0.79 0.5 - 1.4 mg/dL [facility] Creatinine Clr Calc Pharmacy 95.4 [facility] Comment:Provided height and weight: 149.86 cm,90.2 kg.eGFR (calculated from the MDRD study equation) and eCrCl(calculated from the Cockcroft-Gault equation) are based ondifferent parameters and may not yield comparable results.If eCrCl result is absurd, please check patient'sheight/weight. Estimated Glomerular Filt Rate >60 [facility] Comment:Chronic Kidney Disea se: Estimated GFR < 60 mL/min/[id number] Kidney Disease: Estimated GFR < 15 mL/min/1.73m2 Glucose 102 60 - 115 mg/dL [facility] Calcium 9.2 8.4 - 10.2 mg/dL [facility] Bilirubin, Total 0.2 0.0 - 1.0 mg/dL [facility] Aspartate Amino Transferase 22 5 - 31 U/L [facility] Alanine Aminotransferase 17 0 - 31 U/L [facility] Total Protein 8.3(H) 6.5 - 8.0 g/dL [facility] Albumin Level 4.1 3.5 - 5.0 g/dL [facility] Alkaline Phosphatase 79 39 - 117 U/L [facility] 09/09/2024 1:49 AM EST 09/09/2024 1:52 AM EST us Generic External Data Provider LAB BLOOD ORDERAB LES Final Result [facility] [address] [place] [address] [phone] * (ABNORMAL) CBC auto differential (09/09/2024 1:49 AM EST) White Blood Count 5.6 4.8 - 10.8 X10*3/uL [facility] Red Blood Count 3.80(L) 4.20 - 5.50 X10*6/uL [facility] Hemoglobin 11.0(L) 12.0 - 16.0 g/dl [facility] Hematocrit 33.0(L) 37.0 - 47.0 % [facility] Mean Corpuscular Volume 86.8 80.0 - 98.0 fL [facility] Mean Corpuscular Hemoglobin 28.9 27.0 - 33.0 pg [facility] Mean Corpuscular HGB Conc 33.3 31.0 - 35.0 g/dl [facility] Red Cell Distribution Width 14.6 11.0 - 16.0 % [facility] Platelet Count 268 160 - 400 X10*3/uL [facility] Mean Platelet Volume 9.6 9.4 - 12.3 fL [facility] Neutrophils Percent Auto 41.5(L) 45 - 73 % [facility] Imm Gran Pct Auto 0.2 0.0 - 0.4 % [facility] Lymphocytes Percent Auto 46.1(H) 20 - 40 % [facility] Monocytes Percent Auto 10.6 2 - 11 % [facility] Eosinophils Percent Auto 1.1 0 - 4 % [facility] Basophils Percent Auto 0.5 0 - 2 % [facility] NRBC Pct Auto 0.0 0.0 - 0.2 /100WBC [facility] Neutrophils Absolute Auto 2.3 2.0 - 8.3 x10*3/uL [facility] Imm Gran Abs Auto 0.01 0.00 - 0.03 X10*3/uL [facility] Lymphocytes Absolute Auto 2.6 1.2 - 4.9 X10*3/uL [facility] Monocytes Absolute Auto 0.6 0.1 - 1.2 X10*3/uL [facility] Eosinophils Absolute Auto 0.1 0.0 - 0.4 X10*3/uL [facility] Basophils Absolute Auto 0.0 0.0 - 0.2 X10*3/uL [facility] NRBC Abs Auto 0.000 0.0 - 0.012 X10*3/uL [facility] 09/09/2024 1:49 AM EST 09/09/2024 1:52 AM EST us Generic External Data Provider LAB BLOOD ORDERAB LES Final Result Performing Organization Address City/State/[facility] Co de Phone Number [facility] [address] [place] [address] [phone] documented in this encounter Visit Diagnoses Not on filedocumented in this encounter Additional Health Concerns Assessment Noted Time PHQ-9 Depression Total Score: 3 05/22/20 24 1:05 PM EDT documented as of this encounter Care Teams Courtesy Clerk Relationship Specialty Start Date End Date Lily Chauhan MD [address] [place] [phone] PCP - General Family Medicine 04/06/18 Nieda Riojas [employer]ior [employer] Adf Developer 12/21/23 documented as of this encounter
--- OUTSIDE RECORDS SUMMARY | 2024-09-21 16:13 | XMS_ITS | Clinical Summary ---
Author Organization [employer] Address [address] [place] [address] Care Team Providers Care Stevedore Dock Name Role Phone Lily Chauhan MD Primary [...] her information for weight reduction program at [facility]. Discussed re weight reduction options including exercise, life style modifications, diet, referral to software applications specialist. Discussed re lower calorie intake, increase [...] Encounters Date Type Department Care Team Description 09/12/[address] [address] Lily Chauhan MD (November Recall 09/10/2024 Orders Only [facility] External Provider, [facility] 09/09/2024 Orders Only GENERIC EXTERNAL DATA DEPARTMENT Provider, Generic External Data 09/08/2024 Travel 08/25/[address] [address] Lily Chauhan MD Neck pain 08/22/[address] [address] Lily Chauhan MD Prior Authorization 08/18/[address] [phone] Cee Oakes, RN Results 08/18/2024 Orders Only [address] [phone] Lily Chauhan MD Pituitary abnormality (CMS/HCC) (Primary Dx); Cyst of cervical facet joint 08/11/[address] [facility] [address] [place] [phone] Lily Chauhan MD BMI 38.0-38.9,adult (Primary Dx) 08/11/[address] [facility] [address] [place] [address] Marlon Samantha 08/07/2024 11:00 AM EST Office Visit [address] [address] Lily Chauhan MD Essential hypertension (Primary Dx); Neck pain; Bilateral arm pain; Chronic midline low back pain without sciatica; Neck pain 08/07/2024 Travel 07/23/[address] [address] Lily Chauhan MD Migraine with aura and without status migrainosus, not intractable 07/21/2024 9:00 AM EST Office Visit [address] [address] Maryellen Chin NP Neck pain (Primary Dx); Elevated blood pressure reading in office with diagnosis of hypertension; Mass of occipital region 07/21/2024 Travel 07/20/[address] [address] Lily Chauhan MD Appointment Request 07/18/[address] [address] Diamond Mustafa ANP No Show 07/18/[address] [address] Lily Chauhan MD Nurse Triage 07/17/[address] [address] Verito Carlson MA Provider Out 07/09/2024 Orders Only GENERIC EXTERNAL DATA DEPARTMENT Provider, Generic External Data 07/06/2024 Patient Outreach [address] [address] Lily Chauhan MD Pre-visit Planning (SDFL screening completed on 11/03/2023) 06/26/[address] [facility] [address] [place] [address] Lily Chauhan MD Nurse Triage from Last [...] the past 12 months, has t he [employer], gas, oil or water company threatened to [...] Info) Description 09/26/2024 11:[address] [facility] [address] [place] [address] Lily Chauhan MD [address] [place] [address] 10/12/2024 3:30 PM EDT Office Visit [facility] [address] [place] [address] David, Swati, OD [address] [place] [address] 12/11/2024 10:15 AM EDT Office Visit [facility] [address] [place] [address] Lily Chauhan MD [address] [place] [address] Health Maintenance Due Date Last Done Comments Family Planning (PISQ) 2001 HPV Vaccines (2 - 3-dose series) 08/04/2007 07/07/2007 HPV/Cotest 2016 Hepatitis B Vaccines (3 of 3 - 19+ 3-dose series) 01/11/2018 11/16/2017, 07/07/2007 Cervical Cancer Screening 06/02/2022 Pap Smear 06/02/2022 06/02/2019 COVID-19 Vaccine (4 - 2023- season) 2024 10/21/2021, 10/04/2020, 09/04/2020 Influenza Vaccine [...] Name Priority Date/Time Associated Diagnosis Comments MR BRAIN W AND WO CONTRAST Routine 09/10/2024 7:40 PM EST US ABDOMEN LIMITED Routine 09/09/2024 4: 46 [...] AUTO DIFFERENTIAL Routine 07/09/2024 9:21 PM EST HEPATITIS C AB W/REFL TO HCV RNA, QN, PCR Routine 06/20/2024 9:49 AM EST Encounter for preventative adult health care examination HIV 1/2 ANTIGEN/ANTIBODY, FOURTH GENERATION W/RFL Routine 06/20/2024 9:49 AM EST Encounter for preventative adult health care examination LIPID PANEL, STANDARD Routine 06/20/2024 9:49 AM EST Encounter for preventative adult health care examination HM PAP/HPV Routine 06/02/2019 2:16 PM EST from Last 3 Months or Most Recently Relevant to Health Maintenance Results * Mr Brain w/ and w/o Contrast (09/10/2024 7:40 PM EST) Anatomical Region Laterality Modality Brain Magnetic Resonan ce 09/10/2024 7:40 PM EST Narrative 09/10/2024 7:42 PM EST ? [facility] ?[address] ?[place] [address] ? Magnetic Resonance Report ? Signed ? Patient: Marsh,Rena ?MR#: [id number] ?? 7527 ? : 1985 ?Acct:[id number] ? Age/Sex: 38 / F ?ADM Date: 09/10/24 ? Loc: HO.MRI ? Attending Dr: Wes KITCHEN ? Ordering Physician: Wes Olivera ?? Date of Service: 09/10/24 ?? Procedure(s): MR head/brain wo/w con ?? Accession Number(s): [id number] ? cc: Lily Chauhan MD; Wes Olivera ? CLINICAL HISTORY: N64.3 - Galactorrhea not associated with childbirth ??Rathke's cleft cyst? MR Brain with and without gadolinium ? Comparison: None ? Findings: ? There is a 4 mm iso to hypoenhancing nodule within the right-sided ?? pituitary gland (image 9 and series 14 and series 16 ). ? Mildly expansile sella with partial empty sella configuration. The ?? infundibulum is in midline. ? No restricted diffusion. ?? No intracranial mass or hemorrhage. ?? No midline shift. No hydrocephalus. ?? Vascular flow voids are intact. ? The orbits are normal. ?? The sinuses and mastoid air cells are clear. ?? No focal bone lesion. ? IMPRESSION: ?? 1. 4 mm iso to hypo enhancing nodule within the right-sided pituitary ?? gland. Given patient's symptoms, the lesion could represent a pituitary ?? microadenoma /prolactinoma. ?? 2. Mildly expansile sella with partial empty sella configuration. ?? Correlate clinically for signs and symptoms of idiopathic intracranial ?? hypertension. ?? 3. No acute intracranial disease. ? This document has been electronically signed by: Dulce Naylor MD on ?? 09/10/2024 19:40:48 ? Dictated By: ?Dulce Naylor MD ? Signed By: ?<Electronically signed by Dulce Naylor MD in OV> ?09/10/24 1941 ? DD/ 39 ? TD/TT: 09/10/241939 ? Lean Sensei: ? Procedure Note Donfreddieter, Image - 09/10/2024 [place] [address] Magnetic Resonance Report Signed Patient: Rena Marsh#: [id number] : 1985Acct:[id number] Age/Sex: 38 / FADM Date: 09/10/24 Loc: HO.MRI Attending Dr: Wes KITCHEN Ordering Physician: Wes Olivera Date of Service: 09/10/24 Procedure(s): MR head/brain wo/w con Accession Number(s): [id number] cc: Lily Chauhan MD; Wes Olivera CLINICAL HISTORY: N64.3 - Galactorrhea not associated with childbirthRathke's cleft cyst? MR Brain with and without gadolinium Comparison: None Findings: There is a 4 mm iso to hypoenhancing nodule within the right-sided pituitary gland (image 9 and series 14 and series 16 ). Mildly expansile sella with partial empty sella configuration. The infundibulum is in midline. No restricted diffusion. No intracranial mass or hemorrhage. No midline shift. No hydrocephalus. Vascular flow voids are intact. The orbits are normal. The sinuses and mastoid air cells are clear. No focal bone lesion. IMPRESSION: 1. 4 mm iso to hypo enhancing nodule within the right-sided pituitary gland. Given patient's symptoms, the lesion could represent a pituitary microadenoma /prolactinoma. 2. Mildly expansile sella with partial empty sella configuration. Correlate clinically for signs and symptoms of idiopathic intracranial hypertension. 3. No acute intracranial disease. This document has been electronically signed by: Dulce Naylor MD on 09/10/2024 19:40:48 Dictated By: Dulce Naylor MD Signed By: <Electronically signed by Dulce Naylor MD in OV> 09/10/241940 DD/ 39 TD/TT: 09/10/241939 Lean Sensei: [facility] External Provider IMG MRI PROCEDURES Edited Result - Final * US Abdomen Limited (09/09/2024 4:46 AM EST) Anatomical Region Laterality Modality Abdomen Ultrasound 09/09/2024 4:46 AM EST Narrative 09/09/2024 4:47 AM EST ? [facility] ?[address] ?[place] [address] ? Ultrasound Report ? Signed ? Patient: Rena Marsh ?MR#: [id number] ?? 7527 ? : 1985 ?Acct:[id number] ? Age/Sex: 38 / F ?ADM Date: 09/09/24 ? Loc: HO.ED ? Attending Dr: ? Ordering Physician: Carroll Cherry MD ?? Date of Service: 09/09/24 ?? Procedure(s): US abdomen limited ?? Accession Number(s): [id number] ? cc: Lily Chauhan MD; Carroll Cherry [...] DD/ 0446 ? TD/TT: 09/09/24 0446 ? Lean Sensei: ? Procedure Note Donaudrajose econnieter, Image - 09/09/2024 [place] [address] Ultrasound Report Signed Patient: Carola Marsh#: [id number] : 1985Acct:[id number] Age/Sex: 38 / FADM Date: 09/09/24 Loc: HO.ED Attending Dr: Ordering Physician: Carroll Cherry MD Date of Service: 09/09/24 Procedure(s): US abdomen limited Accession Number(s): [id number] cc: Lily Chauhan MD; Carroll Cherry MD [...] in OV> 09/09/24446 DD/ 5 TD/TT: 09/09/24445 Lean Sensei: [facility] External Provider IMG US PROCEDURES Edited Result - Final * (ABNORMAL) CBC auto differential (09/09/2024 1:49 AM EST) Only the most recent of2 resultswithin the time period is included. White Blood Count 5.6 4.8 - 10.8 X10*3/uL [facility] Red Blood Count 3.80(L) 4.20 - 5.50 X10*6/uL [facility] Hemoglobin 11.0(L) 12.0 - 16.0 g/dl [facility] Hematocrit 33.0(L) 37.0 - 47.0 % [facility] Mean Corpuscular Volume 86.8 80.0 - 98.0 fL [facility] Mean Corpuscular Hemoglobin 28.9 27.0 - 33.0 pg [facility] Mean Corpuscular HGB Conc 33.3 31.0 - 35.0 g/dl [facility] Red Cell Distribution Width 14.6 11.0 - 16.0 % [facility] Platelet Count 268 160 - 400 X10*3/uL [facility] Mean Platelet Volume 9.6 9.4 - 12.3 fL [facility] Neutrophils Percent Auto 41.5(L) 45 - 73 % [facility] Imm Gran Pct Auto 0.2 0.0 - 0.4 % [facility] Lymphocytes Percent Auto 46.1(H) 20 - 40 % [facility] Monocytes Percent Auto 10.6 2 - 11 % [facility] Eosinophils Percent Auto 1.1 0 - 4 % [facility] Basophils Percent Auto 0.5 0 - 2 % [facility] NRBC Pct Auto 0.0 0.0 - 0.2 /100WBC [facility] Neutrophils Absolute Auto 2.3 2.0 - 8.3 x10*3/uL [facility] Imm Gran Abs Auto 0.01 0.00 - 0.03 X10*3/uL [facility] Lymphocytes Absolute Auto 2.6 1.2 - 4.9 X10*3/uL [facility] Monocytes Absolute Auto 0.6 0.1 - 1.2 X10*3/uL [facility] Eosinophils Absolute Auto 0.1 0.0 - 0.4 X10*3/uL [facility] Basophils Absolute Auto 0.0 0.0 - 0.2 X10*3/uL [facility] NRBC Abs Auto 0.000 0.0 - 0.012 X10*3/uL [facility] 09/09/2024 1:49 AM EST 09/09/2024 1:52 AM EST Generic External Data Provider LAB BLOOD ORDERAB LES Final Result Performing Organization Address [facility] Co de Phone Number [facility] [address] [place] [phone] * Lipase (09/09/2024 1:49 AM EST) Pathologist [facility] Lipase 26 8 - 78 U/L [facility] 09/09/2024 1:4 9 AM EST 09/09/2024 1:52 AM EST [employer] External Data Provider LAB BLOOD ORDERAB LES Final Result Performing Organization Address [facility] de Phone Number [facility] [address] [place] [phone] * (ABNORMAL) Comprehensive Metabolic Panel (09/09/2024 1:49 AM EST) Only the most recent of2 resultswithin the time period is included. Sodium 141 135 - 145 mmol/L [facility] Potassium 4.0 3.3 - 5.1 mmol/L [facility] Chloride 109(H) 96 - 108 mmol/L [facility] Carbon Dioxide 24 22 - 29 mmol/L [facility] Anion Gap 12 12 - 20 [facility] Urea Nitrogen (BUN) 11 9 - 16 mg/dL [facility] Creatinine, Serum 0.79 0.5 - 1.4 mg/dL [facility] Creatinine Clr Calc Pharmacy 95.4 [facility] Comment:Provided height and weight: 149.86 cm,90.2 kg.eGFR (calculated from the MDRD study equation) and eCrCl(calculated from the Cockcroft-Gault equation) are based ondifferent parameters and may not yield comparable results.If eCrCl result is absurd, please check patient'sheight/weight. Estimated Glomerular Filt Rate >60 [facility] Comment:Chronic Kidney Disea se: Estimated GFR < 60 mL/min/1.96h5Grozfg Kidney Disease: Estimated GFR < 15 mL/min/1.73m2 Glucose 102 60 - 115 mg/dL [facility] Calcium 9.2 8.4 - 10.2 mg/dL [facility] Bilirubin, Total 0.2 0.0 - 1.0 mg/dL [facility] Aspartate Amino Transferase 22 5 - 31 U/L [facility] Alanine Aminotransferase 17 0 - 31 U/L [facility] Total Protein 8.3(H) 6.5 - 8.0 g/dL [facility] Albumin Level 4.1 3.5 - 5.0 g/dL [facility] Alkaline Phosphatase 79 39 - 117 U/L [facility] 09/09/2024 1:49 AM EST 09/09/2024 1:52 AM EST us Generic External Data Provider LAB BLOOD ORDERAB LES Final Result [facility] [address] [place] [phone] * Referral to Pain Medicine (08/28/2024) us Lily Burnette MD OUTPATIENT REFERRAL O RDERABLES Final Result * XR Spine Cervical w/ Flext and/ Or Ext (08/16/2024 9:50 AM EST) Anatomical Region Laterality Modality Radiographic Amee ging 08/16/2024 9:50 AM EST Narrative 08/16/2024 9:51 AM EST ? [facility] ?[address] ?[place] [address] ?XRay Report ? Signed ? Patient: Marsh,Rena ?MR#: [id number] ?? 7527 ? : 1985 ?Acct:[id number] ? Age/Sex: 38 / F ?ADM Date: 08/15/24 ? Loc: HO.XRAY ? Attending Dr: Eden Andrade APRN NIB ASSEMBLER ? Ordering Physician: Eden Andrade APRN NIB ASSEMBLER ?? Date of Service: 08/15/24 ?? Procedure(s): XR cervical spine w flex/ext ?? Accession Number(s): [id number] ? cc: Lily Chauhan MD; Eden Andrade APRN, NIB ASSEMBLER ? CLINICAL HISTORY: M54.2 - Cervicalgia ? [...] DD/ 0950 ? TD/TT: 08/16/24 0950 ? Lean Sensei: ? Procedure Note Ni Chan - 08/16/2024 [place] [address] [place] [address] XRay Report Signed Patient: Cristina Marshawilda#: [id number] : 1985Acct:[id number] Age/Sex: 38 / FADM Date: 08/15/24 Loc: HO.JYOTIAY Attending Dr: Eden Andrade APRN, CNP Ordering Physician: Eden Andrade APRN, CNP Date of Service: 08/15/24 Procedure(s): XR cervical spine w flex/ext Accession Number(s): [id number] cc: Lily Chauhan MD; Eden Andrade APRN, CNP CLINICAL HISTORY: M54.2 - Cervicalgia 7 views [...] 08/16/24 0951 DD/ 0950 TD/TT: 08/16/24 0950 Lean Sensei: [facility] External Provider IMG XR PROCEDURES Final Result * XR Lumbar Spine Complete 4+ Views (08/16/2024 5:21 AM EST) Anatomical Region Laterality Modality Spine, L-spine Radiographic Amee ging 08/16/2024 5:21 AM EST Narrative 08/16/2024 5:23 AM EST ? [facility] ?[address] ?[place] [address] ?XRay Report ? Signed ? Patient: Marsh,Rena ?MR#: [id number] ?? 7527 ? : 1985 ?Acct:[id number] ? Age/Sex: 38 / F ?ADM Date: 01/21/25 ? Loc: HO.XRAY ? Attending Dr: Eden Andrade APRN, NIB ASSEMBLER ? Ordering Physician: Eden Andrade APRN, MARSHALL ?? Date of Service: 08/15/24 ?? Procedure(s): XR lumbar spine 4V min ?? Accession Number(s): [id number] ? cc: Lily Chauhan MD; Eden Andrade APRN, NIB ASSEMBLER ? CLINICAL HISTORY: M54.9 - Dorsalgia, unspecified [...] ? DD/ 0 ? TD/TT: 08/16/24520 ? Lean Sensei: ? Procedure Note Dustin, Image - 08/16/2024 [place] [address] XRay Report Signed Patient: Carola Marsh#: [id number] : 1985Acct:[id number] Age/Sex: 38 / FADM Date: 08/15/24 Loc: HO.YEHUDA Attending Dr: Eden Andrade APRN, CNP Ordering Physician: Eden Andrade APRN, CNP Date of Service: 08/15/24 Procedure(s): XR lumbar spine 4V min Accession Number(s): [id number] cc: Lily Chauhan MD; Eden Adnrade APRN, NIB ASSEMBLER CLINICAL HISTORY: M54.9 - Dorsalgia, unspecified Exam: [...] in OV> 08/16/2422 DD/ 0 TD/TT: 08/16/24520 Lean Sensei: us [facility] External Provider IMG XR PROCEDURES Final Result * MR Cervical Spine w/o Contrast (08/09/2024 8:16 PM EST) Anatomical Region Laterality Modality Spine, C-spine Magnetic Resonan ce 08/09/2024 8:16 PM EST Narrative 08/09/2024 8:18 PM EST ? [facility] ?[address] ?[place] [address] ? Magnetic Resonance Report ? Signed with Addenda ? Patient: Marsh,Rena ?MR#: [id number] ?? 7527 ? : 1985 ?Acct:[id number] ? Age/Sex: 38 / F ?ADM Date: 08/08/24 ? Loc: HO.MRI ? Attending Dr: Lily Burnette MD ? Ordering Physician: Lily Chauhan MD ?? Date of Service: 08/08/24 ?? Procedure(s): MR cervical spine wo con ?? Accession Number(s): [id number] ? cc: Lily Chauhan MD ?ADDENDUM ?? This document has been electronically signed by: Davon Farmer MD on ?? 08/09/2024 20:16:06 ? ADDENDUM: ?? Receipt of this report by the clinical staff was confirmed with Samantha ?? PARISA Yousif on Aug 09, 2024 21:31:00 EST. ? [...] DD/ 2016 ? TD/TT: 08/09/24 2016 ? Lean Sensei: ? Procedure Note Ni Chan - 08/09/2024 [place] [address] Magnetic Resonance Report Signed with Ivanna Patient: Rena Marsh#: [id number] : 1985Acct:[id number] Age/Sex: 38 / FADM Date: 08/08/24 Loc: HO.MRI Attending Dr: Lily Burnette MD Ordering Physician: Lily Chauhan MD Date of Service: 08/08/24 Procedure(s): MR cervical spine wo con Accession Number(s): [id number] cc: Lily Chauhan MD ADDENDUM This document [...] in OV> 08/09/242016 DD/ 15 TD/TT: 08/09/242015 Lean Sensei: us Lily Burnette MD IMG MRI PROCEDURES Ed ited Result - Final * US Head Neck Soft Tissue (08/02/2024 2:16 PM EST) Anatomical Region Laterality Modality Head, Neck Ultrasound 08/02/2024 2:16 PM EST Narrative 08/07/2024 10:07 AM EST ? [facility] ?[address] ?[place] [address] ? Ultrasound Report ? Signed ? Patient: Marsh,Rena ?MR#: [id number] ?? 7527 ? : 1985 ?Acct:[id number] ? Age/Sex: 38 / F ?ADM Date: 08/02/24 ? Loc: HO.US ? Attending Dr: Maryellen Chin ? Ordering Physician: Maryellen Chin ?? Date of Service: 08/02/24 ?? Procedure(s): US soft tiss head and/or neck ?? Accession Number(s): [id number] ? cc: Maryellen Chin; Lily Chauhan MD [...] DD/ 1416 ? TD/TT: 08/02/24 1418 ? Lean Sensei: ? Procedure Note Dustin, Image - 08/07/[address] [address] Ultrasound Report Signed Patient: Carola Marsh#: [id number] : 1985Acct:[id number] Age/Sex: 38 / FADM Date: 08/02/24 Loc: HO.US Attending Dr: Maryellen Chin Ordering Physician: Maryellen Chin Date of Service: 08/02/24 Procedure(s): US soft tiss head and/or neck Accession Number(s): [id number] cc: Maryellen Chin; Lily Chauhan MD EXAMINATION: [...] 08/07/24 1004 DD/ 1416 TD/TT: 08/02/24 1418 Lean Sensei: us Maryellen Chin TECHNICAL SME IMG US PROCEDURES Edited Result - Final * XR Chest 1 View (07/09/2024 9:30 PM EST) Anatomical Region Laterality Modality Chest Radiographic Amee ging 07/09/2024 9:30 PM EST Narrative 07/09/2024 10:15 PM EST ? [facility] ?[address] ?[place] [address] ?XRay Report ? Signed ? Patient: Marsh,Rena ?MR#: [id number] ?? 7527 ? : 1985 ?Acct:[id number] ? Age/Sex: 38 / F ?ADM Date: 12/15/24 ? Loc: HO.ED ? Attending Dr: ? Ordering Physician: Generic ED Physician ?? Date of Service: 07/09/24 ?? Procedure(s): XR chest 1V ?? Accession Number(s): [id number] ? cc: Lily Chauhan MD; Generic ED [...] MD in OV> ?07/09/24 2213 ? DD/ ? TD/TT: 07/09/242134 ? Lean Sensei: SR ? Procedure Note Donotuseinterpreter, Image - 07/09/2024 [place] [address] XRay Report Signed Patient: Rena MarshMR#: [id number] : 1985Acct:[id number] Age/Sex: 38 / FADM Date: 07/09/24 Loc: .ED Attending Dr: Ordering Physician: Generic ED Physician Date of Service: 07/09/24 Procedure(s): XR chest 1V Accession Number(s): [id number] cc: Lily Chauhan MD; Generic ED Physician [...] by: Jesus Kay MD 07/09/2024 10:13 PM [facility] Dictated By: Jesus Kay MD Signed By: <Electronically signed by Jesus Kay MD in OV> 12/15/24 2213 DD/ 29 TD/TT: 07/09/242134 Lean Sensei: [facility] External Provider IMG XR PROCEDURES Edited Result - Final * High Sensitivity Troponin I (07/09/2024 9:21 PM EST) TROPONIN I HIGH SENSITIVITY <2.7 <3.5 - 17.0 ng/L [facility] Comment:The [place] high sens itivity Troponin-I results should beused in conjunction with other diagnostic information suchas ECG, clinical observations and information, and patientsymptoms to aid in the diagnosis of [place]. 07/09/2024 9:21 PM EST 07/09/2024 9:23 PM EST Generic External Data Provider LAB BLOOD ORDERAB LES Final Result [facility] [address] [place] [phone] * hCG, Total, Quantitative (07/09/2024 9:21 PM EST) HCG Quantitative <2 mIU/mL [facility] Comment:Weeks post LMP Appro ximate hCG(Last Menstrual Period) Range (mIU/ml)3 - 4 weeks 9 - 1304 - 5 weeks 75 - 2,6005 - 6 weeks 850 - 20,8006 - 7 weeks 4000 - 100,2007 - 12 weeks 11,500 - 289,71538 - 16 weeks 18,300 - 137,41536 - 29 weeks (2nd trimester) 1,400 - 53,42932 - 41 weeks (3rd trimester) 940 - [...] ORDERAB LES Final Result Performing Organization Address [facility] Co de Phone Number [facility] [address] [place] [phone] * Hepatitis C Antibody with Reflex to HCV, RNA, Quantitative, Real-Time PCR (06/20/2024 9:49 AM EST) Hepatitis C Antibody Nonreactive Nonreactive [facility] Comment:Antibodies to HCV no t detected; does not exclude early acuteHCV infection. Blood Venous blood specimen / Unknown 06/20/2024 9:49 AM EST 06/20/2024 11:47 AM EST Lily Burnette MD LAB BLOOD ORDERABLES Final Result Performing Organization Address [facility] de Phone Number [facility] [address] [place] [phone] * HIV-1/2 Antigen and Antibodies, Fourth Generation, with Reflexes (06/20/2024 9:49 AM EST) HIV AB/AG Nonreactive Nonreactive [facility] Comment:HIV-1 p24 Ag and/or HIV-1/HIV-2 Ab not detected.A test result that is nonreactive does not exclude thepossibility of exposure to or infection with HIV-1 and/orHIV-2. Nonreactive results in this assay for individualswith prior exposure to HIV-1 and/or HIV-2 may be due toantigen and antibody levels that are below the limit ofdetection of this assay.The [employer] HIV Ag/Ab Combo assay result andsupplemental assay results should be interpreted inconjunction with the patient's clinical presentation,history and other laboratory results. If the results areinconsistent with clinical evidence, additional testing issuggested to confirm the result. Blood Venous blood specimen / Unknown 06/20/2024 9:49 AM EST 06/20/2024 11:47 AM EST us Lily Burnette MD LAB BLOOD ORDERABLES Final Result Performing Organization Address [facility] Co de Phone Number [facility] [address] [place] [phone] * Lipid Panel, Standard (06/20/2024 9:49 AM EST) Triglycerides 133 <150 mg/dL [facility] Comment:Desirable Triglyceri de: less than 150 mg/dLBorderline High Triglyceride 150-199 mg/dLHigh Triglyceride: 200-499 mg/dLVery High Triglyceride: greater than or equal to 5OO mg/dL Cholesterol 175 <200 mg/dL [facility] Comment:Desirable Cholestero l: less than 200 mg/dLBorderline High Cholesterol: 200-239 mg/dLHigh Cholesterol: greater than 239 mg/dL LDL Cholesterol Calculated 94 <100 mg/dL [facility] Comment:Desirable LDL: less than 100 mg/dLNear Optimal/Above Optimal LDL: 110- 129 mg/dLBorderline High LDL: 130-159 mg/dLHigh LDL: 160-189 mg/dLVery High LDL: greater than or equal to 190 mg/dL HDL Cholesterol 55 >40 mg/dL [facility] Comment:Desirable HDL: great er than 40 mg/dL Note: This HDL assay may give artificially low results in patients with liver disease. Blood Venous blood specimen / Unknown 06/20/2024 9:49 AM EST 06/20/2024 11:47 AM EST us Lily Burnette MD LAB BLOOD ORDERABLES Final Result Performing Organization Address [facility]/ZIP Co de Phone Number [facility] [address] [place] [address] [phone] * HM PAP/HPV (06/02/2019 2:16 PM EST) Historical Provider HEALTH MAINTENANCE Final Result from Last 3 Months or Most Recently Relevant to Health Maintenance Insurance [facility] [id number] Care Teams Stevedore Dock Relationship Specialty Start Date End Date Lily Chauhan MD [address] [place] [address] PCP - General Family Medicine 04/06/18 Neida Riojas Automotive Service AssistantRejoiner 12/21/23
--- OUTSIDE RECORDS SUMMARY | 2024-09-21 16:13 | XMS_ITS | Encounter Summary ---
Author Organization [employer] Address [address] [place] [address] 7t [place] [address] Care Team Providers Care Certified Nursing Attendant Name Role Phone Lily Chauhan MD Primary Care Provide r Encounter Details Date Type Department Care Team ([facility] Contact Info) Description 08/17/2022 Orders Only [facility] [address] [place] [phone] Maryan Abernathy MD [address] [place] [phone] Vitamin D deficiency (Primary Dx) Social History [...] Upcoming Encounters Date Type Department Care Team ([facility] Contact Info) Description 09/26/2024 11:30 AM EST Telemedicine [facility] [address] [place] [phone] Lily Chauhan MD [address] [place] [address] 10/12/2024 3:30 PM EDT Office Visit [facility] [address] [place] [address] David, Swati, OD [address] [place] [address] 12/11/2024 10:15 AM EDT Office Visit [facility] [address] [place] [address] Lily Chauhan MD [address] [place] [address] documented as of this encounter Visit Diagnoses Diagnosis Vitamin D deficiency- Primary documented in this encounter Care Teams Certified Nursing Attendant Relationship Specialty Start Date End Date Lily Chauhan MD [address] [place] [address] PCP - General Family Medicine 04/06/18 Neida Riojas Windows Vmware EngineerCompositor Apprentice 12/21/23 documented as of this encounter
--- OUTSIDE RECORDS SUMMARY | 2024-09-21 16:13 | XMS_ITS | Encounter Summary ---
Author Organization [employer] Address [address] [facility] [address] 7t [place] [address] Care Team Providers Care Insurance Defense Paralegal Name Role Phone Lily Chauhan MD Primary Care Provide r Encounter Details Date Type Department Care Team ([facility] st Contact Info) Description 05/11/2024 Orders Only [facility] [address] [place], [place] [phone] Provider, MD Gloria Social History Tobacco Use [...] AM EST Telemedicine [facility] [address] [place] [address] Lily Chauhan MD [address] [place] [address] 10/12/2024 3:30 PM EDT Office Visit [facility] [address] [place] [address] David, Swati, OD 230 [place] [address] 12/11/2024 10:15 AM EDT Office Visit [facility] [address] [place] [address] Lily Chauhan MD [address] [place] [address] documented as of this encounter Procedures Procedure [...] documented as of this encounter Care Teams Insurance Defense Paralegal Relationship Specialty Start Date End Date Lily Chauhan MD 230 [place] [address] PCP - General Family Medicine 04/06/18 Neida Riojas Diamond SanderRv Servicer 12/21/23 documented as of this encounter
--- OUTSIDE RECORDS SUMMARY | 2024-09-21 16:13 | XMS_ITS | Encounter Summary ---
Author Organization [employer] Address [address] [facility] 7t [place] [address] Care Team Providers Care Second Hand Paper Machine Name Role Phone Lily Chauhan MD Primary Care Provide r Encounter Details Date Type Department Care Team ([facility] st Contact Info) Description 04/28/2024 Telephone [facility] [address] [place], [place] [phone] Julianne Soto RN [address] [place] [address] Social History Tobacco Use Types Packs/Day Years [...] AM EST Telemedicine [facility] [address] [place] [address] Lily Chauhan MD [address] [place] [address] 10/12/2024 3:30 PM EDT Office Visit [facility] [address] [place] [address] David, Swati, OD [address] [place] [address] 12/11/2024 10:15 AM EDT Office Visit [facility] [address] [place] [address] Lily Chauhan MD [address] [place] [address] documented as of this encounter Visit Diagnoses Not on filedocumented in this encounter Additional Health Concerns Assessment Noted Time PHQ-9 Depression Total Score: 0 11/15/19 24 10:46 AM EDT documented as of this encounter Care Teams Second Hand Paper Machine Relationship Specialty Start Date End Date Lily Chauhan MD [address] [place] [address] PCP - General Family Medicine 04/06/18 Neida Riojas Pattern Generator OperatorLeach Runner 12/21/23 documented as of this encounter
--- OUTSIDE RECORDS SUMMARY | 2024-09-21 16:13 | XMS_ITS | Encounter Summary ---
Author Organization [employer] Address [address] [place] [address] 7 [place] [address] Care Team Providers Care Document Control Specialist Name Role Phone Lily Chauhan MD Primary Care Provide r Reason for Visit * Reason Onset Date Comments Nurse Triage 06/26/2024 Encounter Details Date Type Department Care Team ([facility] st Contact Info) Description 06/26/2024 Telephone [facility] [address] [place] [address] Lily Chauhan MD [address] [place] [address] Nurse Triage Social History Tobacco Use Types [...] become worse * Telephone Encounter - Gudelia Selena - 06/26/2024 10:44 AM EST Symptom: Chest Pain - Adult Outcome: Talk to a nurse or provider within 15 minutes Reason: Getting worse The caller accepted this outcome. documented in this encounter Plan of Treatment Upcoming Encounters Date Type Department Care Team (Late st Contact Info) Description 09/26/2024 11:30 AM EST Telemedicine [facility] [address] [place] [address] Lily Chauhan MD 230 [place] [address] 10/12/2024 3:30 PM EDT Office Visit [facility] [address] [place] [address] David, Swati, OD 230 [place] [address] 12/11/2024 10:15 AM EDT Office Visit [facility] [address] [place] [address] Lily Chauhan MD [address] [place] [address] documented as of this encounter Visit Diagnoses Not on filedocumented in this encounter Additional Health Concerns Assessment Noted Time PHQ-9 Depression Total Score: 3 05/22/20 24 1:05 PM EDT documented as of this encounter Care Teams Document Control Specialist Relationship Specialty Start Date End Date Lily Chauhan MD [address] [place] [address] PCP - General Family Medicine 04/06/18 Neida Riojas Hydrogeology ProfessorSpudder 12/21/23 documented as of this encounter
--- OUTSIDE RECORDS SUMMARY | 2024-09-21 16:13 | XMS_ITS | Encounter Summary ---
Author Organization [employer] Address [address] [place] [address] Care Team Providers Care Cathode Ray Tube Salvage Processor Name Role Phone Lily Chauhan MD Primary [...] Telemedicine [facility] [address] [place] [address] Lily Chauhan MD [address] [place] [address] 10/12/2024 3:30 PM EDT Office Visit [facility] [address] [place] [address] David, Swati, OD [address] [place] [address] 12/11/2024 10:15 AM EDT Office Visit [facility] [address] [place] [address] Lily Chauhan MD [address] [place] [address] documented as of this encounter Visit Diagnoses Not on filedocumented in this encounter Additional Health Concerns Assessment Noted Time PHQ-9 Depression Total Score: 3 05/22/20 24 1:05 PM EDT documented as of this encounter Care Teams Cathode Ray Tube Salvage Processor Relationship Specialty Start Date End Date Lily Chauhan MD [address] [place] [address] PCP - General Family Medicine 04/06/18 Neida Riojas Salesperson Yard GoodsCake Wrapper 12/21/23 documented as of this encounter
--- OUTSIDE RECORDS SUMMARY | 2024-09-21 16:13 | XMS_ITS | Encounter Summary ---
Demographics Address [address] [facility] [place] [address] Work Phone Home Phone Mobile Phone Email Address Preferred Language en Marital Status Single Baptist Affiliation Unknown Race Other Race Ethnic Group or Author Organization [employer] Address [address] [place] [address] Care Team Providers Care Director Of Partner Marketing Name Role Phone Lily Chauhan MD Primary Care Provide r Encounter Details Date Type Department Care Team (Late st Contact Info) Description 09/10/2024 Orders Only [facility] External Provider, [facility] Social History Tobacco Use Types Packs/Day Years [...] t he electric, gas, oil or water [employer] threatened to shut off services in your [...] Description 09/26/2024 11:[address] [facility] [address] [place] [address] Lily Chauhan MD 230 [place] [address] 10/12/2024 3:30 PM EDT Office Visit [facility] [address] [place] [address] David, Swati, OD [address] [place] [address] 12/11/2024 10:15 AM EDT Office Visit [facility] [address] [place] [address] Lily Chauhan MD [address] [place] [address] documented as of this encounter Procedures Procedure Name Priority Date/Time Associated Diagnosis Comments MR BRAIN W AND WO CONTRAST Routine 09/10/2024 7:40 PM EST documented in this encounter Results * Mr Brain w/ and w/o Contrast (09/10/2024 7:40 PM EST) Anatomical Region Laterality Modality Brain Magnetic Resonan ce 09/10/2024 7:40 PM EST Narrative 09/10/2024 7:42 PM EST ? [facility] ?[address] ?[place] [address] ? Magnetic Resonance Report ? Signed ? Patient: Marsh,Rena ?MR#: [id number] ?? [id number] ? : 1985 ?Acct:[id number] ? Age/Sex: 38 / F ?ADM Date: 09/10/24 ? Loc: HO.MRI ? Attending Dr: Wes KITCHEN ? Ordering Physician: Wes Olivera ?? Date of Service: 09/10/24 ?? Procedure(s): MR head/brain wo/w con ?? Accession Number(s): [id number] ? cc: Lily Chauhan MD; Wes Olivera [...] by Dulce Naylor MD in OV> ?09/10/24 194 ? DD/ 39 ? TD/TT: 09/10/241939 ? Barrel Loader And Cleaner: ? Procedure Note Dustin, Ni - 09/10/[address] [place] [address] Magnetic Resonance Report Signed Patient: Rena Marsh#: [id number] : 1985Acct:[id number] Age/Sex: 38 / FADM Date: 09/10/24 Loc: HO.MRI Attending Dr: Wes KITCHEN Ordering Physician: Wes Olivera Date of Service: 09/10/24 Procedure(s): MR head/brain wo/w con Accession Number(s): [id number] cc: Lily Chauhan MD; Wes Olivera CLINICAL [...] in OV> 09/10/241940 DD/ 39 TD/TT: 09/10/241939 Barrel Loader And Cleaner: [facility] External Provider IMG MRI PROCEDURES Edited Result - Final documented in this encounter Visit Diagnoses Not on filedocumented in this encounter Additional Health Concerns Assessment Noted Time PHQ-9 Depression Total Score: 3 05/22/20 24 1:05 PM EDT documented as of this encounter Care Teams Director Of Partner Marketing Relationship Specialty Start Date End Date Lily Chauhan MD [address] [place] [address] PCP - General Family Medicine 04/06/18 Neida Riojas Forklift DriverThird Helper 12/21/23 documented as of this encounter
--- OUTSIDE RECORDS SUMMARY | 2024-09-21 16:13 | XMS_ITS | Encounter Summary ---
Author Organization [employer] Address [address] [facility] 7t [place] [address] Care Team Providers Care Voip Technician Name Role Phone Lily Chauhan MD Primary Care Provide r Reason for Visit * Reason Comments Med Refill Encounter Details Date Type Department Care Team ([facility] st Contact Info) Description 08/11/2024 Refill [facility] [address] [place] [address] Samantha Mason, DO [address] [place] [address] Social History Tobacco Use Types Packs/Day Years [...] Info) Description 09/26/2024 11:30 AM EST Telemedicine [facility] [address] [place] [address] Lily Chauhan MD [address] [place] [address] 10/12/2024 3:30 PM EDT Office Visit [facility] [address] [place] [address] Swati [place], OD 230 [place] [address] 12/11/2024 10:15 AM EDT Office Visit [facility] [address] [place] [address] Lily Chauhan MD [address] [place] [address] documented as of this encounter Visit Diagnoses Not on filedocumented in this encounter Additional Health Concerns Assessment Noted Time PHQ-9 Depression Total Score: 3 05/22/20 24 1:05 PM EDT documented as of this encounter Care Teams Voip Technician Relationship Specialty Start Date End Date Lily Chauhan MD [address] [place] [address] PCP - General Family Medicine 04/06/18 Neida Riojas Division ChairAssembly Line Worker 12/21/23 documented as of this encounter
--- OUTSIDE RECORDS SUMMARY | 2024-09-21 16:13 | XMS_ITS | Clinical Summary ---
Author Organization [address] [place] [address] Address [address] [place] [address] Phone Care Team Providers Care Retread Technician Name Role Phone Maryan Abernathy MD Primary Care Provider Social History Tobacco Use Types Packs/Day Years Used Date Smoking Tobacco: Never Assessed Comments Unknown Sex and Gender Information Value Date Recorded Sex Assigned at Not on file Legal Sex Female 9:50 AM EST Gender Identity Not on file Sexual Orientation Not on file Plan of Treatment Upcoming Encounters Date Type Department Care Team ([facility] Contact Info) Description 05/22/2025 10:30 AM EDT Office Visit Bariatric Surgery [address] [address] Glenda Marie MD [address] [place] [address] Health Maintenance Due Date Last Done [...] topic Insurance MEDICAID - [place] Care Teams Retread Technician Relationship Specialty Start Date End Date Maryan Abernatyh MD [address] [phone] PCP - General 08/25/07
--- OUTSIDE RECORDS SUMMARY | 2024-09-21 16:13 | XMS_ITS | Encounter Summary ---
Author Organization [employer] Address [address] [place] [address] 7t [place] [address] Care Team Providers Care Astro Technician Name Role Phone Lily Chauhan MD Primary Care Provide r Reason for Visit * Reason Comments Med Refill Encounter Details Date Type Department Care Team ([facility] st Contact Info) Description 08/25/2024 Refill [facility] [address] [place] [address] Lily Chauhan MD [address] [place] [address] Neck pain Social History Tobacco Use Types [...] Info) Description 09/26/2024 11:30 AM EST Telemedicine [facility] [address] [place] [address] Lily Chauhan MD [address] [place] [address] 10/12/2024 3:30 PM EDT Office Visit [facility] [address] [place] [address] Swati [place], OD [address] [place] [address] 12/11/2024 10:15 AM EDT Office Visit [facility] [address] [place] [address] Lily Chauhan MD [address] [place] [address] documented as of this encounter Visit Diagnoses Diagnosis Neck pain Cervicalgia documented in this encounter Additional Health Concerns Assessment Noted Time PHQ-9 Depression Total Score: 3 05/22/20 24 1:05 PM EDT documented as of this encounter Care Teams Astro Technician Relationship Specialty Start Date End Date Lily Chauhan MD [address] [place] [address] PCP - General Family Medicine 04/06/18 Neida Riojas Drill Press Set Up OperatorDuplicator Punch Set Up Operator 12/21/23 documented as of this encounter
== END 2024-09-21 14:08 | disposition home or self-care (01) ==
PROVIDERS: PCP Internal Medicine; Visit Provider Surgery
DX: K81.0 Acute cholecystitis (principal)
CPT/HCPCS: 99204

== ENCOUNTER → 2024-09-21 13:31 | Outpatient (BNVA) | payer MEDICAID, SELFPAY | PROVIDERS: PCP Internal Medicine; Visit Provider Surgery | DX: K81.0 Acute cholecystitis (principal) | CPT/HCPCS: 99202 ==

== ENCOUNTER → 2024-10-04 10:12 | Day surgery (SDC) | payer MEDICAID, SELFPAY ==
--- OUTSIDE RECORDS SUMMARY | 2024-09-22 11:47 | XMS_ITS | Clinical Summary ---
Author Organization [employer] Address [address] 7[address] [place] [address] Care Team Providers Care Car Conditioner Name Role Phone Lily Chauhan MD Primary [...] her information for weight reduction program at [facility]. Discussed re weight reduction options including exercise, life style modifications, diet, referral to campaign management specialist. Discussed re lower calorie intake, increase [...] Type Department Care Team Description 09/12/[address] [address] Lily Chauhan MD (November Recall 09/10/2024 Orders Only [facility] External Provider, [facility] 09/09/2024 Orders Only GENERIC EXTERNAL DATA DEPARTMENT Provider, Generic External Data 09/08/2024 Travel 08/25/[address] [address] Lily Chauhan MD Neck pain 08/22/[address] [address] Lily Chauhan MD Prior Authorization 08/18/[address] [phone] Cee Oakes, RN Results 08/18/2024 Orders Only [address] [phone] Lily Chauhan MD Pituitary abnormality (CMS/HCC) (Primary Dx); Cyst of cervical facet joint 08/11/2024 Orders Only [facility] [address] [place] [phone] Lily Chauhan MD BMI 38.0-38.9,adult (Primary Dx) 08/11/2024 Refill [facility] [address] [place] [address] Marlon Samantha 08/07/2024 11:00 AM EST Office Visit [address] [address] Lily Chauhan MD Essential hypertension (Primary Dx); Neck pain; Bilateral arm pain; Chronic midline low back pain without sciatica; Neck pain 08/07/2024 Travel 07/23/[address] [address] Lily Chauhan MD Migraine with aura and without status migrainosus, not intractable 07/21/2024 9:00 AM EST Office Visit [address] [address] Maryellen Chin NP Neck pain (Primary Dx); Elevated blood pressure reading in office with diagnosis of hypertension; Mass of occipital region 07/21/2024 Travel 07/20/[address] [address] Lily Chauhan MD Appointment Request 07/18/[address] [address] Diamond Mustafa ANP No Show 07/18/[address] [address] Lily Chauhan MD Nurse Triage 07/17/[address] [address] Verito Carlson MA Provider Out 07/09/2024 Orders Only GENERIC EXTERNAL DATA DEPARTMENT Provider, Generic External Data 07/06/2024 Patient Outreach [address] [address] Lily Chauhan MD Pre-visit Planning (SDGA screening completed on 11/03/2023) 06/26/2024 Telephone [facility] [address] [place] [address] Lily Chauhan MD Nurse Triage from Last [...] the past 12 months, has t he [employer], gas, oil or water company threatened to [...] 09/26/2024 11:30 AM EST Telemedicine [facility] [address] [place] [address] Lily Chauhan MD [address] [place] [address] 10/12/2024 3:30 PM EDT Office Visit [facility] OPTOMETRY [address] [place] [address] David, Swati, OD [address] [place] [address] 12/11/2024 10:15 AM EDT Office Visit [facility] [address] [place] [address] Lily Chauhan MD [address] [place] [address] Health Maintenance Due Date Last Done Comments [...] Laterality Modality Brain Magnetic Resonan ce 09/10/2024 7:4 0 PM EST Narrative 09/10/2024 7:42 PM EST ? [facility] ?[address] ?[place] [address] ? Magnetic Resonance Report ? Signed ? Patient: Maximo,Rena ?MR#: [id number] ?? 7527 ? : 1985 ?Acct:[id number] ? Age/Sex: 38 / F ?ADM Date: 09/10/24 ? Loc: HO.MRI ? Attending Dr: Wes KITCHEN ? Ordering Physician: Wes Olivera ?? Date of Service: 09/10/24 ?? Procedure(s): MR head/brain wo/w con ?? Accession Number(s): [id number] ? cc: Lily Chauhan MD; Wes Olivera [...] ? DD/ 39 ? TD/TT: 09/10/241939 ? Merchandising Intern: ? Procedure Note Harvinderter, Image - 09/10/2024 [place] [address] Magnetic Resonance Report Signed Patient: Rena MarshMR#: [id number] 7527 : 1985Acct:[id number] Age/Sex: 38 / FADM Date: 09/10/24 Loc: HO.MRI Attending Dr: Wes KITCHEN Ordering Physician: Wes Olivera Date of Service: 09/10/24 Procedure(s): MR head/brain wo/w con Accession Number(s): [id number] cc: Lily Chauhan MD; Wes Olivera CLINICAL [...] in OV> 09/10/241940 DD/ 39 TD/TT: 09/10/241939 Merchandising Intern: [facility] External Provider IMG MRI PROCEDURES Edited Result - Final * US Abdomen Limited (09/09/2024 4:46 AM EST) Anatomical Region Laterality Modality Abdomen Ultrasound 09/09/2024 4:46 AM EST Narrative 09/09/2024 4:47 AM EST ? [facility] ?[address] ?[place] [address] ? Ultrasound Report ? Signed ? Patient: Rena Marsh ?MR#: [id number] ?? 7527 ? : 1985 ?Acct:[id number] ? Age/Sex: 38 / F ?ADM Date: 09/09/24 ? Loc: HO.ED ? Attending Dr: ? Ordering Physician: Carroll Cherry MD ?? Date of Service: 09/09/24 ?? Procedure(s): US abdomen limited ?? Accession Number(s): [id number] ? cc: Lily Chauhan MD; Carroll Cherry [...] DD/ 0446 ? TD/TT: 09/09/24 0446 ? Merchandising Intern: ? Procedure Note Donotjose einterpreter, Image - 09/09/2024 [place] [address] Ultrasound Report Signed Patient: Carola Marsh#: [id number] 7527 : 1985Acct:[id number] Age/Sex: 38 / FADM Date: 09/09/24 Loc: HO.ED Attending Dr: Ordering Physician: Carroll Cherry MD Date of Service: 09/09/24 Procedure(s): US abdomen limited Accession Number(s): [id number] cc: Lily Chauhan MD; Carroll Cherry MD [...] MD Signed By: <Electronically signed by Juan Digeo Hughes MD in OV> 09/09/24446 DD/ 5 TD/TT: 09/09/24445 Merchandising Intern: [facility] External Provider IMG US PROCEDURES Edited Result - Final * (ABNORMAL) CBC auto differential (09/09/2024 1:49 AM EST) Only the most recent of2 resultswithin the time period is included. White Blood Count 5.6 4.8 - 10.8 X10*3/uL [facility] Red Blood Count 3.80(L) 4.20 - 5.50 X10*6/uL [facility] Hemoglobin 11.0(L) 12.0 - 16.0 g/dl [facility] Hematocrit 33.0(L) 37.0 - 47.0 % [facility] Mean Corpuscular Volume 86.8 80.0 - 98.0 fL [facility] Mean Corpuscular Hemoglobin 28.9 27.0 - 33.0 pg [facility] Mean Corpuscular HGB Conc 33.3 31.0 - 35.0 g/dl [facility] Red Cell Distribution Width 14.6 11.0 - 16.0 % [facility] Platelet Count 268 160 - 400 X10*3/uL [facility] Mean Platelet Volume 9.6 9.4 - 12.3 fL [facility] Neutrophils Percent Auto 41.5(L) 45 - 73 % [facility] Imm Gran Pct Auto 0.2 0.0 - 0.4 % [facility] Lymphocytes Percent Auto 46.1(H) 20 - 40 % [facility] Monocytes Percent Auto 10.6 2 - 11 % [facility] Eosinophils Percent Auto 1.1 0 - 4 % [facility] Basophils Percent Auto 0.5 0 - 2 % [facility] NRBC Pct Auto 0.0 0.0 - 0.2 /100WBC [facility] Neutrophils Absolute Auto 2.3 2.0 - 8.3 x10*3/uL [facility] Imm Gran Abs Auto 0.01 0.00 - 0.03 X10*3/uL [facility] Lymphocytes Absolute Auto 2.6 1.2 - 4.9 X10*3/uL [facility] Monocytes Absolute Auto 0.6 0.1 - 1.2 X10*3/uL [facility] Eosinophils Absolute Auto 0.1 0.0 - 0.4 X10*3/uL [facility] Basophils Absolute Auto 0.0 0.0 - 0.2 X10*3/uL [facility] NRBC Abs Auto 0.000 0.0 - 0.012 X10*3/uL [facility] 09/09/2024 1:49 AM EST 09/09/2024 1:52 AM EST Generic External Data Provider LAB BLOOD ORDERAB LES Final Result Performing Organization Address [facility] de Phone Number [facility] [address] [place] [phone] * Lipase (09/09/2024 1:49 AM EST) Pathologist [facility] Lipase 26 8 - 78 U/L [facility] 09/09/2024 1:49 AM EST 09/09/2024 1:52 AM EST Generic External Data Provider LAB BLOOD ORDERAB LES Final Result Performing Organization Address [facility] de Phone Number [facility] [address] [place] [phone] * (ABNORMAL) Comprehensive Metabolic Panel (09/09/2024 1:49 AM EST) Only the most recent of2 resultswithin the time period is included. Sodium 141 135 - 145 mmol/L [facility] Potassium 4.0 3.3 - 5.1 mmol/L [facility] Chloride 109(H) 96 - 108 mmol/L [facility] Carbon Dioxide 24 22 - 29 mmol/L [facility] Anion Gap 12 12 - 20 [facility] Urea Nitrogen (BUN) 11 9 - 16 mg/dL [facility] Creatinine, Serum 0.79 0.5 - 1.4 mg/dL [facility] Creatinine Clr Calc Pharmacy 95.4 [facility] Comment:Provided height and weight: 149.86 cm,90.2 kg.eGFR (calculated from the MDRD study equation) and eCrCl(calculated from the Cockcroft-Gault equation) are based ondifferent parameters and may not yield comparable results.If eCrCl result is absurd, please check patient'sheight/weight. Estimated Glomerular Filt Rate >60 [facility] Comment:Chronic Kidney Disea se: Estimated GFR < 60 mL/min/1.51d5Zmczxc Kidney Disease: Estimated GFR < 15 mL/min/1.73m2 Glucose 102 60 - 115 mg/dL [facility] Calcium 9.2 8.4 - 10.2 mg/dL [facility] Bilirubin, Total 0.2 0.0 - 1.0 mg/dL [facility] Aspartate Amino Transferase 22 5 - 31 U/L [facility] Alanine Aminotransferase 17 0 - 31 U/L [facility] Total Protein 8.3(H) 6.5 - 8.0 g/dL [facility] Albumin Level 4.1 3.5 - 5.0 g/dL [facility] Alkaline Phosphatase 79 39 - 117 U/L [facility] 09/09/2024 1:49 AM EST 09/09/2024 1:52 AM EST us Generic External Data Provider LAB BLOOD ORDERAB LES Final Result [facility] [address] [place] [address] [phone] * Referral to Pain Medicine (08/28/2024) us Lily Burnette MD OUTPATIENT REFERRAL O RDERABLES Final Result * XR Spine Cervical w/ Flext and/ Or Ext (08/16/2024 9:50 AM EST) Anatomical Region Laterality Modality Radiographic Amee ging 08/16/2024 9:50 AM EST Narrative 08/16/2024 9:51 AM EST ? [facility] ?[address] ?[place] [address] ?XRay Report ? Signed ? Patient: Marsh,Rena ?MR#: [id number] ?? 7527 ? : 1985 ?Acct:[id number] ? Age/Sex: 38 / F ?ADM Date: 08/15/24 ? Loc: HO.XRAY ? Attending Dr: Eden Andrade APRN CLINICAL SOCIOLOGIST ? Ordering Physician: Eden Andrade APRN CLINICAL SOCIOLOGIST ?? Date of Service: 08/15/24 ?? Procedure(s): XR cervical spine w flex/ext ?? Accession Number(s): [id number] ? cc: Lily Chauhan MD; Eden Andrade APRN, CLINICAL SOCIOLOGIST ? CLINICAL HISTORY: M54.2 - Cervicalgia ? [...] DD/ 0950 ? TD/TT: 08/16/24 0950 ? Merchandising Intern: ? Procedure Note Ni Chan - 08/16/2024 [place] [address] [place] [address] XRay Report Signed Patient: Cristina Marshawilda#: [id number] : 1985Acct:[id number] Age/Sex: 38 / FADM Date: 08/15/24 Loc: HO.JYOTIAY Attending Dr: Eden Andrade APRN, CNP Ordering Physician: Eden Andrade APRN, CNP Date of Service: 08/15/24 Procedure(s): XR cervical spine w flex/ext Accession Number(s): [id number] cc: Lily Chauhan MD; Eden Andrade APRN, [...] 08/16/24 0951 DD/ 0950 TD/TT: 08/16/24 0950 Merchandising Intern: [facility] External Provider IMG XR PROCEDURES Final Result * XR Lumbar Spine Complete 4+ Views (08/16/2024 5:21 AM EST) Anatomical Region Laterality Modality Spine, L-spine Radiographic Amee ging 08/16/2024 5:21 AM EST Narrative 08/16/2024 5:23 AM EST ? [facility] ?[address] ?[place] [address] ?XRay Report ? Signed ? Patient: Marsh,Rena ?MR#: [id number] ?? 7527 ? : 1985 ?Acct:[id number] ? Age/Sex: 38 / F ?ADM Date: 01/21/25 ? Loc: HO.XRAY ? Attending Dr: Eden Andrade APRN, CLINICAL SOCIOLOGIST ? Ordering Physician: Eden Andrade APRN, MARSHALL ?? Date of Service: 08/15/24 ?? Procedure(s): XR lumbar spine 4V min ?? Accession Number(s): [id number] ? cc: Lily Chauhan MD; Eden Andrade APRN, CLINICAL SOCIOLOGIST ? CLINICAL HISTORY: M54.9 - Dorsalgia, unspecified [...] ? DD/ 0 ? TD/TT: 08/16/24520 ? Merchandising Intern: ? Procedure Note Dustin, Image - 08/16/2024 [place] [address] XRay Report Signed Patient: Carola Marsh#: [id number] 7527 : 1985Acct:[id number] Age/Sex: 38 / FADM Date: 08/15/24 Loc: HO.YEHUDA Attending Dr: Eden Andrade APRN, CNP Ordering Physician: Eden Andrade APRN, CNP Date of Service: 08/15/24 Procedure(s): XR lumbar spine 4V min Accession Number(s): [id number] cc: Lily Chauhan MD; Eden Andrade APRN, CLINICAL SOCIOLOGIST CLINICAL HISTORY: M54.9 - Dorsalgia, unspecified Exam: [...] in OV> 08/16/2422 DD/ 0 TD/TT: 08/16/24520 Merchandising Intern: us [facility] External Provider IMG XR PROCEDURES Final Result * MR Cervical Spine w/o Contrast (08/09/2024 8:16 PM EST) Anatomical Region Laterality Modality Spine, C-spine Magnetic Resonan ce 08/09/2024 8:16 PM EST Narrative 08/09/2024 8:18 PM EST ? [facility] ?[address] ?[place] [address] ? Magnetic Resonance Report ? Signed with Addenda ? Patient: Marsh,Rena ?MR#: [id number] ?? 7527 ? : 1985 ?Acct:[id number] ? Age/Sex: 38 / F ?ADM Date: 08/08/24 ? Loc: HO.MRI ? Attending Dr: Lily Burnette MD ? Ordering Physician: Lily Chauhan MD ?? Date of Service: 08/08/24 ?? Procedure(s): MR cervical spine wo con ?? Accession Number(s): [id number] ? cc: Lily Chauhan MD ?ADDENDUM ?? [...] DD/ 2016 ? TD/TT: 08/09/24 2016 ? Merchandising Intern: ? Procedure Note Ni Chan - 08/09/2024 [place] [address] Magnetic Resonance Report Signed with Ivanna Patient: Rena Marsh#: [id number] : 1985Acct:[id number] Age/Sex: 38 / FADM Date: 08/08/24 Loc: HO.MRI Attending Dr: Lily Burnette MD Ordering Physician: Lily Chauhan MD Date of Service: 08/08/24 Procedure(s): MR cervical spine wo con Accession Number(s): [id number] cc: Lily Chauhan MD ADDENDUM This document [...] in OV> 08/09/242016 DD/ 15 TD/TT: 08/09/242015 Merchandising Intern: us Lily Burnette MD IMG MRI PROCEDURES Ed ited Result - Final * US Head Neck Soft Tissue (08/02/2024 2:16 PM EST) Anatomical Region Laterality Modality Head, Neck Ultrasound 08/02/2024 2:16 PM EST Narrative 08/07/2024 10:07 AM EST ? [facility] ?[address] ?[place] [address] ? Ultrasound Report ? Signed ? Patient: Marsh,Rena ?MR#: [id number] ?? 7527 ? : 1985 ?Acct:[id number] ? Age/Sex: 38 / F ?ADM Date: 08/02/24 ? Loc: HO.US ? Attending Dr: Maryellen Chin ? Ordering Physician: Maryellen Chin ?? Date of Service: 08/02/24 ?? Procedure(s): US soft tiss head and/or neck ?? Accession Number(s): [id number] ? cc: Maryellen Chin; Lily Chauhan MD [...] DD/ 1416 ? TD/TT: 08/02/24 1418 ? Merchandising Intern: ? Procedure Note Dustin, Image - 08/07/[address] [address] Ultrasound Report Signed Patient: Carola Marsh#: [id number] 7527 : 1985Acct:[id number] Age/Sex: 38 / FADM Date: 08/02/24 Loc: HO.US Attending Dr: Mrayellen Chin Ordering Physician: Maryellen Chin Date of Service: 08/02/24 Procedure(s): US soft tiss head and/or neck Accession Number(s): [id number] cc: Maryellen Chin; Lily Chauhan MD EXAMINATION: [...] 08/07/24 1004 DD/ 1416 TD/TT: 08/02/24 1418 Merchandising Intern: us Maryellen Chin MARINE METEOROLOGIST IMG US PROCEDURES Edited Result - Final * XR Chest 1 View (07/09/2024 9:30 PM EST) Anatomical Region Laterality Modality Chest Radiographic Amee ging 07/09/2024 9:30 PM EST Narrative 07/09/2024 10:15 PM EST ? [facility] ?[address] ?[place] [address] ?XRay Report ? Signed ? Patient: Marsh,Rena ?MR#: [id number] ?? 7527 ? : 1985 ?Acct:[id number] ? Age/Sex: 38 / F ?ADM Date: 12/15/24 ? Loc: HO.ED ? Attending Dr: ? Ordering Physician: Generic ED Physician ?? Date of Service: 07/09/24 ?? Procedure(s): XR chest 1V ?? Accession Number(s): [id number] ? cc: Lily Chauhan MD; Generic ED [...] 2213 ? DD/ ? TD/TT: 07/09/242134 ? Merchandising Intern: SR ? Procedure Note Donotuseinterpreter, Image - 07/09/2024 [place] [address] XRay Report Signed Patient: Rena MarshMR#: [id number] : 1985Acct:[id number] Age/Sex: 38 / FADM Date: 07/09/24 Loc: .ED Attending Dr: Ordering Physician: Generic ED Physician Date of Service: 07/09/24 Procedure(s): XR chest 1V Accession Number(s): [id number] cc: Lily Chauhan MD; Generic ED Physician [...] by: Jesus Kay MD 07/09/2024 10:13 PM [facility] Dictated By: Jesus Kay MD Signed By: <Electronically signed by Jesus Kay MD in OV> 12/15/24 2213 DD/ 29 TD/TT: 07/09/242134 Merchandising Intern: [facility] External Provider IMG XR PROCEDURES Edited Result - Final * High Sensitivity Troponin I (07/09/2024 9:21 PM EST) TROPONIN I HIGH SENSITIVITY <2.7 <3.5 - 17.0 ng/L [facility] Comment:The [place] high sens itivity Troponin-I results should beused in conjunction with other diagnostic information suchas ECG, clinical observations and information, and patientsymptoms to aid in the diagnosis of HI. 07/09/2024 9:21 PM EST 07/09/2024 9:23 PM EST Generic External Data Provider LAB BLOOD ORDERAB LES Final Result [facility] [address] [place] [phone] * hCG, Total, Quantitative (07/09/2024 9:21 PM EST) HCG Quantitative <2 mIU/mL [facility] Comment:Weeks post LMP Appro ximate hCG(Last Menstrual Period) Range (mIU/ml)3 - 4 weeks 9 - 1304 - 5 weeks 75 - 2,6005 - 6 weeks 850 - 20,8006 - 7 weeks 4000 - 100,2007 - 12 weeks 11,500 - 289,98710 - 16 weeks 18,300 - 137,85210 - 29 weeks (2nd trimester) 1,400 - 53,03888 - 41 weeks (3rd trimester) 940 - [...] ORDERAB LES Final Result Performing Organization Address [facility] Co de Phone Number [facility] [address] [place] [phone] * Hepatitis C Antibody with Reflex to HCV, RNA, Quantitative, Real-Time PCR (06/20/2024 9:49 AM EST) Hepatitis C Antibody Nonreactive Nonreactive [facility] Comment:Antibodies to HCV no t detected; does not exclude early acuteHCV infection. Blood Venous blood specimen / Unknown 06/20/2024 9:49 AM EST 06/20/2024 11:47 AM EST Lily Burnette MD LAB BLOOD ORDERABLES Final Result Performing Organization Address [facility] de Phone Number [facility] [address] [place] [phone] * HIV-1/2 Antigen and Antibodies, Fourth Generation, with Reflexes (06/20/2024 9:49 AM EST) HIV AB/AG Nonreactive Nonreactive [facility] Comment:HIV-1 p24 Ag and/or HIV-1/HIV-2 Ab not detected.A test result that is nonreactive does not exclude thepossibility of exposure to or infection with HIV-1 and/orHIV-2. Nonreactive results in this assay for individualswith prior exposure to HIV-1 and/or HIV-2 may be due toantigen and antibody levels that are below the limit ofdetection of this assay.The [employer] HIV Ag/Ab Combo assay result andsupplemental assay results should be interpreted inconjunction with the patient's clinical presentation,history and other laboratory results. If the results areinconsistent with clinical evidence, additional testing issuggested to confirm the result. Blood Venous blood specimen / Unknown 06/20/2024 9:49 AM EST 06/20/2024 11:47 AM EST us Lily Burnette MD LAB BLOOD ORDERABLES Final Result Performing Organization Address [facility] Co de Phone Number [facility] [address] [place] [phone] [phone] * Lipid Panel, Standard (06/20/2024 9:49 AM EST) Triglycerides 133 <150 mg/dL [facility] Comment:Desirable Triglyceri de: less than 150 mg/dLBorderline High Triglyceride 150-199 mg/dLHigh Triglyceride: 200-499 mg/dLVery High Triglyceride: greater than or equal to 5OO mg/dL Cholesterol 175 <200 mg/dL [facility] Comment:Desirable Cholestero l: less than 200 mg/dLBorderline High Cholesterol: 200-239 mg/dLHigh Cholesterol: greater than 239 mg/dL LDL Cholesterol Calculated 94 <100 mg/dL [facility] Comment:Desirable LDL: less than 100 mg/dLNear Optimal/Above Optimal LDL: 110- 129 mg/dLBorderline High LDL: 130-159 mg/dLHigh LDL: 160-189 mg/dLVery High LDL: greater than or equal to 190 mg/dL HDL Cholesterol 55 >40 mg/dL [facility] Comment:Desirable HDL: great er than 40 mg/dL Note: This HDL assay may give artificially low results in patients with liver disease. Blood Venous blood specimen / Unknown 06/20/2024 9:49 AM EST 06/20/2024 11:47 AM EST us Lily Burnette MD LAB BLOOD ORDERABLES Final Result Performing Organization Address [facility]/ZIP Co de Phone Number [facility] [address] [place] [phone] * HM PAP/HPV (06/02/2019 2:16 PM EST) Historical Provider HEALTH MAINTENANCE Final Result from Last 3 Months or Most Recently Relevant to Health Maintenance Insurance [facility] [place] [id number] Care Teams Car Conditioner Relationship Specialty Start Date End Date Lily Chauhan MD [address] [place] [address] PCP - General Family Medicine 04/06/18 Neida Riojas Wood EngraverClosing Supervisor 12/21/23
--- OUTSIDE RECORDS SUMMARY | 2024-09-22 11:47 | XMS_ITS | Encounter Summary ---
Author Organization [employer] Address [address] [place] [address] Care Team Providers Care Weekend Receptionist Name Role Phone Lily Chauhan MD Primary Care Provide r Reason for Visit * Reason Comments Med Refill Encounter Details Date Type Department Care Team ([facility] st Contact Info) Description 08/11/2024 Refill [facility] MED[facility]INE [address] [place] [address] Samantha Mason, DO [address] [place] [address] Social History Tobacco Use Types Packs/Day Years [...] Description 09/26/2024 11:30 AM EST Telemedicine [facility] MEDICINE [address] [place] [phone] Lily Chauhan MD [address] [place] [phone] 10/12/2024 3:30 PM EDT Office Visit [facility] OPTOMETRY [address] [place] [address] Swati Hernandez, OD [address] [place] [address] 12/11/2024 10:15 AM EDT Office Visit [facility] MEDICINE [address] [place] [phone] Lily Chauhan MD [address] [place] [address] documented as of this encounter Visit Diagnoses Not on filedocumented in this encounter Additional Health Concerns Assessment Noted Time PHQ-9 Depression Total Score: 3 05/22/20 24 1:05 PM EDT documented as of this encounter Care Teams Weekend Receptionist Relationship Specialty Start Date End Date Lily Chauhan MD [address] [place] [phone] PCP - General Family Medicine 04/06/[address] ManagerHand Tube Bender 12/21/23 documented as of this encounter
--- OUTSIDE RECORDS SUMMARY | 2024-09-22 11:47 | XMS_ITS | Clinical Summary ---
Author Organization [address] [place] [address] Address [address] [place] [address] Phone Care Team Providers Care Entry Level Java Developer Name Role Phone Maryan Abernathy MD Primary Care Provider [phone] Social History Tobacco Use Types Packs/Day Years Used Date Smoking Tobacco: Never Assessed Comments Unknown Sex and Gender Information Value Date Recorded Sex Assigned at Not on file Legal Sex Female 9:50 AM EST Gender Identity Not on file Sexual Orientation Not on file Plan of Treatment Upcoming Encounters Date Type Department Care Team ([facility] Contact Info) Description 05/22/2025 10:30 AM EDT Office Visit Bariatric Surgery [address] [phone] Glenda Marie MD [address] [place] [phone] Health Maintenance Due Date Last Done [...] topic Insurance MEDICAID - [place] Care Teams Entry Level Java Developer Relationship Specialty Start Date End Date Maryan Abernathy MD [address] [phone] PCP - General 08/25/07
--- OUTSIDE RECORDS SUMMARY | 2024-09-22 11:47 | XMS_ITS | Encounter Summary ---
Author Organization [employer] Address [address] [facility] 7t [place] [address] Care Team Providers Care Inventory Accountant Name Role Phone Lily Chauhan MD Primary Care Provide r Encounter Details Date Type Department Care Team ([facility] st Contact Info) Description 04/28/2024 Telephone [facility] [address] [place], [place] [phone] Julianne Soto RN 230 [place] [address] Social History Tobacco Use Types Packs/Day Years [...] [facility] [address] [place] [address] Lily Chauhan MD 230 [place] [address] 10/12/2024 3:30 PM EDT Office Visit [facility] OPTOMETRY [address] [place] [address] David, Swati, OD 230 [place] [address] 12/11/2024 10:15 AM EDT Office Visit [facility] MEDICINE [address] [place] [address] Lily Chauhan MD [address] [place] [address] documented as of this encounter Visit Diagnoses Not on filedocumented in this encounter Additional Health Concerns Assessment Noted Time PHQ-9 Depression Total Score: 0 11/15/19 24 10:46 AM EDT documented as of this encounter Care Teams Inventory Accountant Relationship Specialty Start Date End Date Lily Chauhan MD [address] [place] [address] PCP - General Family Medicine 04/06/18 Neida Riojas Transportation PlannerChorus Dancer 12/21/23 documented as of this encounter
--- OUTSIDE RECORDS SUMMARY | 2024-09-22 11:47 | XMS_ITS | Encounter Summary ---
Author Organization [employer] Address [address] [facility] [address] 7t [place] [address] Care Team Providers Care Sanitary Inspector Name Role Phone Lily Chauhan MD Primary Care Provide r Encounter Details Date Type Department Care Team ([facility] st Contact Info) Description 05/11/2024 Orders Only [facility] MED[facility]INE 230 [place], [place] [phone] Provider, MD Gloria Social History Tobacco Use [...] 09/26/2024 11:30 AM EST Telemedicine [facility] MEDICINE 230 [place] [address] Lily Chauhan MD 230 [place] [address] 10/12/2024 3:30 PM EDT Office Visit [facility] OPTOMETRY [address] [place] [address] David, Swati, OD 230 [place] [address] 12/11/2024 10:15 AM EDT Office Visit [facility] MEDICINE 230 [place] [address] Lily Chauhan MD 230 [place] [address] documented as of this encounter Procedures Procedure [...] documented as of this encounter Care Teams Sanitary Inspector Relationship Specialty Start Date End Date Lily Chauhan MD 230 [place] [address] PCP - General Family Medicine 04/06/18 Neida Riojas Lead GeneratorGroup Managing Director 12/21/23 documented as of this encounter
--- OUTSIDE RECORDS SUMMARY | 2024-09-22 11:47 | XMS_ITS | Encounter Summary ---
Author Organization [employer] Address [address] [facility] 7t [place] [address] Care Team Providers Care Boilermaker'S Assistant Name Role Phone Lily Chauhan MD Primary Care Provide r Reason for Visit * Reason Comments Med Refill Encounter Details Date Type Department Care Team ([facility] st Contact Info) Description 02/25/2024 Refill [facility] [address] [place] [address] Dayday Pearce MD 230 [place] [address] Social History Tobacco Use Types Packs/Day Years [...] Info) Description 09/26/2024 11:30 AM EST Telemedicine [facility] MED[facility] [address] [place] [address] Lily Chauhan MD [address] [place] [address] 10/12/2024 3:30 PM EDT Office Visit [facility] OPTOMETRY [address] [place] [address] David, Swati, OD 230 [place] [address] 12/11/2024 10:15 AM EDT Office Visit [facility] MED[facility] [address] [place] [address] Lily Chauhan MD [address] [place] [address] documented as of this encounter Visit Diagnoses Not on filedocumented in this encounter Additional Health Concerns Assessment Noted Time PHQ-9 Depression Total Score: 0 11/15/19 24 10:46 AM EDT documented as of this encounter Care Teams Boilermaker'S Assistant Relationship Specialty Start Date End Date Lily Chauhan MD [address] [place] [address] PCP - General Family Medicine 04/06/18 Neida Riojas Showroom Executive DirectorVacuum Cooker Operator 12/21/23 documented as of this encounter
--- OUTSIDE RECORDS SUMMARY | 2024-09-22 11:47 | XMS_ITS | Encounter Summary ---
Demographics Address [address] [facility] [address] [place] [address] Work Phone Home Phone Mobile Phone Email Address Preferred Language en Marital Status Single Islam Affiliation Unknown Race Other Race Ethnic Group or Author Organization [employer] Address 75 [facility] 7t [place] [address] Care Team Providers Care Glove Cuffer Name Role Phone Lily Chauhan MD Primary Care Provide r Encounter Details Date Type Department Care Team ([facility] st Contact Info) Description 09/09/2024 Orders [...] Description 09/26/2024 11:30 AM EST Telemedicine [facility] MEDICINE 230 [place] [address] Lily Chauhan MD 230 [place] [address] 10/12/2024 3:30 PM EDT Office Visit [facility] OPTOMETRY [address] [place] [address] David, Swati, OD 230 [place] [address] 12/11/2024 10:15 AM EDT Office Visit [facility] MED[facility]INE 230 [place] [address] Lily Chauhan MD 230 [place] [address] documented as of this encounter Procedures Procedure [...] EST Narrative 09/09/2024 4:47 AM EST ? [facility] ?[address] ?[place], [place] [address] ? Ultrasound Report ? Signed ? Patient: Marsh,Rena ?MR#: [id number] ?? [id number] ? : 1985 ?Acct:[id number] ? Age/Sex: 38 / F ?ADM Date: 09/09/24 ? Loc: HO.ED ? Attending Dr: ? Ordering Physician: Carroll Cherry MD ?? Date of Service: 09/09/24 ?? Procedure(s): US abdomen limited ?? Accession Number(s): [id number] ? cc: iLly Chauhan MD; Carroll Cherry MD ? CLINICAL [...] DD/ 0446 ? TD/TT: 09/09/24 0446 ? [facility] Author: ? Procedure Note Dustin, Ni - 09/09/[address] [address] Ultrasound Report Signed Patient: Rena MarshMR#: [id number] : 1985Acct:[id number] Age/Sex: 38 / FADM Date: 09/09/24 Loc: .ED Attending Dr: Ordering Physician: Carroll Cherry MD Date of Service: 09/09/24 Procedure(s): US abdomen limited Accession Number(s): [id number] cc: Lily Chauhan MD; Carroll Cherry MD [...] in OV> 09/09/24446 DD/ 5 TD/TT: 09/09/24445 Children'S Author: [facility] External Provider IMG US PROCEDURES Edited Result - Final * Lipase (09/09/2024 1:49 AM EST) Lipase 26 8 - 78 U/L [facility] 09/09/2024 1:49 AM EST 09/09/2024 1:52 AM EST Generic External Data Provider LAB BLOOD ORDERAB LES Final Result [facility] [address] [place] [address] [phone] * (ABNORMAL) Comprehensive Metabolic Panel (09/09/2024 1:49 AM EST) Sodium 141 135 - 145 mmol/L [facility] Potassium 4.0 3.3 - 5.1 mmol/L [facility] Chloride 109(H) 96 - 108 mmol/L [facility] Carbon Dioxide 24 22 - 29 mmol/L [facility] Anion Gap 12 12 - 20 [facility] Urea Nitrogen (BUN) 11 9 - 16 mg/dL [facility] Creatinine, Serum 0.79 0.5 - 1.4 mg/dL [facility] Creatinine Clr Calc Pharmacy 95.4 [facility] Comment:Provided height and weight: 149.86 cm,90.2 kg.eGFR (calculated from the MDRD study equation) and eCrCl(calculated from the Cockcroft-Gault equation) are based ondifferent parameters and may not yield comparable results.If eCrCl result is absurd, please check patient'sheight/weight. Estimated Glomerular Filt Rate >60 [facility] Comment:Chronic Kidney Disea se: Estimated GFR < 60 mL/min/1.09v6Isgouq Kidney Disease: Estimated GFR < 15 mL/min/1.73m2 Glucose 102 60 - 115 mg/dL [facility] Calcium 9.2 8.4 - 10.2 mg/dL [facility] Bilirubin, Total 0.2 0.0 - 1.0 mg/dL [facility] Aspartate Amino Transferase 22 5 - 31 U/L [facility] Alanine Aminotransferase 17 0 - 31 U/L [facility] Total Protein 8.3(H) 6.5 - 8.0 g/dL [facility] Albumin Level 4.1 3.5 - 5.0 g/dL [facility] Alkaline Phosphatase 79 39 - 117 U/L [facility] 09/09/2024 1:49 AM EST 09/09/2024 1:52 AM EST us Generic External Data Provider LAB BLOOD ORDERAB LES Final Result [facility] [address] [place] [address] [phone] * (ABNORMAL) CBC auto differential (09/09/2024 1:49 AM EST) White Blood Count 5.6 4.8 - 10.8 X10*3/uL [facility] Red Blood Count 3.80(L) 4.20 - 5.50 X10*6/uL [facility] Hemoglobin 11.0(L) 12.0 - 16.0 g/dl [facility] Hematocrit 33.0(L) 37.0 - 47.0 % [facility] Mean Corpuscular Volume 86.8 80.0 - 98.0 fL [facility] Mean Corpuscular Hemoglobin 28.9 27.0 - 33.0 pg [facility] Mean Corpuscular HGB Conc 33.3 31.0 - 35.0 g/dl [facility] Red Cell Distribution Width 14.6 11.0 - 16.0 % [facility] Platelet Count 268 160 - 400 X10*3/uL [facility] Mean Platelet Volume 9.6 9.4 - 12.3 fL [facility] Neutrophils Percent Auto 41.5(L) 45 - 73 % [facility] Imm Gran Pct Auto 0.2 0.0 - 0.4 % [facility] Lymphocytes Percent Auto 46.1(H) 20 - 40 % [facility] Monocytes Percent Auto 10.6 2 - 11 % [facility] Eosinophils Percent Auto 1.1 0 - 4 % [facility] Basophils Percent Auto 0.5 0 - 2 % [facility] NRBC Pct Auto 0.0 0.0 - 0.2 /100WBC [facility] Neutrophils Absolute Auto 2.3 2.0 - 8.3 x10*3/uL [facility] Imm Gran Abs Auto 0.01 0.00 - 0.03 X10*3/uL [facility] Lymphocytes Absolute Auto 2.6 1.2 - 4.9 X10*3/uL [facility] Monocytes Absolute Auto 0.6 0.1 - 1.2 X10*3/uL [facility] Eosinophils Absolute Auto 0.1 0.0 - 0.4 X10*3/uL [facility] Basophils Absolute Auto 0.0 0.0 - 0.2 X10*3/uL [facility] NRBC Abs Auto 0.000 0.0 - 0.012 X10*3/uL [facility] 09/09/2024 1:49 AM EST 09/09/2024 1:52 AM EST us Generic External Data Provider LAB BLOOD ORDERAB LES Final Result Performing Organization Address City/State/[facility] Co de Phone Number [facility] [address] [place] [address] [phone] documented in this encounter Visit Diagnoses Not on filedocumented in this encounter Additional Health Concerns Assessment Noted Time PHQ-9 Depression Total Score: 3 05/22/20 24 1:05 PM EDT documented as of this encounter Care Teams Glove Cuffer Relationship Specialty Start Date End Date Lily Chauhan MD [address] [place] [address] PCP - General Family Medicine 04/06/18 Neida Riojas Snap AttacherSpace Control Agent 12/21/23 documented as of this encounter
--- OUTSIDE RECORDS SUMMARY | 2024-09-22 11:47 | XMS_ITS | Encounter Summary ---
Author Organization [employer] Address [address] [place] [address] 7t [place] [address] Care Team Providers Care Independent Trader Name Role Phone Lily Chauhan MD Primary Care Provide r Reason for Visit * Reason Comments Med Refill Encounter Details Date Type Department Care Team ([facility] st Contact Info) Description 05/15/2024 Refill [facility] MEDICINE [address] [place] [address] Lily Chauhan MD [address] [place] [address] Essential hypertension Social History Tobacco Use Types [...] Info) Description 09/26/2024 11:30 AM EST Telemedicine [facility] MEDICINE [address] [place] [address] Lily Chauhan MD [address] [place] [address] 10/12/2024 3:30 PM EDT Office Visit [facility] OPTOMETRY [address] [place] [address] Swati Hernandez, OD [address] [place] [address] 12/11/2024 10:15 AM EDT Office Visit [facility] MEDICINE [address] [place] [address] Lily Chauhan MD [address] [place] [address] documented as of this encounter Visit Diagnoses Diagnosis Essential hypertension Unspecified essential hypertension documented in this encounter Additional Health Concerns Assessment Noted Time PHQ-9 Depression Total Score: 0 11/15/19 24 10:46 AM EDT documented as of this encounter Care Teams Independent Trader Relationship Specialty Start Date End Date Lily Chauhan MD [address] [place] [address] PCP - General Family Medicine 04/06/18 Neida Riojas Water SanderEmployment Adjudicator 12/21/23 documented as of this encounter
--- OUTSIDE RECORDS SUMMARY | 2024-09-22 11:47 | XMS_ITS | Encounter Summary ---
Author Organization [employer] Address [address] [place] [address] 7 [place] [address] Care Team Providers Care Machine Stoppage Frequency Checker Name Role Phone Lily Chauhan MD Primary Care Provide r Reason for Visit * Reason Onset Date Comments Nurse Triage 06/26/2024 Encounter Details Date Type Department Care Team ([facility] st Contact Info) Description 06/26/2024 Telephone [facility] MEDICINE [address] [place] [address] Lily Chauhan MD [address] [place] [address] Nurse Triage Social History Tobacco Use Types [...] Info) Description 09/26/2024 11:30 AM EST Telemedicine [facility] MEDICINE [address] [place] [address] Lily Chauhan MD [address] [place] [address] 10/12/2024 3:30 PM EDT Office Visit [facility] OPTOMETRY [address] [place] [address] David, Swati, OD 230 [place] [address] 12/11/2024 10:15 AM EDT Office Visit [facility] MEDICINE [address] [place] [address] Lily Chauhan MD [address] [place] [address] documented as of this encounter Visit Diagnoses Not on filedocumented in this encounter Additional Health Concerns Assessment Noted Time PHQ-9 Depression Total Score: 3 05/22/20 24 1:05 PM EDT documented as of this encounter Care Teams Machine Stoppage Frequency Checker Relationship Specialty Start Date End Date Lily Chauhan MD [address] [place] [address] PCP - General Family Medicine 04/06/18 Neida Riojas Billing SupervisorStereotyper Apprentice 12/21/23 documented as of this encounter
--- OUTSIDE RECORDS SUMMARY | 2024-09-22 11:47 | XMS_ITS | Encounter Summary ---
Author Organization [employer] Address [address] [place] [address] 7 [place] [address] Care Team Providers Care Nutritional Yeast Supervisor Name Role Phone Lily Chauhan MD Primary Care Provide r Reason for Visit * Reason Onset Date Comments Prior Authorization 08/22/2024 Encounter Details Date Type Department Care Team ([facility] Contact Info) Description 08/22/2024 Telephone [facility] MEDICINE [address] [place] [address] Lily Chauhan MD [address] [place] [address] Prior Authorization Social History Tobacco Use Types [...] PA for Zepbound signed and faxed to [employer] . Confirmation received and sent to scan. If patient calls to check status on above, please advise them to contact [facility] at [phone]. * Telephone Encounter - Lorin Anderson - 09/01/2024 11:23 AM EST PA for Zepbound from [facility] placed on PCP desk for signature. * Telephone Encounter - Erica Vernon - 08/22/2024 9:11 AM EST Tc from pt stating script for Tirzepatide-Weight Management (Zepbound) 2.5 MG/0.5ML solution auto-injector requires a prior authorization documented in this encounter Plan of Treatment Upcoming Encounters Date Type Department Care Team (Late st Contact Info) Description 09/26/2024 11:30 AM EST Telemedicine [facility] MED[facility]INE [address] [place] [address] Lily Chauhan MD [address] [place] [address] 10/12/2024 3:30 PM EDT Office Visit [facility] OPTOMETRY [address] [place] [address] David, Swati, OD 230 [place] [address] 12/11/2024 10:15 AM EDT Office Visit [facility] [address] [place] [address] Lily Chauhan MD [address] [place] [address] documented as of this encounter Visit Diagnoses Not on filedocumented in this encounter Additional Health Concerns Assessment Noted Time PHQ-9 Depression Total Score: 3 05/22/20 24 1:05 PM EDT documented as of this encounter Care Teams Nutritional Yeast Supervisor Relationship Specialty Start Date End Date Lily Chauhan MD [address] [place] [phone] PCP - General Family Medicine 04/06/18 Neida Riojas Circular Knife Cutter MachinePipe Stem Repairer 12/21/23 documented as of this encounter
--- OUTSIDE RECORDS SUMMARY | 2024-09-22 11:47 | XMS_ITS | Encounter Summary ---
Author Organization [employer] Address [address] [facility] [address] 7t [place] [address] Care Team Providers Care Silk Finisher Name Role Phone Lily Chauhan MD Primary [...] Info) Description 09/26/2024 11:30 AM EST Telemedicine [facility] MEDICINE [address] [place] [address] Lily Chauhan MD [address] [place] [address] 10/12/2024 3:30 PM EDT Office Visit [facility] OPTOMETRY [address] [place] [address] David, Swati, OD 230 [place] [address] 12/11/2024 10:15 AM EDT Office Visit [facility] MED[facility]INE [address] [place] [address] Lily Chauhan MD [address] [place] [address] documented as of this encounter Visit Diagnoses Not on filedocumented in this encounter Additional Health Concerns Assessment Noted Time PHQ-9 Depression Total Score: 3 05/22/20 24 1:05 PM EDT documented as of this encounter Care Teams Silk Finisher Relationship Specialty Start Date End Date Lily Chauhan MD [address] [place] [address] PCP - General Family Medicine 04/06/18 Neida Riojas Roll ForgerCashier And Waiter/Waitress 12/21/23 documented as of this encounter
--- OUTSIDE RECORDS SUMMARY | 2024-09-22 11:48 | XMS_ITS | Encounter Summary ---
Author Organization [employer] Address [address] [place] [address] 7 [place] [address] Care Team Providers Care Slitter Scorer Name Role Phone Lily Chauhan MD Primary Care Provide r Reason for Visit * Reason Onset Date Comments (May Recall 09/12/2024 Encounter Details Date Type Department Care Team ([facility] Contact Info) Description 09/12/2024 Telephone [facility] MEDICINE 230 [place] [address] Lily Chauhan MD [address] [place] [address] (May Recall Social History Tobacco Use Types [...] an appt (November Recall) with DR.Barciona [facility] to call back to sche appt.Mailed recall letter. documented in this encounter Plan of Treatment Upcoming Encounters Date Type Department Care Team ([facility] st Contact Info) Description 09/26/2024 11:30 AM EST Telemedicine [facility] MEDICINE [address] [place] [phone] Lily Chauhan MD [address] [place] [address] 10/12/2024 3:30 PM EDT Office Visit [facility] OPTOMETRY [address] [place] [address] Swati Hernandez, OD [address] [place] [address] 12/11/2024 10:15 AM EDT Office Visit [facility] MEDICINE [address] [place] [address] Lily Chauhan MD [address] [place] [address] documented as of this encounter Visit Diagnoses Not on filedocumented in this encounter Additional Health Concerns Assessment Noted Time PHQ-9 Depression Total Score: 3 05/22/20 24 1:05 PM EDT documented as of this encounter Care Teams Slitter Scorer Relationship Specialty Start Date End Date Lily Chauhan MD [address] [place] [address] PCP - General Family Medicine 04/06/18 Neida Riojas Java Mobile DeveloperBaggage Clerk 12/21/23 documented as of this encounter
--- OUTSIDE RECORDS SUMMARY | 2024-09-22 11:48 | XMS_ITS | Encounter Summary ---
Demographics Address [address] [facility] [address] [place] [address] Work Phone Home Phone Mobile Phone Email Address Preferred Language en Marital Status Single Mu-Ism Affiliation Unknown Race Other Race Ethnic Group or Author Organization [employer] Address [address] [facility] [address]t [place] [address] Care Team Providers Care Handbag Framer Name Role Phone Lily Chauhan MD Primary Care Provide r Encounter Details Date Type Department Care Team (Late st Contact Info) Description 09/10/2024 Orders Only [facility] External Provider, [facility] Social History Tobacco Use Types Packs/Day [...] t he electric, gas, oil or water [employer] threatened to shut off services in your [...] EST Telemedicine [facility] MEDICINE [address] [place] [address] Lily Chauhan MD [address] [place] [address] 10/12/2024 3:30 PM EDT Office Visit [facility] OPTOMETRY [address] [place] [address] David, Swati, OD 230 [place] [address] 12/11/2024 10:15 AM EDT Office Visit [facility] [address] [place] [address] Lily Chauhan MD [address] [place] [address] documented as of this encounter Procedures Procedure Name Priority Date/Time Associated Diagnosis Comments MR BRAIN W AND WO CONTRAST Routine 09/10/2024 7:40 PM EST documented in this encounter Results * Mr Brain w/ and w/o Contrast (09/10/2024 7:40 PM EST) Anatomical Region Laterality Modality Brain Magnetic Resonan ce 09/10/2024 7:40 PM EST Narrative 09/10/2024 7:42 PM EST ? [facility] ?[address] ?[place] [address] ? Magnetic Resonance Report ? Signed ? Patient: Marsh,Rena ?MR#: [id number] ?? [id number] ? : 1985 ?Acct:[id number] ? Age/Sex: 38 / F ?ADM Date: 09/10/24 ? Loc: HO.MRI ? Attending Dr: Wes KITCHEN ? Ordering Physician: Wes Olivera ?? Date of Service: 09/10/24 ?? Procedure(s): MR head/brain wo/w con ?? Accession Number(s): [id number] ? cc: Lily Chauhan MD; Wes Olivera [...] ? DD/ 39 ? TD/TT: 09/10/241939 ? Nitric Acid Concentrator Operator: ? Procedure Note Dustin, Ni - 09/10/[address] [place] [address] Magnetic Resonance Report Signed Patient: Rena Marsh#: [id number] : 1985Acct:[id number] Age/Sex: 38 / FADM Date: 09/10/24 Loc: HO.MRI Attending Dr: Wes KITCHEN Ordering Physician: Wes Olivera Date of Service: 09/10/24 Procedure(s): MR head/brain wo/w con Accession Number(s): [id number] cc: Lily Chauhan MD; Wes Olivera CLINICAL [...] in OV> 09/10/241940 DD/ 39 TD/TT: 09/10/241939 Nitric Acid Concentrator Operator: [facility] External Provider IMG MRI PROCEDURES Edited Result - Final documented in this encounter Visit Diagnoses Not on filedocumented in this encounter Additional Health Concerns Assessment Noted Time PHQ-9 Depression Total Score: 3 05/22/20 24 1:05 PM EDT documented as of this encounter Care Teams Handbag Framer Relationship Specialty Start Date End Date Lily Chauhan MD [address] [place] [address] PCP - General Family Medicine 04/06/18 Neida Riojas Organic Section Technical LeadEarth Boring Machine Operator 12/21/23 documented as of this encounter
--- OUTSIDE RECORDS SUMMARY | 2024-09-22 11:48 | XMS_ITS | Encounter Summary ---
Author Organization [employer] Address [address] [place] [address] 7t [place] [address] Care Team Providers Care Improvement Engineer Name Role Phone Lily Chauhan MD Primary Care Provide r Reason for Visit * Reason Comments Med Refill Encounter Details Date Type Department Care Team ([facility] st Contact Info) Description 08/25/2024 Refill [facility] MEDICINE [address] [place] [address] Lily Chauhan MD [address] [place] [address] Neck pain Social History Tobacco Use Types [...] Info) Description 09/26/2024 11:30 AM EST Telemedicine [facility] MEDICINE [address] [place] [address] Lily Chauhan MD [address] [place] [address] 10/12/2024 3:30 PM EDT Office Visit [facility] OPTOMETRY [address] [place] [address] Swati Hernandez, OD 230 [place] [address] 12/11/2024 10:15 AM EDT Office Visit [facility] MEDICINE [address] [place] [address] Lily Chauhan MD [address] [place] [address] documented as of this encounter Visit Diagnoses Diagnosis Neck pain Cervicalgia documented in this encounter Additional Health Concerns Assessment Noted Time PHQ-9 Depression Total Score: 3 05/22/20 24 1:05 PM EDT documented as of this encounter Care Teams Improvement Engineer Relationship Specialty Start Date End Date Lily Chauhan MD [address] [place] [address] PCP - General Family Medicine 04/06/18 Neida Riojas Salad MakerNurse Licensed Practical 12/21/23 documented as of this encounter
--- OUTSIDE RECORDS SUMMARY | 2024-09-22 11:48 | XMS_ITS | Encounter Summary ---
Author Organization [employer] Address [address] [place] [address] 7t [place] [address] Care Team Providers Care Tray Filler Name Role Phone Lily Chauhan MD Primary Care Provide r Encounter Details Date Type Department Care Team ([facility] Contact Info) Description 08/17/2022 Orders Only [facility] MEDICINE [address] [place] [address] Maryan Abernathy MD [address] [place] [phone] Vitamin D deficiency (Primary Dx) Social History [...] Care Team ([facility] Contact Info) Description 09/26/2024 11:30 AM EST Telemedicine [facility] MEDICINE [address] [place] [address] Lily Chauhan MD 230 [place] [address] 10/12/2024 3:30 PM EDT Office Visit [facility] OPTOMETRY [address] [place] [address] David, Swati, OD 230 [place] [address] 12/11/2024 10:15 AM EDT Office Visit [facility] MEDICINE [address] [place] [address] Lily Chauhan MD [address] [place] [address] documented as of this encounter Visit Diagnoses Diagnosis Vitamin D deficiency- Primary documented in this encounter Care Teams Tray Filler Relationship Specialty Start Date End Date Lily Chauhan MD [address] [place] [address] PCP - General Family Medicine 04/06/18 Neida Riojas Pre Press ProoferEvent Sales Manager 12/21/23 documented as of this encounter
--- NOTE | 2024-10-02 14:44 | HO.ANESPROP2 ---
HPI - Anesthesia Eval Consult details Narrative: 39yo F for Cholecystectomy Laparoscopic, possible open PMFSH Active Problems Active Problems: All Active Problems Acute cholecystitis (Acute) Galactorrhea (Acute) Cervicalgia (Acute) Lumbar spondylosis (Acute) Cervical spondylosis (Acute) Chronic back pain (Acute) Myofascial muscle pain (Acute) Myofascial neck pain (Acute) Abnormal uterine bleeding (AUB) (Acute) Back pain (Acute) Migraines (Acute) Morbid obesity (Acute) Hypertension (Acute) Past Medical History Medical History Chest pain Family planning Back pain Migraines Morbid obesity Hx LEEP (loop electrosurgical excision procedure), cervix, Hypertension Family History Family History Mother Hypertension Diabetes Maternal Grandmother No problems noted. Surgical History Surgical History Hx of breast reduction, elective H/O abdominoplasty Social History Social History Alcohol intake: current Alcohol intake frequency: a few times a week Alcohol type: beer Meds Allergies Allergy/AdvReac Type Severity Reaction Status Date / Time amoxicillin [AMOXICILLIN] Allergy Unknown UNKNOWN, Verified 09/21/24 13:43 hives aspirin [ASPIRIN] Allergy Unknown HIVES, rash Verified 09/21/24 13:43 ibuprofen [Motrin] Allergy Unknown Hives Verified 09/21/24 13:43 lisinopril AdvReac Mild Cough Verified 09/21/24 13:43 Home Medications ?Medication ?Instructions ?Recorded ?Confirmed ?Last Taken ?Type acetaminophen 650 mg 650 mg PO Q8H PRN mild pain 08/10/24 09/21/24 Unknown History tablet,extended release semaglutide (weight loss) 0.25 mg subcut QWEEK 08/10/24 09/21/24 Unknown History mg/0.5 mL subcutaneous pen injector (Wegovy) gabapentin 100 mg capsule 100 mg PO TID 08/24/24 09/21/24 Unknown History Exam Pertinent Lab Results Pertinent Lab Results: Laboratory Tests 09/09/24 01:49 WBC 5.6 Hgb 11.0 L Hct 33.0 L Plt Count 268 Sodium 141 Potassium 4.0 Chloride 109 H Carbon Dioxide 24 BUN 11 Creatinine 0.79 Narrative Narrative: EKG 06/2024 Vent. Rate : 084 BPM Atrial Rate : 084 BPM P-R Int : 152 ms QRS Dur : 076 ms QT Int : 356 ms P-R-T Axes : 037 017 019 degrees QTc Int : 420 ms Normal sinus rhythm Normal ECG No significant changes when compared with the previous EKG of 14 jun 2023 ECHO 2022 Conclusions: - The left ventricular systolic function is normal. The calculated ejection fraction is 61% by biplane method. - No obvious valvular pathology seen on this study. Exercise Stress 2022 Protocol: KIRK Max HR: 160 BPM 86% of Pred: 185 BPM Max BP: 144/084 mmHG Max Work Load: 9.3 METS Exercise stress test with exrercise 7 min 32 sec of Kirk protocol, achieving 86% MPHR, 9.3 METS, with fatigue and request to stop, without anginal symptoms, without arrythmia, with normotensive response to exercise, without EKG changes meeting criteria for ischemia. Test reviewed with Dr Ruiz Assessment and Plan Assessment Anesthesia Assessment: Chart Reviewed
[2024-10-04 10:47] VITALS: BMI 39.2
[2024-10-04 10:52] VITALS: BP 129/76; PULSE 80; RESP 16; TEMP 36.7; O2SAT 99
[2024-10-04 10:57] LABS: UPreg QC Valid YES; Urine Pregnancy NEGATIVE (NEGATIVE)
[2024-10-04] MEDS: Lactated Ringers 1,000 ML 100 ML IVCONT (11:11)
--- NOTE | 2024-10-04 14:00 | PC.NURSE ---
Pts surgery canceled by Arnaldo due to prior case going to long
== END ==
LOC: HO.SSS 10:13
PROVIDERS: Nurse Practitioner; PCP Internal Medicine; Visit Provider Surgery
DX: K81.0 Acute cholecystitis (principal); Z53.8 Procedure and treatment not carried out for other reasons; I10 Essential (primary) hypertension; E66.01 Morbid (severe) obesity due to excess calories; Z79.85 Long-term (current) use of injectable non-insulin antidiabetic drugs; Z79.899 Other long term (current) drug therapy; Z88.0 Allergy status to penicillin; Z88.6 Allergy status to analgesic agent; Z88.8 Allergy status to other drugs, medicaments and biological substances
CPT/HCPCS: 81025; J0744

== ENCOUNTER 2024-10-11 14:55 | Outpatient (AMB) | payer MEDICAID, SELFPAY ==
--- NOTE | 2024-10-11 14:57 | MHC.OFFVIS ---
Vital Signs 10/11/24 15:02 Height 4 ft 11 in Weight 197 lb 12.074 oz BMI 39.9 BP 116/72 Blood Pressure Location Rt brachial Position Sitting Pulse 84 Pulse Source Pulse Oximeter Pulse Oximetry (%) 98 Oxygen Delivery Method Room Air Intake Visit Reasons: Galactorrhea not associated with childbirth Intake Note: New patient present today for Galactorrhea not associated with childbirth. Medical Observer Required: No Accompanied by: Daughter Allergies amoxicillin [AMOXICILLIN] Allergy (Unknown, Verified 10/11/24 15:02) UNKNOWN, hives aspirin [ASPIRIN] Allergy (Unknown, Verified 10/11/24 15:02) HIVES, rash ibuprofen [Motrin] Allergy (Unknown, Verified 10/11/24 15:02) Hives lisinopril Adverse Reaction (Mild, Verified 10/11/24 15:02) Cough Medication List - Last Reconciled 10/11/24 by Linh Recinos MD acetaminophen ER 650 mg PO Q8H PRN baclofen 5 mg PO TID dicyclomine 10 mg PO Q8H PRN gabapentin 300 mg PO TID ondansetron 4 mg PO Q6-8H PRN tirzepatide (weight loss) (Zepbound) 5 mg subcut QWEEK valsartan 320 mg PO DAILY HPI Comments Details: 39-year-old female coming in today for initial evaluation of galactorrhea and pituitary microadenoma. Here with daughter Shazia . Galactorrhea started 4 years ago, b/l , sees it on the bra, 3-4 times a month, clear fluid. no excessive nipple manipulation. Breast reduction 4 years ago. , used to have a piercing which got removed. Has a history of right breast lump many years ago whihc was though to be benign and resolved. menses happen every month, menorrahgia last 7 to 8 days , first 4 days very heacy, goes througha whole box of tampons. Vary by 5 to 7 days but every month.she does have some premenstrual spotting. Sees Dr. Hawkins per notes Endometrial biopsy pathology showed the following: Secretory endometrium; no atypia or hyperplasia identified Co testing was done was negative. Pelvic ultrasound showed the following: The uterus measures 9.5 x 5.1 x 5.8 cm in longitudinal by AP by transverse dimension. The endometrial stripe is not thickened and measures 0.6 cm. 2 small fibroids are noted, largest measuring approximately 1.4 cm. Nabothian cysts are noted within the cervix. The left ovary measures approximately 2.7 x 2.0 x 1.9 cm and is normal. The right ovary measures approximately 3.3 x 1.7 x 2.1 cm and is also normal. Spectral analysis reveals normal arterial and venous waveforms in the bilateral ovaries. There is a small amount of free fluid in the pelvis. Janet was given options of IUD/ablation; didnt go through with anything yet. LMP: 09/20/24 Pregnancies 4, 4 live children , age of youngest child 4 years old She breastfed daughter for a year who is now 14 years old, so no recent 09/10/2024 MRI brain showed a 4 mm hypoenhancing lesion in the right side of the pituitary. no lightheadedness or dizziness, no weight loss, weight stable for the past 5 years has abd pain from cholelithiasis pending lap duarte in October 2024 No nausea no vomiting No change in ring size, thinks her shoe size went up from 6 to 7 recently in 2024 denies palpitations, has history of chest pain with unremarkable work up, no tremors, no heat or cold intolerance Reports blurry vision , has appointment tmw, visual walter test checked were normal, eye doctor had concerns about glaucoma , seen at [facility] , last visual walter done Jul 2023 Does have history of migraines , intermittent headaches, not worsening Denies easy bruising, no proximal muscle weakness Reports she used to have large purple striae before she had her tummy tuck 4 years ago No history of diabetes, well-controlled hypertension on losartan, no history of fragility fractures Physical exam General: sitting comfortably in no acute distress HEENT: normocephalic/atraumatic, Breast exam: No palpable lumps, dense breasts noted, no nipple discharge Neck: supple Cardiac: normal heart sounds Pulm: normal breath sounds B/L, no added breath sounds Abd: not distended, no tenderness, no purple striae Extremities: no edema, no signs of myxedema Laboratory Tests 05/04/18 02/29/24 06/20/24 12:35 10:44 09:49 TSH 1.15 1.94 Prolactin 7.6 9.3 Beta HCG, Quant < 2 12/15/24 21:21 TSH Prolactin Beta HCG, Quant < 2 MR Brain with and without gadolinium 09/10/24 Comparison: None Findings: There is a 4 mm iso to hypoenhancing nodule within the right-sided pituitary gland (image 9 and series 14 and series 16 ). Mildly expansile sella with partial empty sella configuration. The infundibulum is in midline. No restricted diffusion. No intracranial mass or hemorrhage. No midline shift. No hydrocephalus. Vascular flow voids are intact. The orbits are normal. The sinuses and mastoid air cells are clear. No focal bone lesion. IMPRESSION: 1. 4 mm iso to hypo enhancing nodule within the right-sided pituitary gland. Given patient's symptoms, the lesion could represent a pituitary microadenoma /prolactinoma. 2. Mildly expansile sella with partial empty sella configuration. Correlate clinically for signs and symptoms of idiopathic intracranial hypertension. 3. No acute intracranial disease. This document has been electronically signed by: Dulce Naylor MD on 09/10/2024 19:40:48 [facility] Medical History Chest pain Family planning Back pain Migraines Morbid obesity Hx LEEP (loop electrosurgical excision procedure), cervix, Hypertension Surgical History Hx of breast reduction, elective H/O abdominoplasty Family History Mother Hypertension Diabetes Maternal Grandmother No problems noted. Social History Alcohol intake: current Alcohol intake frequency: a few times a week Alcohol type: beer Patient Tobacco Use Status: Never used Tobacco Female Reproductive History Menstrual Age of Menarche: 10 Physical Exam Vital Signs: BMI result Body Mass Index 39.9 Assessment & Plan Assessment & Plan (1) Pituitary adenoma: Code(s): D35.2 - Benign neoplasm of pituitary gland Category: Medical Plan: 39-year-old female coming in today for complaints of galactorrhea and pituitary microadenoma. She has had complains of intermittent nipple discharge on her breast that is serous, for the past 4 years. No recent history of , last was 4 years ago. She has had normal prolactin level in February 2024, suggesting that this is not endocrine related. However brain MRI did show a 4 mm pituitary microadenoma. We will check a pituitary panel as well as 24 hour urine cortisol levels given she does have history of obesity and says she used to have purple abdominal striae in the past even though not present on exam today. She has not lost a lot of weight on GLP 1 medications either. She does also complain of change in shoe size recently. We will check IGF-1 and growth hormone levels. Given she does not have milky discharge, and a prolactin levels are normal, she would need breast imaging to workup this serous discharge. I will defer this to her PCP, likely will benefit from a mammogram or even an ultrasound given dense breast tissue. Plan: -ordered pituitary panel -ordered 24 hour urine cortisol and creatinine levels -follow up in 4 weeks to discuss results -PCP to consider mammogram/ultrasound of the breast Plan I spent 45 minutes in reviewing the record, seeing the patient and documenting in the medical record. Orders: Orders Follicle Stimulating Hormone Today D35.2 - Benign neoplasm of pituitary gland Lutenizing Hormone Today D35.2 - Benign neoplasm of pituitary gland IGF-1 (Somatomedin C) Today D35.2 - Benign neoplasm of pituitary gland Human Growth Hormone Today D35.2 - Benign neoplasm of pituitary gland Cortisol Random Today D35.2 - Benign neoplasm of pituitary gland Thyroid Stimulating Hormone Today D35.2 - Benign neoplasm of pituitary gland Creatinine, 24 Hr Group Today D35.2 - Benign neoplasm of pituitary gland Estradiol Ultra Sensitive Today D35.2 - Benign neoplasm of pituitary gland Adrenocorticotropic Hormone Today D35.2 - Benign neoplasm of pituitary gland Free T4 (Free Thyroxine) Today D35.2 - Benign neoplasm of pituitary gland Basic Metabolic Panel Today D35.2 - Benign neoplasm of pituitary gland Prolactin Today D35.2 - Benign neoplasm of pituitary gland Cortisol, Free 24Hr Urine Today D35.2 - Benign neoplasm of pituitary gland Patient Instructions: Do insurance case manager 08:00 blood work Follow up in 4 weeks to discuss results Do 24 hour urine collection 24 hr urine collection instructions You have been asked to collect your urine for 24 hours to assess for cortisol excretion. You must choose a 24 hour period of time when you will be home. The morning of the first day, DISCARD the FIRST morning void and then note the time. You will collect every single void from then on for 24 hours. For example, if you wake up at 6am and urinate, flush down that void. You will then collect every drop of urine all day and all night through 6am the following day. You will urinate one last time at 6am for the collection. The jug of urine must be kept in the refrigerator until you bring it to the lab. Coding Level of Care Code New Pt Level 4 (92253) Diagnoses Pituitary adenoma D35.2 Time Spent (min) 45
[2024-10-11 15:02] VITALS: BP 116/72; PULSE 84; O2SAT 98; BMI 39.9
--- OUTSIDE RECORDS SUMMARY | 2024-10-11 17:04 | XMS_ITS | Encounter Summary ---
Author Organization [employer] Address [address] 7[address] [place] [address] Care Team Providers Care Edi Analyst Name Role Phone Lily Chauhan MD Primary Care Provide r Encounter Details Date Type Department Care Team ([facility] st Contact Info) Description 10/06/2024 Population Health Risk Score [facility] (C3) Department [address] [facility] [address] [place] [id number] Provider, Population Health Generic Social History Tobacco Use Types Packs/Day Years [...] Description 10/12/2024 3:30 PM EDT Office Visit [facility] OPTOMETRY [address] [place] [address] David, Swati, OD [address] [place] [address] 12/11/2024 10:15 AM EDT Office Visit [facility] MEDICINE [address] [place] [address] Lily Chauhan MD [address] [place] [address] documented as of this encounter Visit Diagnoses Not on filedocumented in this encounter Additional Health Concerns Assessment Noted Time PHQ-9 Depression Total Score: 3 05/22/20 24 1:05 PM EDT documented as of this encounter Care Teams Edi Analyst Relationship Specialty Start Date End Date Lily Chauhan MD [address] [place] [address] PCP - General Family Medicine 04/06/18 Neida Riojas Skylights AssemblerCro 12/21/23 documented as of this encounter
--- OUTSIDE RECORDS SUMMARY | 2024-10-11 17:04 | XMS_ITS | Encounter Summary ---
Demographics Address [address] [place] [address] Work Phone Home Phone Mobile Phone Email Address Preferred Language en Marital Status Single Samaritan Affiliation Unknown Race Other Race Ethnic Group or Author Organization [employer] Address [address] [place] [address] Care Team Providers Care Epic Application Coordinator Name Role Phone Lily Chauhan MD Primary Care Provide r Encounter Details Date Type Department Care Team (Late st Contact Info) Description 09/10/2024 Orders Only [facility] External Provider, [facility] Social History Tobacco Use Types Packs/Day [...] t he electric, gas, oil or water [employer] threatened to shut off services in your [...] Description 10/12/2024 3:30 PM EDT Office Visit [facility] OPTOMETRY [address] [place] [address] DavidSwati pereyra, OD [address] [place] [address] 12/11/2024 10:15 AM EDT Office Visit [facility] MEDICINE [address] [place] [address] Lily Chauhan MD [address] [place] [address] documented as of this encounter Procedures Procedure Name Priority Date/Time Associated Diagnosis Comments MR BRAIN W AND WO CONTRAST Routine 09/10/2024 7:40 PM EST documented in this encounter Results * Mr Brain w/ and w/o Contrast (09/10/2024 7:40 PM EST) Anatomical Region Laterality Modality Brain Magnetic Resonan ce 09/10/2024 7:40 PM EST Narrative 09/10/2024 7:42 PM EST ? [facility] ?[address] ?[place] [address] ? Magnetic Resonance Report ? Signed ? Patient: Marsh,Rena ?MR#: [id number] ?? [id number] ? : 1985 ?Acct:[id number] ? Age/Sex: 38 / F ?ADM Date: 02/16/25 ? Loc: HO.MRI ? Attending Dr: Wes KITCHEN ? Ordering Physician: Wes Olivera ?? Date of Service: 09/10/24 ?? Procedure(s): MR head/brain wo/w con ?? Accession Number(s): [id number] ? cc: Lily Chauhan MD; Wes Olivera [...] DD/ 1939 ? TD/TT: 09/10/24 194 ? Log Buyer: ? Procedure Note Dustin, Image - 09/10/[address] [id number] Magnetic Resonance Report Signed Patient: Carola Marsh#: [id number] : 1985Acct:[id number] Age/Sex: 38 / FADM Date: 09/10/24 Loc: HO.MRI Attending Dr: Wes KITCHEN Ordering Physician: Wes Olivera Date of Service: 09/10/24 Procedure(s): MR head/brain wo/w con Accession Number(s): [id number] cc: Lily Chauhan MD; Wes Olivera CLINICAL [...] in OV> 09/10/241940 DD/ 39 TD/TT: 09/10/241939 Log Buyer: [facility] External Provider IMG MRI PROCEDURES Edited Result - Final documented in this encounter Visit Diagnoses Not on filedocumented in this encounter Additional Health Concerns Assessment Noted Time PHQ-9 Depression Total Score: 3 05/22/20 24 1:05 PM EDT documented as of this encounter Care Teams Epic Application Coordinator Relationship Specialty Start Date End Date Lily Chauhan MD [address] [place] [id number] PCP - General Family Medicine 04/06/18 Neida Riojas Booth ManagerDirect Casting Operator 12/21/23 documented as of this encounter
--- OUTSIDE RECORDS SUMMARY | 2024-10-11 17:04 | XMS_ITS | Encounter Summary ---
Author Organization [employer] Address [address] [place] [address] [address] [place] [address] Care Team Providers Care Hot Saw Helper Name Role Phone Lily Chauhan MD Primary Care Provide r Reason for Visit * Reason Onset Date Comments (May Recall 09/12/2024 Encounter Details Date Type Department Care Team ([facility] Contact Info) Description 09/12/2024 Telephone [facility] MEDICINE [address] [place] [address] Lily Chauhan MD [address] [place] [address] (May Recall Social History Tobacco Use Types [...] an appt (November Recall) with DR.Barciona [facility] to call back to sche appt.Mailed recall letter. documented in this encounter Plan of Treatment Upcoming Encounters Date Type Department Care Team (Late st Contact Info) Description 10/12/2024 3:30 PM EDT Office Visit [facility] OPTOMETRY [address] [place] [address] David, Swati, OD [address] [place] [address] 12/11/2024 10:15 AM EDT Office Visit [facility] MEDICINE [address] [place] [address] Lily Chauhan MD [address] [place] [address] documented as of this encounter Visit Diagnoses Not on filedocumented in this encounter Additional Health Concerns Assessment Noted Time PHQ-9 Depression Total Score: 3 05/22/20 24 1:05 PM EDT documented as of this encounter Care Teams Hot Saw Helper Relationship Specialty Start Date End Date Lily hCauhan MD [address] [place] [address] PCP - General Family Medicine 04/06/18 Neida Riojas Well Treatment OffsiderPaperback Machine Operator 12/21/23 documented as of this encounter
--- OUTSIDE RECORDS SUMMARY | 2024-10-11 17:04 | XMS_ITS | Encounter Summary ---
Author Organization [employer] Address [address] [facility] [address] [place] [address] Care Team Providers Care Plant Care Worker Name Role Phone Lily Chauhan MD Primary Care Provide r Encounter Details Date Type Department Care Team ([facility] st Contact Info) Description 09/26/2024 11:30 AM EST Telemedicine [facility] MEDICINE [address] [place] [address] Lily Chauhan MD [address] [place], [place] [phone] Neck pain (Primary Dx) Social History Tobacco [...] Visit [facility] OPTOMETRY [address] [place] [address] David, Swati, OD [address] [place] [address] 12/11/2024 10:15 AM EDT Office Visit [facility] MEDICINE [address] [place] [address] Lily Chauhan MD [address] [place], [place] [phone] documented as of this encounter Visit Diagnoses Diagnosis Neck pain- Primary Cervicalgia documented in this encounter Additional Health Concerns Assessment Noted Time PHQ-9 Depression Total Score: 3 05/22/20 1:05 PM EDT documented as of this encounter Care Teams Plant Care Worker Relationship Specialty Start Date End Date Lily Chauhan MD [address] [place], [place] [phone] PCP - General Family Medicine 04/06/18 Neida Riojas Pecan PickerChinese Herbalist 12/21/23 documented as of this encounter
--- OUTSIDE RECORDS SUMMARY | 2024-10-11 17:04 | XMS_ITS | Encounter Summary ---
Author Organization [employer] Address [address] [place] [address] Care Team Providers Care Metalworking Specialist Name Role Phone Lily Chauhan MD Primary Care Provide r Encounter Details Date Type Department Care Team ([facility] st Contact Info) Description 05/11/2024 Orders Only [facility] MEDICINE [address] [place], [place] [phone] Provider, MD Gloria Social History Tobacco Use [...] Description 10/12/2024 3:30 PM EDT Office Visit [facility] OPTOMETRY [address] [place] [address] DavidSwati pereyra, OD [address] [place] [address] 12/11/2024 10:15 AM EDT Office Visit [facility] MEDICINE [address] [place] [address] Lily Chauhan MD [address] [place] [address] documented as of this encounter Procedures Procedure [...] documented as of this encounter Care Teams Metalworking Specialist Relationship Specialty Start Date End Date Lily Chauhan MD [address] [place] [address] PCP - General Family Medicine 04/06/18 Neida Riojas Lead Material HandlerGetter Operator 12/21/23 documented as of this encounter
--- OUTSIDE RECORDS SUMMARY | 2024-10-11 17:04 | XMS_ITS | Clinical Summary ---
Author Organization [employer] Address [address] [facility] [address] [place] [address] Care Team Providers Care Peoplesoft Administrator Name Role Phone Lily Chauhan MD Primary [...] 24 2024 Active methocarbamol (Robaxin) 500 MG tabletIndicat ions:Neck pain Take 1.5 tablets (750 mg) by mouth 3 times daily for 14 days. 63 tablet 07/21/20 24 Active Acetaminophen Extra Strength 500 MG tabletIndicat ions:Neck pain Take 2 tablets (1,000 mg) by mouth every 8 (eight) hours if needed (for severe pain). TAKE 1 TABLET BY MOUTH EVERY 4 TO 6 HOURS NEEDED. DO NOT EXCEED 8 TABLETS / 24 HOURS 40 tablet 1 08/07/19 25 Active gabapentin (Neurontin) 300 MG capsuleIndica tions:Neck pain Take 1 capsule (300 mg) by mouth 3 times daily. 90 capsule 2 09/27/19 25 2025 Active Tirzepatide-W eight Management (Zepbound) 5 MG/0.5ML solution auto-injector Indications:B IA 38.0-38.9,danilo lt Inject 0.5 mL (5 mg) under the skin 1 (one) time per week. INJECT ONE PEN (= 5 MG) SUBCUTANEOUSLY ONCE A WEEK 2 mL 10/07/19 Active Tirzepatide-W eight Management (Zepbound) 2.5 MG/0.5ML solution auto-injector Indications:B IA 38.0-38.9,danilo lt Inject 0.5 mL (2.5 mg) under the skin 1 (one) time per week. 2 mL 08/11/19 25 2024 Discontinued gabapentin (Neurontin) 100 MG capsuleIndica tions:Neck pain TAKE 3 CAPSULES BY MOUTH EVERY 8 HOURS 270 capsule 08/25/192024 Discontinued Active Problems Problem Noted Date Diagnosed [...] her information for weight reduction program at [facility] [place]. Discussed re weight reduction options including exercise, life style modifications, diet, referral to lan specialist. Discussed re lower calorie intake, increase [...] Encounters Date Type Department Care Team Description 10/06/2024 Population Health Risk Score Community Care [facility] (C3) Department [address] [phone] Provider, Population Health Generic 10/05/2024 Refill [facility] [address] [place] [address] Lily Chauhan MD BMI 38.0-38.9,adult 10/04/2024 Orders Only GENERIC EXTERNAL DATA DEPARTMENT Provider, Generic External Data 09/26/2024 11:30 AM EST Telemedicine [facility] [address] [place] [address] Lily Chauhan MD Neck pain (Primary Dx) 09/26/2024 Travel 09/25/2024 Travel 09/12/2024 Telephone [facility] [address] [place] [address] Lily Chauhan MD (November Recall 09/10/2024 Orders Only [facility] External Provider, [facility] 09/09/2024 Orders Only GENERIC EXTERNAL DATA DEPARTMENT Provider, Generic External Data 09/08/2024 Travel 08/25/2024 Refill [facility] [address] [place] [address] Lily Chauhan MD Neck pain 08/22/2024 Telephone [facility] [address] [place] [address] Lily Chauhan MD Prior Authorization 08/18/2024 Telephone [facility] [address] [place] [phone] Cee Oakes, RN Results 08/18/2024 Orders Only [facility] [address] [place] [address] Lily Chauhan MD Pituitary abnormality (CMS/HCC) (Primary Dx); Cyst of cervical facet joint 08/11/2024 Orders Only [facility] [address] [place] [address] Lily Chauhan MD BMI 38.0-38.9,adult (Primary Dx) 08/11/2024 Refill [facility] [address] [place] [address] Samantha Mason DO 08/07/2024 11:00 AM EST Office Visit [facility] [address] [place] [address] Lily Chauhan MD Essential hypertension (Primary Dx); Neck pain; Bilateral arm pain; Chronic midline low back pain without sciatica; Neck pain 08/07/2024 Travel 07/23/2024 Refill [facility] [address] [place] [address] Lily Chauhan MD Migraine with aura and without status migrainosus, not intractable 07/21/2024 9:00 AM EST Office Visit [facility] [address] [place] [address] Maryellen Chin NP Neck pain (Primary Dx); Elevated blood pressure reading in office with diagnosis of hypertension; Mass of occipital region 07/21/2024 Travel 07/20/[address] [address] Lily Chauhan MD Appointment Request 07/18/[address] [address] Diamond Mustafa ANP No Show 07/18/[address] [address] Lily Chauhan MD Nurse Triage 07/17/[address] [address] Verito Carlson [place] Provider Out from Last 3 Months Immunizations Name Administration [...] Description 10/12/2024 3:30 PM EDT Office Visit [facility] [address] [place] [address] [phone] Swati Hernandez, OD [address] [place], [place] [phone] 12/11/2024 10:15 AM EDT Office Visit [facility] [address] [place], [place] [phone] Lily Chauhan MD [address] [place], [place] [phone] Health Maintenance Due Date Last Done Comments Family Planning (PISQ) 2001 HPV Vaccines (2 - 3-dose series) 08/04/2007 07/07/2007 HPV/Cotest 2016 Hepatitis B Vaccines (3 of 3 - 19+ 3-dose series) 01/11/2018 11/16/2017, 07/07/2007 Cervical Cancer Screening 06/02/2022 Pap Smear 06/02/2022 06/02/2019 COVID-19 Vaccine ( - season) 2024 10/21/2021, 10/04/2020, 09/04/2020 Influenza [...] 2:16 PM EST Mass of occipital region HEPATITIS C AB W/REFL TO HCV RNA, [...] (10/04/2024 10:45 AM EDT) Urine NEGATIVE NEGATIVE [facility] Comment:This test was develo ped to detect early . Falsenegative results may occur after the 5th - 7th week ofpregnancy when using this test method. If clinicallyindicated, consider a serum hCG. 10/04/2024 10:4 5 AM EDT 10/04/2024 10:51 AM EDT us Generic External Data Provider LAB URINE ORDERAB LES Final Result [facility] [address] [place] [phone] * Mr Brain w/ and w/o Contrast (09/10/2024 7:40 PM EST) Anatomical Region Laterality Modality Brain Magnetic Resonan ce 09/10/2024 7:40 PM EST Narrative 09/10/2024 7:42 PM EST ? [facility] ?[address] ?[place] [address] ? Magnetic Resonance Report ? Signed ? Patient: Marsh,Rena ?MR#: [id number] ?? 7527 ? : 1985 ?Acct:[id number] ? Age/Sex: 38 / F ?ADM Date: 02/16/25 ? Loc: HO.MRI ? Attending Dr: Wes KITCHEN ? Ordering Physician: Wes Olivera ?? Date of Service: 09/10/24 ?? Procedure(s): MR head/brain wo/w con ?? Accession Number(s): [id number] ? cc: Lily Chauhan MD; Wes Olivera [...] signed by Dulce Naylor MD in OV> ?09/10/241940 ? DD/ 39 ? TD/TT: 09/10/241939 ? Cinnamon Grinder: ? Procedure Note Ni Chan - 09/10/[address] [address] Magnetic Resonance Report Signed Patient: Carola Marsh#: [id number] : 1985Acct:[id number] Age/Sex: 38 / FADM Date: 09/10/24 Loc: HO.MRI Attending Dr: Wes KITCHEN Ordering Physician: Wes Olivera Date of Service: 09/10/24 Procedure(s): MR head/brain wo/w con Accession Number(s): [id number] cc: Lily Chauhan MD; Wes Olivera CLINICAL [...] in OV> 09/10/241940 DD/ 39 TD/TT: 09/10/241939 Cinnamon Grinder: [facility] External Provider IMG MRI PROCEDURES Edited Result - Final * US Abdomen Limited (09/09/2024 4:46 AM EST) Anatomical Region Laterality Modality Abdomen Ultrasound 09/09/2024 4:46 AM EST Narrative 09/09/2024 4:47 AM EST ? [facility] ?[address] ?[place] [address] ? Ultrasound Report ? Signed ? Patient: Marsh,Rena ?MR#: [id number] ?? 7527 ? : 1985 ?Acct:[id number] ? Age/Sex: 38 / F ?ADM Date: 02/15/25 ? Loc: HO.ED ? Attending Dr: ? Ordering Physician: Carroll Cherry MD ?? Date of Service: 09/09/24 ?? Procedure(s): US abdomen limited ?? Accession Number(s): [id number] ? cc: Lily Chauhan MD; Carroll Cherry [...] ?? 09/09/2024 04:46:17 ? Dictated By: ?Juan iDego Hughes MD ? Signed By: ?<Electronically signed by Juan Diego Hughes MD in OV> ?09/09/24 0447 ? DD/ ? TD/TT: 09/09/24445 ? Cinnamon Grinder: ? Procedure Note Ni Chan - 09/09/2024 [place] [address] Ultrasound Report Signed Patient: Carola Marsh#: [id number] : 1985Acct:[id number] Age/Sex: 38 / FADM Date: 09/09/24 Loc: HO.ED Attending Dr: Ordering Physician: Carroll Cherry MD Date of Service: 09/09/24 Procedure(s): US abdomen limited Accession Number(s): [id number] cc: Lily Chauhan MD; Carroll Cherry MD [...] in OV> 09/09/24446 DD/ 5 TD/TT: 09/09/24445 Cinnamon Grinder: us [facility] External Provider IMG US PROCEDURES Edited Result - Final * (ABNORMAL) CBC auto differential (09/09/2024 1:49 AM EST) White Blood Count 5.6 4.8 - 10.8 X10*3/uL [facility] Red Blood Count 3.80(L) 4.20 - 5.50 X10*6/uL [facility] Hemoglobin 11.0(L) 12.0 - 16.0 g/dl [facility] Hematocrit 33.0(L) 37.0 - 47.0 % [facility] Mean Corpuscular Volume 86.8 80.0 - 98.0 fL [facility] Mean Corpuscular Hemoglobin 28.9 27.0 - 33.0 pg [facility] Mean Corpuscular HGB Conc 33.3 31.0 - 35.0 g/dl [facility] Red Cell Distribution Width 14.6 11.0 - 16.0 % [facility] Platelet Count 268 160 - 400 X10*3/uL [facility] Mean Platelet Volume 9.6 9.4 - 12.3 fL [facility] Neutrophils Percent Auto 41.5(L) 45 - 73 % [facility] Imm Gran Pct Auto 0.2 0.0 - 0.4 % [facility] Lymphocytes Percent Auto 46.1(H) 20 - 40 % [facility] Monocytes Percent Auto 10.6 2 - 11 % [facility] Eosinophils Percent Auto 1.1 0 - 4 % [facility] Basophils Percent Auto 0.5 0 - 2 % [facility] NRBC Pct Auto 0.0 0.0 - 0.2 /100WBC [facility] Neutrophils Absolute Auto 2.3 2.0 - 8.3 x10*3/uL [facility] Imm Gran Abs Auto 0.01 0.00 - 0.03 X10*3/uL [facility] Lymphocytes Absolute Auto 2.6 1.2 - 4.9 X10*3/uL [facility] Monocytes Absolute Auto 0.6 0.1 - 1.2 X10*3/uL [facility] Eosinophils Absolute Auto 0.1 0.0 - 0.4 X10*3/uL [facility] Basophils Absolute Auto 0.0 0.0 - 0.2 X10*3/uL [facility] NRBC Abs Auto 0.000 0.0 - 0.012 X10*3/uL [facility] 09/09/2024 1:49 AM EST 09/09/2024 1:52 AM EST us Generic External Data Provider LAB BLOOD ORDERAB LES Final Result [facility] [address] [place] [phone] * Lipase (09/09/2024 1:49 AM EST) Lipase 26 8 - 78 U/L [facility] 09/09/2024 1:49 AM EST 09/09/2024 1:52 AM EST us Generic External Data Provider LAB BLOOD ORDERAB LES Final Result [facility] [address] [place] [address] [phone] * (ABNORMAL) Comprehensive Metabolic Panel (09/09/2024 1:49 AM EST) Sodium 141 135 - 145 mmol/L [facility] Potassium 4.0 3.3 - 5.1 mmol/L [facility] Chloride 109(H) 96 - 108 mmol/L [facility] Carbon Dioxide 24 22 - 29 mmol/L [facility] Anion Gap 12 12 - 20 [facility] Urea Nitrogen (BUN) 11 9 - 16 mg/dL [facility] Creatinine, Serum 0.79 0.5 - 1.4 mg/dL [facility] Creatinine Clr Calc Pharmacy 95.4 [facility] Comment:Provided height and weight: 149.86 cm,90.2 kg.eGFR (calculated from the MDRD study equation) and eCrCl(calculated from the Cockcroft-Gault equation) are based ondifferent parameters and may not yield comparable results.If eCrCl result is absurd, please check patient'sheight/weight. Estimated Glomerular Filt Rate >60 [facility] Comment:Chronic Kidney Disea se: Estimated GFR < 60 mL/min/1.18k5Whlhpp Kidney Disease: Estimated GFR < 15 mL/min/1.73m2 Glucose 102 60 - 115 mg/dL [facility] Calcium 9.2 8.4 - 10.2 mg/dL [facility] Bilirubin, Total 0.2 0.0 - 1.0 mg/dL [facility] Aspartate Amino Transferase 22 5 - 31 U/L [facility] Alanine Aminotransferase 17 0 - 31 U/L [facility] Total Protein 8.3(H) 6.5 - 8.0 g/dL [facility] Albumin Level 4.1 3.5 - 5.0 g/dL [facility] Alkaline Phosphatase 79 39 - 117 U/L [facility] 09/09/2024 1:49 AM EST 09/09/2024 1:52 AM EST us Generic External Data Provider LAB BLOOD ORDERAB LES Final Result Performing Organization Address [facility]/State/ZIP Co de Phone Number [facility] [address] [facility] [place] [address] [phone] * Referral to Pain Medicine (08/28/2024) us Lily Burnette MD OUTPATIENT REFERRAL O RDERABLES Final Result * XR Spine Cervical w/ Flext and/ Or Ext (08/16/2024 9:50 AM EST) Anatomical Region Laterality Modality Radiographic Amee ging 08/16/2024 9:50 AM EST Narrative 08/16/2024 9:51 AM EST ? [facility] ?[address] ?[place] [address] ?XRay Report ? Signed ? Patient: Marsh,Rena ?MR#: [id number] ?? 7527 ? : 1985 ?Acct:[id number] ? Age/Sex: 38 / F ?ADM Date: 08/15/24 ? Loc: HO.XRAY ? Attending Dr: Eden Andrade APRN, IN STORE BANKER ? Ordering Physician: Eden Andrade APRN, IN STORE BANKER ?? Date of Service: 08/15/24 ?? Procedure(s): XR cervical spine w flex/ext ?? Accession Number(s): [id number] ? cc: Lily Chauhan MD; Eden Andrade APRN, IN STORE BANKER ? CLINICAL HISTORY: M54.2 - Cervicalgia ? 7 views cervical spine ? Comparison: CR/SR - XR CERVICAL SPINE 3V - 11/ 09:39 EST ? Findings: ?? Mild marginal [...] ? DD/ 0950 ? TD/TT: 08/16/2450 ? Cinnamon Grinder: ? Procedure Note Donotmaoter, Image - 08/16/[address] [address] XRay Report Signed Patient: Carola Marsh#: [id number] : 1985Acct:[id number] Age/Sex: 38 / FADM Date: 08/15/24 Loc: YEHUDA Attending Dr: Eden Andrade APRN, MARSHALL Ordering Physician: Eden Andrade APRN, CNP Date of Service: 08/15/24 Procedure(s): XR cervical spine w flex/ext Accession Number(s): [id number] cc: Lily Chauhan MD; Eden Andrade APRN, IN STORE BANKER CLINICAL HISTORY: M54.2 - Cervicalgia 7 views [...] Denise Esquivel MD in OV> 08/16/24950 DD/ 9 TD/TT: 08/16/24949 Cinnamon Grinder: us [facility] External Provider IMG XR PROCEDURES Final Result * XR Lumbar Spine Complete 4+ Views (08/16/2024 5:21 AM EST) Anatomical Region Laterality Modality Spine, L-spine Radiographic Amee ging 08/16/2024 5:21 AM EST Narrative 08/16/2024 5:23 AM EST ? [facility] ?[address] ?[place], [place] [address] ?XRay Report ? Signed ? Patient: Marsh,Rena ?MR#: [id number] ?? 7527 ? : 1985 ?Acct:[id number] ? Age/Sex: 38 / F ?ADM Date: 08/15/24 ? Loc: HO.XRAY ? Attending Dr: Eden Andrade APRN, CNP ? Ordering Physician: Eden Andrade APRN, CNP ?? Date of Service: 08/15/24 ?? Procedure(s): XR lumbar spine 4V min ?? Accession Number(s): [id number] ? cc: Lily Chauhan MD; Eden Andrade [...] ?? 08/16/2024 05:21:34 ? Dictated By: ?Davon Famrer MD ? Signed By: ?<Electronically signed by Davon Farmer MD in OV> ? 08/16/24 05 ? DD/ 05 ? TD/TT: 08/16/24 0521 ? Cinnamon Grinder: ? Procedure Note Ni Chan - 08/16/[address] [address] XRay Report Signed Patient: Cristina MarshBetty#: [id number] : 1985Acct:[id number] Age/Sex: 38 / FADM Date: 08/15/24 Loc: HO.JYOTIAY Attending Dr: Eden Andrade APRN, CNP Ordering Physician: Eden Andrade APRN, CNP Date of Service: 08/15/24 Procedure(s): XR lumbar spine 4V min Accession Number(s): [id number] cc: Lily Chauhan MD; Eden Andrade APRN, [...] signed by Davon Farmer MD in OV> 08/16/24 0522 DD/ TD/TT: 08/16/2421 Cinnamon Grinder: [facility] External Provider IMG XR PROCEDURES Final Result * MR Cervical Spine w/o Contrast (08/09/2024 8:16 PM EST) Anatomical Region Laterality Modality Spine, C-spine Magnetic Resonan ce 08/09/2024 8:16 PM EST Narrative 08/09/2024 8:18 PM EST ? [facility] ?[address] ?[place] [address] ? Magnetic Resonance Report ? Signed with Addenda ? Patient: Marsh,Rena ?MR#: [id number] ?? 7527 ? : 1985 ?Acct:[id number] ? Age/Sex: 38 / F ?ADM Date: 01/14/25 ? Loc: HO.MRI ? Attending Dr: Lily Burnette MD ? Ordering Physician: Lily Chauhan MD ?? Date of Service: 08/08/24 ?? Procedure(s): MR cervical spine wo con ?? Accession Number(s): [id number] ? cc: Lily Chauhan MD ?ADDENDUM ?? [...] 08/09/24 2017 ? DD/ 2016 ? TD/TT: 08/09/24 2016 ? Cinnamon Grinder: ? Procedure Note Dustin, Image - 08/09/2024 [facility] [address] [facility] [address] Magnetic Resonance Report Signed with Addenda Patient: Leonor MarshrukhsanaMR#: [id number] : 1985Acct:[id number] Age/Sex: 38 / FADM Date: 08/08/24 Loc: HO.MRI Attending Dr: Lily Burnette MD Ordering Physician: Lily Chauhan MD Date of Service: 08/08/24 Procedure(s): MR cervical spine wo con Accession Number(s): [id number] cc: Lily Chauhan MD ADDENDUM This document [...] in OV> 08/09/242016 DD/ 15 TD/TT: 08/09/242015 Cinnamon Grinder: us Lily Zapien Calvin Burnette MD IMG MRI PROCEDURES Ed ited Result - Final * US Head Neck Soft Tissue (08/02/2024 2:16 PM EST) Anatomical Region Laterality Modality Head, Neck Ultrasound 08/02/2024 2:16 PM EST Narrative 08/07/2024 10:07 AM EST ? [facility] ?[address] ?[place] [address] ? Ultrasound Report ? Signed ? Patient: Marsh,Rena ?MR#: [id number] ?? 7527 ? : 1985 ?Acct:[id number] ? Age/Sex: 38 / F ?ADM Date: 08/02/24 ? Loc: HO.US ? Attending Dr: Maryellen Chin ? Ordering Physician: Maryellen Chin ?? Date of Service: 08/02/24 ?? Procedure(s): US soft tiss head and/or neck ?? Accession Number(s): [id number] ? cc: Maryellen Chin; Lily Chauhan MD [...] in OV> ? 08/07/24 1004 ? DD/ 15 ? TD/TT: 01/08/25 1418 ? Cinnamon Grinder: ? Procedure Note Donfreddieter, Image - 08/07/[address] [address] Ultrasound Report Signed Patient: Rena MarshMR#: [id number] : 1985Acct:[id number] Age/Sex: 38 / FADM Date: 08/02/24 Loc: HO.US Attending Dr: Maryellen Chin Ordering Physician: Maryellen Chin Date of Service: 08/02/24 Procedure(s): US soft tiss head and/or neck Accession Number(s): [id number] cc: Maryellen Chin; Lily Chauhan MD EXAMINATION: [...] 08/07/24 1004 DD/ 1416 TD/TT: 08/02/24 1418 Cinnamon Grinder: us Maryellen Chin RACK WASHER IMG US PROCEDURES Edited Result - Final * Hepatitis C Antibody with Reflex to HCV, RNA, Quantitative, Real-Time PCR (06/20/2024 9:49 AM EST) Hepatitis C Antibody Nonreactive Nonreactive [facility] Comment:Antibodies to HCV no t detected; does not exclude early acuteHCV infection. Blood Venous blood specimen / Unknown 06/20/2024 9:49 AM EST 06/20/2024 11:47 AM EST Lily Burnette MD LAB BLOOD ORDERABLES Final Result Performing Organization Address [facility]/ZIP Co de Phone Number [facility] [address] [place] [address] [phone] * HIV-1/2 Antigen and Antibodies, Fourth Generation, with Reflexes (06/20/2024 9:49 AM EST) HIV AB/AG Nonreactive Nonreactive [facility] Comment:HIV-1 p24 Ag and/or HIV-1/HIV-2 Ab not detected.A test result that is nonreactive does not exclude thepossibility of exposure to or infection with HIV-1 and/orHIV-2. Nonreactive results in this assay for individualswith prior exposure to HIV-1 and/or HIV-2 may be due toantigen and antibody levels that are below the limit ofdetection of this assay.The [employer] HIV Ag/Ab Combo assay result andsupplemental assay results should be interpreted inconjunction with the patient's clinical presentation,history and other laboratory results. If the results areinconsistent with clinical evidence, additional testing issuggested to confirm the result. Blood Venous blood specimen / Unknown 06/20/2024 9:49 AM EST 06/20/2024 11:47 AM EST us Lily Burnette MD LAB BLOOD ORDERABLES Final Result Performing Organization Address [facility]/ZIP Co de Phone Number [facility] [address] [place] [address] [phone] * Lipid Panel, Standard (06/20/2024 9:49 AM EST) Triglycerides 133 <150 mg/dL [facility] Comment:Desirable Triglyceri de: less than 150 mg/dLBorderline High Triglyceride 150-199 mg/dLHigh Triglyceride: 200-499 mg/dLVery High Triglyceride: greater than or equal to 5OO mg/dL Cholesterol 175 <200 mg/dL [facility] Comment:Desirable Cholestero l: less than 200 mg/dLBorderline High Cholesterol: 200-239 mg/dLHigh Cholesterol: greater than 239 mg/dL LDL Cholesterol Calculated 94 <100 mg/dL [facility] Comment:Desirable LDL: less than 100 mg/dLNear Optimal/Above Optimal LDL: 110- 129 mg/dLBorderline High LDL: 130-159 mg/dLHigh LDL: 160-189 mg/dLVery High LDL: greater than or equal to 190 mg/dL HDL Cholesterol 55 >40 mg/dL [facility] Comment:Desirable HDL: great er than 40 mg/dL Note: This HDL assay may give artificially low results in patients with liver disease. Blood Venous blood specimen / Unknown 06/20/2024 9:49 AM EST 06/20/2024 11:47 AM EST Liyl Burnette MD LAB BLOOD ORDERABLES Final Result [facility] [address] [place], [place] [phone] * HM PAP/HPV (06/02/2019 2:16 PM EST) Historical Provider HEALTH MAINTENANCE Final Result from Last 3 Months or Most Recently Relevant to Health Maintenance Insurance [facility] C3 Care Teams Peoplesoft Administrator Relationship Specialty Start Date End Date Lily Chauhan MD [address] [place] [phone] PCP - General Family Medicine 04/06/18 Neida Riojas Knuckle Strap SewerRailways Assistant 12/21/23
--- OUTSIDE RECORDS SUMMARY | 2024-10-11 17:04 | XMS_ITS | Encounter Summary ---
Author Organization [employer] Address [address] [place] [address] Care Team Providers Care Drywall Finisher Name Role Phone Lily Chauhan MD [...] [facility]OMET[facility] [address] [place] [address] DavidSwati pereyra, OD [address] [place] [address] 12/11/2024 10:15 AM EDT Office Visit [facility] [address] [place] [address] Lily Chauhan MD [address] [place] [address] documented as of this encounter Visit Diagnoses Not on filedocumented in this encounter Additional Health Concerns Assessment Noted Time PHQ-9 Depression Total Score: 3 05/22/20 24 1:05 PM EDT documented as of this encounter Care Teams Drywall Finisher Relationship Specialty Start Date End Date Lily Chauhan MD [address] [place] [address] PCP - General Family Medicine 04/06/18 Neida Riojas Medicine AideBale Sewer 12/21/23 documented as of this encounter
--- OUTSIDE RECORDS SUMMARY | 2024-10-11 17:04 | XMS_ITS | Encounter Summary ---
Author Organization [employer] Address [address] [place] [address] [address] [place] [address] Care Team Providers Care Corner Cutter Machine Operator Name Role Phone Lily Chauhan MD Primary Care Provide r Reason for Visit * Reason Onset Date Comments Nurse Triage 06/26/2024 Encounter Details Date Type Department Care Team ([facility] st Contact Info) Description 06/26/2024 Telephone [facility] MED[facility] [address] [place] [address] Lily Chauhan MD [address] [place] [address] Nurse Triage Social History Tobacco Use Types [...] Description 10/12/2024 3:30 PM EDT Office Visit [facility] OPTOMETRY [address] [place] [address] Swati Hernandez, OD [address] [place] [address] 12/11/2024 10:15 AM EDT Office Visit [facility] MED[facility] [address] [place] [address] Lily Chauhan MD [address] [place] [address] documented as of this encounter Visit Diagnoses Not on filedocumented in this encounter Additional Health Concerns Assessment Noted Time PHQ-9 Depression Total Score: 3 05/22/20 24 1:05 PM EDT documented as of this encounter Care Teams Corner Cutter Machine Operator Relationship Specialty Start Date End Date Lily Chauhan MD [address] [place] [address] PCP - General Family Medicine 04/06/18 Neida Riojas Tire Service TechnicianArmoring Machine Operator 12/21/23 documented as of this encounter
--- OUTSIDE RECORDS SUMMARY | 2024-10-11 17:04 | XMS_ITS | Encounter Summary ---
Author Organization [employer] Address [address] [place] [address] 7t [place] [address] Care Team Providers Care Stock Roller Name Role Phone Lily Chauhan MD Primary Care Provide r Reason for Visit * Reason Comments Med Refill Encounter Details Date Type Department Care Team ([facility] st Contact Info) Description 10/05/2024 Refill [facility] [address] [place] [address] Lily Chauhan MD 230 [place] [address] BMI 38.0-38.9,adult Social History Tobacco Use Types [...] Description 10/12/2024 3:30 PM EDT Office Visit [facility] OPTOMETRY [address] [place] [address] Swati Hernandez, OD 230 [place] [address] 12/11/2024 10:15 AM EDT Office Visit [facility] MEDICINE [address] [place] [address] Lily Chauhan MD 230 [place] [address] documented as of this encounter Visit Diagnoses Diagnosis BMI 38.0-38.9,adult documented in this encounter Additional Health Concerns Assessment Noted Time PHQ-9 Depression Total Score: 3 05/22/20 24 1:05 PM EDT documented as of this encounter Care Teams Stock Roller Relationship Specialty Start Date End Date Lily Chauhan MD 230 [place] [address] PCP - General Family Medicine 04/06/18 Neida Riojas Clam DredgerGizzard Puller 12/21/23 documented as of this encounter
--- OUTSIDE RECORDS SUMMARY | 2024-10-11 17:04 | XMS_ITS | Encounter Summary ---
Author Organization [employer] Address [address] [place] [address] 7t [place] [address] Care Team Providers Care Senior Specialist Name Role Phone Lily Chauhan MD Primary Care Provide r Reason for Visit * Reason Comments Med Refill Encounter Details Date Type Department Care Team ([facility] st Contact Info) Description 05/15/2024 Refill [facility] MEDICINE [address] [place] [address] Lily Chauhan MD 230 [place] [address] Essential hypertension Social History Tobacco Use Types [...] Description 10/12/2024 3:30 PM EDT Office Visit [facility] OPTOMETRY [address] [place] [address] Swati Hernandez, OD [address] [place] [address] 12/11/2024 10:15 AM EDT Office Visit [facility] MEDICINE [address] [place] [address] Lily Chauhan MD 230 [place] [address] documented as of this encounter Visit Diagnoses Diagnosis Essential hypertension Unspecified essential hypertension documented in this encounter Additional Health Concerns Assessment Noted Time PHQ-9 Depression Total Score: 0 11/15/19 24 10:46 AM EDT documented as of this encounter Care Teams Senior Specialist Relationship Specialty Start Date End Date Lily Chauhan MD 230 [place] [address] PCP - General Family Medicine 04/06/18 Neida Riojas Stem Roller Or Crusher OperatorDinkey Operator 12/21/23 documented as of this encounter
--- OUTSIDE RECORDS SUMMARY | 2024-10-11 17:04 | XMS_ITS | Encounter Summary ---
Author Organization [employer] Address [address] [facility] 7t [place] [address] Care Team Providers Care Customer Orders Clerk Name Role Phone Lily Chauhan MD Primary Care Provide r Reason for Visit * Reason Comments Med Refill Encounter Details Date Type Department Care Team ([facility] st Contact Info) Description 02/25/2024 Refill [facility] [address] [place] [address] Dayday Pearce MD [address] [place] [address] Social History Tobacco Use Types Packs/Day Years [...] Description 10/12/2024 3:30 PM EDT Office Visit [facility] OPTOMETRY [address] [place] [address] David, Swati, OD 230 [place] [address] 12/11/2024 10:15 AM EDT Office Visit [facility] MEDICINE 230 [place] [address] Lily Chauhan MD 230 [place] [address] documented as of this encounter Visit Diagnoses Not on filedocumented in this encounter Additional Health Concerns Assessment Noted Time PHQ-9 Depression Total Score: 0 11/15/19 10:46 AM EDT documented as of this encounter Care Teams Customer Orders Clerk Relationship Specialty Start Date End Date Lily Chauhan MD [address] [place] [address] PCP - General Family Medicine 04/06/18 Neida Riojas Cast Shell GrinderAdministrative Fellow 12/21/23 documented as of this encounter
--- OUTSIDE RECORDS SUMMARY | 2024-10-11 17:04 | XMS_ITS | Encounter Summary ---
Author Organization [employer] Address [address] [facility] 7t [place] [address] Care Team Providers Care Ground Support Agent Name Role Phone Lily Chauhan MD Primary Care Provide r Encounter Details Date Type Department Care Team ([facility] st Contact Info) Description 04/28/[address] [facility] MED[facility]INE [address] [place], [place] [phone] Julianne Soto RN 230 [place] [address] Social History Tobacco Use Types Packs/Day Years [...] Description 10/12/2024 3:30 PM EDT Office Visit [facility] OPTOMETRY [address] [place] [address] David, Swati, OD 230 [place] [address] 12/11/2024 10:15 AM EDT Office Visit [facility] MEDICINE [address] [place] [address] Lily Chauhan MD [address] [place] [address] documented as of this encounter Visit Diagnoses Not on filedocumented in this encounter Additional Health Concerns Assessment Noted Time PHQ-9 Depression Total Score: 0 11/15/19 10:46 AM EDT documented as of this encounter Care Teams Ground Support Agent Relationship Specialty Start Date End Date Lily Chauhan MD [address] [place], [place] [phone] PCP - General Family Medicine 04/06/18 Neida Riojas Gate AgentControl Panel Builder 12/21/23 documented as of this encounter
--- OUTSIDE RECORDS SUMMARY | 2024-10-11 17:04 | XMS_ITS | Clinical Summary ---
Author Organization [address] [place] [address] Address [address] [place] [address] Phone Care Team Providers Care Media Analytics Manager Name Role Phone Maryan Abernathy MD Primary [...] Type Department Care Team ([facility] Contact Info) Description 05/22/2025 10:30 AM EDT Office Visit Bariatric Surgery [address] [phone] Glenda Marie MD [address] [place] [address] Health Maintenance Due Date Last Done [...] topic Insurance MEDICAID - [place] Care Teams Media Analytics Manager Relationship Specialty Start Date End Date Maryan Abernathy MD [address] [phone] PCP - General 08/25/07
--- OUTSIDE RECORDS SUMMARY | 2024-10-11 17:04 | XMS_ITS | Encounter Summary ---
Demographics Address [address] [facility] [address] [place] [address] Work Phone Home Phone Mobile Phone Email Address Preferred Language en Marital Status Single Nondenominational Affiliation Unknown Race Other Race Ethnic Group or Author Organization [employer] Address [address] [facility] 7t [place] [address] Care Team Providers Care Electrical Control Assembler Name Role Phone Lily Chauhan MD Primary Care Provide r Encounter Details Date Type Department Care Team ([facility] st Contact Info) Description 10/04/2024 Orders Only [...] 3:30 PM EDT Office Visit [facility] OPTOMETRY [address] [place] [address] David, Swati, OD 230 [place] [address] 12/11/2024 10:15 AM EDT Office Visit [facility] MEDICINE 230 [place] [address] Lily Chauhan MD [address] [place] [address] documented as of this encounter Procedures Procedure Name Priority Date/Time Associated Diagnosis Comments HCG, QL, URINE Routine 10/04/2024 10:45 AM EDT documented in this encounter Results * HCG, Qualitative, Urine (10/04/2024 10:45 AM EDT) Urine NEGATIVE NEGATIVE [facility] Comment:This test was develo ped to detect early . Falsenegative results may occur after the 5th - 7th week ofpregnancy when using this test method. If clinicallyindicated, consider a serum hCG. 10/04/2024 10:4 5 AM EDT 10/04/2024 10:51 AM EDT us Generic External Data Provider LAB URINE ORDERAB LES Final Result [facility] [address] [place] [phone] documented in this encounter Visit Diagnoses Not on filedocumented in this encounter Additional Health Concerns Assessment Noted Time PHQ-9 Depression Total Score: 3 05/22/20 24 1:05 PM EDT documented as of this encounter Care Teams Electrical Control Assembler Relationship Specialty Start Date End Date Lily hCauhan MD [address] [place] [address] PCP - General Family Medicine 04/06/18 Neida Riojas Career ProfessionalCar Audio Installer 12/21/23 documented as of this encounter
--- OUTSIDE RECORDS SUMMARY | 2024-10-11 17:04 | XMS_ITS | Encounter Summary ---
Author Organization [employer] Address [address] [place] [address] 7t [place] [address] Care Team Providers Care Winterizer Name Role Phone Lily Chauhan MD Primary Care Provide r Encounter Details Date Type Department Care Team ([facility] [place] [facility] Contact Info) Description 08/17/2022 Orders Only [facility] MEDICINE [address] [place] [address] Maryan Abernathy MD [address] [place] [address] Vitamin D deficiency (Primary Dx) Social History [...] Upcoming Encounters Date Type Department Care Team ([facility] [place] [facility] Contact Info) Description 10/12/2024 3:30 PM EDT Office Visit [facility] OPTOMETRY [address] [place] [address] Swati Hernandez JUAN LUIS 230 [place], [place] [phone] 12/11/2024 10:15 AM EDT Office Visit [facility] MEDICINE [address] [place], [place] [phone] Lily Chauhan MD [address] [place] [address] documented as of this encounter Visit Diagnoses Diagnosis Vitamin D deficiency- Primary documented in this encounter Care Teams Winterizer Relationship Specialty Start Date End Date Lily Chauhan MD [address] [place], [place] [phone] PCP - General Family Medicine 04/06/18 Neida Riojas Website AdminDeputy Clerk Of Court 12/21/23 documented as of this encounter
--- OUTSIDE RECORDS SUMMARY | 2024-10-11 17:04 | XMS_ITS | Encounter Summary ---
Author Organization [employer] Address [address] [address] 7[address] [place] [address] Care Team Providers Care Logistic Specialist Name Role Phone Lily Chauhan MD [...] Description 10/12/2024 3:30 PM EDT Office Visit [facility] OPTOMETRY [address] [place] [address] DavidSwati pereyra, OD 230 [place] [address] 12/11/2024 10:15 AM EDT Office Visit [facility] MEDICINE 230 [place] [address] Lily Chauhan MD 230 [place] [address] documented as of this encounter Visit Diagnoses Not on filedocumented in this encounter Additional Health Concerns Assessment Noted Time PHQ-9 Depression Total Score: 3 05/22/20 24 1:05 PM EDT documented as of this encounter Care Teams Logistic Specialist Relationship Specialty Start Date End Date Lily Chauhan MD [address] [place] [address] PCP - General Family Medicine 04/06/18 Neida Riojas Fire Pot OperatorAssociate Professor Of Musicology 12/21/23 documented as of this encounter
--- OUTSIDE RECORDS SUMMARY | 2024-10-11 17:04 | XMS_ITS | Encounter Summary ---
Author Organization [employer] Address [address] [facility] 7t [place] [address] Care Team Providers Care Healthcare Network Consultant Name Role Phone Lily Chauhan MD Primary Care Provide r Reason for Visit * Reason Comments Med Refill Encounter Details Date Type Department Care Team ([facility] st Contact Info) Description 08/11/2024 Refill [facility] MEDICINE [address] [place] [address] Samantha [place], DO [address] [place] [address] Social History Tobacco Use Types Packs/Day Years [...] Description 10/12/2024 3:30 PM EDT Office Visit [facility] OPTOMETRY [address] [place] [address] David, Swati, OD 230 [place] [address] 12/11/2024 10:15 AM EDT Office Visit [facility] MEDICINE [address] [place] [address] Lily Chauhan MD [address] [place] [address] documented as of this encounter Visit Diagnoses Not on filedocumented in this encounter Additional Health Concerns Assessment Noted Time PHQ-9 Depression Total Score: 3 05/22/20 24 1:05 PM EDT documented as of this encounter Care Teams Healthcare Network Consultant Relationship Specialty Start Date End Date Lily Chauhan MD [address] [place] [address] PCP - General Family Medicine 04/06/18 Neida Riojas Car BracerCurber 12/21/23 documented as of this encounter
== END 2024-10-11 15:48 | disposition home or self-care (01) ==
LOC: HO.ENCR 14:56
PROVIDERS: PCP Internal Medicine; Visit Provider Student in an Organized Health Care Education/Training Program
DX: D35.2 Benign neoplasm of pituitary gland (principal)
CPT/HCPCS: 99204

== ENCOUNTER → 2024-10-11 14:55 | Outpatient (BNVA) | payer MEDICAID, SELFPAY | PROVIDERS: PCP Internal Medicine; Visit Provider Student in an Organized Health Care Education/Training Program | DX: D35.2 Benign neoplasm of pituitary gland (principal); N64.3 Galactorrhea not associated with childbirth | CPT/HCPCS: 99202 ==

== ENCOUNTER 2024-10-25 05:56 | Day surgery (SDC) | payer MEDICAID, SELFPAY ==
--- OUTSIDE RECORDS SUMMARY | 2024-10-05 11:32 | XMS_ITS | Encounter Summary ---
Demographics Address [address] [place] [address] Work Phone Home Phone Mobile Phone Email Address Preferred Language en Marital Status Single Orthodox Affiliation Unknown Race Other Race Ethnic Group or Author Organization [employer] Address [address] 7t [place] [address] Care Team Providers Care Chainstitch Felled Seam Operator Name Role Phone Lily Chauhan MD Primary Care Provide r Encounter Details Date Type Department Care Team ([facility] st Contact Info) Description 09/09/2024 Orders [...] Care Team (Late st Contact Info) Description 10/12/2024 3:30 PM EDT Office Visit [facility] OPTOMETRY [address] [place] [address] DavidSwati pereyra, OD 230 [place] [address] 12/11/2024 10:15 AM EDT Office Visit [facility] MEDICINE 230 [place] [address] Lily Chauhan MD [address] [place] [address] documented as of this encounter Procedures Procedure [...] Narrative 09/09/2024 4:47 AM EST ? [facility] [place] [facility] ?[address] ?[place] [address] ? Ultrasound Report ? Signed ? Patient: Marsh,Rena ?MR#: [id number] ? : 1985 ?Acct:[id number] ? Age/Sex: 38 / F ?ADM Date: 09/09/24 ? Loc: HO.ED ? Attending Dr: ? Ordering Physician: Carroll Cherry MD ?? Date of Service: 09/09/24 ?? Procedure(s): US abdomen limited ?? Accession Number(s): [id number] ? cc: Lily Chauhan MD; Carroll Cherry [...] DD/ 0446 ? TD/TT: 09/09/24 0446 ? Spray Painter: ? Procedure Note Ni Chan - 09/09/[address] [address] Ultrasound Report Signed Patient: Rena MarshMR#: [id number] : 1985Acct:[id number] Age/Sex: 38 / FADM Date: 09/09/24 Loc: HO.ED Attending Dr: Ordering Physician: Carroll Cherry MD Date of Service: 09/09/24 Procedure(s): US abdomen limited Accession Number(s): [id number] cc: Lily Chauhan MD; Carroll Cherry MD [...] in OV> 09/09/24446 DD/ 5 TD/TT: 09/09/24445 Spray Painter: [facility] External Provider IMG US PROCEDURES Edited Result - Final * Lipase (09/09/2024 1:49 AM EST) Pathologist [facility] Lipase 26 8 - 78 U/L [facility] 09/09/2024 1:49 AM EST 09/09/2024 1:52 AM EST Generic External Data Provider LAB BLOOD ORDERAB LES Final Result [facility] [address] [place] [phone] * (ABNORMAL) Comprehensive Metabolic Panel (09/09/2024 1:49 AM EST) Sodium 141 135 - 145 mmol/L [facility] Potassium 4.0 3.3 - 5.1 mmol/L [facility] Chloride 109(H) 96 - 108 mmol/L [facility] Carbon Dioxide 24 22 - 29 mmol/L [facility] Anion Gap 12 12 - 20 [facility] Urea Nitrogen (BUN) 11 9 - 16 mg/dL [facility] Creatinine, Serum 0.79 0.5 - 1.4 mg/dL [facility] Creatinine Clr Calc Pharmacy 95.4 [facility] Comment:Provided height and weight: 149.86 cm,90.2 kg.eGFR (calculated from the MDRD study equation) and eCrCl(calculated from the Cockcroft-Gault equation) are based ondifferent parameters and may not yield comparable results.If eCrCl result is absurd, please check patient'sheight/weight. Estimated Glomerular Filt Rate >60 [facility] Comment:Chronic Kidney Disea se: Estimated GFR < 60 mL/min/1.36d2Xxquyp Kidney Disease: Estimated GFR < 15 mL/min/1.73m2 Glucose 102 60 - 115 mg/dL [facility] Calcium 9.2 8.4 - 10.2 mg/dL [facility] Bilirubin, Total 0.2 0.0 - 1.0 mg/dL [facility] Aspartate Amino Transferase 22 5 - 31 U/L [facility] Alanine Aminotransferase 17 0 - 31 U/L [facility] Total Protein 8.3(H) 6.5 - 8.0 g/dL [facility] Albumin Level 4.1 3.5 - 5.0 g/dL [facility] Alkaline Phosphatase 79 39 - 117 U/L [facility] 09/09/2024 1:49 AM EST 09/09/2024 1:52 AM EST us Generic External Data Provider LAB BLOOD ORDERAB LES Final Result [facility] [address] [place] [address] [phone] * (ABNORMAL) CBC auto differential (09/09/2024 1:49 AM EST) White Blood Count 5.6 4.8 - 10.8 X10*3/uL [facility] Red Blood Count 3.80(L) 4.20 - 5.50 X10*6/uL [facility] Hemoglobin 11.0(L) 12.0 - 16.0 g/dl [facility] Hematocrit 33.0(L) 37.0 - 47.0 % [facility] Mean Corpuscular Volume 86.8 80.0 - 98.0 fL [facility] Mean Corpuscular Hemoglobin 28.9 27.0 - 33.0 pg [facility] Mean Corpuscular HGB Conc 33.3 31.0 - 35.0 g/dl [facility] Red Cell Distribution Width 14.6 11.0 - 16.0 % [facility] Platelet Count 268 160 - 400 X10*3/uL [facility] Mean Platelet Volume 9.6 9.4 - 12.3 fL [facility] Neutrophils Percent Auto 41.5(L) 45 - 73 % [facility] Imm Gran Pct Auto 0.2 0.0 - 0.4 % [facility] Lymphocytes Percent Auto 46.1(H) 20 - 40 % [facility] Monocytes Percent Auto 10.6 2 - 11 % [facility] Eosinophils Percent Auto 1.1 0 - 4 % [facility] Basophils Percent Auto 0.5 0 - 2 % [facility] NRBC Pct Auto 0.0 0.0 - 0.2 /100WBC [facility] Neutrophils Absolute Auto 2.3 2.0 - 8.3 x10*3/uL [facility] Imm Gran Abs Auto 0.01 0.00 - 0.03 X10*3/uL [facility] Lymphocytes Absolute Auto 2.6 1.2 - 4.9 X10*3/uL [facility] Monocytes Absolute Auto 0.6 0.1 - 1.2 X10*3/uL [facility] Eosinophils Absolute Auto 0.1 0.0 - 0.4 X10*3/uL [facility] Basophils Absolute Auto 0.0 0.0 - 0.2 X10*3/uL [facility] NRBC Abs Auto 0.000 0.0 - 0.012 X10*3/uL [facility] 09/09/2024 1:49 AM EST 09/09/2024 1:52 AM EST us Generic External Data Provider LAB BLOOD ORDERAB LES Final Result [facility] [address] [place] [address] [phone] documented in this encounter Visit Diagnoses Not on filedocumented in this encounter Additional Health Concerns Assessment Noted Time PHQ-9 Depression Total Score: 3 05/22/20 24 1:05 PM EDT documented as of this encounter Care Teams Chainstitch Felled Seam Operator Relationship Specialty Start Date End Date Lily Chauhan MD [address] [place] [phone] PCP - General Family Medicine 04/06/18 Neida Riojas Assembler UnitFuneral Pre Arrangement Counselor 12/21/23 documented as of this encounter
--- OUTSIDE RECORDS SUMMARY | 2024-10-05 11:32 | XMS_ITS | Encounter Summary ---
Author Organization [employer] Address [address] [place] [address] Care Team Providers Care Melter Supervisor Open Hearth Furnace Name Role Phone Lily Chauhan MD Primary Care Provide r Encounter Details Date Type Department Care Team (Latest Contact Info) Description 09/25/2024 Travel Social History Tobacco Use Types Packs/Day [...] Description 10/12/2024 3:30 PM EDT Office Visit [facility] OPTOMETRY [address] [place] [address] DavidSwati pereyra, OD [address] [place] [address] 12/11/2024 10:15 AM EDT Office Visit [facility] MEDICINE [address] [place] [address] Lily Chauhan MD 230 [place] [address] documented as of this encounter Visit Diagnoses Not on filedocumented in this encounter Additional Health Concerns Assessment Noted Time PHQ-9 Depression Total Score: 3 05/22/20 24 1:05 PM EDT documented as of this encounter Care Teams Melter Supervisor Open Hearth Furnace Relationship Specialty Start Date End Date Lily Chauhan MD 230 [place] [address] PCP - General Family Medicine 04/06/18 Neida Riojas Employment Law SpecialistCountry Director 12/21/23 documented as of this encounter
--- OUTSIDE RECORDS SUMMARY | 2024-10-05 11:32 | XMS_ITS | Encounter Summary ---
Author Organization [employer] Address [address] [facility] 7t [place] [address] Care Team Providers Care Corrections Cadet Name Role Phone Lily Chauhan MD Primary Care Provide r Reason for Visit * Reason Comments Med Refill Encounter Details Date Type Department Care Team ([facility] st Contact Info) Description 02/25/2024 Refill [facility] WALK[facility] CENTER [address] [place] [address] Dayday Pearce MD [address] [place] [address] Social History Tobacco Use Types Packs/Day Years [...] Description 10/12/2024 3:30 PM EDT Office Visit [facility] OPTOMETRY [address] [place] [address] David, Swati, OD [address] [place] [address] 12/11/2024 10:15 AM EDT Office Visit [facility] MEDICINE [address] [place] [address] Lily Chauhan MD [address] [place] [address] documented as of this encounter Visit Diagnoses Not on filedocumented in this encounter Additional Health Concerns Assessment Noted Time PHQ-9 Depression Total Score: 0 11/15/19 10:46 AM EDT documented as of this encounter Care Teams Corrections Cadet Relationship Specialty Start Date End Date Lily Chauhan MD [address] [place] [address] PCP - General Family Medicine 04/06/18 Neida Riojas Oversize Load Pilot EscortHealth Record Technician 12/21/23 documented as of this encounter
--- OUTSIDE RECORDS SUMMARY | 2024-10-05 11:32 | XMS_ITS | Encounter Summary ---
Author Organization [employer] Address [address] [place] [address] 7t [place] [address] Care Team Providers Care Forklift Truck Mechanic Name Role Phone Lily Chauhan MD Primary Care Provide r Reason for Visit * Reason Onset Date Comments Nurse Triage 06/26/2024 Encounter Details Date Type Department Care Team ([facility] st Contact Info) Description 06/26/2024 Telephone [facility] MEDICINE [address] [place] [address] Lily Chauhan MD [address] [place] [address] Nurse Triage Social History Tobacco Use Types [...] Description 10/12/2024 3:30 PM EDT Office Visit [facility] OPTOMETRY [address] [place] [address] Swati Hernandez, OD 230 [place] [address] 12/11/2024 10:15 AM EDT Office Visit [facility] MEDICINE [address] [place] [address] Lily Chauhan MD [address] [place] [address] documented as of this encounter Visit Diagnoses Not on filedocumented in this encounter Additional Health Concerns Assessment Noted Time PHQ-9 Depression Total Score: 3 05/22/20 24 1:05 PM EDT documented as of this encounter Care Teams Forklift Truck Mechanic Relationship Specialty Start Date End Date Lily Chauhan MD [address] [place] [address] PCP - General Family Medicine 04/06/18 Neida Rijoas Crossword Puzzle MakerMed Specialist 12/21/23 documented as of this encounter
--- OUTSIDE RECORDS SUMMARY | 2024-10-05 11:32 | XMS_ITS | Clinical Summary ---
Author Organization [address] [place] [address] Address [address] [place] [address] Phone Care Team Providers Care Hand Laster Name Role Phone Maryan Abernathy MD Primary Care Provider [phone] Social History Tobacco Use Types Packs/Day Years Used Date Smoking Tobacco: Never Assessed Comments Unknown Sex and Gender Information Value Date Recorded Sex Assigned at Not on file Legal Sex Female 9:50 AM EST Gender Identity Not on file Sexual Orientation Not on file Plan of Treatment Upcoming Encounters Date Type Department Care Team ([facility] Contact Info) Description 05/22/2025 10:30 AM EDT Office Visit Bariatric Surgery [address] [address] Glenda Marie MD [address] [place] [address] Health Maintenance Due Date Last Done [...] topic Insurance MEDICAID - [place] Care Teams Hand Laster Relationship Specialty Start Date End Date Maryan Abernathy MD [address] [phone] PCP - General 08/25/07
--- OUTSIDE RECORDS SUMMARY | 2024-10-05 11:32 | XMS_ITS | Encounter Summary ---
Author Organization [email or web address] Address [address] [place] [address] 7t [place] [address] Care Team Providers Care Resident Doctor Name Role Phone Lily Chauhan MD Primary Care Provide r Reason for Visit * Reason Comments Med Refill Encounter Details Date Type Department Care Team ([facility] st Contact Info) Description 05/15/2024 Refill [facility] MEDICINE [address] [place] [address] Lily Chauhan MD [address] [place] [address] Essential hypertension Social History Tobacco Use Types [...] Description 10/12/2024 3:30 PM EDT Office Visit [facility] OPTOMETRY [address] [place] [address] Swati Hernandez, OD [address] [place] [address] 12/11/2024 10:15 AM EDT Office Visit [facility] MEDICINE [address] [place] [address] Lily Chauhan MD [address] [place] [address] documented as of this encounter Visit Diagnoses Diagnosis Essential hypertension Unspecified essential hypertension documented in this encounter Additional Health Concerns Assessment Noted Time PHQ-9 Depression Total Score: 0 11/15/19 24 10:46 AM EDT documented as of this encounter Care Teams Resident Doctor Relationship Specialty Start Date End Date Lily Chauhan MD [address] [place] [address] PCP - General Family Medicine 04/06/18 Neida Riojas Practice NurseLinux Systems Administrator 12/21/23 documented as of this encounter
--- OUTSIDE RECORDS SUMMARY | 2024-10-05 11:32 | XMS_ITS | Encounter Summary ---
Author Organization [employer] Address [address] [place] [address] Care Team Providers Care Trades Helper Name Role Phone Lily Chauhan MD [...] 10/12/2024 3:30 PM EDT Office Visit [facility] OPTOMETRY [address] [place] [address] DavidSwati pereyra, OD [address] [place] [address] 12/11/2024 10:15 AM EDT Office Visit [facility] MEDICINE [address] [place] [address] Lily Chauhan MD [address] [place] [address] documented as of this encounter Visit Diagnoses Not on filedocumented in this encounter Additional Health Concerns Assessment Noted Time PHQ-9 Depression Total Score: 3 05/22/20 24 1:05 PM EDT documented as of this encounter Care Teams Trades Helper Relationship Specialty Start Date End Date Lily Chauhan MD [address] [place] [address] PCP - General Family Medicine 04/06/18 Neida Riojas Barrel DrainerBarrel Bung Remover And Dumper 12/21/23 documented as of this encounter
--- OUTSIDE RECORDS SUMMARY | 2024-10-05 11:32 | XMS_ITS | Encounter Summary ---
Author Organization [employer] Address [address] [facility] 7t [place] [address] Care Team Providers Care Rubber Process Hand Name Role Phone Lily Chauhan MD Primary Care Provide r Reason for Visit * Reason Comments Med Refill Encounter Details Date Type Department Care Team ([facility] st Contact Info) Description 08/11/2024 Refill [facility] [address] [place] [address] Samantha Mason, DO [address] [place] [address] Social History Tobacco Use Types Packs/Day Years [...] Description 10/12/2024 3:30 PM EDT Office Visit [facility] OPTOMETRY [address] [place] [address] David, Swati, OD 230 [place] [address] 12/11/2024 10:15 AM EDT Office Visit [facility] MEDICINE [address] [place] [address] Lily Chauhan MD [address] [place] [address] documented as of this encounter Visit Diagnoses Not on filedocumented in this encounter Additional Health Concerns Assessment Noted Time PHQ-9 Depression Total Score: 3 05/22/20 24 1:05 PM EDT documented as of this encounter Care Teams Rubber Process Hand Relationship Specialty Start Date End Date Lily Chauhan MD [address] [place] [address] PCP - General Family Medicine 04/06/18 Neida Riojas Wharf LaborerProfessional Development Director 12/21/23 documented as of this encounter
--- OUTSIDE RECORDS SUMMARY | 2024-10-05 11:32 | XMS_ITS | Encounter Summary ---
Author Organization [employer] Address [address] [place] [address] Care Team Providers Care Machinist Name Role Phone Lily Chauhan MD Primary Care Provide r Encounter Details Date Type Department Care Team (Latest Contact Info) Description 09/26/2024 Travel Social History Tobacco Use Types Packs/Day [...] Description 10/12/2024 3:30 PM EDT Office Visit [facility] OPTOMETRY [address] [place] [address] DavidSwati pereyra, OD 230 [place] [address] 12/11/2024 10:15 AM EDT Office Visit [facility] MEDICINE 230 [place] [address] Lily Chauhan MD [address] [place] [address] documented as of this encounter Visit Diagnoses Not on filedocumented in this encounter Additional Health Concerns Assessment Noted Time PHQ-9 Depression Total Score: 3 05/22/20 24 1:05 PM EDT documented as of this encounter Care Teams Machinist Relationship Specialty Start Date End Date Lily Chauhan MD 230 [place] [address] PCP - General Family Medicine 04/06/18 Neida Riojas VineyardistSfdc Consultant 12/21/23 documented as of this encounter
--- OUTSIDE RECORDS SUMMARY | 2024-10-05 11:32 | XMS_ITS | Encounter Summary ---
Author Organization [employer] Address [address] [place] [address] [address] [place] [address] Care Team Providers Care Relay Motorman Name Role Phone Lily Chauhan MD Primary Care Provide r Encounter Details Date Type Department Care Team ([facility] Contact Info) Description 08/17/2022 Orders Only [facility] [address] [place] [address] Maryan Abernathy MD [address] [place] [address] Vitamin D deficiency (Primary Dx) Social History [...] Encounters Date Type Department Care Team ([facility] Contact Info) Description 10/12/2024 3:30 PM EDT Office Visit [facility] [address] [place] [address] Swati Hernandez JUAN LUIS [address] [place], [place] [phone] 12/11/2024 10:15 AM EDT Office Visit [facility] [address] [place], [place] [phone] Lily Chauhan MD [address] [place] [address] documented as of this encounter Visit Diagnoses Diagnosis Vitamin D deficiency- Primary documented in this encounter Care Teams Relay Motorman Relationship Specialty Start Date End Date Lily Chauhan MD [address] [place], [place] [phone] PCP - General Family Medicine 04/06/18 Neida Riojas Log GraderWire Twister 12/21/23 documented as of this encounter
--- OUTSIDE RECORDS SUMMARY | 2024-10-05 11:32 | XMS_ITS | Encounter Summary ---
Author Organization [employer] Address [address] [place] [address] Care Team Providers Care Stitch Cleaner Name Role Phone Lily Chauhan MD Primary Care Provide r Encounter Details Date Type Department Care Team ([facility] st Contact Info) Description 05/11/2024 Orders Only [facility] [address] [place], [place] [phone] Provider, MD Gloria Social History Tobacco Use [...] Description 10/12/2024 3:30 PM EDT Office Visit [facility] OPT[facility]ET[facility] [address] [place] [address] DavidSwati pereyra, OD [address] [place] [address] 12/11/2024 10:15 AM EDT Office Visit [facility] [address] [place] [address] Lily Chauhan MD [address] [place] [address] documented as of this encounter Procedures Procedure [...] documented as of this encounter Care Teams Stitch Cleaner Relationship Specialty Start Date End Date Lily Chauhan MD [address] [place] [id number] PCP - General Family Medicine 04/06/18 Neida Riojas .[employer] ProgrammerAgile Test Lead 12/21/23 documented as of this encounter
--- OUTSIDE RECORDS SUMMARY | 2024-10-05 11:32 | XMS_ITS | Clinical Summary ---
Author Organization [employer] Address [address] [place] [address] Care Team Providers Care Inspector Dials Name Role Phone Lily Chauhan MD Primary [...] week. 2 mL 08/11/19 Active gabapentin (Neurontin) 300 MG capsuleIndicat ions:Neck pain Take 1 capsule (300 mg) by mouth 3 times daily. 90 capsule 2 09/27/19 25 026 Active diclofenac (Voltaren) 50 MG EC tabletIndicati ons:Neck pain Take 1 tablet (50 mg) by mouth 2 times daily. Do not crush, chew, or split. 60 tablet 08/07/19 25 025 gabapentin (Neurontin) 100 MG capsuleIndicat ions:Neck pain TAKE 3 CAPSULES BY MOUTH EVERY 8 HOURS 270 capsule 08/25/19 25 025 Discontinued Active Problems Problem Noted Date Diagnosed [...] 11/15/2023 Neck pain 11/06/2022 Assessment & Plan (09/26/2024 12:38 PM EST): Apply heat on affected area Follow-up with specialist both pain management and neurosurgery I will go up on her gabapentin to 300 mg 3 times a day I explained to patient for now we will not start a new medication in light of possible surgical interventions for her gallbladder and until we have more input from the specialists Assessment & Plan (08/07/2024 2:41 PM EST): [...] information for weight reduction program at [facility]. Discussed re weight reduction options including exercise, life style modifications, diet, referral to disease intervention specialist. Discussed re lower calorie intake, increase [...] Encounters Date Type Department Care Team Description 10/05/[address] [facility] [address] [place] [address] Lily Chauhan MD BMI 38.0-38.9,adult 10/04/2024 Orders Only GENERIC EXTERNAL DATA DEPARTMENT Provider, Generic External Data 09/26/2024 11:30 AM EST Telemedicine [facility] [address] [place] [address] Lily Chauhan MD Neck pain (Primary Dx) 09/26/2024 Travel 09/25/2024 Travel 09/12/[address] [facility] [address] [place] [address] Lily Chauhan MD (May Recall 09/10/2024 Orders Only [facility] External Provider, [facility] 09/09/2024 Orders Only GENERIC EXTERNAL DATA DEPARTMENT Provider, Generic External Data 09/08/2024 Travel 08/25/[address] [facility] [address] [facility] [place] [address] Lily Chauhan MD Neck pain 08/22/2024 Telephone [facility] [address] [place] [address] Lily Chauhan MD Prior Authorization 08/18/2024 Telephone [facility] [address] [place] [address] Cee Oakes, RN Results 08/18/2024 Orders Only [facility] [address] [place] [address] Lily Chauhan MD Pituitary abnormality (CMS/HCC) (Primary Dx); Cyst of cervical facet joint 08/11/2024 Orders Only [facility] [address] [place] [address] Lily Chauhan MD BMI 38.0-38.9,adult (Primary Dx) 08/11/[address] [facility] [address] [place] [address] Samantha Mason DO 08/07/2024 11:00 AM EST Office Visit [facility] [address] [facility] [place] [address] Lily Chauhan MD Essential hypertension (Primary Dx); Neck pain; Bilateral arm pain; Chronic midline low back pain without sciatica; Neck pain 08/07/2024 Travel 07/23/[address] [facility] [address] [place] [address] Lily Chauhan MD Migraine with aura and without status migrainosus, not intractable 07/21/2024 9:00 AM EST Office Visit [facility] [address] [place] [address] Maryellen Chin NP Neck pain (Primary Dx); Elevated blood pressure reading in office with diagnosis of hypertension; Mass of occipital region 07/21/2024 Travel 07/20/[address] [facility] [address] [place] [phone] Lily Chauhan MD Appointment Request 07/18/[address] [address] Diamond Mustafa ANP No Show 07/18/2024 Telephone [facility] [address] [place] [address] Lily Chauhan MD Nurse Triage 07/17/[address] [address] Verito Carlson [place] Provider Out 07/09/2024 Orders Only GENERIC EXTERNAL DATA DEPARTMENT Provider, Generic External Data from Last 3 Months Immunizations Name Administration [...] the past 12 months, has t he [employer], gas, oil or water company threatened to [...] Description 10/12/2024 3:30 PM EDT Office Visit [facility] OPTOMETRY [address] [place] [address] Swati Hernandez, OD [address] [place] [address] 12/11/2024 10:15 AM EDT Office Visit [facility] [address] [place] [address] Lily Chauhan MD [address] [place] [address] Health Maintenance Due Date Last Done Comments [...] Procedure Name Priority Date/Time Associated Diagnosis Comments HCG, QL, URINE Routine 10/04/2024 10:45 AM EDT MR BRAIN W AND WO CONTRAST Routine [...] Recently Relevant to Health Maintenance Results * HCG, Qualitative, Urine (10/04/2024 10:45 AM EDT) Urine NEGATIVE [facility]GAT[facility] Comment:This test was develo ped to detect early . Falsenegative results may occur after the 5th - 7th week ofpregnancy when using this test method. If clinicallyindicated, consider a serum hCG. 10/04/2024 10:4 5 AM EDT 10/04/2024 10:51 AM EDT us Generic External Data Provider LAB URINE ORDERAB LES Final Result [facility] [address] [place] [address] [phone] * Mr Brain w/ and w/o Contrast (09/10/2024 7:40 PM EST) Anatomical Region Laterality Modality Brain Magnetic Resonan ce 09/10/2024 7:40 PM EST Narrative 09/10/2024 7:42 PM EST ? [place] [facility] ?[address] ?[place] [address] ? Magnetic Resonance Report ? Signed ? Patient: Marsh,Rena ?MR#: [id number] ?? 7527 ? : 1985 ?Acct:[id number] ? Age/Sex: 38 / F ?ADM Date: 09/10/24 ? Loc: HO.MRI ? Attending Dr: Wes KITCHEN ? Ordering Physician: Wes Olivera ?? Date of Service: 09/10/24 ?? Procedure(s): MR head/brain wo/w con ?? Accession Number(s): [id number] ? cc: Lily Chauhan MD; Wes Olivera [...] MD in OV> ?09/10/24 194 ? DD/ 1940 ? TD/TT: 09/10/24 1940 ? Line Fisher: ? Procedure Note Ni Chan - 09/10/[address] [address] Magnetic Resonance Report Signed Patient: MarshRena grubbs#: [id number] : 1985Acct:[id number] Age/Sex: 38 / FADM Date: 09/10/24 Loc: HO.MRI Attending Dr: Wes KITCHEN Ordering Physician: Wes Olivera Date of Service: 09/10/24 Procedure(s): MR head/brain wo/w con Accession Number(s): [id number] cc: Lily Chauhan MD; Wes Olivera CLINICAL [...] in OV> 09/10/241940 DD/ 39 TD/TT: 09/10/241939 Line Fisher: [facility] External Provider IMG MRI PROCEDURES Edited Result - Final * US Abdomen Limited (09/09/2024 4:46 AM EST) Anatomical Region Laterality Modality Abdomen Ultrasound 09/09/2024 4:46 AM EST Narrative 09/09/2024 4:47 AM EST ? [place] [facility] ?[address] ?[place] [address] ? Ultrasound Report ? Signed ? Patient: Marsh,Rena ?MR#: [id number] ?? 7527 ? : 1985 ?Acct:[id number] ? Age/Sex: 38 / F ?ADM Date: 09/09/24 ? Loc: HO.ED ? Attending Dr: ? Ordering Physician: Carroll hCerry MD ?? Date of Service: 09/09/24 ?? Procedure(s): US abdomen limited ?? Accession Number(s): [id number] ? cc: Lily Chauhan MD; Carroll Cherry [...] DD/ 0446 ? TD/TT: 09/09/24 0446 ? Line Fisher: ? Procedure Note Ni Chan - 09/09/[address] [address] Ultrasound Report Signed Patient: Rena Marsh#: [id number] : 1985Acct:[id number] Age/Sex: 38 / FADM Date: 09/09/24 Loc: HO.ED Attending Dr: Ordering Physician: Carroll Cherry MD Date of Service: 09/09/24 Procedure(s): US abdomen limited Accession Number(s): [id number] cc: Lily Chauhan MD; Carroll Cherry MD [...] in OV> 09/09/24446 DD/ 5 TD/TT: 09/09/24445 Line Fisher: us [facility] External Provider IMG US PROCEDURES Edited Result - Final * (ABNORMAL) CBC auto differential (09/09/2024 1:49 AM EST) Only the most recent of2 resultswithin the time period is included. White Blood Count 5.6 4.8 - 10.8 X10*3/uL [facility] Red Blood Count 3.80(L) 4.20 - 5.50 X10*6/uL [facility] Hemoglobin 11.0(L) 12.0 - 16.0 g/dl [facility] Hematocrit 33.0(L) 37.0 - 47.0 % [facility] Mean Corpuscular Volume 86.8 80.0 - 98.0 fL [facility] Mean Corpuscular Hemoglobin 28.9 27.0 - 33.0 pg [facility] Mean Corpuscular HGB Conc 33.3 31.0 - 35.0 g/dl [facility] Red Cell Distribution Width 14.6 11.0 - 16.0 % [facility] Platelet Count 268 160 - 400 X10*3/uL [facility] Mean Platelet Volume 9.6 9.4 - 12.3 fL [facility] Neutrophils Percent Auto 41.5(L) 45 - 73 % [facility] Imm Gran Pct Auto 0.2 0.0 - 0.4 % [facility] Lymphocytes Percent Auto 46.1(H) 20 - 40 % [facility] Monocytes Percent Auto 10.6 2 - 11 % [facility] Eosinophils Percent Auto 1.1 0 - 4 % [facility] Basophils Percent Auto 0.5 0 - 2 % [facility] NRBC Pct Auto 0.0 0.0 - 0.2 /100WBC [facility] Neutrophils Absolute Auto 2.3 2.0 - 8.3 x10*3/uL [facility] Imm Gran Abs Auto 0.01 0.00 - 0.03 X10*3/uL [facility] Lymphocytes Absolute Auto 2.6 1.2 - 4.9 X10*3/uL [facility] Monocytes Absolute Auto 0.6 0.1 - 1.2 X10*3/uL [facility] Eosinophils Absolute Auto 0.1 0.0 - 0.4 X10*3/uL [facility] Basophils Absolute Auto 0.0 0.0 - 0.2 X10*3/uL [facility] NRBC Abs Auto 0.000 0.0 - 0.012 X10*3/uL [facility] 09/09/2024 1:49 AM EST 09/09/2024 1:52 AM EST us Generic External Data Provider LAB BLOOD ORDERAB LES Final Result [facility] [address] [place] [address] [phone] * Lipase (09/09/2024 1:49 AM EST) Lipase 26 8 - 78 U/L [facility] 09/09/2024 1:49 AM EST 09/09/2024 1:52 AM EST us Generic External Data Provider LAB BLOOD ORDERAB LES Final Result [facility] [address] [place] [address] [phone] * (ABNORMAL) Comprehensive Metabolic Panel (09/09/2024 1:49 AM EST) Only the most recent of2 resultswithin the time period is included. Sodium 141 135 - 145 mmol/L [facility] Potassium 4.0 3.3 - 5.1 mmol/L [facility] Chloride 109(H) 96 - 108 mmol/L [facility] Carbon Dioxide 24 22 - 29 mmol/L [facility] Anion Gap 12 12 - 20 [facility] Urea Nitrogen (BUN) 11 9 - 16 mg/dL [facility] Creatinine, Serum 0.79 0.5 - 1.4 mg/dL [facility] Creatinine Clr Calc Pharmacy 95.4 [facility] Comment:Provided height and weight: 149.86 cm,90.2 kg.eGFR (calculated from the MDRD study equation) and eCrCl(calculated from the Cockcroft-Gault equation) are based ondifferent parameters and may not yield comparable results.If eCrCl result is absurd, please check patient'sheight/weight. Estimated Glomerular Filt Rate >60 [facility] Comment:Chronic Kidney Disea se: Estimated GFR < 60 mL/min/1.02l5Olesvh Kidney Disease: Estimated GFR < 15 mL/min/1.73m2 Glucose 102 60 - 115 mg/dL [facility] Calcium 9.2 8.4 - 10.2 mg/dL [facility] Bilirubin, Total 0.2 0.0 - 1.0 mg/dL [facility] Aspartate Amino Transferase 22 5 - 31 U/L [facility] Alanine Aminotransferase 17 0 - 31 U/L [facility] Total Protein 8.3(H) 6.5 - 8.0 g/dL [facility] Albumin Level 4.1 3.5 - 5.0 g/dL [facility] Alkaline Phosphatase 79 39 - 117 U/L [facility] 09/09/2024 1:49 AM EST 09/09/2024 1:52 AM EST us Generic External Data Provider LAB BLOOD ORDERAB LES Final Result [facility] [address] [place] [address] [phone] * Referral to Pain Medicine (08/28/2024) us Lily Burnette MD OUTPATIENT REFERRAL O RDERABLES Final Result * XR Spine Cervical w/ Flext and/ Or Ext (08/16/2024 9:50 AM EST) Anatomical Region Laterality Modality Radiographic Amee ging 08/16/2024 9:50 AM EST Narrative 08/16/2024 9:51 AM EST ? [facility] ?[address] ?[place] [address] ?XRay Report ? Signed ? Patient: Marsh,Rena ?MR#: [id number] ?? 7527 ? : 1985 ?Acct:[id number] ? Age/Sex: 38 / F ?ADM Date: 01/21/25 ? Loc: HO.XRAY ? Attending Dr: Eden Andrade APRN, RETAIL EVENT AND SALES ASSISTANT ? Ordering Physician: Eden Andrade APRN, RETAIL EVENT AND SALES ASSISTANT ?? Date of Service: 08/15/24 ?? Procedure(s): XR cervical spine w flex/ext ?? Accession Number(s): [id number] ? cc: Lily Chauhan MD; Eden Andrade APRN, RETAIL EVENT AND SALES ASSISTANT ? CLINICAL HISTORY: M54.2 - Cervicalgia ? [...] DD/ 0950 ? TD/TT: 08/16/24 0950 ? Line Fisher: ? Procedure Note Donfreddieter, Image - 08/16/2024 [place] [address] XRay Report Signed Patient: Carola Marsh#: [id number] : 1985Acct:[id number] Age/Sex: 38 / FADM Date: 08/15/24 Loc: [facility] Attending Dr: Eden Andrade APRN, CNP Ordering Physician: Eedn Andrade APRN, CNP Date of Service: 08/15/24 Procedure(s): XR cervical spine w flex/ext Accession Number(s): [id number] cc: Lily Chauhan MD; Eden Andrade APRN, [...] signed by Denise Esquivel MD in OV> 08/16/2451 DD/ TD/TT: 08/16/24949 Line Fisher: [facility] External Provider IMG XR PROCEDURES Final Result * XR Lumbar Spine Complete 4+ Views (08/16/2024 5:21 AM EST) Anatomical Region Laterality Modality Spine, L-spine Radiographic Amee ging 08/16/2024 5:21 AM EST Narrative 08/16/2024 5:23 AM EST ? [facility] ?[address] ?[place] [address] ?XRay Report ? Signed ? Patient: Marsh,Rena ?MR#: [id number] ?? 7527 ? : 1985 ?Acct:[id number] ? Age/Sex: 38 / F ?ADM Date: 08/15/24 ? Loc: HO.XRAY ? Attending Dr: Eden Andrade APRN, CNP ? Ordering Physician: Eden Andrade APRN, CNP ?? Date of Service: 08/15/24 ?? Procedure(s): XR lumbar spine 4V min ?? Accession Number(s): [id number] ? cc: Lily Chauhan MD; Eden Andrade [...] ? DD/ 0 ? TD/TT: 08/16/24520 ? Line Fisher: ? Procedure Note Donotuseinterpreter, Image - 08/16/[address] [address] XRay Report Signed Patient: Rena MarshMR#: [id number] : 1985Acct:[id number] Age/Sex: 38 / FADM Date: 08/15/24 Loc: HO.XRAY Attending Dr: Eden Andrade APRN, MARSHALL Ordering Physician: Eden Andrade APRN, CNP Date of Service: 08/15/24 Procedure(s): XR lumbar spine 4V min Accession Number(s): [id number] cc: Lily Chauhan MD; Eden Andrade APRN, [...] in OV> 08/16/24521 DD/ 0 TD/TT: 08/16/24520 Line Fisher: us [facility] External Provider IMG XR PROCEDURES Final Result * MR Cervical Spine w/o Contrast (08/09/2024 8:16 PM EST) Anatomical Region Laterality Modality Spine, C-spine Magnetic Resonan ce 08/09/2024 8:16 PM EST Narrative 08/09/2024 8:18 PM EST ? [facility] ?[address] ?[place] [address] ? Magnetic Resonance Report ? Signed with Addenda ? Patient: Marsh,Rena ?MR#: [id number] ?? 7527 ? : 1985 ?Acct:[id number] ? Age/Sex: 38 / F ?ADM Date: 08/08/24 ? Loc: HO.MRI ? Attending Dr: Lily Burnette MD ? Ordering Physician: Lily Chauhan MD ?? Date of Service: 08/08/24 ?? Procedure(s): MR cervical spine wo con ?? Accession Number(s): [id number] ? cc: Lily Chauhan MD ?ADDENDUM ?? This document has been electronically signed by: Davon Farmer MD on ?? 08/09/2024 20:16:06 ? ADDENDUM: ?? Receipt of this report by the clinical staff was confirmed with Samantha ?? Benja hydrology technician on Aug 09, 2024 21:31:00 EST. [...] ? DD/ 15 ? TD/TT: 08/09/242015 ? Line Fisher: ? Procedure Note Dustin, Image - 08/09/2024 [place] [address] Magnetic Resonance Report Signed with Addaddison Patient: Rena MarshMR#: [id number] : 1985Acct:[id number] Age/Sex: 38 / FADM Date: 08/08/24 Loc: HO.MRI Attending Dr: Lily Burnette MD Ordering Physician: Lily Chauhan MD Date of Service: 08/08/24 Procedure(s): MR cervical spine wo con Accession Number(s): [id number] cc: Lily Chauhan MD ADDENDUM This document has been electronically signed by: Davon Farmer MD on 08/09/2024 20:16:06 ADDENDUM: Receipt of this report by the clinical staff was confirmed with Samantha Yousif hydrology technician on Aug 09, 2024 21:31:00 EST. This [...] in OV> 08/09/242016 DD/ 15 TD/TT: 08/09/242015 Line Fisher: us Lily Burnette MD IMG MRI PROCEDURES Ed ited Result - Final * US Head Neck Soft Tissue (08/02/2024 2:16 PM EST) Anatomical Region Laterality Modality Head, Neck Ultrasound 08/02/2024 2:16 PM EST Narrative 08/07/2024 10:07 AM EST ? [facility] ?[address] ?[place] [address] ? Ultrasound Report ? Signed ? Patient: Marsh,Rena ?MR#: [id number] ?? 7527 ? : 1985 ?Acct:[id number] ? Age/Sex: 38 / F ?ADM Date: 08/02/24 ? Loc: HO.US ? Attending Dr: Maryellen Chin ? Ordering Physician: Maryellen Chin ?? Date of Service: 08/02/24 ?? Procedure(s): US soft tiss head and/or neck ?? Accession Number(s): [id number] ? cc: Maryellen Chin; Lily Chauhan MD [...] DD/ 1416 ? TD/TT: 08/02/24 1418 ? Line Fisher: ? Procedure Note Donaudrajose econnieter, Image - 08/07/[address] [address] Ultrasound Report Signed Patient: Rena MarshMR#: [id number] : 1985Acct:[id number] Age/Sex: 38 / FADM Date: 08/02/24 Loc: HO.US Attending Dr: Maryellen Chin Ordering Physician: Maryellen Chin Date of Service: 08/02/24 Procedure(s): US soft tiss head and/or neck Accession Number(s): [id number] cc: Maryellen Chin; Lily Chauhan MD EXAMINATION: [...] 08/07/24 1004 DD/ 1416 TD/TT: 08/02/24 1418 Line Fisher: us Maryellen Appram [facility] IMG US PROCEDURES Edited Result - Final * XR Chest 1 View (07/09/2024 9:30 PM EST) Anatomical Region Laterality Modality Chest Radiographic Amee ging 07/09/2024 9:30 PM EST Narrative 07/09/2024 10:15 PM EST ? [facility] ?[address] ?[place] [address] ?XRay Report ? Signed ? Patient: Marsh,Rena ?MR#: [id number] ?? 7527 ? : 1985 ?Acct:[id number] ? Age/Sex: 38 / F ?ADM Date: 07/09/24 ? Loc: HO.ED ? Attending Dr: ? Ordering Physician: Generic ED Physician ?? Date of Service: 07/09/24 ?? Procedure(s): XR chest 1V ?? Accession Number(s): [id number] ? cc: Lily Chauhan MD; Generic ED [...] signed by Jesus Kay MD in OV> ?07/09/242212 ? DD/ 29 ? TD/TT: 07/09/242134 ? Line Fisher: SR ? Procedure Note Ni Chan - 07/09/[address] [address] XRay Report Signed Patient: Rena MarshMR#: [id number] : 1985Acct:[id number] Age/Sex: 38 / FADM Date: 07/09/24 Loc: HO.ED Attending Dr: Ordering Physician: Generic ED Physician Date of Service: 07/09/24 Procedure(s): XR chest 1V Accession Number(s): [id number] cc: Lily Chauhan MD; Generic ED Physician [...] in OV> 07/09/242212 DD/ 29 TD/TT: 07/09/242134 Line Fisher: [facility] External Provider IMG XR PROCEDURES Edited Result - Final * High Sensitivity Troponin I (07/09/2024 9:21 PM EST) TROPONIN I HIGH SENSITIVITY <2.7 <3.5 - 17.0 ng/L [facility] Comment:The Masterson high sens itivity Troponin-I results should beused in conjunction with other diagnostic information suchas ECG, clinical observations and information, and patientsymptoms to aid in the diagnosis of IL. 07/09/2024 9:21 PM EST 07/09/2024 9:23 PM EST Generic External Data Provider LAB BLOOD ORDERAB LES Final Result [facility] [address] [place] [phone] * hCG, Total, Quantitative (07/09/2024 9:21 PM EST) HCG Quantitative <2 mIU/mL [facility] Comment:Weeks post LMP Appro ximate hCG(Last Menstrual Period) Range (mIU/ml)3 - 4 weeks 9 - 1304 - 5 weeks 75 - 2,6005 - 6 weeks 850 - 20,8006 - 7 weeks 4000 - 100,2007 - 12 weeks 11,500 - 289,37113 - 16 weeks 18,300 - 137,37327 - 29 weeks (2nd trimester) 1,400 - 53,54799 - 41 weeks (3rd trimester) 940 - 60,000The Masterson B-hCG assay is used for the early detection ofpregnancy; it cannot be used to diagnose any conditionunrelated to . If a B-hCG level is not supportedby the clinical evidence, results should be confirmed by analternative method (qualitative urine hCG, for example). 07/09/2024 9:21 PM EST 07/09/2024 9:23 PM EST us Generic External Data Provider LAB BLOOD ORDERAB LES Final Result Performing Organization Address [facility]/ZIP Co de Phone Number [facility] [address] [place] [phone] * Hepatitis C Antibody with Reflex to HCV, RNA, Quantitative, Real-Time PCR (06/20/2024 9:49 AM EST) Pathologist [facility] Hepatitis C Antibody Nonreactive Nonreactive [facility] Comment:Antibodies to HCV no t detected; does not exclude early acuteHCV infection. Blood Venous blood specimen / Unknown 06/20/2024 9:49 AM EST 06/20/2024 11:47 AM EST us Lily Burnette MD LAB BLOOD ORDERABLES Final Result Performing Organization Address [facility]/ZIP Co de Phone Number [facility] [address] [place] [phone] * HIV-1/2 Antigen and Antibodies, Fourth Generation, with Reflexes (06/20/2024 9:49 AM EST) HIV AB/AG Nonreactive Nonreactive [facility] Comment:HIV-1 p24 Ag and/or HIV-1/HIV-2 Ab not detected.A test result that is nonreactive does not exclude thepossibility of exposure to or infection with HIV-1 and/orHIV-2. Nonreactive results in this assay for individualswith prior exposure to HIV-1 and/or HIV-2 may be due toantigen and antibody levels that are below the limit ofdetection of this assay.The [employer] HIV Ag/Ab Combo assay result andsupplemental assay results should be interpreted inconjunction with the patient's clinical presentation,history and other laboratory results. If the results areinconsistent with clinical evidence, additional testing issuggested to confirm the result. Blood Venous blood specimen / Unknown 06/20/2024 9:49 AM EST 06/20/2024 11:47 AM EST us Lily Burnette MD LAB BLOOD ORDERABLES Final Result [facility] [address] [place] [phone] * Lipid Panel, Standard (06/20/2024 9:49 AM EST) Triglycerides 133 <150 mg/dL [facility] Comment:Desirable Triglyceri de: less than 150 mg/dLBorderline High Triglyceride 150-199 mg/dLHigh Triglyceride: 200-499 mg/dLVery High Triglyceride: greater than or equal to 5OO mg/dL Cholesterol 175 <200 mg/dL [facility] Comment:Desirable Cholestero l: less than 200 mg/dLBorderline High Cholesterol: 200-239 mg/dLHigh Cholesterol: greater than 239 mg/dL LDL Cholesterol Calculated 94 <100 mg/dL [facility] Comment:Desirable LDL: less than 100 mg/dLNear Optimal/Above Optimal LDL: 110- 129 mg/dLBorderline High LDL: 130-159 mg/dLHigh LDL: 160-189 mg/dLVery High LDL: greater than or equal to 190 mg/dL HDL Cholesterol 55 >40 mg/dL [facility] Comment:Desirable HDL: great er than 40 mg/dL Note: This HDL assay may give artificially low results in patients with liver disease. Blood Venous blood specimen / Unknown 06/20/2024 9:49 AM EST 06/20/2024 11:47 AM EST us Lily Burnette MD LAB BLOOD ORDERABLES Final Result [facility] [address] [place] [address] [phone] * HM PAP/HPV (06/02/2019 2:16 PM EST) us Historical Provider HEALTH MAINTENANCE Final Result from Last 3 Months or Most Recently Relevant to Health Maintenance Insurance [employer] Care Teams Inspector Dials Relationship Specialty Start Date End Date iLly Chauhan MD [address] [place] [address] PCP - General Family Medicine 04/06/18 Neida Riojas Flat SurfacerElectronic Prepress Operator 12/21/23
--- OUTSIDE RECORDS SUMMARY | 2024-10-05 11:32 | XMS_ITS | Encounter Summary ---
Demographics Address [address] [place] [address] Work Phone Home Phone Mobile Phone Email Address Preferred Language en Marital Status Single Worship Affiliation Unknown Race Other Race Ethnic Group or Author Organization [employer] Address [address] [facility] 7t [place] [address] Care Team Providers Care Research Methodologist Name Role Phone Lily Chauhan MD Primary Care Provide r Encounter Details Date Type Department Care Team ([facility] st Contact Info) Description 10/04/2024 Orders Only GENERIC EXTERNAL DATA DEPARTMENT [...] 10/12/2024 3:30 PM EDT Office Visit [facility] [address] [place] [address] David, Swati, OD [address] [place] [address] 12/11/2024 10:15 AM EDT Office Visit [facility] [address] [place] [address] Lily Chauhan MD [address] [place] [address] documented as of this encounter Procedures Procedure Name Priority Date/Time Associated Diagnosis Comments HCG, QL, URINE Routine 10/04/2024 10:45 AM EDT documented in this encounter Results * HCG, Qualitative, Urine (10/04/2024 10:45 AM EDT) Urine NEGATIVE NEGATIVE [facility] Comment:This test was develo ped to detect early . Falsenegative results may occur after the 5th - 7th week ofpregnancy when using this test method. If clinicallyindicated, consider a serum hCG. 10/04/2024 10:4 5 AM EDT 10/04/2024 10:51 AM EDT us Generic External Data Provider LAB URINE ORDERAB LES Final Result [facility] [address] [place] [phone] documented in this encounter Visit Diagnoses Not on filedocumented in this encounter Additional Health Concerns Assessment Noted Time PHQ-9 Depression Total Score: 3 05/22/20 24 1:05 PM EDT documented as of this encounter Care Teams Research Methodologist Relationship Specialty Start Date End Date Lily Chauhan MD [address] [place] [address] PCP - General Family Medicine 04/06/18 Neida Riojas Studio Operation EngineerInspector Sheet Metal Parts 12/21/23 documented as of this encounter
--- OUTSIDE RECORDS SUMMARY | 2024-10-05 11:32 | XMS_ITS | Encounter Summary ---
Author Organization [employer] Address [address] [place] [address] 7t [place] [address] Care Team Providers Care Agronomist Name Role Phone Lily Chauhan MD Primary Care Provide r Reason for Visit * Reason Comments Med Refill Encounter Details Date Type Department Care Team ([facility] st Contact Info) Description 10/05/2024 Refill [facility] [address] [place] [address] Lily Chauhan MD [address] [place] [address] BMI 38.0-38.9,adult Social History Tobacco Use Types Packs/Day Years [...] 3:30 PM EDT Office Visit [facility] [address] [place] [address] Swati Hernandez, OD [address] [place] [address] 12/11/2024 10:15 AM EDT Office Visit [facility] [address] [place] [address] Lily Chauhan MD [address] [place] [address] documented as of this encounter Visit Diagnoses Diagnosis BMI 38.0-38.9,adult documented in this encounter Additional Health Concerns Assessment Noted Time PHQ-9 Depression Total Score: 3 05/22/20 24 1:05 PM EDT documented as of this encounter Care Teams Agronomist Relationship Specialty Start Date End Date Lily Chauhan MD [address] [place] [address] PCP - General Family Medicine 04/06/18 Neida Riojas Cooker SulfateSpecialty Food Products Supervisor 12/21/23 documented as of this encounter
--- OUTSIDE RECORDS SUMMARY | 2024-10-05 11:32 | XMS_ITS | Encounter Summary ---
Author Organization [employer] Address [address] [facility] 7t [place] [address] Care Team Providers Care Tool And Die Repair Name Role Phone Lily Chauhan MD Primary Care Provide r Encounter Details Date Type Department Care Team ([facility] st Contact Info) Description 09/26/2024 11:30 AM EST Telemedicine [facility] [address] [place] [address] Lily Chauhan MD [address] [place], [place] [phone] Neck pain (Primary Dx) Social History Tobacco Use Types [...] AM EDT documented as of this encounter Progress Notes * Lily Burnette MD - 09/26/2024 11:30 AM EST SUBJECTIVE: Rena Marsh is a 39 y.o. year old female who presents for Follow up . Acute Concerns: Patient reports she still has a lot of pain on her neck, but reports that the burning sensation andelectrical type of sensation is much better after she started taking gabapentin. Today she was wondering if I can start her on a new medication Suzetrigine, she is looking for none opiates options We also reviewed together her recent visit to the emergency room and surgeon due to right upper quadrant pain and possible cholecystectomy to be scheduled soon Social History Social History Narrative Not on [...] LUQ Atypical chest pain Bilateral arm pain Pituitary abnormality (CMS/HCC) Cyst of cervical facet joint Family History Problem Relation Name Age of Onset Diabetes Mother Asthma Mother Mental illness Father Hypertension Father Review of Systems Constitutional: Negative. HENT: Negative. Respiratory: Negative. Cardiovascular: Negative. Gastrointestinal: Positive for abdominal distention and abdominal pain. Negative for anal bleeding,blood in stool, constipation, diarrhea, nausea and rectal pain. Musculoskeletal: Positive for arthralgias, back pain, myalgias and neck pain. Follow Up: Follow up in about 4 weeks (around 10/24/2024) for televisit neck pain . Current Outpatient Medications on File Prior to Visit Medication Sig Dispense Refill Acetaminophen Extra Strength 500 MG tablet Take 2 tablets (1,000 mg) by mouth every 8 (eight) hoursif needed (for severe pain). TAKE 1 TABLET BY MOUTH EVERY 4 TO 6 HOURS NEEDED. DO NOT EXCEED 8 TABLETS / 24 HOURS 40 tablet 1 Blood Pressure kit Take blood pressure daily methocarbamol (Robaxin) 500 MG tablet Take 1.5 tablets (750 mg) by mouth 3 times daily for 14 days.63 tablet 0 Tirzepatide-Weight Management (Zepbound) 2.5 MG/0.5ML solution auto-injector Inject 0.5 mL (2.5 mg)under the skin 1 (one) time per week. 2 mL 0 valsartan (Diovan) 160 MG tablet Take 2 tablets (320 mg) by mouth Once per day. 180 tablet 3 Ventolin HFA 108 (90 Base) MCG/ACT inhaler INHALE 1 PUFF 4 TIMES A DAY NEEDED FOR BRONCHOSPASM [DISCONTINUED] gabapentin (Neurontin) 100 MG capsule TAKE 3 CAPSULES BY MOUTH EVERY 8 HOURS 270 capsule 0 No current facility-administered medications on file prior to visit. Problem List Items Addressed This Visit Neck pain - Primary Apply heat on affected area Follow-up with specialist both pain management and neurosurgery I will go up on her gabapentin to 300 mg 3 times a day I explained to patient for now we will not start a new medication in light of possible surgical interventions for her gallbladder and until we have more input from the specialists Relevant Medications gabapentin (Neurontin) 300 MG capsule documented in this encounter Miscellaneous Notes * Assessment & Plan Note - Lily Burnette MD - 09/26/2024 12:38 PM EST Associated Problem(s): Neck pain Apply heat on affected area Follow-up with specialist both pain management and neurosurgery I will go up on her gabapentin to 300 mg 3 times a day I explained to patient for now we will not start a new medication in light of possible surgical interventions for her gallbladder and until we have more input from the specialists documented in this encounter Plan of Treatment Upcoming Encounters Date Type Department Care Team (Late st Contact Info) Description 10/12/2024 3:30 PM EDT Office Visit [facility] [address] [place] [address] David, Swati, OD [address] [place] [address] 12/11/2024 10:15 AM EDT Office Visit [facility] [address] [place] [address] Lily Chauhan MD [address] [place], [place] [phone] documented as of this encounter Visit Diagnoses Diagnosis Neck pain- Primary Cervicalgia documented in this encounter Additional Health Concerns Assessment Noted Time PHQ-9 Depression Total Score: 3 05/22/20 1:05 PM EDT documented as of this encounter Care Teams Tool And Die Repair Relationship Specialty Start Date End Date Lily Chauhan MD [address] [place], [place] [phone] PCP - General Family Medicine 04/06/18 Neida Riojas Transit Survey WorkerSlime Plant Operator Helper 12/21/23 documented as of this encounter
--- OUTSIDE RECORDS SUMMARY | 2024-10-05 11:32 | XMS_ITS | Encounter Summary ---
Author Organization [employer] Address [address] [facility] [address]t [place] [address] Care Team Providers Care Mitten Stitcher Name Role Phone Lily Chauhan MD Primary Care Provide r Encounter Details Date Type Department Care Team ([facility] st Contact Info) Description 04/28/2024 Telephone [facility] MED[facility]INE [address] [place], [place] [phone] Julianne Soto RN [address] [place] [address] Social History Tobacco Use Types Packs/Day Years [...] Description 10/12/2024 3:30 PM EDT Office Visit [facility] OPTOMETRY [address] [place] [address] David, Swati, OD [address] [place] [address] 12/11/2024 10:15 AM EDT Office Visit [facility] MEDICINE [address] [place] [address] Lily Chauhan MD [address] [place] [address] documented as of this encounter Visit Diagnoses Not on filedocumented in this encounter Additional Health Concerns Assessment Noted Time PHQ-9 Depression Total Score: 0 11/15/19 10:46 AM EDT documented as of this encounter Care Teams Mitten Stitcher Relationship Specialty Start Date End Date Lily Chauhan MD [address] [place], [place] [phone] PCP - General Family Medicine 04/06/18 Neida Riojas Agency OperatorKarate Black Belt 12/21/23 documented as of this encounter
--- OUTSIDE RECORDS SUMMARY | 2024-10-05 11:33 | XMS_ITS | Encounter Summary ---
Demographics Address [address] [facility] [facility] [address] [place] [address] Work Phone Home Phone Mobile Phone Email Address Preferred Language en Marital Status Single Temple Affiliation Unknown Race Other Race Ethnic Group or Author Organization [employer] Address [address] [place] [address] Care Team Providers Care Meter Readers Supervisor Name Role Phone Lily Chauhan MD Primary Care Provide r Encounter Details Date Type Department Care Team (Late st Contact Info) Description 09/10/2024 Orders Only [facility] External Provider, [facility] Social History Tobacco Use Types Packs/Day [...] t he electric, gas, oil or water [employer] threatened to shut off services in your [...] Description 10/12/2024 3:30 PM EDT Office Visit [facility] [address] [place] [address] DavidSwati pereyra, OD [address] [place] [address] 12/11/2024 10:15 AM EDT Office Visit [facility] [address] [place] [address] Lily Chauhan MD [address] [place] [address] documented as of this encounter Procedures Procedure Name Priority Date/Time Associated Diagnosis Comments MR BRAIN W AND WO CONTRAST Routine 09/10/2024 7:40 PM EST documented in this encounter Results * Mr Brain w/ and w/o Contrast (09/10/2024 7:40 PM EST) Anatomical Region Laterality Modality Brain Magnetic Resonan ce 09/10/2024 7:40 PM EST Narrative 09/10/2024 7:42 PM EST ? [facility] ?[address] ?[place] [address] ? Magnetic Resonance Report ? Signed ? Patient: Marsh,Rena ?MR#: [id number] ?? [id number] ? : 1985 ?Acct:[id number] ? Age/Sex: 38 / F ?ADM Date: 02/16/25 ? Loc: HO.MRI ? Attending Dr: Wes KITCHEN ? Ordering Physician: Wes Olivera ?? Date of Service: 09/10/24 ?? Procedure(s): MR head/brain wo/w con ?? Accession Number(s): [id number] ? cc: Lily Chauhan MD; Wes Olivera [...] 194 ? DD/ 1940 ? TD/TT: 09/10/24 194 ? Digital Forensic Analyst: ? Procedure Note Dustin, Image - 09/10/[address] [address] Magnetic Resonance Report Signed Patient: Carola Marsh#: [id number] : 1985Acct:[id number] Age/Sex: 38 / FADM Date: 09/10/24 Loc: HO.MRI Attending Dr: Wes KITCHEN Ordering Physician: Wes Olivera Date of Service: 09/10/24 Procedure(s): MR head/brain wo/w con Accession Number(s): [id number] cc: Lily Chauhan MD; Wes Olivera CLINICAL [...] in OV> 09/10/241940 DD/ 39 TD/TT: 09/10/241939 Digital Forensic Analyst: [facility] External Provider IMG MRI PROCEDURES Edited Result - Final documented in this encounter Visit Diagnoses Not on filedocumented in this encounter Additional Health Concerns Assessment Noted Time PHQ-9 Depression Total Score: 3 05/22/20 24 1:05 PM EDT documented as of this encounter Care Teams Meter Readers Supervisor Relationship Specialty Start Date End Date Lily Chauhan MD [address] [place] [id number] PCP - General Family Medicine 04/06/18 Neida Riojas Cardiovascular SpecialistStatistical Reporting Analyst 12/21/23 documented as of this encounter
--- OUTSIDE RECORDS SUMMARY | 2024-10-05 11:33 | XMS_ITS | Encounter Summary ---
Author Organization [employer] Address [address] [place] [address] [address] [place] [address] Care Team Providers Care Vault Worker Name Role Phone Lily Chauhan MD Primary Care Provide r Reason for Visit * Reason Onset Date Comments (May Recall 09/12/2024 Encounter Details Date Type Department Care Team ([facility] Contact Info) Description 09/12/2024 Telephone [facility] [address] [place] [address] Lily Chauhan MD [address] [place] [address] (May Recall Social History Tobacco Use Types [...] an appt (November Recall) with [facility]Barciona [facility] to call back to sche appt.Mailed recall letter. documented in this encounter Plan of Treatment Upcoming Encounters Date Type Department Care Team (Late st Contact Info) Description 10/12/2024 3:30 PM EDT Office Visit [facility] [address] [place] [address] David, Swati, OD [address] [place] [address] 12/11/2024 10:15 AM EDT Office Visit [facility] [address] [place] [address] Lily Chauhan MD [address] [place] [address] documented as of this encounter Visit Diagnoses Not on filedocumented in this encounter Additional Health Concerns Assessment Noted Time PHQ-9 Depression Total Score: 3 05/22/20 24 1:05 PM EDT documented as of this encounter Care Teams Vault Worker Relationship Specialty Start Date End Date Lily Chauhan MD [address] [place] [address] PCP - General Family Medicine 04/06/18 Neida Riojas Floor CashierCity Director 12/21/23 documented as of this encounter
[2024-10-23 09:06] VITALS: BMI 40.6
--- NOTE | 2024-10-23 14:13 | P.CONAN_ITS ---
HPI - Anesthesia Eval Consult details Narrative: 39yo F for Cholecystectomy Laparoscopic,possible open PMFSH Active Problems Active Problems: All Active Problems Pituitary adenoma (Acute) Acute cholecystitis (Acute) Galactorrhea (Acute) Cervicalgia (Acute) Lumbar spondylosis (Acute) Cervical spondylosis (Acute) Chronic back pain (Acute) Myofascial muscle pain (Acute) Myofascial neck pain (Acute) Abnormal uterine bleeding (AUB) (Acute) Back pain (Acute) Migraines (Acute) Morbid obesity (Acute) Hypertension (Acute) Past Medical History Medical History Pituitary adenoma Chest pain Family planning Back pain Migraines Morbid obesity Hx LEEP (loop electrosurgical excision procedure), cervix, Hypertension Family History Family History Mother Hypertension Diabetes Maternal Grandmother No problems noted. Surgical History Surgical History Hx of breast reduction, elective H/O abdominoplasty Social History Social History Alcohol intake: current Alcohol intake frequency: holidays/special occasions o nly Alcohol type: beer Patient Tobacco Use Status: Never used Tobacco Meds Allergies Allergy/AdvReac Type Severity Reaction Status Date / Time amoxicillin [AMOXICILLIN] Allergy Unknown UNKNOWN, Verified 10/25/24 06:41 hives aspirin [ASPIRIN] Allergy Unknown HIVES, rash Verified 10/25/24 06:41 ibuprofen [Motrin] Allergy Unknown Hives Verified 10/25/24 06:41 lisinopril AdvReac Mild Cough Verified 10/25/24 06:41 Home Medications ?Medication ?Instructions ?Recorded ?Confirmed ?Last Taken ?Type acetaminophen 650 mg 650 mg PO Q8H PRN mild pain 08/10/24 10/25/24 Unknown History tablet,extended release gabapentin 300 mg capsule 300 mg PO TID 10/11/24 10/25/24 Unknown History tirzepatide (weight loss) 5 mg/0.5 5 mg subcut QWEEK 10/11/24 10/25/24 10/11/24 History mL subcutaneous pen injector (Zepbound) Exam Height,Weight and Vital Signs: Height 4 ft 11 in Weight 91.172 kg Pertinent Lab Results Pertinent Lab Results: Laboratory Tests 09/09/24 01:49 WBC 5.6 Hgb 11.0 L Hct 33.0 L Plt Count 268 Sodium 141 Potassium 4.0 Chloride 109 H Carbon Dioxide 24 BUN 11 Creatinine 0.79 Narrative Narrative: EKG 06/2024 Vent. Rate : 084 BPM Atrial Rate : 084 BPM P-R Int : 152 ms QRS Dur : 076 ms QT Int : 356 ms P-R-T Axes : 037 017 019 degrees QTc Int : 420 ms Normal sinus rhythm Normal ECG No significant changes when compared with the previous EKG of 14 jun 2023 ECHO 2022 Conclusions: - The left ventricular systolic function is normal. The calculated ejection fraction is 61% by biplane method. - No obvious valvular pathology seen on this study. Exercise Stress 2022 Protocol: MARQUISE Max HR: 160 BPM 86% of Pred: 185 BPM Max BP: 144/084 mmHG Max Work Load: 9.3 METS Exercise stress test with exrercise 7 min 32 sec of Marquise protocol, achieving 86% MPHR, 9.3 METS, with fatigue and request to stop, without anginal symptoms, without arrythmia, with normotensive response to exercise, without EKG changes meeting criteria for ischemia. Test reviewed with Dr Ruiz Assessment and Plan Assessment Anesthesia Assessment: Chart Reviewed
[2024-10-25] VITALS (13 sets, daily range): BP systolic 110–119; BP diastolic 59–76; PULSE 72–88; RESP 15–18; TEMP 36.2–36.6; O2SAT 94–97; BMI 38.7
[2024-10-25 06:25] LABS: UPreg QC Valid YES; Urine Pregnancy NEGATIVE (NEGATIVE)
[2024-10-25] MEDS: Lactated Ringers 1,000 ML 100 ML IVCONT (06:40)
--- NOTE | 2024-10-25 07:24 | P.CONAN_ITS ---
[facility] Active Problems Active Problems: All Active Problems Pituitary adenoma (Acute) Acute cholecystitis (Acute) Galactorrhea (Acute) Cervicalgia (Acute) Lumbar spondylosis (Acute) Cervical spondylosis (Acute) Chronic back pain (Acute) Myofascial muscle pain (Acute) Myofascial neck pain (Acute) Abnormal uterine bleeding (AUB) (Acute) Back pain (Acute) Migraines (Acute) Morbid obesity (Acute) Hypertension (Acute) Past Medical History Medical History Pituitary adenoma Chest pain Family planning Back pain Migraines Morbid obesity Hx LEEP (loop electrosurgical excision procedure), cervix, Hypertension Functional capacity: independent ambulation Patient : No Family History Family History Mother Hypertension Diabetes Maternal Grandmother No problems noted. Family history of problems with anesthesia: No Surgical History Surgical History Hx of breast reduction, elective H/O abdominoplasty History of Problems with Anesthesia: No Social History Social History Alcohol intake: current Alcohol intake frequency: holidays/special occasions only Alcohol type: beer Patient Tobacco Use Status: Never used Tobacco Use of substances other than those prescribed or required for medical reasons: No Are you DNR?: No Advance Directives: No Advance Directives Information Provided: Yes Meds Allergies Allergy/AdvReac Type Severity Reaction Status Date / Time amoxicillin [AMOXICILLIN] Allergy Unknown UNKNOWN, Verified 10/25/24 06:41 hives aspirin [ASPIRIN] Allergy Unknown HIVES, rash Verified 10/25/24 06:41 ibuprofen [Motrin] Allergy Unknown Hives Verified 10/25/24 06:41 lisinopril AdvReac Mild Cough Verified 10/25/24 06:41 Active Medications: Current Medications Lactated Ringer's (Lr) 1,000 mls @ 100 mls/hr IVCONT .Q10H ASHUTOSH Last Admin: 10/25/24 06:40 Dose: 100 mls/hr Home Medications ?Medication ?Instructions ?Recorded ?Confirmed ?Last Taken ?Type acetaminophen 650 mg 650 mg PO Q8H PRN mild pain 08/10/24 10/25/24 Unknown History tablet,extended release gabapentin 300 mg capsule 300 mg PO TID 10/11/24 10/25/24 Unknown History tirzepatide (weight loss) 5 mg/0.5 5 mg subcut QWEEK 10/11/24 10/25/24 10/11/24 History mL subcutaneous pen injector (Zepbound) Exam Height,Weight and Vital Signs: Height 4 ft 11 in Weight 86.9 kg Last Vital Signs Temp 97.6 F 10/25/24 06:21 Pulse 85 10/25/24 06:21 Resp 15 10/25/24 06:21 BP 114/76 10/25/24 06:21 Pulse Ox 97 10/25/24 06:21 O2 Del Method Room Air 10/25/24 06:21 Pertinent Lab Results Pertinent Lab Results: Laboratory Tests 10/25/24 06:15 Urine Test NEGATIVE Airway Mallampati Class: II TM Dist: >3cm Neck ROM: Full Heart: RRR Lungs: CTA Assessment and Plan Assessment Anesthesia Assessment: Anesthesia Plan Discussed and Chart Reviewed Final Anesthetic Review Family History of Problems with Anesthesia: No History of Problems with Anesthesia: No NPO: Yes ASA Class: II Final Preanesthetic Review: Meds/Allgs Chart Reviewed, Consent Obtained/Reviewed and Anes Risks/Benef Reviewed Patient Risk: Intermediate Procedure Risk: Intermediate Anesthetic Plan Anesthetic Plan: GA Disposition: Standard PACU
--- NOTE | 2024-10-25 07:31 | MHC.SHP ---
Pre-Procedural Eval Section A - 24 Hr Update-Section A only Date of Service: 10/25/24 The patient is an INPATIENT: No Changes since office visit: No Cold of Flu in the past 2 weeks, No New Medical Problems, No Changes in Medication and No Patient answered all questions The patient has been examined within 24 hours of the surgical procedure. The History & Physical has been completed within 30 days and I have reviewed it.: No Section B - Complete if H&P > 30 days Chief Complaint: Acute cholecystitis Details of Present Illness: No change in abdominal symptoms Relevant Family History (Specify if Yes): No Relevant Social History: None Present Medications: see Short Stay Collaborative assessment Medical History: No relevant PMH History of Previous Operations: No relevant previous surgery Allergies: Allergies Allergy/AdvReac Type Severity Reaction Status Date / Time amoxicillin [AMOXICILLIN] Allergy Unknown UNKNOWN, Verified 10/25/24 06:41 hives aspirin [ASPIRIN] Allergy Unknown HIVES, rash Verified 10/25/24 06:41 ibuprofen [Motrin] Allergy Unknown Hives Verified 10/25/24 06:41 lisinopril AdvReac Mild Cough Verified 10/25/24 06:41 Review of Systems Sugical H&P ROS: Negative: Constitution, Cardiovascular, Respiratory, Psychiatric, Hem-Onc, Allergic/Immunologic, Gastrointestinal, Genitourinary, Musculoskeletal, Integumentary and Endocrine Exam Surgical H&P Exam: Normal: HEENT, Normal: Heart, Normal: Lungs, Normal: Extremities, Normal: Abdomen and Normal: Skin Plan Diagnosis/Plan: Unchanged I have reviewed the history and physical and performed a pertinent physical examination on my patient. No changes have occurred unless specified. Time Spent With Patient Time: Total time managing care of this patient today ____ minutes.
--- NOTE | 2024-10-25 08:35 | P.OP_ITS ---
Operative Note Operative Note Date of Service: 10/25/24 Narrative: Preoperative diagnosis: Acute cholecystitis, cholelithiasis Postoperative diagnosis: Same Procedure: Laparoscopic cholecystectomy Surgeon: Solitario Moreno MD Project Program Manager: LENNY Collazo, SHASTA Greene Anesthesia: General endotracheal Indications for procedure: 39-year-old female patient presenting with complaints of abdominal pain in the right upper quadrant radiating into the back associated with food intake. Patient was found to have gallstones within the gallbladder with a positive sonographic Starkey sign. Operative findings: Normal-appearing gallbladder without significant adhesions. Several gallstones in the neck of the gallbladder. Specimen: gallbladder Estimated blood loss: 2 mL Complications: None Procedure details: Patient was brought to the OR and placed in a supine position. After administering general anesthesia the patient's abdomen was prepped with ChloraPrep and draped in a sterile fashion. A surgical time-out was called the consent confirmed. Patient received preoperative antibiotics and Venodyne boots were in place. Local anesthesia consisting of 0.5% Sensorcaine without epinephrine was infiltrated in a periumbilical region. A 5 mm incision was made above the umbilicus in a transverse fashion. The Veress needle was then inserted while elevating abdominal cavity with towel clips. After positive drop test the abdomen was insufflated to a pressure of 15 mm of mercury. The Veress needle was then removed and a 5 mm trocar inserted. The camera was inserted in the abdomen explored. A 12 mm trocar was then placed in the epigastrium. Two 5 mm trocars placed in the right upper quadrant by the elementary assistant teacher. The patient was placed in reverse Trendelenburg positioning and rotated to the left. The gallbladder was grasped with the fundus and retracted cephalad by the elementary assistant teacher. The infundibulum was then grasped and retracted away from the liver bed, also by the elementary assistant teacher. The Dolphin dissected was then used by the surgeon to dissect the peritoneum off the infundibulum to reveal the junction with the cystic duct. Cystic artery was noted slightly medial and posterior to the cystic duct. After obtaining a critical view the cystic duct was doubly clipped and divided. The cystic artery was then doubly clipped and divided. The gallbladder was then dissected off the liver bed using electrocautery with an L hook. Hemostasis was assured all times using the electrocautery. When the gallbladder is completely dissected off the liver bed was placed in an Endo-Catch bag and brought out through the epigastric incision. The gallbladder was sent to pathology for further examination. The abdomen was then re-examined. The liver bed was irrigated and suctioned dry. No bleeding or bile leak could be identified. A small piece of Surgicel was placed at the liver bed. CO2 was then evacuated and all trocars removed. Fascia was closed at the epigastric incision using a [id number] 0 Polysorb suture. Skin was closed in all incisions using a subcuticular 4 0 Polysorb suture by both the surgeon and elementary assistant teacher. Sterile dressings consisting of Steri-Strips, 2 x 2 gauze, and Tegaderm were then applied. The patient tolerat ed the procedure well. Sponge instrument and needle counts reported as correct. The patient was transferred to PACU in stable condition.
[2024-10-25] MEDS: ondansetron HCL 4 MG/2 ML VIAL IVPUSH (08:57)
[2024-10-25] MEDS: Acetaminophen 1,000 MG/100 ML PIGGYBACK 400 MG IV (08:58)
[2024-10-25] MEDS: fentaNYL citrate/PF 100 MCG/2 ML VIAL 25 MCG IVPUSH (09:50)
== END 2024-10-25 10:53 | disposition home or self-care (01) ==
PROVIDERS: Nurse Practitioner; PCP Internal Medicine; Visit Provider Surgery
PROC: 0FT44ZZ Resection of Gallbladder, Percutaneous Endoscopic Approach (ICD-10-PCS; CPT 47562; principal; 2024-10-25 07:30)
DX: K80.10 Calculus of gallbladder with chronic cholecystitis without obstruction (principal); M54.9 Dorsalgia, unspecified; R07.9 Chest pain, unspecified; I10 Essential (primary) hypertension; G43.909 Migraine, unspecified, not intractable, without status migrainosus; E66.01 Morbid (severe) obesity due to excess calories; Z68.41 Body mass index [BMI] 40.0-44.9, adult; Z79.85 Long-term (current) use of injectable non-insulin antidiabetic drugs; Z79.899 Other long term (current) drug therapy; Z88.1 Allergy status to other antibiotic agents; Z88.6 Allergy status to analgesic agent; Z88.8 Allergy status to other drugs, medicaments and biological substances; Z98.890 Other specified postprocedural states
CPT/HCPCS: 47562; 81025; 88304; J0131; J0736; J1100; J2003; J2250; J2405; J2704; J2795; J3010

== ENCOUNTER → 2024-10-25 05:56 | Outpatient (BNV) | payer MEDICAID, SELFPAY | PROVIDERS: PCP Internal Medicine; Visit Provider Surgery | DX: K80.01 Calculus of gallbladder with acute cholecystitis with obstruction (principal) | CPT/HCPCS: 47562 ==

== ENCOUNTER 2024-11-07 09:59 | Outpatient (AMB) | payer MEDICAID, SELFPAY ==
--- NOTE | 2024-11-07 10:05 | MHC.OFFVIS ---
Vital Signs 11/07/24 10:11 Height 4 ft 11 in Weight 187 lb 2 oz BMI 37.8 BP 118/63 Blood Pressure Location Lt brachial Position Sitting Pulse 77 Intake Visit Reasons: s/p lap duarte Intake Note: Patient is seen in office for post op assessment post Laparoscopic cholecystectomy. Pt c/o: admits to sore and tender, denies redness, discharge or other concerns surgery:10/25/24 Raw Finish Mill Operator Required: No Accompanied by: Self / Same As Patient Allergies amoxicillin [AMOXICILLIN] Allergy (Unknown, Verified 11/07/24 10:11) UNKNOWN, hives aspirin [ASPIRIN] Allergy (Unknown, Verified 11/07/24 10:11) HIVES, rash ibuprofen [Motrin] Allergy (Unknown, Verified 11/07/24 10:11) Hives lisinopril Adverse Reaction (Mild, Verified 11/07/24 10:11) Cough Medication List - Last Reconciled 11/07/24 by Solitario Moreno MD acetaminophen ER 650 mg PO Q8H PRN baclofen 5 mg PO TID dicyclomine 10 mg PO Q8H PRN gabapentin 300 mg PO TID ondansetron 4 mg PO Q6-8H PRN oxycodone 5 mg PO Q6H PRN tirzepatide (weight loss) (Zepbound) 5 mg subcut QWEEK valsartan 320 mg PO DAILY HPI Comments Details: 31-year-old female patient returning 1 week following laparoscopic cholecystectomy performed on 10/25/2024. She tolerated the procedure well and reports only mild discomfort in the lateral trocar incision. She denies nausea, vomiting, fever or chills. She was trying to avoid fatty and fried foods. [facility] Medical History Pituitary adenoma Chest pain Family planning Back pain Migraines Morbid obesity Hx LEEP (loop electrosurgical excision procedure), cervix, Hypertension Surgical History Hx laparoscopic cholecystectomy (10/25/24) Hx of breast reduction, elective H/O abdominoplasty Family History Mother Hypertension Diabetes Maternal Grandmother No problems noted. Social History Alcohol intake: current Alcohol intake frequency: holidays/special occasions only Alcohol type: beer Patient Tobacco Use Status: Never used Tobacco Female Reproductive History Menstrual Age of Menarche: 10 Physical Exam Vital Signs: Last Vital Signs Pulse 77 11/07/24 10:11 BP 118/63 11/07/24 10:11 BMI result Body Mass Index 37.8 Const General: no acute distress Nutritional Appearance: well nourished Orientation/consciousness: patient oriented x3 Resp Effort & Inspection: normal respiratory effort, no cough and no respiratory distress GI Other: Abdomen is soft and nondistended. Trocar incisions are clean, dry, and intact. Skin Other: Warm, dry, no rash Neuro General: patient oriented x3 Extrem Other: No edema Assessment & Plan Assessment & Plan (1) Acute cholecystitis: Code(s): K81.0 - Acute cholecystitis Category: Medical Plan 39-year-old female patient presenting 1 week following laparoscopic cholecystectomy. She tolerated the procedure well and her wounds are healing nicely. She should continue to avoid fatty foods for the next month and avoid lifting greater than 10 lb for 1 more week. She should follow up as needed. Coding Level of Care Code Global (68774) Diagnoses Acute cholecystitis K81.0
[2024-11-07 10:11] VITALS: BP 118/63; PULSE 77; BMI 37.8
--- OUTSIDE RECORDS SUMMARY | 2024-11-07 11:31 | XMS_ITS | Clinical Summary ---
Author Organization [address] [place] [address] Address [address] [place] [address] Phone Care Team Providers Care Roof Tiler Name Role Phone Maryan Abernathy MD Primary Care Provider [phone] Social History Tobacco Use Types Packs/Day Years Used Date Smoking Tobacco: Never Assessed Comments Unknown Sex and Gender Information Value Date Recorded Sex Assigned at Not on file Legal Sex Female 9:50 AM EST Gender Identity Not on file Sexual Orientation Not on file Plan of Treatment Upcoming Encounters Date Type Department Care Team ([facility] Contact Info) Description 05/22/2025 10:30 AM EDT Office Visit Bariatric Surgery [address] [phone] Glenda Marie MD [address] [place] [address] Health Maintenance Due Date Last Done Comments DTaP,Tdap,and Td Vaccines (1 - Tdap) 2005 Hepatitis B Vaccines (1 of 3 - 19+ 3-dose series) 2005 Cervical Cancer Screening: P ap Smear 2007 COVID-19 Vaccine (2023-2 5 season) 2024 Depression Screening 09/07/2024 HIV Screening 09/07/2024 Hepatitis C Screening 09/07/2024 Social Influencers of Health Screening 09/07/2024 Influenza Vaccine (Season Ended) 2025 HIB Vaccines Aged Out No longer eligi [...] age to complete this topic Meningococcal B Vaccine Aged Out No l onger eligible based on patient's age to complete [...] topic Insurance MEDICAID - [place] Care Teams Roof Tiler Relationship Specialty Start Date End Date Maryan Abernathy MD [address] [phone] PCP - General 08/25/07
== END 2024-11-07 10:30 | disposition home or self-care (01) ==
LOC: HO.HGS 09:59
PROVIDERS: PCP Internal Medicine; Visit Provider Surgery
DX: K81.0 Acute cholecystitis (principal)
CPT/HCPCS: 99024

== ENCOUNTER → 2024-11-07 09:59 | Outpatient (BNVA) | payer MEDICAID, SELFPAY | PROVIDERS: PCP Internal Medicine; Visit Provider Surgery | DX: K81.0 Acute cholecystitis (principal) | CPT/HCPCS: 99212 ==

== ENCOUNTER 2025-02-15 11:39 | Outpatient (REF) | payer MEDICAID, SELFPAY ==
--- OUTSIDE RECORDS SUMMARY | 2025-02-15 12:30 | XMS_ITS | Clinical Summary ---
Author Organization [facility] Address [address] [place] [address] Phone Care Team Providers Care Secretary Office Clerk Name Role Phone Unavailable Primary Care Provider Unavailabl e Allergies Active Allergy Reactions Criticality Noted Date Comments Aspirin 10/28/2022 Medications ibuprofen (ADVIL,MOTRIN) 200 MG tablet Take 800 mg by mouth every 6 (six) hours as needed for pain (specific location in comments). Active cholecalciferol , vitamin D3, (VITAMIN D3 ORAL) Take by mouth. Active amitriptyline (ELAVIL) 25 MG tablet Take 25 mg by mouth nightly at bedtime. Active valsartan (DIOVAN) 320 MG tablet Take 320 mg by mouth daily. Active Social History Tobacco Use Types Packs/Day Years Used Date Smoking Tobacco: Never Smokeless Tobacco: Never Tobacco Cessation:Counseling Given: Not Answered Alcohol Use Standard Drinks/Week Comments Yes 0 (1 standard drink = 0.6 oz pur e alcohol) special occasions Education Answer Date Recorded Are you interested in more education? Not on negra e 11/21/2022 Are you concerned about learning? Not on file 11/21/2022 No 11/21/2022 No 11/21/2022 Digital Access Answer Date Recorded No 12/22/2022 No 12/22/2022 Reliable internet access at home? Not on file 12/22/2022 Device with a working camera? Not on file Intimate Partner Violence Answer Date R ecorded Are you denied basic needs s uch as food, clothing, or medical care? No 10/28/2022 In the past 12 months have y ou been in a relationship with a person who hurts, threatens, or tries to control you? No 10/28/2022 Are you denied basic needs s uch as food, clothing, or medical care? No 10/28/2022 In the past 12 months have y ou been in a relationship with a person who hurts, threatens, or tries to control you? No 10/28/2022 Comments Unknown Sex and Gender Information Value Date Recorded Sex Assigned at Female 10/28/2022 7:19 PM EDT Legal Sex Female 7:10 PM EDT Gender Identity Female 10/28/2022 7:19 PM EDT Sexual Orientation Not on file Last Filed Vital Signs Vital Sign Reading Time Taken Comments Blood Pressure 149/90 10/28/2022 7:18 PM EDT Pulse 85 10/28/2022 7:18 PM EDT Temperature 36.1 C (97 F) 10/28/2022 7:18 PM EDT Respiratory Rate 18 10/28/2022 7:18 PM EDT Oxygen Saturation 100% 10/28/2022 7:18 PM EDT Inhaled Oxygen Concentration - - Weight 90.7 kg (200 lb) 10/28/2022 7:18 PM EDT Height 149.9 cm (4' 11 ) 10/28/2022 7:18 PM EDT Body Mass Index 40.4 10/28/2022 7:18 PM EDT Plan of Treatment Not on file Medical Devices Not on file Additional Source Comments The information contained in this document represents components of the legal health record. It is not the complete legal health record.[facility]
--- OUTSIDE RECORDS SUMMARY | 2025-02-15 12:30 | XMS_ITS | Clinical Summary ---
Author Organization [address] [place] [address] Address [address] [place] [address] Phone Care Team Providers Care Puncher And Fastener Name Role Phone Maryan Abernathy MD Primary Care Provider Social History Tobacco Use Types Packs/Day Years Used Date Smoking Tobacco: Never Assessed Comments Unknown Sex and Gender Information Value Date Recorded Sex Assigned at Not on file Legal Sex Female 9:50 AM EST Gender Identity Not on file Sexual Orientation Not on file Plan of Treatment Upcoming Encounters Date Type Department Care Team ([facility] Contact Info) Description 05/22/2025 10:30 AM EDT Office Visit Bariatric Surgery [address] [phone] Glenda Marie MD [address] [place] [address] Health Maintenance Due Date Last Done Comments DTaP,Tdap,and Td Vaccines (1 - Tdap) 2005 Hepatitis B Vaccines (1 of 3 - 19+ 3-dose series) 2005 Cervical Cancer Screening: P ap Smear 2007 COVID-19 Vaccine ( - 2023-2 5 season) 2024 Depression Screening 07/26/2024 HIV Screening 09/07/2024 Hepatitis C Screening 09/07/2024 Social Influencers of Health Screening 09/07/2024 Influenza Vaccine (#1) 2025 HIB Vaccines Aged Out No longer [...] 5 Years) and At-Risk Patients (6 to 49 Years) Aged Out No longer eligible b ased on patient's age to complete this topic RSV Immunization Patients Un ben 20 months Aged Out No longer eligible b ased on patient's age to complete this topic Varicella Vaccines Aged Out No longer eligible based on patient's age to complete this topic Insurance MEDICAID - [place] Care Teams Puncher And Fastener Relationship Specialty Start Date End Date Maryan Abernathy MD [address] [phone] PCP - General 08/25/07
--- OUTSIDE RECORDS SUMMARY | 2025-02-15 12:30 | XMS_ITS | Encounter Summary ---
Author Organization [employer] Address [address] [place] [address] Care Team Providers Care Cnc Service Engineer Name Role Phone Lily Chauhan MD Primary Care Provide r Encounter Details Date Type Department Care Team ([facility] st Contact Info) Description 05/11/2024 Orders Only [facility] [address] [place] [address] Provider, MD Gloria Social History Tobacco Use [...] Care Team (Late st Contact Info) Description 02/15/2025 3:15 PM EDT Office Visit [facility] [address] [place] [address] Lily Chauhan MD [address] [place] [address] 03/16/2025 11:00 AM EDT Office Visit [facility] [address] [place] [address] Lily Chauhan MD [address] [place] [address] 04/09/2025 9:00 AM EDT Office Visit [facility] [address] [place] [address] David, Swati, OD [address] [place] [address] documented as of this encounter Procedures Procedure [...] documented as of this encounter Care Teams Cnc Service Engineer Relationship Specialty Start Date End Date Lily Chauhan MD [address] [place] [address] PCP - General Family Medicine 04/06/18 Neida Riojas Packing Machine InspectorJacquard Fixer 12/21/23 documented as of this encounter
[2025-02-15 13:17] LABS: MANUAL DIFF FLAG NO
[2025-02-15 13:30] LABS: Hematocrit 34.1 % (37.0-47.0); Hemoglobin 11.7 g/dl (12.0-16.0); Imm Gran Abs Auto 0.00 X10*3/uL (0.00-0.03); Imm Gran Pct Auto 0.0 % (0.0-0.4); Lymphocytes Absolute Auto 1.2 X10*3/uL (1.2-4.9); Mean Corpuscular HGB Conc 34.3 g/dl (31.0-35.0); Mean Corpuscular Hemoglobin 30.0 pg (27.0-33.0); Mean Corpuscular Volume 87.4 fL (80.0-98.0); NRBC Abs Auto 0.000 X10*3/uL (0.0-0.012); NRBC Pct Auto 0.0 /100WBC (0.0-0.2); Platelet Count 270 X10*3/uL (160-400); Red Blood Count 3.90 X10*6/uL (4.20-5.50); White Blood Count 2.8 X10*3/uL (4.8-10.8)
[2025-02-15 13:44] LABS: Alanine Aminotransferase 20 U/L (0-31); Albumin Level 4.6 g/dL (3.5-5.0); Alkaline Phosphatase 71 U/L (39-117); Anion Gap 10 (12-20); Aspartate Amino Transferase 20 U/L (5-31); Blood Urea Nitrogen 10 mg/dL (9-16); Calcium 9.2 mg/dL (8.4-10.2); Carbon Dioxide 24 mmol/L (22-29); Chloride 110 mmol/L (96-108); Estimated Glomerular Filt Rate > 60; Iron 48 mcg/dL (30-160); Percent Iron Saturation 15 % (15-50); Potassium 4.1 mmol/L (3.3-5.1); Sodium 140 mmol/L (135-145); Total Iron Binding Capacity 322 mcg/dL (228-428); Total Protein 7.8 g/dL (6.5-8.0); Unsaturated Iron Binding 274 ug/dL
[2025-02-15 14:03] LABS: HIV Num 1 0.05 S/CO (0.00-0.99); ~HepC Num1 0.20 S/CO (0.00-0.79); ~Hepatitis C Antibody Nonreactive (Nonreactive)
[2025-02-15 14:06] LABS: Ferritin 13 ng/mL (10-122)
[2025-02-15 14:12] LABS: Folate 9.6 ng/mL (> or = 4.0); Vitamin B12 326 pg/mL (200-900)
== END 2025-02-15 11:40 | disposition home or self-care (01) ==
LOC: HO.10HDL 11:39
PROVIDERS: Visit Provider Internal Medicine
DX: Z11.4 Encounter for screening for human immunodeficiency virus [HIV] (principal); R53.82 Chronic fatigue, unspecified
CPT/HCPCS: 36415; 80053; 82306; 82607; 82728; 82746; 83540; 84443; 85025; 86803; 87389

== ENCOUNTER 2025-02-24 19:50 | Outpatient (REF) | payer MEDICAID, SELFPAY ==
--- NOTE | ~2025-02-24 | MR_ITS ---
CLINICAL HISTORY: worsening lower back pain with right sciatic pain nubness and tingling MR lumbar spine without gadolinium Comparison: CR - XR LUMBAR SPINE 4V MIN - 08/15/24 15:00 EST Findings: 5 lumbar type vertebral bodies are present by plain film. Alignment is normal. No acute fracture or pathologic bone lesion. Cauda equina and conus medullaris within normal limits. Paraspinous musculature intact. There is incompletely visualized prominence of venous vasculature versus dilated fallopian tube within the left adnexa. L1-L2: No significant canal nor foraminal stenosis. L2-L3:No significant canal nor foraminal stenosis. L3-L4:No significant canal nor foraminal stenosis. L4-L5: Mild diffuse disc bulge. Mild bilateral facet hypertrophy. Mild canal stenosis. Mild bilateral foraminal stenosis. L5-S1:Mild bilateral facet hypertrophy. No significant canal or foraminal stenosis. IMPRESSION: 1. Mild disc and facet disease, causing mild canal and foraminal stenosis at L4-L5. No neural impingement. 2. Indeterminate left adnexal abnormality as described above. Initial further assessment with pelvic ultrasound is recommended. This document has been electronically signed by: Will Gutierrez MD on 02/26/2025 15:52:24
== END 2025-02-24 19:51 | disposition home or self-care (01) ==
LOC: HO.MRI 19:50
PROVIDERS: PCP Internal Medicine; Visit Provider Internal Medicine
DX: M54.41 Lumbago with sciatica, right side (principal); G89.29 Other chronic pain
CPT/HCPCS: 72148

== ENCOUNTER → 2025-02-24 19:56 | Outpatient (BNV) | payer MEDICAID, SELFPAY | PROVIDERS: PCP Internal Medicine; Visit Provider Radiology Diagnostic Radiology | DX: M54.41 Lumbago with sciatica, right side (principal); R20.2 Paresthesia of skin | CPT/HCPCS: 72148 ==

== ENCOUNTER 2025-03-01 12:56 | Outpatient (REF) | payer MEDICAID, SELFPAY ==
--- OUTSIDE RECORDS SUMMARY | 2025-03-01 13:00 | XMS_ITS | Clinical Summary ---
Author Organization [facility] Address [address] [place] [address] Phone Care Team Providers Care Dimethylaniline Sulfator Operator Name Role Phone Unavailable Primary Care Provider [...] It is not the complete legal health record.[facility]
--- OUTSIDE RECORDS SUMMARY | 2025-03-01 13:00 | XMS_ITS | Clinical Summary ---
Author Organization [address] [place] [address] Address [address] [place] [address] Phone Care Team Providers Care Electron Microscopist Name Role Phone Maryan Abernathy MD Primary Care Provider Social History Tobacco Use Types Packs/Day Years Used Date Smoking Tobacco: Never Assessed Comments Unknown Sex and Gender Information Value Date Recorded Sex Assigned at Not on file Legal Sex Female 9:50 AM EST Gender Identity Not on file Sexual Orientation Not on file Plan of Treatment Upcoming Encounters Date Type Department Care Team ([facility] Contact Info) Description 05/22/2025 10:30 AM EDT Office Visit Bariatric Surgery [address] [phone] Glenda Marie MD [address] [place] [address] Health Maintenance Due Date Last Done [...] topic Insurance MEDICAID - [place] Care Teams Electron Microscopist Relationship Specialty Start Date End Date Maryan Abernathy MD [address] [phone] PCP - General 08/25/07
--- OUTSIDE RECORDS SUMMARY | 2025-03-01 13:00 | XMS_ITS | Encounter Summary ---
Author Organization [employer] Address [address] [place] [address] Care Team Providers Care Final Inspector Motorcyles Name Role Phone Lily Chauhan MD Primary Care Provide r Encounter Details Date Type Department Care Team (Latest Contact Info) Description 03/01/2025 Travel Social History Tobacco Use Types Packs/Day Years Used Date Smoking Tobacco: Never Passive Smoke Exposure: Never Smokeless Tobacco: Never Alcohol Use Standard Drinks/Week Comments Never 0 (1 standard drink = 0.6 oz pur e alcohol) Depression Answer Date Recorded Patient Health Questionnaire-9 Score 0 02/15/2025 Patient Health Questionnaire-9 Score 0 02/15/2025 Last PHQ-9: Questionnaire Data Not on file 0 02/15/2025 Housing Stability Answer Date Recorded What is your housing situation today? I have wilton schneider 12/11/[address] you li ve. Do you have problems with any of the following? None of the above 12/11/2024 Food Insecurity Answer Date Recorded Within the past 12 months, y ou worried that your food would run out before you got money to buy more: Never True 12/11/2024 Within the past 12 months,th e food you bought just didn't last and you didn't have enough money to get more: Never True Transportation Answer Date Recorded In the past 12 months, has l ack of transportation kept you from medical appts, meetings, work or from getting things needed for daily living? No 12/11/2024 Utilities Answer Date Recorded In the past 12 months, has t he electric, gas, oil or water company threatened to shut off services in your home? No 12/11/2024 Depression Answer Date Recorded Patient Health Questionnaire-2 Score 0 02/15/2025 Internet Access Answer Date Recorded Internet Access Q1 No 12/11/2024 Internet Access Q2 I do not want or need it 11/23 Comments Unknown Sex and Gender Information Value Date Recorded Sex Assigned at Female 05/25/2022 10:17 AM EDT Legal Sex Female 10:17 AM EDT Gender Identity Female 05/25/2022 10:17 AM EDT Sexual Orientation Choose not to disclose 2021 10:17 AM EDT documented as of this encounter Plan of Treatment Upcoming Encounters Date Type Department Care Team (Late st Contact Info) Description 03/16/2025 11:00 AM EDT Office Visit [facility] [address] [place] [address] Lily Chauhan MD [address] [place] [address] 04/09/2025 9:00 AM EDT Office Visit [facility] [address] [place] [address] David, Swati, OD [address] [place] [address] documented as of this encounter Visit Diagnoses Not on filedocumented in this encounter Additional Health Concerns Assessment Noted Time PHQ-9 Depression Total Score: 0 02/16/20 25 3:12 PM EDT documented as of this encounter Care Teams Final Inspector Motorcyles Relationship Specialty Start Date End Date Lily Chauhan MD [address] [place] [address] PCP - General Family Medicine 04/06/18 Neida Riojas Web Press JoggerHog Slaughterer 12/21/23 documented as of this encounter
== END 2025-03-01 12:57 | disposition home or self-care (01) ==
LOC: HO.LNP 12:56
PROVIDERS: Visit Provider Internal Medicine
DX: N94.9 Unspecified condition associated with female genital organs and menstrual cycle (principal)
CPT/HCPCS: 87255

== ENCOUNTER 2025-04-13 10:19 | Outpatient (REF) | payer MEDICAID, SELFPAY ==
--- NOTE | ~2025-04-13 | XR_ITS ---
EXAMINATION: XR HIP 2 OR MORE VIEWS RIGHT, XR HIP 2 OR MORE VIEWS LEFT HISTORY: pain COMPARISON: There are no prior studies available for comparison. FINDINGS: Two views of each hip are submitted. Osseous mineralization is normal. There is no fracture or dislocation. The joint space is maintained. The soft tissues are unremarkable. XR/XR hip LT min 2V IMPRESSION: Unremarkable examination of the bilateral hips. Electronically signed by: Thomas Bui MD 04/13/2025 11:02 AM EDT
--- NOTE | ~2025-04-13 | XR_ITS ---
EXAMINATION: XR HIP 2 OR MORE VIEWS RIGHT, XR HIP 2 OR MORE VIEWS LEFT HISTORY: pain COMPARISON: There are no prior studies available for comparison. FINDINGS: Two views of each hip are submitted. Osseous mineralization is normal. There is no fracture or dislocation. The joint space is maintained. The soft tissues are unremarkable. XR/XR hip RT min 2V IMPRESSION: Unremarkable examination of the bilateral hips. Electronically signed by: Thomas Bui MD 04/13/2025 11:02 AM EDT
--- OUTSIDE RECORDS SUMMARY | 2025-04-13 10:20 | XMS_ITS | Encounter Summary ---
Author Organization [email or web address] Address [address] [place] [address] Care Team Providers Care Forest Fire Management Officer Name Role Phone Lily Chauhan MD Primary Care Provide r Reason for Visit * Reason Comments Hip Pain Encounter Details Date Type Department Care Team ([facility] st Contact Info) Description 04/13/2025 10:20 AM EDT Office Visit [facility] [address] [place] [address] Bilateral hip pain Social History Tobacco Use Types Packs/Day [...] Reading Time Taken Comments Blood Pressure 149/90 04/13/2025 10:01 AM EDT Pulse 87 04/13/2025 10:01 AM EDT Temperature 36.7 C (98.1 F) 04/13/2025 10:01 AM EDT Respiratory Rate 17 04/13/2025 10:01 AM EDT Oxygen Saturation 100% 04/13/2025 10:01 AM EDT Inhaled Oxygen Concentration - - Weight 69.2 kg (152 lb 9.6 oz) 04/13/2025 10:01 AM EDT Height - - Body Mass Index 30.82 03/16/2025 10:54 AM EDT documented in this encounter Plan of Treatment Upcoming Encounters Date Type Department Care Team (Late st Contact Info) Description 05/30/2025 11:30 AM EST Office Visit [facility] [address] [place] [address] David, Swati, OD [address] [facility] [place] [address] Scheduled Orders Name Type Priority Associated Diagnoses Orde r Schedule XR Hip 2 or 3 Views Left Imaging Routine Bilateral hip pain Expected: 04/13/2025, Expires: 04/13/2026 XR Hip 2 or 3 Views Right Imaging Routine Bilateral hip pain Expected: 04/13/2025, Expires: 04/13/2026 documented as of this encounter Visit Diagnoses Diagnosis Bilateral hip pain Pain in joint, pelvic region and thigh documented in this encounter Additional Health Concerns Assessment Noted Time PHQ-9 Depression Total Score: 0 02/16/20 25 3:12 PM EDT documented as of this encounter Care Teams Forest Fire Management Officer Relationship Specialty Start Date End Date Lily Chauhan MD [address] [place] [address] PCP - General Family Medicine 04/06/18 Neida Riojas Securities ConsultantSet Rider 12/21/23 documented as of this encounter
--- OUTSIDE RECORDS SUMMARY | 2025-04-13 10:52 | XMS_ITS | Clinical Summary ---
Author Organization [employer] Address [address] [place] [address] Care Team Providers Care Cell Operator Name Role Phone Lily Chauhan MD [...] DAY NEEDED FOR BRONCHOSPASM 06/14/20 23 Active loratadine (Claritin) 10 MG tabletIndicat ions:Seasonal allergies TAKE 1 TABLET BY MOUTH EVERY DAY 90 tablet 1 10/13/19 25 Active baclofen (Lioresal) 5 MG tablet TAKE 1 TABLET BY MOUTH THREE TIMES A DAY MAY CAUSE DROWSINESS DISCONTINUE TIZANIDINE 09/29/19 25 Active dicyclomine (Bentyl) 10 MG capsule TAKE 1 CAPSULE ORALLY EVERY 8 HOURS NEEDED FOR ABDOMINAL PAIN 09/21/19 25 Active gabapentin (Neurontin) 400 MG capsuleIndica tions:Neck pain Take 1 capsule (400 mg) by mouth 3 times daily. 90 capsule 11 12/12/19 25 026 Active valACYclovir (Valtrex) 500 MG tabletIndicat ions:Herpes simplex infection of perianal skin Take 1 tablet (500 mg) by mouth Once per day. 30 tablet 2 03/07/20 25 025 Active Tirzepatide-W eight Management (Zepbound) 12.5 MG/0.5ML solution auto-injector Indications:B VA 38.0-38.9,danilo lt Inject 0.5 mL (12.5 mg) under the skin 1 (one) time per week. 2 mL 03/22/20 25 Active lidocaine (Lidoderm) 5 % patchIndicati ons:Chronic bilateral low back pain with right-sided sciatica APPLY 1 PATCH TOPICALLY TO SKIN, LEAVE ON FOR 12 HOURS AND OFF FOR 12 HOURS DIRECTED 30 patch 1 04/09/20 25 Active cyclobenzapri ne (Flexeril) 10 MG tabletIndicat ions:Chronic bilateral low back pain with right-sided sciatica TAKE 1 TABLET BY MOUTH THREE TIMES DAILY FOR 10 DAYS 30 tablet 04/12/20 25 025 Active Acetaminophen Extra Strength 500 MG tabletIndicat ions:Chronic bilateral low back pain with right-sided sciatica TAKE 1 TABLET BY MOUTH EVERY 4 TO 6 HOURS NEEDED. DO NOT EXCEED 8 TABLETS IN 24 HOURS 40 tablet 1 04/12/20 25 Active naproxen (Naprosyn) 500 MG tabletIndicat ions:Bilatera l hip pain Take 1 tablet (500 mg) by mouth 2 times daily. 30 tablet 04/13/20 25 025 Active cyclobenzapri ne (Flexeril) 10 MG tabletIndicat ions:Chronic bilateral low back pain with right-sided sciatica Take 1 tablet (10 mg) by mouth 3 times daily for 10 days. 30 tablet 02/16/20 25 025 Discontinued lidocaine (Lidoderm) 5 % patchIndicati ons:Chronic bilateral low back pain with right-sided sciatica Apply 1 patch topically Once per day. Remove & discard patch within 12 hours or as directed by . 30 patch 1 02/16/20 25 025 Discontinued Acetaminophen Extra Strength 500 MG tabletIndicat ions:Chronic bilateral low back pain with right-sided sciatica TAKE 1 TABLET BY MOUTH EVERY 4 TO 6 HOURS NEEDED DO NOT EXCEED 8 TABLETS IN 24 HOURS 40 tablet 1 03/07/20 25 025 Discontinued Tirzepatide-W eight Management (Zepbound) 12.5 MG/0.5ML solution auto-injector Indications:B VA 38.0-38.9,danilo lt Inject 0.5 mL (12.5 mg) under the skin 1 (one) time per week. 2 mL 1 03/15/20 25 025 Discontinued(R eorder (will not trigger notification to Pharmacy)) Active Problems Problem Noted Date Diagnosed Date Bilateral hip pain 04/13/2025 Class 1 obesity due to exces s calories with serious comorbidity and body mass index (BMI) of 30.0 to 30.9 in adult 03/16/2025 Assessment & Plan (03/16/2025 2:06 PM EDT): Extensive discussion about healthy diet and exercise on today Patient is currently on stepdown 12.5 mg weekly, plan is to increase to 15 mg weekly Genital lesion, female 03/01/2025 Assessment & Plan (03/01/2025 2:40 PM EDT): Counseling done Chronic bilateral low back pain with right-sided sciatica 02/15/2025 Assessment & Plan (03/16/2025 2:07 PM EDT): Advised to apply heat on affected area continue with acetaminophen and ibuprofen as needed and continue with lidocaine patch I advised not to miss her appointments with physical therapy Assessment & Plan (02/15/2025 4:20 PM EDT): Apply heat on affected area I will prescribe for patient acetaminophen as needed I will prescribe the patient Flexeril 10 mg every 8 hours he is aware of side effects somnolence and that she cannot drive or do any activity that requires her concentration while taking this medication I prescribed lidocaine patches to apply 1 daily I will order an MRI in light of worsening lower back pain and I will refer patient to physical therapy Chronic fatigue 12/11/2024 Assessment & Plan (12/11/2024 1:36 PM EDT): Blood work ordered patient will be contacted with results Family history of malignant neoplasm of female b reast 12/11/2024 Pituitary abnormality 08/18/2024 Cyst of cervical facet [...] one tablet 1-2 hours before dental appointment Class 2 severe obesity due t o excess calories with serious comorbidity and body mass index (BMI) of 36.0 to 36.9 in adult 11/15/2023 Assessment & Plan (12/11/2024 1:35 PM EDT): Today extensive discussion was done about life style modifications I advise healthy diet (low calorie) and cardiovascular exercise C/w zepbound Assessment & Plan (11/16/2023 3:54 PM EDT): I explained to patient ozempic will not be cover by insurance for weight loss, patient insisted and wants to try to pay out of pocket Today extensive discussion was done about life style modifications I advise healthy diet (low calorie) and cardiovascular exercise Seasonal allergies 11/15/2023 Neck pain 11/06/2022 Assessment & Plan (12/11/2024 1:33 PM EDT): I will go up on gabapentin to 400mg Q 8hrs Continue to follow up with specialist Assessment & Plan (09/26/2024 12:38 PM EST): [...] care exa mination 11/06/2022 Assessment & Plan (12/11/2024 1:32 PM EDT): See HPI Assessment & Plan (11/16/2023 3:55 PM EDT): See HPI Assessment & Plan (11/06/2022 11:03 AM EDT): Please refer to HPI next appointment will be for PAP smear Exercise counseling 09/16/2022 Dietary counseling 09/16/2022 Sleep disturbance 09/16/2022 Assessment & Plan (09/16/2022 12:46 PM EST): Sleep study pending. FU after sleep study. Chronic thoracic back pain 07/06/2022 Essential hypertension 07/06/2022 Assessment & Plan (03/16/2025 2:06 PM EDT): Blood pressure is currently stable I advised low-sodium diet and to continue with weight reduction Assessment & Plan (02/15/2025 4:19 PM EDT): Advise low-sodium diet and weight reduction, will discontinue for now blood pressure medication and advised to continue to monitor blood pressure at home and report back to us if blood pressure starts being higher than 140/90 Assessment & Plan (12/11/2024 1:32 PM EDT): I advised: - Aerobic exercise to reduce [...] consulting health care provider Assessment & Plan (08/07/2024 2:39 PM EST): [...] her information for [place] [facility] Discussed re weight reduction options including exercise, life style modifications, diet, referral to cash applications specialist. Discussed re lower calorie intake, increase dietary fiber Assessment & Plan (08/05/2022 9:19 PM EST): Counseled re Weight reduction, increase exercise to 20min/d Lower calorie intake Order labs Blood in urine 05/03/2018 Chronic midline low back pain without sciatica 1 Assessment & Plan (11/06/2022 11:01 AM EDT): XRAY ordered Medications as above Resolved Problems Problem Noted Date Diagnosed Date Resolved Date Body mass index (BMI) 40.0-44.9, adult 07/06/2022 03/20/2024 Encounters Date Type Department Care Team Description 04/13/2025 10:20 AM EDT Office Visit [facility] [address] [place] [address] Bilateral hip pain 04/13/2025 Travel 04/12/2025 Refill [facility] [address] [place] [address] Lily Chauhan MD Chronic bilateral low back pain with right-sided sciatica; Genital lesion, female 04/08/2025 Refill [facility] [address] [place] [address] Lily Chauhan MD Chronic bilateral low back pain with right-sided sciatica 03/28/2025 Telephone [facility] [address] [place] [phone] Lily Chauhan MD Durable Medical Equipment (MH PA: Zepbound) 03/27/2025 Refill [facility] [address] [place] [address] Lily Chauhan MD BMI 38.0-38.9,adult 03/22/2025 Refill [facility] [address] [place] [address] Lily Chauhan MD BMI 38.0-38.9,adult 03/16/2025 11:00 AM EDT Office Visit [facility] [address] [place] [phone] Lily Chauhan MD Class 1 obesity due to excess calories with serious comorbidity and body mass index (BMI) of 30.0 to 30.9 in adult (Primary Dx); Essential hypertension; Chronic bilateral low back pain with right-sided sciatica 03/16/2025 Travel 03/13/2025 Telephone [facility] [address] [place], [place] [phone] Lily Chauhan MD Chart Prep 03/12/2025 Refill [facility] [address] [place] [address] Lily Chauhan MD BMI 38.0-38.9,adult 03/07/2025 Orders Only [address] [place] [address] Lily Chauhan MD Genital lesion, female 03/07/2025 Orders Only [address] [place] [address] Lily Chauhan MD Genital lesion, female 03/07/2025 Orders Only [address] [address] Lily Chauhan MD Herpes simplex infection of perianal skin (Primary Dx) 03/06/2025 Results Follow-Up [address] [address] Lily Chauhan MD Herpes Simplex Virus Culture with Reflex Typing 03/06/[address] [address] Lily Chauhan MD Chronic bilateral low back pain with right-sided sciatica 03/01/2025 11:15 AM EDT Office Visit [address] [address] Lily Chauhan MD Genital lesion, female 03/01/2025 Travel 02/27/2025 Results Follow-Up [address] [address] Lily Chauhan MD MR Lumbar Spine w/o Contrast 02/27/2025 Orders Only [address] [address] Lily Chauhan MD Left pelvic adnexal fluid collection (Primary Dx) 02/26/[address] [address] Lily Chauhan MD Nurse Triage 02/15/2025 3:15 PM EDT Office Visit [address] [address] Lily Chauhan MD Essential hypertension (Primary Dx); Chronic bilateral low back pain with right-sided sciatica 02/15/2025 Travel 02/14/[address] [place] [address] Lily Chauhan MD Chart Prep 02/12/2025 Telephone [facility] [address] [place], [place] [phone] Lily Chauhan MD Nurse Triage 01/22/2025 Refill [facility] [address] [place] [address] Lily Chauhan MD BMI 38.0-38.9,adult from Last 3 Months Immunizations Immunization Administration Dates Next Due HPV, Quadrivalent 07/07/2007 [...] your housing situation today? I have [facility] 12/11/[address] you li [...] 9.6 oz) 04/13/2025 10:01 AM EDT Height 149.9 cm (4' 11 ) 03/16/2025 10:54 AM EDT Body Mass Index 30.82 03/16/2025 10:54 AM EDT Plan of Treatment Upcoming Encounters Date Type Department Care Team (Late st Contact Info) Description 05/30/2025 11:30 AM EST Office Visit [facility] [address] [place] [address] Swati Hernandez, OD [address] [place] [address] Health Maintenance Due Date Last Done Comments Family Planning (PISQ) 2001 HPV Vaccines (2 - 3-dose series) 08/04/2007 07/07/2007 Hepatitis B Vaccines (3 of 3 - 19+ 3-dose series) 01/11/2018 11/16/2017, 07/07/2007 Cervical Cancer Screening 06/02/2024 HPV/Cotest 06/02/2024 Pap Smear 06/02/2024 06/02/2019 COVID-19 Vaccine (4 - season) 2025 10/21/2021, 10/04/2020, 09/04/2020 Influenza Vaccine (#1) 2025 Alcohol/Substance Use Screening 06/19/2025 06/19/2024 Disability Screening 12/11/2025 12/11/2024 SDOH Screening 12/11/2025 12/11/2024 Depression Screening 02/15/2026 02/15/2025, 02/16/20 Tobacco Screening 03/16/2026 03/16/2025 Lipid Panel 06/20/2029 06/20/2024, 06/26, 09/24/2020 DTaP/Tdap/Td Vaccines (4 - Td or Tdap) 12/19/2029 12/20/2019, 01/17/2014, 10/29/2010, Additional history exists Zoster Vaccines (1 of 2) 2036 RSV Patients and Patients Aged 60 years or older (1 - 1-dose 75+ series) 2061 Hepatitis A Vaccines Aged Out 11/16/2017, 07/07/20 07 No longer eligible based on patient's age to complete this topic HIV Screening Completed 02/15/2025, 05/27, 07/06/2019 Hepatitis C Screening Completed 02/15/2025 , 06/20/2024, 08/13/2022 HIB Vaccines Aged Out No longer eligi [...] Years) and At-Risk Patients (6 to 49) Years Aged Out No longer eligible based on patient's age to complete this topic RSV under 20 months Aged Out No longe r eligible based on patient's age to complete this topic Rotavirus Vaccines Aged Out No longer eligible based on patient's age to complete this topic Procedures Procedure Name Priority Date/Time Associated Diagnosis Comments HERPES CULTURE WITH REFLEX TYPING Routine 03/01/2025 12:00 AM EDT Genital lesion, female MR LUMBAR SPINE WO CONTRAST Routine 02/26/2025 3:52 PM EDT Chronic bilateral low back pain with right-sided sciatica VITAMIN B12/FOLATE, SERUM PANEL Routine 02/15/2025 11:45 AM EDT Chronic fatigue FERRITIN Routine 02/15/2025 11:45 AM EDT Chronic fatigue IRON AND TOTAL IRON BINDING CAPACITY Routine 02/15/2025 11:45 AM EDT Chronic fatigue TSH W/REFLEX TO FT4 Routine 02/15/2025 1 1:45 AM EDT Chronic fatigue VITAMIN D,25-OH,TOTAL,IA Routine 02/15/2025 11:45 AM EDT Chronic fatigue HEPATITIS C AB W/REFL TO HCV RNA, QN, PCR Routine 02/15/2025 11:45 AM EDT Chronic fatigue HIV 1/2 ANTIGEN/ANTIBODY, FOURTH GENERATION W/RFL Routine 02/15/2025 11:45 AM EDT Chronic fatigue COMPREHENSIVE METABOLIC PANEL Routine 02/15/2025 11:45 AM EDT Chronic fatigue CBC WITH AUTO DIFFERENTIAL Routine 02/15/2025 11:45 AM EDT Chronic fatigue LIPID PANEL, STANDARD Routine 06/20/2024 9:49 AM EST Encounter for preventative adult health care examination HM PAP/HPV Routine 06/02/2019 2:16 PM EST from Last 3 Months or Most Recently Relevant to Health Maintenance Results * (ABNORMAL) Herpes Simplex Virus Culture with Reflex Typing (03/01/2025 12:00 AM EDT) HSV Culture/Type SEE NOTE(A) [facility] Comment:HERPES SIMPLEX VIRUS CULTURE W/RFL TO TYPING Micro Number: [id number] Test Status: Final Specimen Source: Not given Specimen Quality: Adequate HSV Culture: Isolated HSV TYPE 2: Isolated HSV TYPE 1: The incidence of HSV 1 infection in the presence of HSV 2 (dual infection) is extremely rare. Therefore, testing for HSV 1 was not performed.THIS TEST WAS PERFORMED AT:[employer] [id number] MERATI,MD Swab (Lesion) 03/01/2025 03/01/2025 Lily Burnette MD LAB MICROBIOLOGY - [facility] ORDERABLES Final Result Performing Organization Address City/State/[facility] Co de Phone Number [facility] [address] [place] [phone] * MR Lumbar Spine w/o Contrast (02/26/2025 3:52 PM EDT) Anatomical Region Laterality Modality Spine, L-spine Magnetic Resonan ce 02/26/2025 3:52 PM EDT Narrative 02/26/2025 3:53 PM EDT [address] [address] Magnetic Resonance Report Signed Patient: Rena Marsh MR#: [id number] : 1985 Acct:[id number] Age/Sex: 39 / F ADM Date: 02/24/25 Loc: HO.MRI Attending Dr: Lily Burnette MD Ordering Physician: Lily Chauhan MD Date of Service: 02/24/25 Procedure(s): MR lumbar spine wo con Accession Number(s): [id number] cc: Lily Chauhan MD CLINICAL HISTORY: worsening lower back pain with right sciatic pain nubness and tingling MR lumbar spine without gadolinium Comparison: CR - XR LUMBAR SPINE 4V MIN - 08/15/24 15:00 EST Findings: 5 lumbar type vertebral bodies are present by plain film. Alignment is normal. No acute fracture or pathologic bone lesion. Cauda equina and conus medullaris within normal limits. Paraspinous musculature intact. There is incompletely visualized prominence of venous vasculature versus dilated fallopian tube within the left adnexa. L1-L2: No significant canal nor foraminal stenosis. L2-L3:No significant canal nor foraminal stenosis. L3-L4:No significant canal nor foraminal stenosis. L4-L5: Mild diffuse disc bulge. Mild bilateral facet hypertrophy. Mild canal stenosis. Mild bilateral foraminal stenosis. L5-S1:Mild bilateral facet hypertrophy. No significant canal or foraminal stenosis. IMPRESSION: 1. Mild disc and facet disease, causing mild canal and foraminal stenosis at L4-L5. No neural impingement. 2. Indeterminate left adnexal abnormality as described above. Initial further assessment with pelvic ultrasound is recommended. This document has been electronically signed by: Will Gutierrez MD on 02/26/2025 15:52:24 Dictated By: Will Gutierrez MD Signed By: <Electronically signed by Will Gutierrez MD in OV> 02/26/25 1553 DD/ 1552 TD/TT: 02/26/25 1552 Privacy Specialist: Procedure Note Donotuseinterpreter, Image - 02/26/2025 [place] [address] Magnetic Resonance Report Signed Patient: Rena Marsh#: [id number] : 1985Acct:[id number] Age/Sex: 39 / FADM Date: 02/24/25 Loc: HO.MRI Attending Dr: Lily Burnette MD Ordering Physician: Lily Chauhan MD Date of Service: 02/24/25 Procedure(s): MR lumbar spine wo con Accession Number(s): [id number] cc: Lily Chauhan MD CLINICAL HISTORY: worsening lower back pain with right sciatic painnubness and tingling MR lumbar spine without gadolinium Comparison: CR - XR LUMBAR SPINE 4V MIN - 08/15/24 15:00 EST Findings: 5 lumbar type vertebral bodies are present by plain film. Alignment is normal. No acute fracture or pathologic bone lesion. Cauda equina and conus medullaris within normal limits. Paraspinous musculature intact. There is incompletely visualized prominence of venous vasculature versus dilated fallopian tube within the left adnexa. L1-L2: No significant canal nor foraminal stenosis. L2-L3:No significant canal nor foraminal stenosis. L3-L4:No significant canal nor foraminal stenosis. L4-L5: Mild diffuse disc bulge. Mild bilateral facet hypertrophy. Mild canal stenosis. Mild bilateral foraminal stenosis. L5-S1:Mild bilateral facet hypertrophy. No significant canal or foraminal stenosis. IMPRESSION: 1. Mild disc and facet disease, causing mild canal and foraminal stenosis at L4-L5. No neural impingement. 2. Indeterminate left adnexal abnormality as described above. Initial further assessment with pelvic ultrasound is recommended. This document has been electronically signed by: Will Gutierrez MD on 02/26/2025 15:52:24 Dictated By: Will Gutierrez MD Signed By: <Electronically signed by Will Gutierrez MD in OV> 02/26/25 1553 DD/ 1552 TD/TT: 02/26/25 1552 Privacy Specialist: Lily Burentte MD IMG MRI PROCEDURES Fi nal Result * (ABNORMAL) Vitamin D, 25-Hydroxy, Total, Immunoassay (02/15/2025 11:45 AM EDT) Vitamin D 25-OH Total 21.9(L) >30 ng/mL [facility] Comment: Health Based Reference Values*< 20 ng/mL Wvhkecmzx83-12 ng/mL Insufficient> 30 ng/mL Sufficient*Manolo HERRON. N Engl J Med. 2007;357:266-280There is no well-established upper level of normal vitamin Dlevels. Some laboratories use 50 ng/mL as an upper limit ofnormal. However, toxicity is patient-dependent and may occurat any level. Careful correlation with the patient'spresentation is necessary and, if there is concern forvitamin D toxicity, treatment should be consideredirrespective of the serum level.Care must be taken in interpreting Vitamin D [...] with another method such as LC-MS/MS. Blood Venous blood specimen / Unknown 02/15/2025 11:45 AM EDT 02/15/2025 1:16 PM EDT us Lily Burnette MD LAB BLOOD ORDERABLES Final Result Performing Organization Address [facility] Co de Phone Number [facility] [address] [place] [phone] * Vitamin B12 (Cobalamin) and Folate Panel, Serum (02/15/2025 11:45 AM EDT) Pathologist [facility] Vitamin B12 326 200 - 900 pg/mL [facility] Comment:NORMAL 200-900 PG/ML INDETERMINATE 160-199 PG/ML DEFICIENT < 160 PG/ML Folate 9.6 > or = 4.0 ng/mL [facility] Comment:Reference Values:> o r = 4.0 ng/mL< 4.0 ng/mL suggests folate deficiency Methotrexate, aminopterin and folinic acid(leucovorin) are chemotherapeutic agents whose molecularstructures are similar to folate; therefore, the Architectfolate assay cannot be used for patients using these drugs. Blood Venous blood specimen / Unknown 02/15/2025 11:45 AM EDT 02/15/2025 1:16 PM EDT us Lily Burnette MD LAB BLOOD ORDERABLES Final Result Performing Organization Address [facility] Co de Phone Number [facility] [address] [place] [phone] * TSH with Reflex to Free T4 (02/15/2025 11:45 AM EDT) TSH reflex Free T4 0.97 0.32 - 4.0 uIU/mL [facility] Blood Venous blood specimen / Unknown 02/15/2025 11:45 AM EDT 02/15/2025 1:16 PM EDT Lily Burnette MD LAB BLOOD ORDERABLES Final Result [facility] [address], [place] [phone] * (ABNORMAL) CBC auto differential (02/15/2025 11:45 AM EDT) White Blood Count 2.8(L) 4.8 - 10.8 X10*3/uL [facility] Red Blood Count 3.90(L) 4.20 - 5.50 X10*6/uL [facility] Hemoglobin 11.7(L) 12.0 - 16.0 g/dl [facility] Hematocrit 34.1(L) 37.0 - 47.0 % [facility] Mean Corpuscular Volume 87.4 80.0 - 98.0 fL [facility] Mean Corpuscular Hemoglobin 30.0 27.0 - 33.0 pg [facility] Mean Corpuscular HGB Conc 34.3 31.0 - 35.0 g/dl [facility] Red Cell Distribution Width 14.3 11.0 - 16.0 % [facility] Platelet Count 270 160 - 400 X10*3/uL [facility] Mean Platelet Volume 10.4 9.4 - 12.3 fL [facility] Neutrophils Percent Auto 45.0 45 - 73 % [facility] Imm Gran Pct Auto 0.0 0.0 - 0.4 % [facility] Lymphocytes Percent Auto 43.6(H) 20 - 40 % [facility] Monocytes Percent Auto 9.9 2 - 11 % [facility] Eosinophils Percent Auto 0.4 0 - 4 % [facility] Basophils Percent Auto 1.1 0 - 2 % [facility] NRBC Pct Auto 0.0 0.0 - 0.2 /100WBC [facility] Neutrophils Absolute Auto 1.3(L) 2.0 - 8.3 x10*3/uL [facility] Imm Gran Abs Auto 0.00 0.00 - 0.03 X10*3/uL [facility] Lymphocytes Absolute Auto 1.2 1.2 - 4.9 X10*3/uL [facility] Monocytes Absolute Auto 0.3 0.1 - 1.2 X10*3/uL [facility] Eosinophils Absolute Auto 0.0 0.0 - 0.4 X10*3/uL [facility] Basophils Absolute Auto 0.0 0.0 - 0.2 X10*3/uL [facility] NRBC Abs Auto 0.000 0.0 - 0.012 X10*3/uL [facility] Blood Venous blood specimen / Unknown 02/15/2025 11:45 AM EDT 02/15/2025 1:15 PM EDT us Lily Burnette MD LAB BLOOD ORDERABLES Final Result Performing Organization Address City/[facility]/ZIP Co de Phone Number [facility] [address] [place] [phone] * Hepatitis C Antibody with Reflex to HCV, RNA, Quantitative, Real-Time PCR (02/15/2025 11:45 AM EDT) Hepatitis C Antibody Nonreactive Nonreactive [facility] Comment:Antibodies to HCV no t detected; does not exclude early acuteHCV infection. Blood Venous blood specimen / Unknown 02/15/2025 11:45 AM EDT 02/15/2025 1:16 PM EDT us Lily Burnette MD LAB BLOOD ORDERABLES Final Result [facility] [address] [place] [phone] * Iron And Total Iron Binding Capacity (02/15/2025 11:45 AM EDT) Iron 48 30 - 160 mcg/dL [facility] Total Iron Binding Capacity 322 228 - 428 mcg/dL [facility] Percent Iron Saturation 15 15 - 50 % [facility] Unsaturated Iron Binding 274 ug/dL [facility] Blood Venous blood specimen / Unknown 02/15/2025 11:45 AM EDT 02/15/2025 1:16 PM EDT us Lily Burnette MD LAB BLOOD ORDERABLES Final Result [facility] [address] [place] [phone] * HIV-1/2 Antigen and Antibodies, Fourth Generation, with Reflexes (02/15/2025 11:45 AM EDT) Pathologist [facility] HIV AB/AG Nonreactive Nonreactive [facility] Comment:HIV-1 p24 Ag and/or HIV-1/HIV-2 Ab not detected.A test result that is nonreactive does not exclude thepossibility of exposure to or infection with HIV-1 and/orHIV-2. Nonreactive results in this assay for individualswith prior exposure to HIV-1 and/or HIV-2 may be due toantigen and antibody levels that are below the limit ofdetection of this assay.[employer] HIV Ag/Ab Combo assay result andsupplemental assay results should be interpreted inconjunction with the patient's clinical presentation,history and other laboratory results. If the results areinconsistent with clinical evidence, additional testing issuggested to confirm the result. Blood Venous blood specimen / Unknown 02/15/2025 11:45 AM EDT 02/15/2025 1:16 PM EDT us Lily Burnette MD LAB BLOOD ORDERABLES Final Result Performing Organization Address City/[facility]/ZIP Co de Phone Number [facility] [address] [place] [address] [phone] * Ferritin (02/15/2025 11:45 AM EDT) Pathologist [facility] Ferritin 13 10 - 122 ng/mL [facility] Blood Venous blood specimen / Unknown 02/15/2025 11:45 AM EDT 02/15/2025 1:16 PM EDT Lesley Calvin Burnette MD LAB BLOOD ORDERABLES Final Result Performing Organization Address [facility] Co de Phone Number [facility] [address] [place] [address] [phone] * (ABNORMAL) Comprehensive Metabolic Panel (02/15/2025 11:45 AM EDT) [facility] Sodium 140 135 - 145 mmol/L [facility] Potassium 4.1 3.3 - 5.1 mmol/L [facility] Chloride 110(H) 96 - 108 mmol/L [facility] Carbon Dioxide 24 22 - 29 mmol/L [facility] Anion Gap 10(L) 12 - 20 [facility] Urea Nitrogen (BUN) 10 9 - 16 mg/dL [facility] Creatinine, Serum 0.68 0.5 - 1.4 mg/dL [facility] Estimated Glomerular Filt Rate >60 [facility] Comment:Chronic Kidney Disea se: Estimated GFR < 60 mL/min/1.38b4Kqigua Kidney Disease: Estimated GFR < 15 mL/min/1.73m2 Glucose 85 60 - 115 mg/dL [facility] Calcium 9.2 8.4 - 10.2 mg/dL [facility] Bilirubin, Total 0.4 0.0 - 1.0 mg/dL [facility] Aspartate Amino Transferase 20 5 - 31 U/L [facility] Alanine Aminotransferase 20 0 - 31 U/L [facility] Total Protein 7.8 6.5 - 8.0 g/dL [facility] Albumin Level 4.6 3.5 - 5.0 g/dL [facility] Alkaline Phosphatase 71 39 - 117 U/L [facility] Blood Venous blood specimen / Unknown 02/15/2025 11:45 AM EDT 02/15/2025 1:16 PM EDT us Lily Burnette MD LAB BLOOD ORDERABLES Final Result Performing Organization Address City/[facility] Co de Phone Number [facility] [address] [place] [phone] * Lipid Panel, Standard (06/20/2024 9:49 AM EST) Triglycerides 133 <150 mg/dL [facility] Comment:Desirable Triglyceri de: less than 150 mg/dLBorderline High Triglyceride 150-199 mg/dLHigh Triglyceride: 200-499 mg/dLVery High Triglyceride: greater than or equal to 5OO mg/dL Cholesterol 175 <200 mg/dL [facility] Comment:Desirable Cholestero l: less than 200 mg/dLBorderline High Cholesterol: 200-239 mg/dLHigh Cholesterol: greater than 239 mg/dL LDL Cholesterol Calculated 94 <100 mg/dL [facility] Comment:Desirable LDL: less than 100 mg/dLNear Optimal/Above Optimal LDL: 110- 129 mg/dLBorderline High LDL: 130-159 mg/dLHigh LDL: 160-189 mg/dLVery High LDL: greater than or equal to 190 mg/dL HDL Cholesterol 55 >40 mg/dL [facility] Comment:Desirable HDL: great er than 40 mg/dL Note: This HDL assay may give artificially low results in patients with liver disease. Blood Venous blood specimen / Unknown 06/20/2024 9:49 AM EST 06/20/2024 11:47 AM EST us Lily Burnette MD LAB BLOOD ORDERABLES Final Result Performing Organization Address City/[facility]/ZIP Co de Phone Number [facility] [address] [place] [address] [phone] * HM PAP/HPV (06/02/2019 2:16 PM EST) us Historical Provider HEALTH MAINTENANCE Final Result from Last 3 Months or Most Recently Relevant to Health Maintenance Insurance [employer] Care Teams Cell Operator Relationship Specialty Start Date End Date Lily Chauhan MD [address] [place] [phone] PCP - General Family Medicine 04/06/18 Neida Riojas Public Administration ProfessorNetwork Architect 12/21/23
--- OUTSIDE RECORDS SUMMARY | 2025-04-13 10:52 | XMS_ITS | Encounter Summary ---
Author Organization [employer] Address [address] [facility] [address] 7t [place] [address] Care Team Providers Care Cultured Marble Products Maker Name Role Phone Lily Chauhan MD Primary Care Provide r Encounter Details Date Type Department Care Team ([facility] st Contact Info) Description 04/28/2024 Telephone [facility] MEDICINE [address] [place] [address] Julianne Soto RN [address] [place] [address] Social History Tobacco Use Types Packs/Day Years [...] Description 05/30/2025 11:30 AM EST Office Visit [facility] OPTOMETRY [address] [place] [address] David, Swati, OD [address] [place] [address] documented as of this encounter Visit Diagnoses Not on filedocumented in this encounter Additional Health Concerns Assessment Noted Time PHQ-9 Depression Total Score: 0 11/15/19 24 10:46 AM EDT documented as of this encounter Care Teams Cultured Marble Products Maker Relationship Specialty Start Date End Date Lily Chauhan MD [address] [place] [address] PCP - General Family Medicine 04/06/18 Neida Riojas Assault Boat CoxswainCut Pressman 12/21/23 documented as of this encounter
--- OUTSIDE RECORDS SUMMARY | 2025-04-13 10:52 | XMS_ITS | Encounter Summary ---
Author Organization [employer] Address [address] [facility] 7t [place] [address] Care Team Providers Care Stenotype Operator Name Role Phone Lily Chauhan MD Primary Care Provide r Reason for Visit * Reason Onset Date Comments Med Refill 10/31/2024 Encounter Details Date Type Department Care Team (Late st Contact Info) Description 10/31/2024 Refill [facility] MEDICINE [address] [place] [address] Lily Chauhan MD [address] [place] [address] BMI 38.0-38.9,adult Social History Tobacco Use Types [...] Description 05/30/2025 11:30 AM EST Office Visit [facility] OPTOMETRY [address] [place], [place] [phone] Swati Hernanedz, OD [address] [place] [address] documented as of this encounter Visit Diagnoses Diagnosis BMI 38.0-38.9,adult documented in this encounter Additional Health Concerns Assessment Noted Time PHQ-9 Depression Total Score: 3 05/22/20 24 1:05 PM EDT documented as of this encounter Care Teams Stenotype Operator Relationship Specialty Start Date End Date Lily Chauhan MD [address] [place] [address] PCP - General Family Medicine 04/06/18 Neida Riojas Gas Meter ProverSoftware Quality Automation Engineer 12/21/23 documented as of this encounter
--- OUTSIDE RECORDS SUMMARY | 2025-04-13 10:52 | XMS_ITS | Encounter Summary ---
Author Organization [employer] Address [address] [facility] 7t [place] [address] Care Team Providers Care C Python Developer Name Role Phone Lily Chauhan MD Primary Care Provide r Encounter Details Date Type Department Care Team ([facility] Contact Info) Description 08/17/2022 Orders Only [facility] MEDICINE [address] [place] [address] Maryan Abernathy MD [address] [place] [address] Vitamin D deficiency (Primary Dx) Social History [...] Upcoming Encounters Date Type Department Care Team ([facility] Contact Info) Description 05/30/2025 11:30 AM EST Office Visit [facility] OPTOMETRY [address] [place] [address] Swati Hernandez, OD [address] [place] [address] documented as of this encounter Visit Diagnoses Diagnosis Vitamin D deficiency- Primary documented in this encounter Care Teams C Python Developer Relationship Specialty Start Date End Date Lily Chauhan MD [address] [place], [place] [phone] PCP - General Family Medicine 04/06/18 Neida Riojas Etl Informatica DeveloperFire Sprinkler Designer 12/21/23 documented as of this encounter
--- OUTSIDE RECORDS SUMMARY | 2025-04-13 10:52 | XMS_ITS | Encounter Summary ---
Author Organization [employer] Address [address] [facility] [address] 7[address] [place] [address] Care Team Providers Care Deburr Operator Name Role Phone Lily Chauhan MD Primary Care Provide r Encounter Details Date Type Department Care Team (Latest Contact Info) Description 04/13/2025 Travel Social History Tobacco Use Types Packs/Day [...] Description 05/30/2025 11:30 AM EST Office Visit [facility] OPTOMETRY [address] [place], [place] [phone] David, Megan, OD [address] [place] [address] documented as of this encounter Visit Diagnoses Not on filedocumented in this encounter Additional Health Concerns Assessment Noted Time PHQ-9 Depression Total Score: 0 02/16/20 25 3:12 PM EDT documented as of this encounter Care Teams Deburr Operator Relationship Specialty Start Date End Date Lily Chauhan MD [address] [place] [address] PCP - General Family Medicine 04/06/18 Neida Riojas Business AsstAirframe Technician 12/21/23 documented as of this encounter
--- OUTSIDE RECORDS SUMMARY | 2025-04-13 10:52 | XMS_ITS | Encounter Summary ---
Author Organization [employer] Address [address] [facility] 7t [place] [address] Care Team Providers Care Boat Hoist Operator Helper Name Role Phone Lily Chauhan MD Primary Care Provide r Reason for Visit * Reason Onset Date Comments Nurse Triage 02/26/2025 Encounter Details Date Type Department Care Team ([facility] st Contact Info) Description 02/26/2025 Telephone [facility] MEDICINE [address] [place] [address] Lily Chauhan MD [address] [place] [address] Nurse Triage Social History Tobacco Use Types [...] Telephone Encounter - Cadence Nelson RN - 02/26/2025 12:08 PM EDT Triage call Pt reports a blister which has erupted between the rectal area and vagina. Pt reports the area started out itchy and then a blister formed which is painful. Pt is considering that gabapentin could be causing this , per pharmacy this is a rare but , possible side effect. Pt also reports that partner gets blisters on lips. Pt hasn't changed partners or been in contact with anything thatcould cause this. ASK apt with PCP 01/29/25 @ 1115am. Pt agrees with disposition and insurance is verified as active. Protocol Used: Sores (Adult) Protocol-Based Disposition: See in Office or Video Visit within 3 Days Positive Triage Question: * Patient wants to be seen * All higher-acuity triage questions were negative Care Advice Discussed: * Reassurance and Education - Sores * Reasons To Call Back - Redness or red streaks occur - Sore increases in size after 48 hours on antibiotic ointment - New sores occur - Not completely healed in 1 week - You become worse Triage call Pt didn't answer. Left voice message to call [facility] triage line at [phone] and callerwill try again in 10-15min. * Telephone Encounter - Adrian Jorge - 02/26/2025 12:02 PM EDT Tc from pt reporting that she is currently taking gabapentin and is getting a burning sensation andis growing blisters on her skin. Contact pt at [phone] documented in this encounter Plan of Treatment Upcoming Encounters Date Type Department Care Team (Late st Contact Info) Description 05/30/2025 11:30 AM EST Office Visit [facility] OPTOMETRY [address] [place], [place] [phone] Swati Hernandez, OD [address] [place] [address] documented as of this encounter Visit Diagnoses Not on filedocumented in this encounter Additional Health Concerns Assessment Noted Time PHQ-9 Depression Total Score: 0 02/16/20 25 3:12 PM EDT documented as of this encounter Care Teams Boat Hoist Operator Helper Relationship Specialty Start Date End Date Lily Chauhan MD [address] [place], [place] [phone] PCP - General Family Medicine 04/06/18 Neida Riojas Plug AssemblerRetail Support Associate 12/21/23 documented as of this encounter
--- OUTSIDE RECORDS SUMMARY | 2025-04-13 10:52 | XMS_ITS | Encounter Summary ---
Author Organization [employer] Address [address] [facility] 7t [place] [address] Care Team Providers Care Customer Operations Manager Name Role Phone Lily Chauhan MD Primary Care Provide r Reason for Visit * Reason Comments Med Refill Encounter Details Date Type Department Care Team ([facility] st Contact Info) Description 08/11/2024 Refill [facility] MEDICINE [address] [place] [address] Samantha Mason, [address] [place] [address] Social History Tobacco Use Types Packs/Day Years [...] Description 05/30/2025 11:30 AM EST Office Visit [facility] OPTOMETRY [address] [place] [address] Swati Hernandez, OD [address] [place] [address] documented as of this encounter Visit Diagnoses Not on filedocumented in this encounter Additional Health Concerns Assessment Noted Time PHQ-9 Depression Total Score: 3 05/22/20 24 1:05 PM EDT documented as of this encounter Care Teams Customer Operations Manager Relationship Specialty Start Date End Date Lily Chauhan MD [address] [place] [address] PCP - General Family Medicine 04/06/18 Neida Riojas Nuclear Powerplant MechanicTailor Fitter 12/21/23 documented as of this encounter
--- OUTSIDE RECORDS SUMMARY | 2025-04-13 10:52 | XMS_ITS | Encounter Summary ---
Author Organization [employer] Address [address] [facility] 7t [place] [address] Care Team Providers Care Label Sewer Name Role Phone Lily Chauhan MD Primary Care Provide r Reason for Visit * Reason Comments Med Refill Encounter Details Date Type Department Care Team ([facility] st Contact Info) Description 04/12/2025 Refill [facility] MEDICINE [address] [place] [address] Lily Chauhan MD [address] [place] [address] Chronic bilateral low back pain with right-sided sciatica; Genital lesion, female Social History Tobacco Use Types Packs/Day Years [...] housing situation today? I have wiltonjessica schneider 12/11/[address] you [...] Description 05/30/2025 11:30 AM EST Office Visit [facility] OPTOMETRY [address] [place] [address] David, Swati, OD [address] [place] [address] documented as of this encounter Visit Diagnoses Diagnosis Chronic bilateral low back pain with right-sided sciatica Genital lesion, female Other specified disorders of female genital organs documented in this encounter Additional Health Concerns Assessment Noted Time PHQ-9 Depression Total Score: 0 02/16/20 25 3:12 PM EDT documented as of this encounter Care Teams Label Sewer Relationship Specialty Start Date End Date Lily Chauhan MD [address] [place], [place] [phone] PCP - General Family Medicine 04/06/18 Neida Riojas Schedule CheckerTwisting Operator 12/21/23 documented as of this encounter
--- OUTSIDE RECORDS SUMMARY | 2025-04-13 10:52 | XMS_ITS | Encounter Summary ---
Author Organization [employer] Address [address] [facility] 7t [place] [address] Care Team Providers Care Non Destructive Evaluation Technician Name Role Phone Lily Chauhan MD Primary Care Provide r Reason for Visit * Reason Onset Date Comments Med Refill 03/27/2025 Encounter Details Date Type Department Care Team (Late st Contact Info) Description 03/27/2025 Refill [facility] MEDICINE [address] [place] [address] Lily Chauhan MD [address] [place] [address] BMI 38.0-38.9,adult Social History Tobacco Use Types [...] 11:30 AM EST Office Visit [facility] OPTOMETRY [address] [place] [address] DavidSwati pereyra, OD [address] [place] [address] documented as of this encounter Visit Diagnoses Diagnosis BMI 38.0-38.9,adult documented in this encounter Additional Health Concerns Assessment Noted Time PHQ-9 Depression Total Score: 0 02/16/20 25 3:12 PM EDT documented as of this encounter Care Teams Non Destructive Evaluation Technician Relationship Specialty Start Date End Date Lily Chauhan MD [address] [place], [place] [phone] PCP - General Family Medicine 04/06/18 Neida Riojas Name Plate StamperSeam Rubbing Machine Operator 12/21/23 documented as of this encounter
--- OUTSIDE RECORDS SUMMARY | 2025-04-13 10:52 | XMS_ITS | Clinical Summary ---
Author Organization [address] [facility] Address [address] [place] [address] Phone Care Team Providers Care Pin Ticket Machine Operator Name Role Phone Maryan Abernathy MD Primary [...] Department Care Team ([facility] Contact Info) Description 05/22/2025 10:30 AM EDT Office Visit Bariat[facility] [address] [facility] [address] [place] [address] Glenda Marie MD [address] [place] [phone] Health Maintenance Due Date Last Done Comments DTaP,Tdap,and Td Vaccines (1 - Tdap) 2005 Hepatitis B Vaccines (1 of 3 - 19+ 3-dose series) 2005 Cervical Cancer Screening: P ap Smear 2007 Depression Screening 07/26/2024 HIV Screening 09/07/2024 Hepatitis C Screening 09/07/2024 Social Influencers of Health Screening 09/07/2024 COVID-19 Vaccine ( - 2023-2 5 season) 2025 Influenza Vaccine (#1) 2025 RSV Immunization Adult Patie nts (1 - 1-dose 75+ series) 2061 HIB Vaccines Aged Out No longer eligi [...] topic Insurance MEDICAID - [place] Care Teams Pin Ticket Machine Operator Relationship Specialty Start Date End Date Maryan Abernathy MD [address] [phone] PCP - General 08/25/07
--- OUTSIDE RECORDS SUMMARY | 2025-04-13 10:52 | XMS_ITS | Encounter Summary ---
Author Organization [employer] Address [address] [facility] [address] 7[address] [place] [address] Care Team Providers Care Restaurant Delivery Driver Name Role Phone Lily Chauhan MD Primary Care Provide r Encounter Details Date Type Department Care Team ([facility] st Contact Info) Description 05/11/2024 Orders Only [facility] MEDICINE [address] [place] [address] Provider, MD Gloria Social History Tobacco Use [...] 11:30 AM EST Office Visit [facility] OPTOMETRY [address] [place], [place] [phone] Swati Hernandez, OD [address] [place] [address] documented as of this encounter Procedures Procedure [...] documented as of this encounter Care Teams Restaurant Delivery Driver Relationship Specialty Start Date End Date Lily Chauhan MD [address] [place], [place] [phone] PCP - General Family Medicine 04/06/18 Neida Riojas Non Destructive Testing ScientistDie Operator 12/21/23 documented as of this encounter
--- OUTSIDE RECORDS SUMMARY | 2025-04-13 10:52 | XMS_ITS | Encounter Summary ---
Author Organization [employer] Address [address] [facility] 7t [place] [address] Care Team Providers Care Wood Inspector Name Role Phone Lily Chauhan MD Primary Care Provide r Reason for Visit * Reason Comments Med Refill Encounter Details Date Type Department Care Team ([facility] st Contact Info) Description 05/15/2024 Refill [facility] MEDICINE [address] [place] [address] Lily Chauhan MD [address] [place] [address] Essential hypertension Social History Tobacco Use Types [...] Description 05/30/2025 11:30 AM EST Office Visit [facility] OPTOMETRY [address] [place] [address] Swati Hernandez, OD [address] [place] [address] documented as of this encounter Visit Diagnoses Diagnosis Essential hypertension Unspecified essential hypertension documented in this encounter Additional Health Concerns Assessment Noted Time PHQ-9 Depression Total Score: 0 11/15/19 24 10:46 AM EDT documented as of this encounter Care Teams Wood Inspector Relationship Specialty Start Date End Date Lily Chauhan MD [address] [place] [address] PCP - General Family Medicine 04/06/18 Neida Riojas Chain Maker HandInbound Sales Consultant 12/21/23 documented as of this encounter
--- OUTSIDE RECORDS SUMMARY | 2025-04-13 10:52 | XMS_ITS | Clinical Summary ---
Author Organization [employer] Address [address] [place] [address] Phone Care Team Providers Care Pile Driver Engineer Name Role Phone Unavailable Primary Care Provider [...] It is not the complete legal health record.[facility]
--- OUTSIDE RECORDS SUMMARY | 2025-04-13 10:52 | XMS_ITS | Encounter Summary ---
Author Organization [employer] Address [address] [facility] 7t [place] [address] Care Team Providers Care Track Subway Repair Supervisor Name Role Phone Lily Chauhan MD Primary Care Provide r Reason for Visit * Reason Comments Med Refill Encounter Details Date Type Department Care Team ([facility] st Contact Info) Description 04/08/2025 Refill [facility] MEDICINE [address] [place] [address] Lily Chauhan MD [address] [place] [address] Chronic bilateral low back pain with right-sided sciatica Social History Tobacco Use Types Packs/Day Years [...] 05/30/2025 11:30 AM EST Office Visit [facility] OPTOMETRY [address] [place] [address] David, Swati, OD [address] [place] [address] documented as of this encounter Visit Diagnoses Diagnosis Chronic bilateral low back pain with right-sided sciatica documented in this encounter Additional Health Concerns Assessment Noted Time PHQ-9 Depression Total Score: 0 02/16/20 25 3:12 PM EDT documented as of this encounter Care Teams Track Subway Repair Supervisor Relationship Specialty Start Date End Date Lily Chauhan MD [address] [place] [address] PCP - General Family Medicine 04/06/18 Neida Riojas Ball Machine OperatorAsset Analyst 12/21/23 documented as of this encounter
--- OUTSIDE RECORDS SUMMARY | 2025-04-13 10:52 | XMS_ITS | Encounter Summary ---
Author Organization [employer] Address [address] [facility] [address] [place] [address] Care Team Providers Care Account Relationship Manager Name Role Phone Lily Chauhan MD Primary Care Provide r Reason for Visit * Reason Comments Med Refill Encounter Details Date Type Department Care Team ([facility] st Contact Info) Description 02/25/2024 Refill [facility] [address] [place] [address] Dayday Pearce MD [address] [place] [address] Social History Tobacco Use Types Packs/Day Years [...] 11:30 AM EST Office Visit [facility] OPTOMETRY [address] [place] [address] Swati Hernandez, OD [address] [place] [address] documented as of this encounter Visit Diagnoses Not on filedocumented in this encounter Additional Health Concerns Assessment Noted Time PHQ-9 Depression Total Score: 0 11/15/19 24 10:46 AM EDT documented as of this encounter Care Teams Account Relationship Manager Relationship Specialty Start Date End Date Lily Chauhan MD [address] [place], [place] [phone] PCP - General Family Medicine 04/06/18 Neida Riojas Computer Systems Support SpecialistRegional Project Manager 12/21/23 documented as of this encounter
--- OUTSIDE RECORDS SUMMARY | 2025-04-13 10:52 | XMS_ITS | Encounter Summary ---
Author Organization [employer] Address [address] [place] [address] Care Team Providers Care Safety Risk Lead Name Role Phone Lily Chauhan MD Primary Care Provide r Encounter Details Date Type Department Care Team ([facility] Contact Info) Description 01/09/2025 Orders Only [facility] [address] [place] [address] Lily Chauhan MD [address] [place] [address] Social History Tobacco Use Types Packs/Day Years [...] Recorded Patient Health Questionnaire-2 Score 1 05/22/2024 Internet Access Answer Date Recorded Internet Access [...] Description 05/30/2025 11:30 AM EST Office Visit [facility] [address] [place] [address] David, Swati, OD [address] [place] [address] documented as of this encounter Visit Diagnoses Not on filedocumented in this encounter Additional Health Concerns Assessment Noted Time PHQ-9 Depression Total Score: 3 05/22/20 24 1:05 PM EDT documented as of this encounter Care Teams Safety Risk Lead Relationship Specialty Start Date End Date Lily Chauhan MD [address] [place] [address] PCP - General Family Medicine 04/06/18 Neida Riojas Channel Marketing SpecialistLinux System Administrator 12/21/23 documented as of this encounter
--- OUTSIDE RECORDS SUMMARY | 2025-04-13 10:52 | XMS_ITS | Encounter Summary ---
Author Organization [employer] Address [address] [facility] [address] [place] [address] Care Team Providers Care Supervisor Train Operations Name Role Phone Lily Chauhan MD Primary Care Provide r Reason for Visit * Reason Onset Date Comments Nurse Triage 06/26/2024 Encounter Details Date Type Department Care Team ([facility] st Contact Info) Description 06/26/2024 Telephone [facility] [address] [place] [address] Lily Chauhan MD [address] [place] [address] Nurse Triage Social History Tobacco Use Types [...] 05/30/2025 11:30 AM EST Office Visit [facility] [address] [place], [place] [phone] Swati Hernandez, OD [address] [place] [address] documented as of this encounter Visit Diagnoses Not on filedocumented in this encounter Additional Health Concerns Assessment Noted Time PHQ-9 Depression Total Score: 3 05/22/20 24 1:05 PM EDT documented as of this encounter Care Teams Supervisor Train Operations Relationship Specialty Start Date End Date Lily Chauhan MD [address] [place] [address] PCP - General Family Medicine 04/06/18 Neida Riojas Computer Language CoderResearch Worker Kitchen 12/21/23 documented as of this encounter
== END 2025-04-13 10:20 | disposition home or self-care (01) ==
LOC: HO.HHCX 10:19
PROVIDERS: Visit Provider Internal Medicine
DX: M25.551 Pain in right hip (principal); M25.552 Pain in left hip
CPT/HCPCS: 73502

== ENCOUNTER → 2025-04-13 10:20 | Outpatient (BNV) | payer MEDICAID, SELFPAY | PROVIDERS: Visit Provider Radiology Diagnostic Radiology | DX: M25.551 Pain in right hip (principal); M25.552 Pain in left hip | CPT/HCPCS: 73502 ==

== ENCOUNTER 2025-04-19 13:57 | Outpatient (REF) | payer MEDICAID, SELFPAY ==
--- NOTE | ~2025-04-19 | US_ITS ---
CLINICAL HISTORY: LEFT PELVIC ADNEXAL FLUID COLLECTION, LFT ADNEXAL ABNORMALITY US pelvis transvaginal and transabdominal Comparison: MR - MR LUMBAR SPINE WO CON - 02/24/25 20:11 EDT US/SR - US PELVIC AND TRANSVAGINAL - 03/03/24 13:32 EDT Findings: Transvaginal scanning performed. The uterus is 8.4 cm length. Multiple small fibroids are noted, measuring up to 1.7 cm. No endometrial lesion, 3 mm thickness. Multiple cervical nabothian cysts measuring up to 17 mm. Right ovary 2.4 x 1.3 x 2.0 cm. Left ovary 2.6 x 1.7 x 1.6 cm. Small thinly septated cyst noted. Normal color Doppler of both ovaries. No free fluid. IMPRESSION: No acute findings. Multiple incidental findings requiring no ongoing follow-up. This document has been electronically signed by: Torin Crisostomo MD on 04/20/2025 12:47:39
--- OUTSIDE RECORDS SUMMARY | 2025-04-19 18:27 | XMS_ITS | Clinical Summary ---
Author Organization [facility] Address [address] [place] [address] Phone Care Team Providers Care Active Directory Architect Name Role Phone Unavailable Primary Care Provider [...] It is not the complete legal health record.Formerly [facility]
--- OUTSIDE RECORDS SUMMARY | 2025-04-19 18:27 | XMS_ITS | Encounter Summary ---
Author Organization [employer] Address [address] [place] [address] Care Team Providers Care Radio Interference Investigator Name Role Phone Lily Chauhan MD Primary Care Provide r Reason for Visit * Reason Comments Med Refill Encounter Details Date Type Department Care Team ([facility] st Contact Info) Description 02/25/2024 Refill [facility] [address] [place] [phone] Dayday Pearce MD [address] [place] [address] Social History Tobacco Use Types Packs/Day Years [...] Description 05/30/2025 11:30 AM EST Office Visit [facility] [address] [place] [address] Swati Hernandez, OD [address] [place] [address] documented as of this encounter Visit Diagnoses Not on filedocumented in this encounter Additional Health Concerns Assessment Noted Time PHQ-9 Depression Total Score: 0 11/15/19 24 10:46 AM EDT documented as of this encounter Care Teams Radio Interference Investigator Relationship Specialty Start Date End Date Lily Chauhan MD [address] [place], [place] [phone] PCP - General Family Medicine 04/06/18 Neida Riojas [employer] Technical AssistantPallet Repairer 12/21/23 documented as of this encounter
--- OUTSIDE RECORDS SUMMARY | 2025-04-19 18:27 | XMS_ITS | Clinical Summary ---
Author Organization [employer] Address [address] [facility] 7[address] [place] [address] Care Team Providers Care Career Education Teacher Name Role Phone Lily Chauhan MD Primary [...] Management (Zepbound) 12.5 MG/0.5ML solution auto-injector Indications:B CA 38.0-38.9,danilo lt Inject 0.5 mL (12.5 mg) [...] Management (Zepbound) 12.5 MG/0.5ML solution auto-injector Indications:B CA 38.0-38.9,danilo lt Inject 0.5 mL (12.5 mg) under the skin 1 (one) time per week. 2 mL 1 03/15/20 25 025 Discontinued(R eorder (will not trigger notification to Pharmacy)) Active Problems Problem Noted Date Diagnosed Date Bilateral hip pain 04/13/2025 Assessment & Plan (04/13/2025 11:39 AM EDT): I prescribed naproxen 500mg BID PRN XRAYs ordered patient will be contacted with results Class 1 obesity due to exces s [...] 07/06/2022 Essential hypertension 07/06/2022 Assessment & Plan (04/13/2025 11:41 AM EDT): Blood pressure is high today could be due to pain, I advise low Na diet continue with weight reduction and monitor BP at home report back to me if BP is persistently high Assessment & Plan (03/16/2025 2:06 PM EDT): [...] her information for weight reduction program at [facility]. Discussed re weight reduction options including exercise, life style modifications, diet, referral to nuclear medicine specialist. Discussed re lower calorie intake, increase [...] Description 04/13/2025 10:20 AM EDT Office Visit [facility] [address] [place] [address] Lily Chauhan MD Essential hypertension (Primary Dx); Bilateral hip pain 04/13/2025 Travel 04/12/[address] [facility] [address] [place] [address] Lily Chauhan MD Chronic bilateral low back pain with right-sided sciatica; Genital lesion, female 04/08/[address] [facility] [address] [place] [address] Lily Chauhan MD Chronic bilateral low back pain with right-sided sciatica 03/28/[address] [facility] [address] [place] [address] Lily Chauhan MD Durable Medical Equipment ( PA: Zepbound) 03/27/[address] [facility] [address] [place] [address] Lily Chauhan MD BMI 38.0-38.9,adult 03/22/[address] [facility] [address] [place] [address] Lily Chauhan MD BMI 38.0-38.9,adult 03/16/2025 11:00 AM EDT Office Visit [facility] [address] [place] [address] Lily Chauhan MD Class 1 obesity due to excess calories with serious comorbidity and body mass index (BMI) of 30.0 to 30.9 in adult (Primary Dx); Essential hypertension; Chronic bilateral low back pain with right-sided sciatica 03/16/2025 Travel 03/13/[address] [facility] MED [facility] PEDS [address] [place] [address] Lily Chauhan MD Chart Prep 03/12/[address] [facility] [address] [place] [address] Lily Chauhan MD BMI 38.0-38.9,adult 03/07/2025 Orders Only 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) 03/06/2025 Results Follow-Up [address] [address] Lily Chauhan MD Herpes Simplex Virus Culture with Reflex Typing 03/06/2025 Refill [facility] [address] [place] [address] Lily Chauhan MD Chronic bilateral low back pain with right-sided sciatica 03/01/2025 11:15 AM EDT Office Visit [address] [address] Lily Chauhan MD Genital lesion, female 03/01/2025 Travel 02/27/2025 Results Follow-Up [address] [address] Lily Chauhan MD MR Lumbar Spine w/o Contrast 02/27/2025 Orders Only [address] [address] Lily Chauhan MD Left pelvic adnexal fluid collection (Primary Dx) 02/26/[address] [facility] [address] [place] [address] Lily Chauhan MD Nurse Triage 02/15/2025 3:15 PM EDT Office Visit [address] [phone] Lily Chauhan MD Essential hypertension (Primary Dx); Chronic bilateral low back pain with right-sided sciatica 02/15/2025 Travel 02/14/[address] [facility] [address], [place] [phone] Lily Chauhan MD Chart Prep 02/12/[address] [facility] [address], [place] [phone] Lily Chauhan MD Nurse Triage 01/22/2025 Refill [facility] [address], [place] [phone] Lily Chauhan MD BMI 38.0-38.9,adult from Last [...] Description 05/30/2025 11:30 AM EST Office Visit [facility] OPTOM[facility] [address] [place] [address] Swati Hernandez, OD [address] [place] [address] Health Maintenance Due Date Last Done Comments Family Planning (PISQ) 2001 HPV Vaccines (2 - 3-dose series) 08/04/2007 07/07/2007 Hepatitis B Vaccines (3 of 3 - 19+ 3-dose series) 01/11/2018 11/16/2017, 07/07/2007 Cervical Cancer Screening 06/02/2024 HPV/Cotest 06/02/2024 Pap Smear 06/02/2024 06/02/2019 COVID-19 Vaccine ( - season) 2025 10/21/2021, 10/04/2020, 09/04/2020 Influenza Vaccine (#1) 2025 Alcohol/Substance Use Screening 06/19/2025 06/19/2024 Disability Screening 12/11/2025 12/11/2024 SDOH Screening 12/11/2025 12/11/2024 Depression Screening 02/15/2026 02/15/2025, 02/16/20 25 Tobacco Screening 03/16/2026 03/16/2025 Lipid Panel 06/20/2029 [...] Name Priority Date/Time Associated Diagnosis Comments XR HIP 2 OR 3 VIEWS LEFT Routine 04/13/2025 10:52 AM EDT Bilateral hip pain XR HIP 2 OR 3 VIEWS RIGHT Routine 04/13/2025 10:50 AM EDT Bilateral hip pain HERPES CULTURE WITH REFLEX TYPING Routine 03/01/2025 [...] Relevant to Health Maintenance Results * XR Hip 2 or 3 Views Left (04/13/2025 10:52 AM EDT) Anatomical Region Laterality Modality Lower Extremities, Hip Left Radiograp hic Imaging 04/13/2025 10:5 2 AM EDT Narrative 04/13/2025 11:05 [place] [address] XRay Report Signed Patient: Rena Marsh MR#: [id number] : 1985 Acct:[id number] Age/Sex: 39 / F ADM Date: 04/13/25 Loc: HO.HHCX Attending Dr: Lily Burnette MD Ordering Physician: Lily Chauhan MD Date of Service: 04/13/25 Procedure(s): XR hip LT min 2V Accession Number(s): [id number] cc: Lily Chauhan MD Reason for Exam: pain EXAMINATION: XR HIP 2 OR MORE VIEWS RIGHT, XR HIP 2 OR MORE VIEWS LEFT HISTORY: pain COMPARISON: There are no prior studies available for comparison. FINDINGS: Two views of each hip are submitted. Osseous mineralization is normal. There is no fracture or dislocation. The joint space is maintained. The soft tissues are unremarkable. XR/XR hip LT min 2V IMPRESSION: Unremarkable examination of the bilateral hips. Electronically signed by: Thomas Bui MD 04/13/2025 11:02 AM EDT RP Dictated By: Thomas Bui MD Signed By: <Electronically signed by Thomas Bui MD in OV> 04/13/25 1102 DD/ 1052 TD/TT: 04/13/25 105 Lab Pack Chemist: Procedure Note Donotjose einterpreter, Image - 04/13/[address] [address] XRay Report Signed Patient: Rena MarshMR#: [id number] : 1985Acct:[id number] Age/Sex: 39 / FADM Date: 04/13/25 Loc: .HHCX Attending Dr: Lily Burnette MD Ordering Physician: Lily Chauhan MD Date of Service: 04/13/25 Procedure(s): XR hip LT min 2V Accession Number(s): [id number] cc: Lily Chauhan MD Reason for Exam: pain EXAMINATION: XR HIP 2 OR MORE VIEWS RIGHT, XR HIP 2 OR MORE VIEWS LEFT HISTORY: pain COMPARISON: There are no prior studies available for comparison. FINDINGS: Two views of each hip are submitted. Osseous mineralization is normal. There is no fracture or dislocation. The joint space is maintained. The soft tissues are unremarkable. XR/XR hip LT min 2V IMPRESSION: Unremarkable examination of the bilateral hips. Electronically signed by: Thomas Bui MD 04/13/2025 11:02 AM EDT RP Dictated By: Thomas Bui MD Signed By: <Electronically signed by Thomas Bui MD in OV> 04/13/25 1102 DD/ 1052 TD/TT: 04/13/25 105 Lab Pack Chemist: Lily Burnette MD IMG XR PROCEDURES Davy marilou Result - Final * XR Hip 2 or 3 Views Right (04/13/2025 10:50 AM EDT) Anatomical Region Laterality Modality Lower Extremities, Hip Right Radiograp hic Imaging 04/13/2025 10:5 0 AM EDT Narrative 04/13/2025 11:05 AM EDT [address] [address] XRay Report Signed Patient: Rena Marsh MR#: [id number] : 1985 Acct:[id number] Age/Sex: 39 / F ADM Date: 04/13/25 Loc: HO.HHCX Attending Dr: Lily Burnette MD Ordering Physician: Lily Chauhan MD Date of Service: 04/13/25 Procedure(s): XR hip RT min 2V Accession Number(s): [id number] cc: Lily Chauhan MD Reason for Exam: pain EXAMINATION: XR HIP 2 OR MORE VIEWS RIGHT, XR HIP 2 OR MORE VIEWS LEFT HISTORY: pain COMPARISON: There are no prior studies available for comparison. FINDINGS: Two views of each hip are submitted. Osseous mineralization is normal. There is no fracture or dislocation. The joint space is maintained. The soft tissues are unremarkable. XR/XR hip RT min 2V IMPRESSION: Unremarkable examination of the bilateral hips. Electronically signed by: Thomas Bui MD 04/13/2025 11:02 AM EDT Dictated By: Thomas Bui MD Signed By: <Electronically signed by Thomas Bui MD in OV> 04/13/25 1102 DD/ 1050 TD/TT: 04/13/25 1057 Lab Pack Chemist: Procedure Note Donotuseinterpreter, Image - 04/13/[address] [address] XRay Report Signed Patient: Rena MarshMR#: [id number] : 1985Acct:[id number] Age/Sex: 39 / FADM Date: 04/13/25 Loc: HO.HHCX Attending Dr: Lily Burnette MD Ordering Physician: Lily Chauhan MD Date of Service: 04/13/25 Procedure(s): XR hip RT min 2V Accession Number(s): [id number] cc: Lily Chauhan MD Reason for Exam: pain EXAMINATION: XR HIP 2 OR MORE VIEWS RIGHT, XR HIP 2 OR MORE VIEWS LEFT HISTORY: pain COMPARISON: There are no prior studies available for comparison. FINDINGS: Two views of each hip are submitted. Osseous mineralization is normal. There is no fracture or dislocation. The joint space is maintained. The soft tissues are unremarkable. XR/XR hip RT min 2V IMPRESSION: Unremarkable examination of the bilateral hips. Electronically signed by: Thomas Bui MD 04/13/2025 11:02 AM EDT Dictated By: Thomas Bui MD Signed By: <Electronically signed by Thomas Bui MD in OV> 04/13/25 1102 DD/ 1050 TD/TT: 04/13/25 1057 Lab Pack Chemist: us Lily Burnette MD IMG XR PROCEDURES Davy marilou Result - Final * (ABNORMAL) Herpes Simplex Virus Culture with Reflex Typing (03/01/2025 12:00 AM EDT) HSV Culture/Type SEE NOTE(A) [facility] Comment:HERPES SIMPLEX VIRUS CULTURE W/RFL TO TYPING Micro Number: [id number] Test Status: Final Specimen Source: Not given Specimen Quality: Adequate HSV Culture: Isolated HSV TYPE 2: Isolated HSV TYPE 1: The incidence of HSV 1 infection in the presence of HSV 2 (dual infection) is extremely rare. Therefore, testing for HSV 1 was not performed.THIS TEST WAS PERFORMED AT:[facility] [id number] MERATI,MD Swab (Lesion) 03/01/2025 03/01/2025 us Lily Burnette MD LAB MICROBIOLOGY - [facility] ORDERABLES Final Result [facility] [address] [place] [phone] * MR Lumbar Spine w/o Contrast (02/26/2025 3:52 PM EDT) Anatomical Region Laterality Modality Spine, L-spine Magnetic Resonan ce 02/26/2025 3:52 PM EDT Narrative 02/26/2025 3:53 PM EDT [address] [address] Magnetic Resonance Report Signed Patient: Rena Marsh MR#: [id number] : 1985 Acct:[id number] Age/Sex: 39 / F ADM Date: 02/24/25 Loc: HO.MRI Attending Dr: Lily Burnette MD Ordering Physician: Liyl Chauhan MD Date of Service: 02/24/25 Procedure(s): MR lumbar spine wo con Accession Number(s): [id number] cc: Lily Chauhan MD CLINICAL HISTORY: worsening [...] OV> 02/26/25 1553 DD/ 1552 TD/TT: 02/26/25 155 Lab Pack Chemist: Procedure Note Donotuseinterpreter, Image - 02/26/2025 [place] [address] Magnetic Resonance Report Signed Patient: Rena Marsh#: [id number] : 1985Acct:[id number] Age/Sex: 39 / FADM Date: 02/24/25 Loc: HO.MRI Attending Dr: Lily Burnette MD Ordering Physician: Lily Chauhan MD Date of Service: 02/24/25 Procedure(s): MR lumbar spine wo con Accession Number(s): [id number] cc: Lily Chauhan MD CLINICAL HISTORY: worsening [...] Gutierrez MD in OV> 02/26/25 1553 DD/ 155 TD/TT: 02/26/251551 Lab Pack Chemist: Lily Burnette MD IMG MRI PROCEDURES Fi nal Result * (ABNORMAL) Vitamin D, 25-Hydroxy, Total, Immunoassay (02/15/2025 11:45 AM EDT) Vitamin D 25-OH Total 21.9(L) >30 ng/mL [facility] Comment: Health Based Reference Values*< 20 ng/mL Iengefeav49-90 ng/mL Insufficient> 30 ng/mL Sufficient*Manolo HERRON. N [...] Burnette MD LAB BLOOD ORDERABLES Final Result [facility] [address] [place] [phone] * Vitamin B12 (Cobalamin) and Folate Panel, Serum (02/15/2025 11:45 AM EDT) Vitamin B12 326 200 - 900 pg/mL [facility] Comment:NORMAL 200-900 PG/ML INDETERMINATE 160-199 PG/ML DEFICIENT < 160 PG/ML Folate 9.6 > or = 4.0 ng/mL [facility] Comment:Reference Values:> o r = 4.0 [...] BLOOD ORDERABLES Final Result Performing Organization Address City/[facility]/ZIP Co de Phone Number [facility] [address] [place] [phone] * TSH with Reflex to Free T4 (02/15/2025 11:45 AM EDT) Pathologist [facility] TSH reflex Free T4 0.97 0.32 - 4.0 uIU/mL [facility] Blood Venous blood specimen / Unknown 02/15/2025 11:45 AM EDT 02/15/2025 1:16 PM EDT us Lily Burnette MD LAB BLOOD ORDERABLES Final Result Performing Organization Address City/[facility]/ZIP Co de Phone Number [facility] [address] [place] [phone] * (ABNORMAL) CBC auto differential (02/15/2025 11:45 AM EDT) Pathologist [facility] White Blood Count 2.8(L) 4.8 - 10.8 X10*3/uL [facility] Red Blood Count 3.90(L) 4.20 - 5.50 X10*6/uL [facility] Hemoglobin 11.7(L) 12.0 - 16.0 g/dl [facility] Hematocrit 34.1(L) 37.0 - 47.0 % [facility] Mean Corpuscular Volume 87.4 80.0 - 98.0 fL [facility] Mean Corpuscular Hemoglobin 30.0 27.0 - 33.0 pg [facility] Mean Corpuscular HGB Conc 34.3 31.0 - 35.0 g/dl [facility] Red Cell Distribution Width 14.3 11.0 - 16.0 % [facility] Platelet Count 270 160 - 400 X10*3/uL [facility] Mean Platelet Volume 10.4 9.4 - 12.3 fL [facility] Neutrophils Percent Auto 45.0 45 - 73 % [facility] Imm Gran Pct Auto 0.0 0.0 - 0.4 % [facility] Lymphocytes Percent Auto 43.6(H) 20 - 40 % [facility] Monocytes Percent Auto 9.9 2 - 11 % [facility] Eosinophils Percent Auto 0.4 0 - 4 % [facility] Basophils Percent Auto 1.1 0 - 2 % [facility] NRBC Pct Auto 0.0 0.0 - 0.2 /100WBC [facility] Neutrophils Absolute Auto 1.3(L) 2.0 - 8.3 x10*3/uL [facility] Imm Gran Abs Auto 0.00 0.00 - 0.03 X10*3/uL [facility] Lymphocytes Absolute Auto 1.2 1.2 - 4.9 X10*3/uL [facility] Monocytes Absolute Auto 0.3 0.1 - 1.2 X10*3/uL [facility] Eosinophils Absolute Auto 0.0 0.0 - 0.4 X10*3/uL [facility] Basophils Absolute Auto 0.0 0.0 - 0.2 X10*3/uL [facility] NRBC Abs Auto 0.000 0.0 - 0.012 X10*3/uL [facility] Blood Venous blood specimen / Unknown 02/15/2025 11:45 AM EDT 02/15/2025 1:15 PM EDT Lily Burnette MD LAB BLOOD ORDERABLES Final Result [facility] [address] [place] [phone] [phone] * Hepatitis C Antibody with Reflex to HCV, RNA, Quantitative, Real-Time PCR (02/15/2025 11:45 AM EDT) Hepatitis C Antibody Nonreactive Nonreactive [facility] Comment:Antibodies to HCV no t detected; does not exclude early acuteHCV infection. Blood Venous blood specimen / Unknown 02/15/2025 11:45 AM EDT 02/15/2025 1:16 PM EDT Lily Burnette MD LAB BLOOD ORDERABLES Final Result Performing Organization Address City/[facility]/ZIP Co de Phone Number [facility] [address] [place] [phone] * Iron And Total Iron Binding Capacity (02/15/2025 11:45 AM EDT) Iron 48 30 - 160 mcg/dL [facility] Total Iron Binding Capacity 322 228 - 428 mcg/dL [facility] Percent Iron Saturation 15 15 - 50 % [facility] Unsaturated Iron Binding 274 ug/dL [facility] Blood Venous blood specimen / Unknown 02/15/2025 11:45 AM EDT 02/15/2025 1:16 PM EDT Lily Burnette MD LAB BLOOD ORDERABLES Final Result Performing Organization Address City/[facility]/ZIP Co de Phone Number [facility] [address] [place] [phone] * HIV-1/2 Antigen and Antibodies, Fourth Generation, with Reflexes (02/15/2025 11:45 AM EDT) [facility] HIV AB/AG Nonreactive Nonreactive [facility] Comment:HIV-1 p24 Ag and/or HIV-1/HIV-2 Ab not detected.A test result that is nonreactive does not exclude thepossibility of exposure to or infection with HIV-1 and/orHIV-2. Nonreactive results in this assay for individualswith prior exposure to HIV-1 and/or HIV-2 may be due toantigen and antibody levels that are below the limit ofdetection of this assay.The [employer] HIV Ag/Ab Combo assay result andsupplemental assay results should be interpreted inconjunction with the patient's clinical presentation,history and other laboratory results. If the results areinconsistent with clinical evidence, additional testing issuggested to confirm the result. Blood Venous blood specimen / Unknown 02/15/2025 11:45 AM EDT 02/15/2025 1:16 PM EDT us Lily Burnette MD LAB BLOOD ORDERABLES Final Result Performing Organization Address [facility]/ZIP Co de Phone Number [facility] [address] [place] [phone] * Ferritin (02/15/2025 11:45 AM EDT) [facility] Ferritin 13 10 - 122 ng/mL [facility] Blood Venous blood specimen / Unknown 02/15/2025 11:45 AM EDT 02/15/2025 1:16 PM EDT Lily Burnette MD LAB BLOOD ORDERABLES Final Result Performing Organization Address [facility] Co de Phone Number [facility] [address] [place] [phone] * (ABNORMAL) Comprehensive Metabolic Panel (02/15/2025 11:45 AM EDT) Sodium 140 135 - 145 mmol/L [facility] Potassium 4.1 3.3 - 5.1 mmol/L [facility] Chloride 110(H) 96 - 108 mmol/L [facility] Carbon Dioxide 24 22 - 29 mmol/L [facility] Anion Gap 10(L) 12 - 20 [facility] Urea Nitrogen (BUN) 10 9 - 16 mg/dL [facility] Creatinine, Serum 0.68 0.5 - 1.4 mg/dL [facility] Estimated Glomerular Filt Rate >60 [facility] Comment:Chronic Kidney Disea se: Estimated GFR < 60 mL/min/1.73w4Wjlxgg Kidney Disease: Estimated GFR < 15 mL/min/1.73m2 Glucose 85 60 - 115 mg/dL [facility] Calcium 9.2 8.4 - 10.2 mg/dL [facility] Bilirubin, Total 0.4 0.0 - 1.0 mg/dL [facility] Aspartate Amino Transferase 20 5 - 31 U/L [facility] Alanine Aminotransferase 20 0 - 31 U/L [facility] Total Protein 7.8 6.5 - 8.0 g/dL [facility] Albumin Level 4.6 3.5 - 5.0 g/dL [facility] Alkaline Phosphatase 71 39 - 117 U/L [facility] Blood Venous blood specimen / Unknown 02/15/2025 11:45 AM EDT 02/15/2025 1:16 PM EDT us Lily Burnette MD LAB BLOOD ORDERABLES Final Result [facility] [address] [place] [phone] * Lipid Panel, Standard (06/20/2024 9:49 AM EST) Triglycerides 133 <150 mg/dL [facility] Comment:Desirable Triglyceri de: less than 150 mg/dLBorderline High Triglyceride 150-199 mg/dLHigh Triglyceride: 200-499 mg/dLVery High Triglyceride: greater than or equal to 5OO mg/dL Cholesterol 175 <200 mg/dL [facility] Comment:Desirable Cholestero l: less than 200 mg/dLBorderline High Cholesterol: 200-239 mg/dLHigh Cholesterol: greater than 239 mg/dL LDL Cholesterol Calculated 94 <100 mg/dL [facility] Comment:Desirable LDL: less than 100 mg/dLNear Optimal/Above Optimal LDL: 110- 129 mg/dLBorderline High LDL: 130-159 mg/dLHigh LDL: 160-189 mg/dLVery High LDL: greater than or equal to 190 mg/dL HDL Cholesterol 55 >40 mg/dL [facility] Comment:Desirable HDL: great er than 40 mg/dL Note: This HDL assay may give artificially low results in patients with liver disease. Blood Venous blood specimen / Unknown 06/20/2024 9:49 AM EST 06/20/2024 11:47 AM EST us Lily Burnette MD LAB BLOOD ORDERABLES Final Result [facility] [address] [place], [place] [phone] * HM PAP/HPV (06/02/2019 2:16 PM EST) Historical Provider HEALTH MAINTENANCE Final Result from Last 3 Months or Most Recently Relevant to Health Maintenance Insurance [facility] C3 Care Teams Career Education Teacher Relationship Specialty Start Date End Date Lily Chauhan MD [address] [place] [address] PCP - General Family Medicine 04/06/18 Neida Riojas Desulfurizer MachineTube Wrapper 12/21/23
--- OUTSIDE RECORDS SUMMARY | 2025-04-19 18:27 | XMS_ITS | Encounter Summary ---
Author Organization [employer] Address [address] [facility] [address] [place] [address] Care Team Providers Care Curing Bin Operator Name Role Phone Lily Chauhan MD Primary Care Provide r Reason for Visit * Reason Comments Med Refill Encounter Details Date Type Department Care Team ([facility] st Contact Info) Description 08/11/2024 Refill [facility] [address] [place] [address] Samantha Mason, [address] [place] [address] Social History Tobacco Use Types Packs/Day Years [...] Description 05/30/2025 11:30 AM EST Office Visit [facility] OPTOMET[facility] [address] [place] [address] Swati Hernandez, OD [address] [place] [address] documented as of this encounter Visit Diagnoses Not on filedocumented in this encounter Additional Health Concerns Assessment Noted Time PHQ-9 Depression Total Score: 3 05/22/20 24 1:05 PM EDT documented as of this encounter Care Teams Curing Bin Operator Relationship Specialty Start Date End Date Lily Chauhan MD [address] [place] [phone] PCP - General Family Medicine 04/06/18 Neida Riojas Ophthalmology AssistantGas Cutter 12/21/23 documented as of this encounter
--- OUTSIDE RECORDS SUMMARY | 2025-04-19 18:27 | XMS_ITS | Encounter Summary ---
Author Organization [employer] Address [address] [facility] 7t [place] [address] Care Team Providers Care Community Sports Coordinator Name Role Phone Lily Chauhan MD Primary Care Provide r Reason for Visit * Reason Onset Date Comments Med Refill 10/31/2024 Encounter Details Date Type Department Care Team (Late st Contact Info) Description 10/31/2024 Refill [facility] [address] [place] [address] Lily Chauhan MD [address] [place] [address] BMI 38.0-38.9,adult Social History Tobacco Use Types [...] Description 05/30/2025 11:30 AM EST Office Visit [facility] [address] [place], [place] [phone] Swati Hernandez, OD [address] [place] [address] documented as of this encounter Visit Diagnoses Diagnosis BMI 38.0-38.9,adult documented in this encounter Additional Health Concerns Assessment Noted Time PHQ-9 Depression Total Score: 3 05/22/20 24 1:05 PM EDT documented as of this encounter Care Teams Community Sports Coordinator Relationship Specialty Start Date End Date Lily Chauhan MD [address] [place] [address] PCP - General Family Medicine 04/06/18 Neida Riojas Campaign CoordinatorKey Bed Installer 12/21/23 documented as of this encounter
--- OUTSIDE RECORDS SUMMARY | 2025-04-19 18:27 | XMS_ITS | Encounter Summary ---
Author Organization [email or web address] Address [address] [facility] 7[address] [place] [address] Care Team Providers Care Director Of Food And Beverage Services Name Role Phone Lily Chauhan MD Primary Care Provide r Encounter Details Date Type Department Care Team ([facility] Contact Info) Description 08/17/2022 Orders Only [facility]INE [address] [place] [address] Maryan Abernathy MD [address] [place] [address] Vitamin D deficiency (Primary Dx) Social History [...] Upcoming Encounters Date Type Department Care Team ([facility] Contact Info) Description 05/30/2025 11:30 AM EST Office Visit [facility] OPT[facility] [address] [place] [address] Swati Hernandez, OD [address] [place] [address] documented as of this encounter Visit Diagnoses Diagnosis Vitamin D deficiency- Primary documented in this encounter Care Teams Director Of Food And Beverage Services Relationship Specialty Start Date End Date Lily Chauhan MD [address] [place], [place] [phone] PCP - General Family Medicine 04/06/18 Neida Riojas Lifestyle ConsultantHome Lighting Adviser 12/21/23 documented as of this encounter
--- OUTSIDE RECORDS SUMMARY | 2025-04-19 18:27 | XMS_ITS | Encounter Summary ---
Author Organization [employer] Address [address] [facility] [address]t [place] [address] Care Team Providers Care Fiction And Nonfiction Prose Writer Name Role Phone Lily Chauhan MD Primary Care Provide r Reason for Visit * Reason Onset Date Comments Nurse Triage 02/26/2025 Encounter Details Date Type Department Care Team ([facility] st Contact Info) Description 02/26/2025 Telephone [facility] [address] [place] [address] Lily Chauhan MD [address] [place] [address] Nurse Triage Social History Tobacco Use Types [...] didn't answer. Left voice message to call [facility] triage line at [phone] and callerwill try again in 10-15min. * Telephone Encounter - Adrian Jorge - 02/26/2025 12:02 PM EDT Tc from pt reporting that she is currently taking gabapentin and is getting a burning sensation andis growing blisters on her skin. Contact pt at [phone] documented in this encounter Plan of Treatment Upcoming Encounters Date Type Department Care Team (Late st Contact Info) Description 05/30/2025 11:30 AM EST Office Visit [facility] OPT[facility]ETRY [address] [place], [place] [phone] Swati Hernandez, OD [address] [place] [address] documented as of this encounter Visit Diagnoses Not on filedocumented in this encounter Additional Health Concerns Assessment Noted Time PHQ-9 Depression Total Score: 0 02/16/20 25 3:12 PM EDT documented as of this encounter Care Teams Fiction And Nonfiction Prose Writer Relationship Specialty Start Date End Date Lily Chauhan MD [address] [place], [place] [phone] PCP - General Family Medicine 04/06/18 Neida Riojas Booking Police OfficerSecretary Office Clerk 12/21/23 documented as of this encounter
--- OUTSIDE RECORDS SUMMARY | 2025-04-19 18:27 | XMS_ITS | Encounter Summary ---
Author Organization [employer] Address [address] 7[address] [place] [address] Care Team Providers Care Cash Applications Analyst Name Role Phone Lily Chauhan MD Primary Care Provide r Encounter Details Date Type Department Care Team ([facility] st Contact Info) Description 04/28/2024 Telephone [facility] [address] [place] [address] Julianne Soto RN [address] [place] [address] Social History Tobacco Use Types Packs/Day Years [...] Description 05/30/2025 11:30 AM EST Office Visit [facility] OPTOMETRY [address] [place] [address] David, Swati, OD [address] [place] [address] documented as of this encounter Visit Diagnoses Not on filedocumented in this encounter Additional Health Concerns Assessment Noted Time PHQ-9 Depression Total Score: 0 11/15/19 24 10:46 AM EDT documented as of this encounter Care Teams Cash Applications Analyst Relationship Specialty Start Date End Date Lily Chauhan MD [address] [place] [address] PCP - General Family Medicine 04/06/18 Neida Riojas Maintainer Central OfficeAssistant Unit Forester 12/21/23 documented as of this encounter
--- OUTSIDE RECORDS SUMMARY | 2025-04-19 18:27 | XMS_ITS | Encounter Summary ---
Author Organization [employer] Address [address] [place] [address] Care Team Providers Care City Wellness Coordinator Name Role Phone Lily Chauhan MD Primary Care Provide r Encounter Details Date Type Department Care Team ([facility] Contact Info) Description 01/09/2025 Orders Only [facility] MED[facility] [address] [place] [address] Lily Chauhan MD [address] [place] [address] Social History Tobacco Use Types Packs/Day Years [...] 11:30 AM EST Office Visit [facility] OPTOMETRY [address] [place] [address] David, Swati, OD [address] [place] [address] documented as of this encounter Visit Diagnoses Not on filedocumented in this encounter Additional Health Concerns Assessment Noted Time PHQ-9 Depression Total Score: 3 05/22/20 24 1:05 PM EDT documented as of this encounter Care Teams City Wellness Coordinator Relationship Specialty Start Date End Date Lily Chauhan MD [address] [place] [address] PCP - General Family Medicine 04/06/18 Neida Riojas Field AdjusterCabinet Mounter 12/21/23 documented as of this encounter
--- OUTSIDE RECORDS SUMMARY | 2025-04-19 18:27 | XMS_ITS | Encounter Summary ---
Author Organization [email or web address] Address [address] [facility] [address] [place] [address] Care Team Providers Care Associate Professor Of Forestry Name Role Phone Lily Chauhan MD Primary Care Provide r Reason for Visit * Reason Comments Med Refill Encounter Details Date Type Department Care Team ([facility] st Contact Info) Description 05/15/2024 Refill [facility] [address] [place] [address] Lily Chauhan MD [address] [place] [address] Essential hypertension Social History Tobacco Use Types [...] Description 05/30/2025 11:30 AM EST Office Visit [facility] OPTOM[facility] [address] [place] [address] Swati Hernandez, OD [address] [place] [address] documented as of this encounter Visit Diagnoses Diagnosis Essential hypertension Unspecified essential hypertension documented in this encounter Additional Health Concerns Assessment Noted Time PHQ-9 Depression Total Score: 0 11/15/19 24 10:46 AM EDT documented as of this encounter Care Teams Associate Professor Of Forestry Relationship Specialty Start Date End Date Lily Chauhan MD [address] [place] [address] PCP - General Family Medicine 04/06/18 Neida Riojas Manager AssuranceTruck Service Manager 12/21/23 documented as of this encounter
--- OUTSIDE RECORDS SUMMARY | 2025-04-19 18:27 | XMS_ITS | Encounter Summary ---
Author Organization [employer] Address [address] [place] [address] Care Team Providers Care Senior Water Resources Engineer Name Role Phone Lily Chauhan MD Primary Care Provide r Encounter Details Date Type Department Care Team ([facility] st Contact Info) Description 05/11/2024 Orders Only [facility] [address] [place] [address] Provider, MD Gloria Social History Tobacco Use [...] Description 05/30/2025 11:30 AM EST Office Visit [facility] [address] [place], [place] [phone] Swati Hernandez, OD [address] [place] [address] documented as of this encounter Procedures Procedure [...] as of this encounter Care Teams Senior Water Resources Engineer Relationship Specialty Start Date End Date Lily Chauhan MD [address] [place], [place] [phone] PCP - General Family Medicine 04/06/18 Neida Riojas In Flight Refueling OperatorTruck Rental Manager 12/21/23 documented as of this encounter
--- OUTSIDE RECORDS SUMMARY | 2025-04-19 18:27 | XMS_ITS | Encounter Summary ---
Author Organization [employer] Address [address] [facility] [address] [place] [address] Care Team Providers Care Photoengraving Etcher Name Role Phone Lily Chauhan MD Primary Care Provide r Reason for Visit * Reason Onset Date Comments Med Refill 03/27/2025 Encounter Details Date Type Department Care Team (Late st Contact Info) Description 03/27/2025 Refill [facility] [address] [place] [address] Lily Chauhan MD [address] [place] [address] BMI 38.0-38.9,adult Social History Tobacco Use Types [...] Description 05/30/2025 11:30 AM EST Office Visit [facility] OPTOMET[facility] [address] [place] [address] DavidSwati pereyra, OD [address] [place] [address] documented as of this encounter Visit Diagnoses Diagnosis BMI 38.0-38.9,adult documented in this encounter Additional Health Concerns Assessment Noted Time PHQ-9 Depression Total Score: 0 02/16/20 25 3:12 PM EDT documented as of this encounter Care Teams Photoengraving Etcher Relationship Specialty Start Date End Date Lily Chauhan MD [address] [place], [place] [phone] PCP - General Family Medicine 04/06/18 Neida Riojas Academic CoachAcid Mixer 12/21/23 documented as of this encounter
--- OUTSIDE RECORDS SUMMARY | 2025-04-19 18:27 | XMS_ITS | Encounter Summary ---
Author Organization [employer] Address [address] [facility] [address] [place] [address] Care Team Providers Care Golf Ball Winder Name Role Phone Lily Chauhan MD Primary Care Provide r Reason for Visit * Reason Onset Date Comments Nurse Triage 06/26/2024 Encounter Details Date Type Department Care Team ([facility] st Contact Info) Description 06/26/2024 Telephone [facility] MED[facility]INE [address] [place] [address] Lily Chauhan MD [address] [place] [address] Nurse Triage Social History Tobacco Use Types [...] Description 05/30/2025 11:30 AM EST Office Visit [facility] OPTOMETRY [address] [place], [place] [phone] Swati Hernandez, OD [address] [place] [address] documented as of this encounter Visit Diagnoses Not on filedocumented in this encounter Additional Health Concerns Assessment Noted Time PHQ-9 Depression Total Score: 3 05/22/20 24 1:05 PM EDT documented as of this encounter Care Teams Golf Ball Winder Relationship Specialty Start Date End Date Lily Chauhan MD [address] [place] [address] PCP - General Family Medicine 04/06/18 Neida Riojas Crop Farm WorkersSlab Inspector 12/21/23 documented as of this encounter
== END 2025-04-19 13:58 | disposition home or self-care (01) ==
LOC: HO.US 13:57
PROVIDERS: PCP Internal Medicine; Visit Provider Internal Medicine
DX: R19.8 Other specified symptoms and signs involving the digestive system and abdomen (principal)
CPT/HCPCS: 76830; 76856

== ENCOUNTER → 2025-04-19 14:00 | Outpatient (BNV) | payer MEDICAID, SELFPAY | PROVIDERS: PCP Internal Medicine; Visit Provider Radiology Vascular & Interventional Radiology | DX: D25.9 Leiomyoma of uterus, unspecified (principal) | CPT/HCPCS: 76830; 76856 ==